=== PATIENT | male | born 1970 | race African-American/Black ===

== ENCOUNTER 2016-07-19 01:24 | Emergency (ER) | payer OTHER ==
[2016-07-19 02:01] LABS: Hematocrit 40 % (42-52); Hemoglobin 12.8 g/dl (14.0-18.0); Mean Corpuscular HGB Conc 32 g/dl (31-36); Mean Corpuscular Hemoglobin 26 pg (27-31); Mean Corpuscular Volume 83 fL (80-94); Mean Platelet Volume 7 um3 (7.4-10.4); Red Blood Count 4.89 10^6/ul (4.0-5.4); Red Cell Distribution Width 14 % (10.5-15); White Blood Count 6.6 10^3/ul (3.5-10.8)
[2016-07-19 02:13] LABS: Albumin 3.4 g/dL (3.2-5.2); BUN/Creatinine Ratio 13.8 (8-20); Calcium 8.7 mg/dL (8.6-10.3); EGFR African American 133.3 (>60); EGFR Non-African American 103.6 (>60); Globulin 3.9 g/dL (2-4); Magnesium 1.3 mg/dL (1.9-2.7); Potassium 3.7 mmol/L (3.5-5.0); Total Bilirubin 0.4 mg/dL (0.2-1.0); Total Protein 7.3 g/dL (6.4-8.9)
[2016-07-19 02:15] LABS: Troponin I 0.03 ng/mL (<0.04)
--- NOTE | 2016-07-19 02:42 | ED ---
Manisha Griffin Erika, scribed for Georges Hsu MD on 07/19/16 at 0141 . HPI Chest Pain - HPI Summary HPI Summary: Patient is a 46-year-old male presenting to the ED with a CC of sharp chest pain. Pt reports that at 18:00, he developed the chest pain while watching TV. Pain significantly worsened around 21:30. At that point, pain was not alleviated by NTG which he took at home. Pt was also given ASA and NTG by EMS. Pt currently rates pain a 10/10. He states pain is aggravated by movement, but not by deep breathing. Pt states this is the first chest pain he has experienced since he was discharged from the hospital with an NSTEMI in early June 2016. Pt also reports a cough since March 2016. - History of Current Complaint Time Seen by Provider: 07/19/16 01:31 Hx Obtained From: Patient Onset/Duration: Started Hours Ago, Atraumatic, Worse Since - 21:30 Timing: Constant Initial Severity: Mild Current Severity: Moderate Pain Intensity: 10 Pain Scale Used: 0-10 Numeric Chest Pain Radiates: No Character: Sharp/Stabbing Aggravating Factor(s): Movement Alleviating Factor(s): Nothing - Additional Pertinent History Primary Care Physician: [id number] - Allergy/Home Medications Allergies/Adverse Reactions: Allergies Allergy/AdvReac Type Severity Reaction Status Date / Time Fentanyl Allergy See Comment Verified 06/21/16 07:37 Shellfish Allergy Allergy See Comment Verified 06/19/16 22:08 PMH/Surg Hx/FS Hx/Imm Hx Endocrine/Hematology History: Reports: Hx Diabetes Denies: Hx Thyroid Disease Cardiovascular History: Reports: Hx Hypertension, Hx Myocardial Infarction - NSTEMI, Other Cardiovascular Problems/Disorders - Current admission for chest pain Respiratory History: Reports: Hx Asthma - SEASONAL Denies: Hx Chronic Obstructive Pulmonary Disease (COPD) GI History: Denies: Hx Ulcer Sensory History: Reports: Hx Contacts or Glasses Opthamlomology History: Reports: Hx Contacts or Glasses - Surgical History Surgery Procedure, Year, and Place: appendectomy Hx Anesthesia Reactions: No Infectious Disease History: Denies: Hx Hepatitis, Hx Human Immunodeficiency Virus (HIV), History Other Infectious Disease, Traveled Outside the [place] in Last 30 Days - Family History Known Family History: Positive: Cardiac Disease, Hypertension, Diabetes - Social History Lives: With Family Alcohol Use: Occasionally Hx Substance Use: Yes Substance Use Type: Reports: Marijuana Substance Use Comment - Amount & Last Used: OCCASIONALLY Hx Tobacco Use: Yes Smoking Status (MU): Former Smoker Review of Systems Negative: Fever Positive: Chest Pain Positive: Cough - baseline All Other Systems Reviewed And Are Negative: Yes Physical Exam Triage Information Reviewed: Yes Vital Signs On Initial Exam: Temp Pulse Resp BP Pulse Ox 97.8 F 90 16 115/78 97 07/19/16 01:28 07/19/16 01:28 07/19/16 01:28 07/19/16 01:28 07/19/16 01:28 Vital Signs Reviewed: Yes Appearance: Positive: Well-Appearing, No Pain Distress Skin: Positive: Warm Head/Face: Positive: Normal Head/Face Inspection Eyes: Positive: STEFANIA ENT: Positive: Hearing grossly normal Neck: Positive: Supple Respiratory/Lung Sounds: Positive: Clear to Auscultation, Breath Sounds Present Cardiovascular: Positive: Normal Abdomen Description: Positive: Nontender, No Organomegaly, Soft Bowel Sounds: Positive: Present Musculoskeletal: Positive: Strength/ROM Intact Neurological: Positive: Sensory/Motor Intact, Alert, Oriented to Person Place, Time Psychiatric: Positive: Normal Diagnostics - Vital Signs Vital Signs Temp Pulse Resp BP Pulse Ox 07/19/16 01:54 96 07/19/16 01:40 90 25 96 07/19/16 01:38 115/78 07/19/16 01:28 97.8 F 90 16 115/78 97 - Laboratory Lab Results: Lab Results 07/19/16 07/19/16 07/19/16 Range/Units 01:40 01:40 01:40 WBC 6.6 (3.5-10.8) 10^3/ul RBC 4.89 (4.0-5.4) 10^6/ul Hgb 12.8 L (14.0-18.0) g/dl Hct 40 L (42-52) % MCV 83 (80-94) fL MCH 26 L (27-31) pg MCHC 32 (31-36) g/dl RDW 14 (10.5-15) % Plt Count 260 (150-450) 10^3/ul MPV 7 L (7.4-10.4) um3 Neut % (Auto) 42.6 (38-83) % Lymph % (Auto) 30.2 (25-47) % [place] % (Auto) 13.8 H (1-9) % Eos % (Auto) 8.7 H (0-6) % Baso % (Auto) 4.7 H (0-2) % Absolute Neuts (auto) 2.8 (1.5-7.7) 10^3/ul Absolute Lymphs (auto) 2.0 (1.0-4.8) 10^3/ul Absolute Monos (auto) 0.9 H (0-0.8) 10^3/ul Absolute Eos (auto) 0.6 (0-0.6) 10^3/ul Absolute Basos (auto) 0.3 H (0-0.2) 10^3/ul Absolute Nucleated RBC 0 10^3/ul Nucleated RBC % 0.1 Sodium 132 L (133-145) mmol/L Potassium 3.7 (3.5-5.0) mmol/L Chloride 103 (101-111) mmol/L Carbon Dioxide 20 L (22-32) mmol/L Anion Gap 9 (2-11) mmol/L BUN 11 (6-24) mg/dL Creatinine 0.80 (0.67-1.17) mg/dL Est GFR ( Amer) 133.3 (>60) Est GFR (Non-Af Amer) 103.6 (>60) BUN/Creatinine Ratio 13.8 (8-20) Glucose 147 H (70-100) mg/dL Lactic Acid 2.1 H* (0.5-2.0) mmol/L Calcium 8.7 (8.6-10.3) mg/dL Magnesium 1.3 L (1.9-2.7) mg/dL Total Bilirubin 0.40 (0.2-1.0) mg/dL AST 35 (13-39) U/L ALT 64 H (7-52) U/L Alkaline Phosphatase 77 (34-104) U/L Troponin I 0.03 (<0.04) ng/mL Total Protein 7.3 (6.4-8.9) g/dL Albumin 3.4 (3.2-5.2) g/dL Globulin 3.9 (2-4) g/dL Albumin/Globulin Ratio 0.9 L (1-3) Result Diagrams: 07/19/16 01:40 07/19/16 01:40 Lab Statement: Any lab studies that have been ordered have been reviewed, and results considered in the medical decision making process. - Radiology CXR Xray Interpretation: No Acute Changes Radiology Interpretation Completed By: ED Physician - EKG 01:40 Cardiac Rate: NL - at 89 bpm EKG Rhythm: Sinus Rhythm Re-Evaluation - Re-Evaluation First Eval Re-Evaluation Time: 05:42 Change: Improved Comment: Pt feels improved and will be discharged Chest Pain Course/Dx - Course Assessment/Plan: A 46 y/o M presents to the ED with a CC of chest pain. Pt has a Hx of NSTEMI approximately 1 month ago. Pt was given ASA and NTG by EMS. EKG shows NSR. Initial troponin is 0.03, 3 hour repeat troponin is 0.01. Patient feels improved, and will be discharged home with follow up from cardiology. - Diagnoses Provider Diagnoses: Chest pain Discharge - Discharge Plan Condition: Stable Disposition: HOME Patient Education Materials: Chest Pain (ED) Referrals: Nancie Camarena MD [Primary Care Provider] - Byron Rai MD [Medical Doctor] - Additional Instructions: Please follow up with cardiology. The documentation as recorded by the Manisha melton Erika accurately reflects the service I personally performed and the decisions made by me, Georegs Hsu MD.
[2016-07-19 05:13] VITALS: BP 133/76
--- NOTE | 2016-07-19 07:23 | RAD ---
INDICATION: Chest pain COMPARISON: Most recent comparison chest x-rays dated June 19, 2016 TECHNIQUE: PA and lateral views of the chest were obtained. FINDINGS: The heart and mediastinum are normal in size and contour. The lungs are grossly clear. There is no evidence of large pleural effusion. Visualized bones are normal for the patient's age. There is no radiographic evidence of free air beneath the diaphragm IMPRESSION: No radiographic evidence of acute cardiopulmonary disease.
== END 2016-07-19 05:45 | disposition home or self-care (01) ==
LOC: ED 01:24
DX: R07.9 Chest pain, unspecified (principal); R05 Cough; Z87.891 Personal history of nicotine dependence
CPT/HCPCS: 36415; 71020; 80053; 83605; 83735; 84484; 85025; 93005; 99283

== ENCOUNTER 2016-08-07 10:27 | Emergency (ER) | payer OTHER ==
[2016-08-07] MEDS ORDERED: Aspirin Low Dose CHEW TAB* 81 MG PO ONE (14:08)
--- NOTE | 2016-08-07 14:08 | ED ---
Cornelius Griffin Janilya, scribed for Tashia Huerta MD on 08/07/16 at 1407 . Progress - Progress Note Progress Note: A 46 y/o male came in to [facility] presenting w/ a gradual onset of constant CP that started this morning at 0700. He states his pain radiates No SHx of tobacco or EtOH use. No FMHx DVT, NE, or heart problems. No PE risk factors. moth ago before ekg normal 1) labs 2) cxr 3) trop Course/Dx - Diagnoses Provider Diagnoses: Chest pain The documentation as recorded by the scribeCornelius Janilya accurately reflects the service I personally performed and the decisions made by me, Tashia Huerta MD.
[2016-08-07 14:34] LABS: Hematocrit 41 % (42-52); Hemoglobin 13.1 g/dl (14.0-18.0); Mean Corpuscular HGB Conc 32 g/dl (31-36); Mean Corpuscular Hemoglobin 26 pg (27-31); Mean Corpuscular Volume 82 fL (80-94); Mean Platelet Volume 7 um3 (7.4-10.4); Red Blood Count 5.02 10^6/ul (4.0-5.4); Red Cell Distribution Width 14 % (10.5-15); White Blood Count 5.5 10^3/ul (3.5-10.8)
--- NOTE | 2016-08-07 14:49 | RAD ---
HISTORY: Chest pain COMPARISONS: July 19, 2016 VIEWS:1: Single frontal portable view of the chest at 2:30 PM FINDINGS: LINES AND TUBES: None. CARDIOMEDIASTINAL SILHOUETTE: The cardiomediastinal silhouette is normal for portable technique. PLEURA: The costophrenic angles are sharp. No pleural abnormalities are noted. LUNG PARENCHYMA: The lungs are clear. ABDOMEN: The upper abdomen is clear. There is no subphrenic gas. BONES AND SOFT TISSUES: No bone or soft tissue abnormalities are noted. IMPRESSION: NO ACTIVE CARDIOPULMONARY DISEASE.
[2016-08-07 14:54] LABS: Troponin I 0.01 ng/mL (<0.04)
[2016-08-07 15:00] LABS: Albumin 3.5 g/dL (3.2-5.2); BUN/Creatinine Ratio 9.6 (8-20); Calcium 9.3 mg/dL (8.6-10.3); EGFR African American 127.7 (>60); EGFR Non-African American 99.3 (>60); Globulin 3.9 g/dL (2-4); Potassium 3.7 mmol/L (3.5-5.0); Total Bilirubin 0.5 mg/dL (0.2-1.0); Total Protein 7.4 g/dL (6.4-8.9)
[2016-08-07 17:06] VITALS: BP 122/86
--- NOTE | 2016-08-07 19:39 | ED ---
Nik Griffin Michael, scribed for Jose Palacio MD on 08/07/16 at 1717 . HPI Chest Pain - HPI Summary HPI Summary: 46 y/o male comes to the ED presenting with intermittent episodes of right sided chest pain since his heart catheterization. The pt reports the the chest pain today was not alleviated with medication. The chest pain is aggravated with position change and coughing. Also, the chest pain is reproducible with palpation of the chest. The pt denies SOB. The PMHx is significant for FL on 06/20/17 resulting in stent at the proximal circumflex and injection fraction was 55%. The LAD was mild to moderate narrowing and circumflex at 8% narrowing. RCA had diffuse narrowing up to 55%. - History of Current Complaint Chief Complaint: EDChestPainROMI Time Seen by Provider: 08/07/16 15:27 Hx Obtained From: Patient, Medical Records Onset/Duration: Started Hours Ago, Still Present Timing: Intermittent Initial Severity: Moderate Current Severity: Moderate Pain Intensity: 4 Pain Scale Used: 0-10 Numeric Chest Pain Location: Right Lateral Aggravating Factor(s): Other: - position change, coughing, palpation Alleviating Factor(s): Nothing Associated Signs and Symptoms: Positive: Chest Pain. Negative: Shortness of Breath - Additional Pertinent History Primary Care Physician: [id number] - Allergy/Home Medications Allergies/Adverse Reactions: Allergies Allergy/AdvReac Type Severity Reaction Status Date / Time Fentanyl Allergy See Comment Verified 08/07/16 11:09 Shellfish Allergy Allergy See Comment Verified 08/07/16 11:09 PMH/Surg Hx/FS Hx/Imm Hx Endocrine/Hematology History: Reports: Hx Diabetes Denies: Hx Thyroid Disease Cardiovascular History: Reports: Hx Hypertension, Hx Myocardial Infarction - NSTEMI, Other Cardiovascular Problems/Disorders - Current admission for chest pain Respiratory History: Reports: Hx Asthma - SEASONAL Denies: Hx Chronic Obstructive Pulmonary Disease (COPD), Other Respiratory Problems/Disorders GI History: Denies: Hx Ulcer Sensory History: Reports: Hx Contacts or Glasses Opthamlomology History: Reports: Hx Contacts or Glasses - Surgical History Surgery Procedure, Year, and Place: appendectomy Hx Anesthesia Reactions: No Infectious Disease History: No Infectious Disease History: Denies: Hx Hepatitis, Hx Human Immunodeficiency Virus (HIV), History Other Infectious Disease, Traveled Outside the [place] in Last 30 Days - Family History Known Family History: Positive: Cardiac Disease, Hypertension, Diabetes - Social History Occupation: Employed Full-time Lives: With Family Alcohol Use: Occasionally Hx Substance Use: Yes Substance Use Type: Reports: Marijuana Substance Use Comment - Amount & Last Used: OCCASIONALLY Hx Tobacco Use: Yes Smoking Status (MU): Former Smoker Review of Systems Negative: Fever Positive: Chest Pain Negative: Shortness Of Breath All Other Systems Reviewed And Are Negative: Yes Physical Exam - Summary Physical Exam Summary: Normal Physical General: Comfortable, pleasant, alert, no distress HEENT: Moist mucosa, pupils equal Neck: soft, supple, no adenopathy, no edema Heart: S1, S2, RRR, no murmurs, rubs, or gallops Lungs: Clear to auscultation, breathing comfortable, no wheezes or rales Abdominal: Soft, flat, nontender Extremities: No edema, no calf tenderness Neuro: Alert and oriented x 3 Psych: Logical, coherent Triage Information Reviewed: Yes Vital Signs On Initial Exam: Initial Vitals Temp Pulse Resp BP Pulse Ox 98.9 F 95 16 126/73 97 08/07/16 10:30 08/07/16 10:30 08/07/16 10:30 08/07/16 10:30 08/07/16 10:30 Vital Signs Reviewed: Yes Diagnostics - Vital Signs Vital Signs Temp Pulse Resp BP Pulse Ox 08/07/16 17:00 20 122/86 08/07/16 16:31 22 128/74 08/07/16 16:00 16 115/83 08/07/16 15:30 23 113/78 08/07/16 15:26 25 08/07/16 15:24 117/82 08/07/16 10:30 98.9 F 95 16 126/73 97 - Laboratory Lab Results: Lab Results 08/07/16 08/07/16 08/07/16 Range/Units 14:10 14:10 16:28 WBC 5.5 (3.5-10.8) 10^3/ul RBC 5.02 (4.0-5.4) 10^6/ul Hgb 13.1 L (14.0-18.0) g/dl Hct 41 L (42-52) % MCV 82 (80-94) fL MCH 26 L (27-31) pg MCHC 32 (31-36) g/dl RDW 14 (10.5-15) % Plt Count 270 (150-450) 10^3/ul MPV 7 L (7.4-10.4) um3 Neut % (Auto) 31.5 L (38-83) % Lymph % (Auto) 46.4 (25-47) % [place] % (Auto) 15.8 H (1-9) % Eos % (Auto) 5.3 (0-6) % Baso % (Auto) 1.0 (0-2) % Absolute Neuts (auto) 1.7 (1.5-7.7) 10^3/ul Absolute Lymphs (auto) 2.6 (1.0-4.8) 10^3/ul Absolute Monos (auto) 0.9 H (0-0.8) 10^3/ul Absolute Eos (auto) 0.3 (0-0.6) 10^3/ul Absolute Basos (auto) 0.1 (0-0.2) 10^3/ul Absolute Nucleated RBC 0 10^3/ul Nucleated RBC % 0 Sodium 136 (133-145) mmol/L Potassium 3.7 (3.5-5.0) mmol/L Chloride 106 (101-111) mmol/L Carbon Dioxide 24 (22-32) mmol/L Anion Gap 6 (2-11) mmol/L BUN 8 (6-24) mg/dL Creatinine 0.83 (0.67-1.17) mg/dL Est GFR ( Amer) 127.7 (>60) Est GFR (Non-Af Amer) 99.3 (>60) BUN/Creatinine Ratio 9.6 (8-20) Glucose 146 H (70-100) mg/dL Calcium 9.3 (8.6-10.3) mg/dL Total Bilirubin 0.50 (0.2-1.0) mg/dL AST 30 (13-39) U/L ALT 59 H (7-52) U/L Alkaline Phosphatase 74 (34-104) U/L Troponin I 0.01 0.01 (<0.04) ng/mL Total Protein 7.4 (6.4-8.9) g/dL Albumin 3.5 (3.2-5.2) g/dL Globulin 3.9 (2-4) g/dL Albumin/Globulin Ratio 0.9 L (1-3) Result Diagrams: 08/07/16 14:10 08/07/16 14:10 Lab Statement: Any lab studies that have been ordered have been reviewed, and results considered in the medical decision making process. - Radiology CXR Xray Interpretation: No Acute Changes Radiology Interpretation Completed By: Radiologist - EKG EKG EKG Interpretation: st flat in all anterior leads w/ mild-mod j point elevation EKG Comparison: No Significant Change - consistent with 07/19/16 Chest Pain Course/Dx - Course Assessment/Plan: Presentation with intermittent chest pain since his heart catheterization. Today, his right side chest pain was reproducible and increased with certain positions. 2 Trops are negative. Heart catheterization was reviewed and no other significant disease. Believe he is safe for discharge. I told him to follow up with his educational manager sooner than his september apt or to return here for any worsening symptoms. Also considered PE but he doesnt have SOB or tachycardia. - Chest Pain Differential Diagnosis/HQI/PQRI: Acute FL, ACS, Angina, Aortic Aneurysm, CHF, Chest Wall, GI Disease, Lower Respiratory Infection, Pulmonary Edema, Pulmonary Embolism - Diagnoses Provider Diagnoses: Chest pain Discharge - Discharge Plan Condition: Good Disposition: HOME Patient Education Materials: Chest Pain (ED) Referrals: Nancie Camarena MD [Primary Care Provider] - Additional Instructions: Call your educational manager to try to move up your appointment. The documentation as recorded by the Nik melton Michael accurately reflects the service I personally performed and the decisions made by me, Jsoe Palacio MD.
== END 2016-08-07 17:11 | disposition home or self-care (01) ==
LOC: ED 10:27
DX: R07.9 Chest pain, unspecified (principal); Z87.891 Personal history of nicotine dependence
CPT/HCPCS: 36415; 71010; 80053; 84484; 85025; 93005; 99282; A9270-GY

== ENCOUNTER 2016-09-12 15:37 | Emergency (ER) | payer OTHER ==
[2016-09-12 15:54] VITALS: BP 131/82
== END 2016-09-12 17:10 | disposition left against medical advice (07) ==
LOC: UCEAST 15:37
DX: R10.30 Lower abdominal pain, unspecified (principal); Z53.21 Procedure and treatment not carried out due to patient leaving prior to being seen by health care provider

== ENCOUNTER 2016-09-12 18:43 | Emergency (ER) | payer OTHER ==
[2016-09-12 18:54] VITALS: BP 147/86
--- NOTE | 2016-09-12 19:53 | ED ---
Lower Extremity - HPI Summary HPI Summary: Patient arrives to ED with CC of right groin pain after sustaining a fall 3 days ago. He states he immediately felt pain and iced the area with some relief. Yesterday he noticed a large red streak lateral to the groin on the R leg with tenderness to the touch. He has had a cardiac catheter placed through the right groin 2 months ago and states that area is part of the location of the pain. Denies fever or other pain. Patient is a diabetic, with recent RI and takes multiple medications. Denies blood thinners, but takes a baby aspirin daily. - History of Current Complaint Chief Complaint: EDGeneral Stated Complaint: STENT PROBLEM Time Seen by Provider: 09/12/16 19:07 Hx Obtained From: Family/Tariff Inspector Mechanism Of Injury: Fall From A Standing Position, Twisted Onset of Pain: Immediate Onset/Duration: Days Severity Initially: Moderate Severity Currently: Moderate Pain Intensity: 7 Pain Scale Used: 0-10 Numeric Timing: Constant Location: Is Discrete @ - right groin does not radiate Character Of Pain: Sharp, Aching Associated Signs And Symptoms: Positive: Swelling, Redness Aggravating Factor(s): Standing, Ambulation Alleviating Factor(s): Rest Able to Bear Weight: Yes - Risk Factors Gout Risk Factors: Age Over 40, Male, Diabetes, Hypertension, Hyperlipidemia, Obesity, Peripherial Vascular Disease DVT Risk Factors: Other: - previous surgery to area with stent placement Septic Arthritis Risk Factor: Immunosuppressed - Allergies/Home Medications Allergies/Adverse Reactions: Allergies Allergy/AdvReac Type Severity Reaction Status Date / Time Fentanyl Allergy See Comment Verified 08/07/16 11:09 Shellfish Allergy Allergy See Comment Verified 08/07/16 11:09 PMH/Surg Hx/FS Hx/Imm Hx Previously Healthy: Yes - diabetes, previous RI Endocrine/Hematology History: Reports: Hx Diabetes Denies: Hx Thyroid Disease Cardiovascular History: Reports: Hx Hypertension, Hx Myocardial Infarction - NSTEMI, Other Cardiovascular Problems/Disorders - Current admission for chest pain Respiratory History: Reports: Hx Asthma - SEASONAL Denies: Hx Chronic Obstructive Pulmonary Disease (COPD), Other Respiratory Problems/Disorders GI History: Denies: Hx Ulcer Sensory History: Reports: Hx Contacts or Glasses Opthamlomology History: Reports: Hx Contacts or Glasses - Cancer History Cancer Type, Location and Year: none - Surgical History Surgery Procedure, Year, and Place: appendectomy. stent placed June 2016 after heart attack Hx Anesthesia Reactions: No Infectious Disease History: No Infectious Disease History: Denies: Hx Hepatitis, Hx Human Immunodeficiency Virus (HIV), History Other Infectious Disease, Traveled Outside the [place] in Last 30 Days - Family History Known Family History: Positive: Cardiac Disease, Hypertension, Diabetes - Social History Occupation: Unemployed Lives: With Family Alcohol Use: Occasionally Hx Substance Use: Yes Substance Use Type: Reports: Marijuana Substance Use Comment - Amount & Last Used: OCCASIONALLY Hx Tobacco Use: Yes Smoking Status (MU): Former Smoker Review of Systems Constitutional: Negative Cardiovascular: Negative Respiratory: Negative Positive: no symptoms reported, see HPI Positive: Myalgia - right inguinal pain, Decreased ROM Positive: Other - erythema lateral to right inguinal region Neurological: Negative Psychological: Normal All Other Systems Reviewed And Are Negative: Yes Physical Exam Triage Information Reviewed: Yes Vital Signs On Initial Exam: Initial Vitals Temp Pulse Resp BP Pulse Ox 99.3 F 93 16 147/86 98 09/12/16 18:50 09/12/16 18:50 09/12/16 18:50 09/12/16 18:50 09/12/16 18:50 Vital Signs Reviewed: Yes Appearance: Positive: Well-Appearing, No Pain Distress, Well-Nourished Skin: Positive: Other - erythema lateral to right groin Eyes: Positive: Normal, EOMI Neck: Positive: Supple Respiratory/Lung Sounds: Positive: Clear to Auscultation, Breath Sounds Present Cardiovascular: Positive: Normal, Pulses are Symmetrical in both Upper and Lower Extremities Abdomen Description: Positive: Nontender, No Organomegaly Male Genital Exam: Positive: normal genitalia, no hernia, erythema - lateral to right inguinal area, inguinal tenderness - right sided Musculoskeletal: Positive: Pain @ - right inguinal area with adduction Neurological: Positive: Sensory/Motor Intact, Speech Normal Psychiatric: Positive: Normal AVPU Assessment: Alert Diagnostics - Vital Signs Vital Signs Temp Pulse Resp BP Pulse Ox 09/12/16 18:50 99.3 F 93 16 147/86 98 - Laboratory Lab Statement: Any lab studies that have been ordered have been reviewed, and results considered in the medical decision making process. Lower Extremity Course/Dx - Course Course Of Treatment: Patient sent to US for inguinal vein/artery visualization as well as incarcerated hernia. Negative US. Patient encouraged to take Tylenol 650mg three times daily and moist heat to the area 4-5 times daily. This is likely a muscle sprain second degree d/t redness and location. Return precautions given for suspician of cellulitis. No fever, no spreading of erythema x2 days makes this less likely. - Diagnoses Differential Diagnosis/HQI/PQRI: Positive: Cellulitis, Compartment Syndrome, Phlebitis, Sprain, Strain, Tendonitis, Other - incarcerated hernia, Provider Diagnoses: GROIN STRAIN Discharge - Discharge Plan Condition: Stable Disposition: HOME Patient Education Materials: Groin Strain (ED) Referrals: Nancie Camarena MD [Primary Care Provider] - Additional Instructions: Tylenol 650mg three times daily with meals for any discomfort and swelling. Heat pad to the area 4-5 times daily for 20 minutes at a time. Do not practice any stretching exercises over the next few days. If you develop worsening redness, notice redness streaking up or down the leg or spreading, or you develop a fever, come back to ED right away for further evaluation. Images - Images Full Body (No Head): 1 - pain, erythema and slight swelling. small previous incision scar from cardiac catheter stent placement
--- NOTE | 2016-09-12 21:11 | RAD ---
INDICATION: Right groin pain. Relevant history includes trip and fall injury 3 days earlier. Patient also underwent cardiac stent placement June 2016 from a right common femoral arteriotomy. COMPARISON: None. TECHNIQUE: Flores scale, color Doppler, and spectral analysis utilized to image the blood vessels and soft tissues of the left inguinal region. REPORT: The right common femoral artery, femoral profundus and proximal superficial femoral arteries are adequately patent without identification of aneurysm, pseudoaneurysm or focal filling defect. No evidence of DVT is seen in the veins of the right inguinal region. There is no hernia identified. Several lymph nodes are visualized but none are pathologically enlarged. No abnormal soft tissues or fluid collections are identified in the right inguinal region. IMPRESSION: Normal ultrasound of the right inguinal region as described above.
== END 2016-09-12 21:35 | disposition home or self-care (01) ==
LOC: ED 18:43
DX: S76.219A Strain of adductor muscle, fascia and tendon of unspecified thigh, initial encounter (principal); R22.41 Localized swelling, mass and lump, right lower limb; Z87.891 Personal history of nicotine dependence; W19.XXXA Unspecified fall, initial encounter; Y93.9 Activity, unspecified; Y92.9 Unspecified place or not applicable; Y99.9 Unspecified external cause status
CPT/HCPCS: 99281

== ENCOUNTER 2016-09-18 15:37 | Emergency (ER) | payer OTHER ==
[2016-09-18] MEDS ORDERED: Aspirin Low Dose CHEW TAB* 81 MG PO ONE (15:57)
--- NOTE | 2016-09-18 16:29 | RAD ---
INDICATION: Chest pain COMPARISON: August 07, 2016 TECHNIQUE: An AP portable view obtained at 1620 hours is submitted. FINDINGS: Bones/Soft Tissues: There are no acute bony findings. Cardiomediastinal: The cardiomediastinal silhouette is normal. Lungs: There are no infiltrates. Pleura: There are no pleural effusions. Other: None IMPRESSION: NO ACTIVE DISEASE.
[2016-09-18 16:41] LABS: Hematocrit 40 % (42-52); Hemoglobin 12.5 g/dl (14.0-18.0); Mean Corpuscular HGB Conc 32 g/dl (31-36); Mean Corpuscular Hemoglobin 26 pg (27-31); Mean Corpuscular Volume 83 fL (80-94); Mean Platelet Volume 8 um3 (7.4-10.4); Red Blood Count 4.75 10^6/ul (4.0-5.4); Red Cell Distribution Width 15 % (10.5-15); White Blood Count 6.6 10^3/ul (3.5-10.8)
[2016-09-18 17:12] LABS: Albumin 3.3 g/dL (3.2-5.2); BUN/Creatinine Ratio 13.3 (8-20); Calcium 8.9 mg/dL (8.6-10.3); EGFR African American 143.6 (>60); EGFR Non-African American 111.6 (>60); Globulin 4.1 g/dL (2-4); Magnesium 1.6 mg/dL (1.9-2.7); Total Bilirubin 0.4 mg/dL (0.2-1.0); Total Protein 7.4 g/dL (6.4-8.9)
[2016-09-18 17:35] LABS: T4 9.09 g/dL (6.09-12.23)
[2016-09-18 17:36] LABS: TSH (Thyroid Stimulating Horm) 1.89 mcIU/mL (0.34-5.60)
[2016-09-18 19:13] LABS: Urine Bilirubin Negative (Negative); Urine Glucose 1+(50 mg/dL) (Negative); Urine Nitrite Negative (Negative)
[2016-09-18 19:23] VITALS: BP 120/74
[2016-09-18] MEDS ORDERED: Magnesium Oxide TAB* 400 MG PO ONE (20:18)
--- NOTE | 2016-09-18 20:35 | ED ---
Manisha Griffin Erika, scribed for Ankit Tai MD on 09/18/16 at 1626 . HPI Chest Pain - HPI Summary HPI Summary: Patient is a 46-year-old male presenting to the ED with a CC of chest pain. Patient reports he was working at [employer], moving but not lifting, when the pain began. Pain radiates to his back. He states pain lasted 5 minutes, and was an 8/10 at its worst. Associated symptoms include SOB. He also reports lightheadedness which occurred a while after the pain had resolved, which has also resolved. He denies nausea and vomiting. Hx MN in June 2016 - patient reports that that felt like an asthma attack, and symptoms are somewhat similar. Pt has a cardiac stent. Hx asthma, HTN, diabetes, high cholesterol. FHx diabetes, HTN. Patient drinks occasionally, but does not smoke. - History of Current Complaint Chief Complaint: EDChestPainROMI Time Seen by Provider: 09/18/16 15:57 Hx Obtained From: Patient, Family/Traffic Survey Technician Onset/Duration: Started Hours Ago, Atraumatic, Resolved Timing: Constant Initial Severity: Moderate Current Severity: None Pain Intensity: 8 - at worst Pain Scale Used: 0-10 Numeric Chest Pain Radiates: Yes Chest Pain Radiates To:: Back Character: Sharp/Stabbing Alleviating Factor(s): Spontaneous Resolution Associated Signs and Symptoms: Positive: Shortness of Breath, Lightheadedness. Negative: Nausea, Vomiting - Additional Pertinent History Primary Care Physician: [id number] - Allergy/Home Medications Allergies/Adverse Reactions: Allergies Allergy/AdvReac Type Severity Reaction Status Date / Time Fentanyl Allergy See Comment Verified 08/07/16 11:09 Shellfish Allergy Allergy See Comment Verified 08/07/16 11:09 PMH/Surg Hx/FS Hx/Imm Hx Endocrine/Hematology History: Reports: Hx Diabetes Denies: Hx Thyroid Disease Cardiovascular History: Reports: Hx Hypercholesterolemia, Hx Hypertension, Hx Myocardial Infarction - NSTEMI, Other Cardiovascular Problems/Disorders - Current admission for chest pain Respiratory History: Reports: Hx Asthma - SEASONAL Denies: Hx Chronic Obstructive Pulmonary Disease (COPD), Other Respiratory Problems/Disorders GI History: Denies: Hx Ulcer Sensory History: Reports: Hx Contacts or Glasses Opthamlomology History: Reports: Hx Contacts or Glasses - Cancer History Cancer Type, Location and Year: none - Surgical History Surgery Procedure, Year, and Place: appendectomy. stent placed June 2016 after heart attack Hx Anesthesia Reactions: No Infectious Disease History: Denies: Hx Hepatitis, Hx Human Immunodeficiency Virus (HIV), History Other Infectious Disease - Family History Known Family History: Positive: Cardiac Disease, Hypertension, Diabetes - Social History Lives: With Family Alcohol Use: Occasionally Hx Substance Use: Yes Substance Use Type: Reports: Marijuana Substance Use Comment - Amount & Last Used: OCCASIONALLY Hx Tobacco Use: Yes Smoking Status (MU): Former Smoker Review of Systems Positive: Chest Pain Positive: Shortness Of Breath Negative: Vomiting, Nausea Neurological: Other - lightheadedness All Other Systems Reviewed And Are Negative: Yes Physical Exam - Summary Physical Exam Summary: VITAL SIGNS: Reviewed. GENERAL: Patient is an obese male who is lying comfortable in the stretcher. Patient is not in any acute respiratory distress. HEAD AND FACE: No signs of trauma. No ecchymosis, hematomas or skull depressions. No sinus tenderness. EYES: PERRLA, EOMI x 2, No injected conjunctiva, no nystagmus. EARS: Hearing grossly intact. Ear canals and tympanic membranes are within normal limits. MOUTH: Oropharynx within normal limits. NECK: Supple, trachea is midline, no adenopathy, no JVD, no carotid bruit, no c- spine tenderness, neck with full ROM. CHEST: Symmetric, no tenderness at palpation LUNGS: Clear to auscultation bilaterally. No wheezing or crackles. CVS: Regular rate and rhythm, S1 and S2 present, no murmurs or gallops appreciated. ABDOMEN: Soft, non-tender. No signs of distention. No rebound no guarding, and no masses palpated. Bowel sounds are normal. EXTREMITIES: FROM in all major joints, no edema, no cyanosis or clubbing. NEURO: Alert and oriented x 3. No acute neurological deficits. Speech is normal and follows commands. SKIN: Dry and warm Triage Information Reviewed: Yes Vital Signs On Initial Exam: Initial Vital Signs Temp 99.7 F 09/18/16 15:52 Pulse 84 09/18/16 15:52 Resp 20 09/18/16 15:52 BP 131/65 09/18/16 15:52 Pulse Ox 98 09/18/16 15:52 Vital Signs Reviewed: Yes Diagnostics - Vital Signs Vital Signs Temp Pulse Resp BP Pulse Ox 09/18/16 15:52 99.7 F 84 20 131/65 98 - Laboratory Lab Results: Lab Results 09/18/16 09/18/16 09/18/16 Range/Units 16:30 16:30 16:30 WBC 6.6 (3.5-10.8) 10^3/ul RBC 4.75 (4.0-5.4) 10^6/ul Hgb 12.5 L (14.0-18.0) g/dl Hct 40 L (42-52) % MCV 83 (80-94) fL MCH 26 L (27-31) pg MCHC 32 (31-36) g/dl RDW 15 (10.5-15) % Plt Count 275 (150-450) 10^3/ul MPV 8 (7.4-10.4) um3 Neut % (Auto) 32.2 L (38-83) % Lymph % (Auto) 46.9 (25-47) % [place] % (Auto) 14.1 H (1-9) % Eos % (Auto) 5.7 (0-6) % Baso % (Auto) 1.1 (0-2) % Absolute Neuts (auto) 2.1 (1.5-7.7) 10^3/ul Absolute Lymphs (auto) 3.1 (1.0-4.8) 10^3/ul Absolute Monos (auto) 0.9 H (0-0.8) 10^3/ul Absolute Eos (auto) 0.4 (0-0.6) 10^3/ul Absolute Basos (auto) 0.1 (0-0.2) 10^3/ul Absolute Nucleated RBC 0.01 10^3/ul Nucleated RBC % 0.1 INR (Anticoag Therapy) 1.00 (0.89-1.11) Sodium 133 (133-145) mmol/L Potassium 4.0 (3.5-5.0) mmol/L Chloride 104 (101-111) mmol/L Carbon Dioxide 24 (22-32) mmol/L Anion Gap 5 (2-11) mmol/L BUN 10 (6-24) mg/dL Creatinine 0.75 (0.67-1.17) mg/dL Est GFR ( Amer) 143.6 (>60) Est GFR (Non-Af Amer) 111.6 (>60) BUN/Creatinine Ratio 13.3 (8-20) Glucose 195 H (70-100) mg/dL Lactic Acid (0.5-2.0) mmol/L Calcium 8.9 (8.6-10.3) mg/dL Magnesium 1.6 L (1.9-2.7) mg/dL Total Bilirubin 0.40 (0.2-1.0) mg/dL AST 32 (13-39) U/L ALT 56 H (7-52) U/L Alkaline Phosphatase 84 (34-104) U/L Total Creatine Kinase 107 (10-223) U/L CK-MB (CK-2) 0.9 (0.6-6.3) ng/mL Troponin I 0.00 (<0.04) ng/mL B-Natriuretic Peptide ( - 100) pg/mL Total Protein 7.4 (6.4-8.9) g/dL Albumin 3.3 (3.2-5.2) g/dL Globulin 4.1 H (2-4) g/dL Albumin/Globulin Ratio 0.8 L (1-3) TSH Pending Thyroxine (T4) Pending 09/18/16 09/18/16 Range/Units 16:30 16:30 WBC (3.5-10.8) 10^3/ul RBC (4.0-5.4) 10^6/ul Hgb (14.0-18.0) g/dl Hct (42-52) % MCV (80-94) fL MCH (27-31) pg MCHC (31-36) g/dl RDW (10.5-15) % Plt Count (150-450) 10^3/ul MPV (7.4-10.4) um3 Neut % (Auto) (38-83) % Lymph % (Auto) (25-47) % [place] % (Auto) (1-9) % Eos % (Auto) (0-6) % Baso % (Auto) (0-2) % Absolute Neuts (auto) (1.5-7.7) 10^3/ul Absolute Lymphs (auto) (1.0-4.8) 10^3/ul Absolute Monos (auto) (0-0.8) 10^3/ul Absolute Eos (auto) (0-0.6) 10^3/ul Absolute Basos (auto) (0-0.2) 10^3/ul Absolute Nucleated RBC 10^3/ul Nucleated RBC % INR (Anticoag Therapy) (0.89-1.11) Sodium (133-145) mmol/L Potassium (3.5-5.0) mmol/L Chloride (101-111) mmol/L Carbon Dioxide (22-32) mmol/L Anion Gap (2-11) mmol/L BUN (6-24) mg/dL Creatinine (0.67-1.17) mg/dL Est GFR ( Amer) (>60) Est GFR (Non-Af Amer) (>60) BUN/Creatinine Ratio (8-20) Glucose (70-100) mg/dL Lactic Acid 1.4 (0.5-2.0) mmol/L Calcium (8.6-10.3) mg/dL Magnesium (1.9-2.7) mg/dL Total Bilirubin (0.2-1.0) mg/dL AST (13-39) U/L ALT (7-52) U/L Alkaline Phosphatase (34-104) U/L Total Creatine Kinase (10-223) U/L CK-MB (CK-2) (0.6-6.3) ng/mL Troponin I (<0.04) ng/mL B-Natriuretic Peptide 16 ( - 100) pg/mL Total Protein (6.4-8.9) g/dL Albumin (3.2-5.2) g/dL Globulin (2-4) g/dL Albumin/Globulin Ratio (1-3) TSH Thyroxine (T4) Result Diagrams: 09/18/16 16:30 09/18/16 16:30 Lab Statement: Any lab studies that have been ordered have been reviewed, and results considered in the medical decision making process. - Radiology CXR Radiology Interpretation Completed By: Radiologist - IMPRESSION: NO ACTIVE DISEASE. - EKG 16:39 Cardiac Rate: NL - at 74 bpm EKG Rhythm: Sinus Rhythm EKG Interpretation: No ST elevation Re-Evaluation - Re-Evaluation First Eval Re-Evaluation Time: 18:58 Comment: Discussed lab, EKG, and CXR results, and need for repeat troponin Second Eval Re-Evaluation Time: 20:22 Change: Improved Chest Pain Course/Dx - Course Assessment/Plan: Patient is a 46-year-old male presenting to the ED with a CC of chest pain. Patient reports he was working at [employer], moving but not lifting, when the pain began. Pain radiates to his back. He states pain lasted 5 minutes, and was an 8/10 at its worst. Associated symptoms include SOB. He also reports lightheadedness which occurred a while after the pain had resolved , which has also resolved. He denies nausea and vomiting. Hx MN in June 2016 - patient reports that that felt like an asthma attack, and symptoms are somewhat similar. Pt has a cardiac stent. Hx asthma, HTN, diabetes, high cholesterol. FHx diabetes, HTN. Patient drinks occasionally, but does not smoke. Blood work WNL except for mild anemia, glucose of 195, magnesium of 1.6, for which he was given magnesium oxide, troponin is 0.00 and the second troponin is also 0.00. EKG is NSR without ST elevations. CXR shows no acute pathology. In the ED course, the patient has remained stable. Initially the patient reported the pain was sharp, and lasted for 5 minutes. Therefore he has been asymptomatic. I do not believe the pt has acute coronary syndrome. Since the patient has no chest pain, he will be discharged home with follow up from his PCP and his staff genetic counselor. He is A&Ox3 and hemodynamically stable. I have nos supicion for PE since he is not tachycardic and he is not hypoxic. He has no chest pain at this time. I discussed all the findings and test results with the patient. Patient was instructed to return to the emergency room immediately if any of the symptoms return or worsens. Plan of care was discussed with the patient and understands and agrees. All questions were answered at patient satisfaction. There were no further complaints or concerns. Lung exam before discharge: CTA B/L. Good air exchange. No wheezing or crackles heard. CVS: S1 and S2 present. No murmurs appreciated. Patient is alert and oriented x 3. Patient is hemodynamically stable. Patient will be discharged home with follow up corrosion control technician in the next 2-3 days - Chest Pain Differential Diagnosis/HQI/PQRI: Acute MN, ACS, Angina, CHF, Chest Wall, GI Disease, Lower Respiratory Infection, Pulmonary Edema - Diagnoses Provider Diagnoses: Atypical chest pain Discharge - Discharge Plan Condition: Stable Disposition: HOME Patient Education Materials: Chest Pain (ED) Referrals: Nancie Camarena MD [Primary Care Provider] - Joaquín Jones MD [Medical Doctor] - Additional Instructions: Please follow up with your PCP The documentation as recorded by the Manisha melton Erika accurately reflects the service I personally performed and the decisions made by , Ankit Tai MD.
== END 2016-09-18 20:39 | disposition home or self-care (01) ==
LOC: ED 15:37
DX: R07.89 Other chest pain (principal); R06.02 Shortness of breath; R42 Dizziness and giddiness
CPT/HCPCS: 36415; 71010; 80053; 81003; 82550; 82553; 83605; 83735; 83880; 84436; 84443; 84484; 85025; 85610; 93005; 99283

== ENCOUNTER 2016-10-20 16:46 | Emergency (ER) | payer OTHER ==
[2016-10-20] MEDS ORDERED: Aspirin Low Dose CHEW TAB* 81 MG PO ONE (17:15)
[2016-10-20 17:56] LABS: Hematocrit 41 % (42-52); Hemoglobin 13.3 g/dl (14.0-18.0); Mean Corpuscular HGB Conc 32 g/dl (31-36); Mean Corpuscular Hemoglobin 27 pg (27-31); Mean Corpuscular Volume 83 fL (80-94); Mean Platelet Volume 8 um3 (7.4-10.4); Red Blood Count 4.99 10^6/ul (4.0-5.4); Red Cell Distribution Width 14 % (10.5-15)
[2016-10-20 18:09] LABS: Albumin 3.5 g/dL (3.2-5.2); BUN/Creatinine Ratio 14.5 (8-20); Calcium 9.4 mg/dL (8.6-10.3); EGFR African American 127.7 (>60); EGFR Non-African American 99.3 (>60); Globulin 4.2 g/dL (2-4); Potassium 3.9 mmol/L (3.5-5.0); Total Bilirubin 0.3 mg/dL (0.2-1.0); Total Protein 7.7 g/dL (6.4-8.9)
[2016-10-20] MEDS ORDERED: Iodixanol* (CONTRAST) 320 MG/ML 100 ML SDV IV ONE (18:20)
--- NOTE | 2016-10-20 18:59 | RAD ---
Indication: Right-sided chest pain. Contrast: Administered 89.0 ml of VISAPAQUE 320 mgi/ml CT a of the chest was performed after IV contrast demonstration. Coronal and sagittal reconstructed images were obtained. The pulmonary arterial tree is well opacified. There are no filling defects present to suggest pulmonary embolus. Inferior thyroid lobes are unremarkable. Prevascular space lymphadenopathy is noted measuring up to 12 mm. Subcarinal lymphadenopathy measuring up to 19 mm is noted. Right hilar adenopathy measuring up to 9 mm is noted. The heart demonstrates no pericardial effusion. The trachea and major bronchi appear patent. The lung abarca demonstrate no focal nodules or alveolar consolidation. No pleural fluid is identified. CT of the chest demonstrates no evidence of bony sclerosis or lytic areas. The visualized abdominal organs are grossly unremarkable. There are however some enlarged peripancreatic lymph node and celiac axis lymph nodes measuring up to 14 mm. These were present previously. IMPRESSION: THERE IS NO EVIDENCE OF PULMONARY EMBOLUS. THERE ARE SMALL TO MODERATE-SIZED MEDIASTINAL NODES THE PREVASCULAR SPACE AND SUBCARINAL SPACE.
[2016-10-20 21:45] VITALS: BP 134/86
--- NOTE | 2016-10-20 22:20 | ED ---
Nik Griffin Michael, scribed for Nasim Chou MD on 10/20/16 at 1719 . HPI Chest Pain - HPI Summary HPI Summary: 46 y/o male comes to the ED presenting with intermittent episodes of sharp right sided chest pain that started at 1500 today while the pt was at rest. The CP is aggravated with deep breathes and was slightly spontaneously alleviated while at the ED. The pt also c/o SOB. He states his sx are similar to the ones he had before his [place] last year. The pt denies bilateral LE swelling, nausea, and diaphoresis. The PMHx is significant for [place], HTN, asthma, and DM. The pt takes Brilinta and ASA. - History of Current Complaint Chief Complaint: EDChestPainROMI Time Seen by Provider: 10/20/16 17:05 Hx Obtained From: Patient, Medical Records Onset/Duration: Started Hours Ago, Still Present Time of Onset: 15:00 Timing: Intermittent Initial Severity: Moderate Current Severity: Moderate Pain Intensity: 5 Pain Scale Used: 0-10 Numeric Chest Pain Location: Right Lateral Chest Pain Radiates: No Character: Sharp/Stabbing Aggravating Factor(s): Deep Breaths Alleviating Factor(s): Spontaneous Resolution Associated Signs and Symptoms: Positive: Chest Pain, Shortness of Breath. Negative: Diaphoresis, Nausea, Calf Pain/Swelling - Additional Pertinent History Primary Care Physician: [id number] - Allergy/Home Medications Allergies/Adverse Reactions: Allergies Allergy/AdvReac Type Severity Reaction Status Date / Time Fentanyl Allergy See Comment Verified 08/07/16 11:09 Shellfish Allergy Allergy See Comment Verified 08/07/16 11:09 PMH/Surg Hx/FS Hx/Imm Hx Endocrine/Hematology History: Reports: Hx Diabetes Denies: Hx Thyroid Disease Cardiovascular History: Reports: Hx Hypercholesterolemia, Hx Hypertension, Hx Myocardial Infarction - NSTEMI, Other Cardiovascular Problems/Disorders - Current admission for chest pain Respiratory History: Reports: Hx Asthma - SEASONAL Denies: Hx Chronic Obstructive Pulmonary Disease (COPD), Other Respiratory Problems/Disorders GI History: Denies: Hx Ulcer Sensory History: Reports: Hx Contacts or Glasses Opthamlomology History: Reports: Hx Contacts or Glasses - Cancer History Cancer Type, Location and Year: none - Surgical History Surgery Procedure, Year, and Place: appendectomy. stent placed June 2016 after heart attack Hx Anesthesia Reactions: No Infectious Disease History: No Infectious Disease History: Denies: Hx Hepatitis, Hx Human Immunodeficiency Virus (HIV), History Other Infectious Disease, Traveled Outside the [place] in Last 30 Days - Family History Known Family History: Positive: Cardiac Disease, Hypertension, Diabetes - Social History Occupation: Unemployed Lives: With Family Alcohol Use: Occasionally Hx Substance Use: Yes Substance Use Type: Reports: Marijuana Substance Use Comment - Amount & Last Used: OCCASIONALLY Hx Tobacco Use: Yes Smoking Status (MU): Former Smoker Review of Systems Negative: Skin Diaphoresis Positive: Chest Pain Positive: Shortness Of Breath Negative: Nausea Negative: Edema All Other Systems Reviewed And Are Negative: Yes Physical Exam Triage Information Reviewed: Yes Vital Signs On Initial Exam: Initial Vitals Temp Pulse Resp BP Pulse Ox 98.7 F 97 18 132/114 97 10/20/16 16:56 10/20/16 16:56 10/20/16 16:56 10/20/16 16:56 10/20/16 16:56 Vital Signs Reviewed: Yes Appearance: Positive: Well-Appearing, No Pain Distress Skin: Positive: Warm, Skin Color Reflects Adequate Perfusion, Dry Head/Face: Positive: Normal Head/Face Inspection Eyes: Positive: Normal ENT: Positive: Normal ENT inspection Neck: Positive: Supple, Nontender Respiratory/Lung Sounds: Positive: Clear to Auscultation, Breath Sounds Present Cardiovascular: Positive: RRR Abdomen Description: Positive: Nontender, Soft Bowel Sounds: Positive: Present Musculoskeletal: Positive: Normal Neurological: Positive: Normal Psychiatric: Positive: Affect/Mood Appropriate - Cameron Coma Scale Coma Scale Total: 15 Diagnostics - Vital Signs Vital Signs Temp Pulse Resp BP Pulse Ox 10/20/16 17:04 18 10/20/16 16:56 98.7 F 98 18 132/114 97 - Laboratory Lab Results: Lab Results 10/20/16 10/20/16 10/20/16 Range/Units 17:39 17:39 17:39 WBC 7.0 (3.5-10.8) 10^3/ul RBC 4.99 (4.0-5.4) 10^6/ul Hgb 13.3 L (14.0-18.0) g/dl Hct 41 L (42-52) % MCV 83 (80-94) fL MCH 27 (27-31) pg MCHC 32 (31-36) g/dl RDW 14 (10.5-15) % Plt Count 303 (150-450) 10^3/ul MPV 8 (7.4-10.4) um3 Neut % (Auto) 34.0 L (38-83) % Lymph % (Auto) 43.6 (25-47) % [place] % (Auto) 16.5 H (1-9) % Eos % (Auto) 5.2 (0-6) % Baso % (Auto) 0.7 (0-2) % Absolute Neuts (auto) 2.4 (1.5-7.7) 10^3/ul Absolute Lymphs (auto) 3.0 (1.0-4.8) 10^3/ul Absolute Monos (auto) 1.2 H (0-0.8) 10^3/ul Absolute Eos (auto) 0.4 (0-0.6) 10^3/ul Absolute Basos (auto) 0 (0-0.2) 10^3/ul Absolute Nucleated RBC 0.01 10^3/ul Nucleated RBC % 0.1 INR (Anticoag Therapy) (0.89-1.11) Sodium 134 (133-145) mmol/L Potassium 3.9 (3.5-5.0) mmol/L Chloride 102 (101-111) mmol/L Carbon Dioxide 23 (22-32) mmol/L Anion Gap 9 (2-11) mmol/L BUN 12 (6-24) mg/dL Creatinine 0.83 (0.67-1.17) mg/dL Est GFR ( Amer) 127.7 (>60) Est GFR (Non-Af Amer) 99.3 (>60) BUN/Creatinine Ratio 14.5 (8-20) Glucose 308 H (70-100) mg/dL Lactic Acid 2.1 H* (0.5-2.0) mmol/L Calcium 9.4 (8.6-10.3) mg/dL Total Bilirubin 0.30 (0.2-1.0) mg/dL AST 26 (13-39) U/L ALT 50 (7-52) U/L Alkaline Phosphatase 85 (34-104) U/L Troponin I 0.00 (<0.04) ng/mL Total Protein 7.7 (6.4-8.9) g/dL Albumin 3.5 (3.2-5.2) g/dL Globulin 4.2 H (2-4) g/dL Albumin/Globulin Ratio 0.8 L (1-3) 10/20/16 10/20/16 Range/Units 17:39 20:28 WBC (3.5-10.8) 10^3/ul RBC (4.0-5.4) 10^6/ul Hgb (14.0-18.0) g/dl Hct (42-52) % MCV (80-94) fL MCH (27-31) pg MCHC (31-36) g/dl RDW (10.5-15) % Plt Count (150-450) 10^3/ul MPV (7.4-10.4) um3 Neut % (Auto) (38-83) % Lymph % (Auto) (25-47) % [place] % (Auto) (1-9) % Eos % (Auto) (0-6) % Baso % (Auto) (0-2) % Absolute Neuts (auto) (1.5-7.7) 10^3/ul Absolute Lymphs (auto) (1.0-4.8) 10^3/ul Absolute Monos (auto) (0-0.8) 10^3/ul Absolute Eos (auto) (0-0.6) 10^3/ul Absolute Basos (auto) (0-0.2) 10^3/ul Absolute Nucleated RBC 10^3/ul Nucleated RBC % INR (Anticoag Therapy) 0.93 (0.89-1.11) Sodium (133-145) mmol/L Potassium (3.5-5.0) mmol/L Chloride (101-111) mmol/L Carbon Dioxide (22-32) mmol/L Anion Gap (2-11) mmol/L BUN (6-24) mg/dL Creatinine (0.67-1.17) mg/dL Est GFR ( Amer) (>60) Est GFR (Non-Af Amer) (>60) BUN/Creatinine Ratio (8-20) Glucose (70-100) mg/dL Lactic Acid (0.5-2.0) mmol/L Calcium (8.6-10.3) mg/dL Total Bilirubin (0.2-1.0) mg/dL AST (13-39) U/L ALT (7-52) U/L Alkaline Phosphatase (34-104) U/L Troponin I 0.01 (<0.04) ng/mL Total Protein (6.4-8.9) g/dL Albumin (3.2-5.2) g/dL Globulin (2-4) g/dL Albumin/Globulin Ratio (1-3) Result Diagrams: 10/20/16 17:39 10/20/16 17:39 Lab Statement: Any lab studies that have been ordered have been reviewed, and results considered in the medical decision making process. - CT CTA Chest CT Interpretation: Positive (See Comments) - THERE IS NO EVIDENCE OF PULMONARY EMBOLUS. THERE ARE SMALL TO MODERATE-SIZED MEDIASTINAL NODES THE PREVASCULAR SPACE AND SUBCARINAL SPACE. CT Interpretation Completed By: Radiologist - EKG EK EKG Rhythm: Sinus Rhythm - 96 EKG Interpretation: non specific changes. unchanged Chest Pain Course/Dx - Course Course Of Treatment: Mr. Powers presented with an atypical chest pain that got better on its own. His EDACS score was 10 and he was R/U with two troponins. A CTA was negative for PE. I recommended F/U with Dr. Jones. - Diagnoses Provider Diagnoses: Chest pain Discharge - Discharge Plan Condition: Stable Disposition: HOME Patient Education Materials: Chest Pain (ED) Referrals: Nancie Camarena MD [Primary Care Provider] - Additional Instructions: You should follow up with Dr. Camarena within the next 2 days. Please return to the ED if your symptoms worsen. The documentation as recorded by the Nik melton Michael accurately reflects the service I personally performed and the decisions made by me, Nasim Chou MD.
== END 2016-10-20 22:02 | disposition home or self-care (01) ==
LOC: ED 16:46
DX: R07.9 Chest pain, unspecified (principal); R06.02 Shortness of breath; Z87.891 Personal history of nicotine dependence
CPT/HCPCS: 36415; 71275; 80053; 83605; 84484; 85025; 85610; 93005; 99283; Q9967

== ENCOUNTER 2016-11-29 07:57 | Emergency (ER) | payer OTHER ==
[2016-11-29] MEDS ORDERED: Aspirin Low Dose CHEW TAB* 81 MG PO ONE (08:07)
[2016-11-29 08:41] LABS: Hematocrit 45 % (42-52); Hemoglobin 14.3 g/dl (14.0-18.0); Mean Corpuscular HGB Conc 32 g/dl (31-36); Mean Corpuscular Hemoglobin 27 pg (27-31); Mean Corpuscular Volume 83 fL (80-94); Mean Platelet Volume 8 um3 (7.4-10.4); Red Blood Count 5.38 10^6/ul (4.0-5.4); Red Cell Distribution Width 14 % (10.5-15); White Blood Count 6.5 10^3/ul (3.5-10.8)
--- NOTE | 2016-11-29 08:45 | RAD ---
INDICATION: Chest pain COMPARISON: September 18, 2016 TECHNIQUE: An AP portable view obtained at 08 hours is submitted. FINDINGS: Bones/Soft Tissues: There are no acute bony findings. Cardiomediastinal: The cardiomediastinal silhouette is normal. Lungs: There are no infiltrates. Pleura: There are no pleural effusions. Other: None IMPRESSION: NO ACTIVE DISEASE.
[2016-11-29 08:54] LABS: Albumin 3.6 g/dL (3.2-5.2); BUN/Creatinine Ratio 12.9 (8-20); Calcium 9.1 mg/dL (8.6-10.3); EGFR African American 124.3 (>60); EGFR Non-African American 96.6 (>60); Globulin 4.5 g/dL (2-4); Potassium 4.6 mmol/L (3.5-5.0); Total Bilirubin 0.4 mg/dL (0.2-1.0); Total Protein 8.1 g/dL (6.4-8.9)
[2016-11-29 09:26] LABS: TSH (Thyroid Stimulating Horm) 3.26 mcIU/mL (0.34-5.60)
[2016-11-29 09:56] LABS: Urine Bilirubin Negative (Negative); Urine Glucose 3+(>=500 mg/dL) (Negative); Urine Nitrite Negative (Negative)
[2016-11-29] MEDS ORDERED: Insulin REGULAR(*) 1 UNITS UNIT IV PUSH ONE (10:19)
[2016-11-29] MEDS ORDERED: Ketorolac INJ* 30 MG/ML 1 ML VIAL IM ONE (12:59)
--- NOTE | 2016-11-29 13:21 | ED ---
Sharonda Griffin Matthew, scribed for Ankit Tai MD on 11/29/16 at 0814 . HPI Chest Pain - HPI Summary HPI Summary: A 46 y/o male presents to the ED right sided chest pain since 729 after physical therapy today. He's been going to ED for neck spasms. The pain is rated 7/10 in severity, and initially radiated to the back, but now remains localized. He denies nausea, vomiting, diaphoresis, and near syncope/syncope. He 's had chest pain in the past and had a stress test in , which returned normal. Hx of HTN and Diabetes. No PMHx of HLD. The patient is on metformin. - History of Current Complaint Chief Complaint: EDChestPainROMI Time Seen by Provider: 11/29/16 08:07 Hx Obtained From: Patient Onset/Duration: Started Hours Ago, Atraumatic, Still Present Timing: Constant Initial Severity: Moderate Current Severity: Moderate Pain Intensity: 7 Pain Scale Used: Adult Non Verbal Chest Pain Location: Right Anterior Chest Pain Radiates: No Character: Sharp/Stabbing Aggravating Factor(s): Other: - Palpation Alleviating Factor(s): Nothing Associated Signs and Symptoms: Positive: Chest Pain. Negative: Diaphoresis, Nausea, Vomiting - Additional Pertinent History Primary Care Physician: [id number] - Allergy/Home Medications Allergies/Adverse Reactions: Allergies Allergy/AdvReac Type Severity Reaction Status Date / Time Fentanyl Allergy See Comment Verified 11/29/16 08:00 Shellfish Allergy Allergy See Comment Verified 11/29/16 08:00 PMH/Surg Hx/FS Hx/Imm Hx Endocrine/Hematology History: Reports: Hx Diabetes Denies: Hx Thyroid Disease Cardiovascular History: Reports: Hx Hypercholesterolemia, Hx Hypertension, Hx Myocardial Infarction - NSTEMI, Other Cardiovascular Problems/Disorders - Current admission for chest pain Respiratory History: Reports: Hx Asthma - SEASONAL Denies: Hx Chronic Obstructive Pulmonary Disease (COPD), Other Respiratory Problems/Disorders GI History: Denies: Hx Ulcer Sensory History: Reports: Hx Contacts or Glasses Opthamlomology History: Reports: Hx Contacts or Glasses - Cancer History Cancer Type, Location and Year: none - Surgical History Surgery Procedure, Year, and Place: appendectomy. stent placed June 2016 after heart attack Hx Anesthesia Reactions: No Infectious Disease History: No Infectious Disease History: Denies: Hx Hepatitis, Hx Human Immunodeficiency Virus (HIV), History Other Infectious Disease, Traveled Outside the [place] in Last 30 Days - Family History Known Family History: Positive: Cardiac Disease, Hypertension, Diabetes - Social History Alcohol Use: Occasionally Hx Substance Use: Yes Substance Use Type: Reports: Marijuana Substance Use Comment - Amount & Last Used: OCCASIONALLY Hx Tobacco Use: Yes Smoking Status (MU): Former Smoker Review of Systems Constitutional: Negative Negative: Skin Diaphoresis Eyes: Negative ENT: Negative Positive: Chest Pain - RT sided; reproducible Positive: Shortness Of Breath Gastrointestinal: Negative Negative: Vomiting, Nausea Genitourinary: Negative Musculoskeletal: Negative Skin: Negative Neurological: Negative Psychological: Normal All Other Systems Reviewed And Are Negative: Yes Physical Exam - Summary Physical Exam Summary: VITAL SIGNS: Reviewed. GENERAL: Patient is a well developed and nourished male who is lying comfortable in the stretcher. Patient is not in any acute respiratory distress. HEAD AND FACE: No signs of trauma. No ecchymosis, hematomas or skull depressions. No sinus tenderness. EYES: PERRLA, EOMI x 2, No injected conjunctiva, no nystagmus. EARS: Hearing grossly intact. Ear canals and tympanic membranes are within normal limits. MOUTH: Oropharynx within normal limits. NECK: Supple, trachea is midline, no adenopathy, no JVD, no carotid bruit, no c- spine tenderness, neck with full ROM. CHEST: Symmetric, positive tenderness at palpation in the right side of the chest. LUNGS: Clear to auscultation bilaterally. No wheezing or crackles. CVS: Regular rate and rhythm, S1 and S2 present, no murmurs or gallops appreciated. ABDOMEN: Soft, non-tender. No signs of distention. No rebound no guarding, and no masses palpated. Bowel sounds are normal. EXTREMITIES: FROM in all major joints, no edema, no cyanosis or clubbing. NEURO: Alert and oriented x 3. No acute neurological deficits. Speech is normal and follows commands. SKIN: Dry and warm Triage Information Reviewed: Yes Vital Signs On Initial Exam: Initial Vitals Temp Pulse Resp BP Pulse Ox 98.7 F 94 16 142/79 99 11/29/16 08:01 11/29/16 08:01 11/29/16 08:01 11/29/16 08:01 11/29/16 08:01 Vital Signs Reviewed: Yes Diagnostics - Vital Signs Vital Signs Temp Pulse Resp BP Pulse Ox 11/29/16 08:01 98.7 F 94 16 142/79 99 - Laboratory Lab Results: Lab Results 11/29/16 11/29/16 11/29/16 Range/Units 08:25 08:25 08:25 WBC 6.5 (3.5-10.8) 10^3/ul RBC 5.38 (4.0-5.4) 10^6/ul Hgb 14.3 (14.0-18.0) g/dl Hct 45 (42-52) % MCV 83 (80-94) fL MCH 27 (27-31) pg MCHC 32 (31-36) g/dl RDW 14 (10.5-15) % Plt Count 281 (150-450) 10^3/ul MPV 8 (7.4-10.4) um3 Neut % (Auto) 36.8 L (38-83) % Lymph % (Auto) 42.1 (25-47) % [place] % (Auto) 15.6 H (1-9) % Eos % (Auto) 4.2 (0-6) % Baso % (Auto) 1.3 (0-2) % Absolute Neuts (auto) 2.4 (1.5-7.7) 10^3/ul Absolute Lymphs (auto) 2.7 (1.0-4.8) 10^3/ul Absolute Monos (auto) 1.0 H (0-0.8) 10^3/ul Absolute Eos (auto) 0.3 (0-0.6) 10^3/ul Absolute Basos (auto) 0.1 (0-0.2) 10^3/ul Absolute Nucleated RBC 0.01 10^3/ul Nucleated RBC % 0.1 Sodium 131 L (133-145) mmol/L Potassium 4.6 (3.5-5.0) mmol/L Chloride 101 (101-111) mmol/L Carbon Dioxide 21 L (22-32) mmol/L Anion Gap 9 (2-11) mmol/L BUN 11 (6-24) mg/dL Creatinine 0.85 (0.67-1.17) mg/dL Est GFR ( Amer) 124.3 (>60) Est GFR (Non-Af Amer) 96.6 (>60) BUN/Creatinine Ratio 12.9 (8-20) Glucose 333 H (70-100) mg/dL Lactic Acid 1.5 (0.5-2.0) mmol/L Calcium 9.1 (8.6-10.3) mg/dL Total Bilirubin 0.40 (0.2-1.0) mg/dL AST 31 (13-39) U/L ALT 57 H (7-52) U/L Alkaline Phosphatase 65 (34-104) U/L Total Creatine Kinase 129 (10-223) U/L CK-MB (CK-2) 1.3 (0.6-6.3) ng/mL Myoglobin 17.3 L (17.4-105.7) ng/mL Troponin I 0.00 (<0.04) ng/mL Total Protein 8.1 (6.4-8.9) g/dL Albumin 3.6 (3.2-5.2) g/dL Globulin 4.5 H (2-4) g/dL Albumin/Globulin Ratio 0.8 L (1-3) TSH 3.26 (0.34-5.60) mcIU/mL Urine Color Urine Appearance Urine pH (5-9) Ur Specific [place] (1.010-1.030) Urine Protein (Negative) Urine Ketones (Negative) Urine Blood (Negative) Urine Nitrate (Negative) Urine Bilirubin (Negative) Urine Urobilinogen (Negative) Ur Leukocyte Esterase (Negative) Urine Glucose (Negative) 11/29/16 Range/Units 09:45 WBC (3.5-10.8) 10^3/ul RBC (4.0-5.4) 10^6/ul Hgb (14.0-18.0) g/dl Hct (42-52) % MCV (80-94) fL MCH (27-31) pg MCHC (31-36) g/dl RDW (10.5-15) % Plt Count (150-450) 10^3/ul MPV (7.4-10.4) um3 Neut % (Auto) (38-83) % Lymph % (Auto) (25-47) % [place] % (Auto) (1-9) % Eos % (Auto) (0-6) % Baso % (Auto) (0-2) % Absolute Neuts (auto) (1.5-7.7) 10^3/ul Absolute Lymphs (auto) (1.0-4.8) 10^3/ul Absolute Monos (auto) (0-0.8) 10^3/ul Absolute Eos (auto) (0-0.6) 10^3/ul Absolute Basos (auto) (0-0.2) 10^3/ul Absolute Nucleated RBC 10^3/ul Nucleated RBC % Sodium (133-145) mmol/L Potassium (3.5-5.0) mmol/L Chloride (101-111) mmol/L Carbon Dioxide (22-32) mmol/L Anion Gap (2-11) mmol/L BUN (6-24) mg/dL Creatinine (0.67-1.17) mg/dL Est GFR ( Amer) (>60) Est GFR (Non-Af Amer) (>60) BUN/Creatinine Ratio (8-20) Glucose (70-100) mg/dL Lactic Acid (0.5-2.0) mmol/L Calcium (8.6-10.3) mg/dL Total Bilirubin (0.2-1.0) mg/dL AST (13-39) U/L ALT (7-52) U/L Alkaline Phosphatase (34-104) U/L Total Creatine Kinase (10-223) U/L CK-MB (CK-2) (0.6-6.3) ng/mL Myoglobin (17.4-105.7) ng/mL Troponin I (<0.04) ng/mL Total Protein (6.4-8.9) g/dL Albumin (3.2-5.2) g/dL Globulin (2-4) g/dL Albumin/Globulin Ratio (1-3) TSH (0.34-5.60) mcIU/mL Urine Color Yellow Urine Appearance Clear Urine pH 5.0 (5-9) Ur Specific [place] 1.026 (1.010-1.030) Urine Protein Negative (Negative) Urine Ketones Negative (Negative) Urine Blood Negative (Negative) Urine Nitrate Negative (Negative) Urine Bilirubin Negative (Negative) Urine Urobilinogen Negative (Negative) Ur Leukocyte Esterase Negative (Negative) Urine Glucose 3+(>=500 mg/dl) H (Negative) Result Diagrams: 11/29/16 08:25 11/29/16 08:25 Lab Statement: Any lab studies that have been ordered have been reviewed, and results considered in the medical decision making process. - Radiology CXR Xray Interpretation: No Acute Changes - IMPRESSION: NO ACTIVE DISEASE. Radiology Interpretation Completed By: Radiologist - EKG 8:03 Cardiac Rate: NL - 86 bpm EKG Rhythm: Sinus Rhythm EKG Interpretation: NO ST elevation Chest Pain Course/Dx - Course Assessment/Plan: A 46 y/o male presents to the ED right sided chest pain since 729 after physical therapy today. He's been going to ED for neck spasms. The pain is rated 7/10 in severity, and initially radiated to the back, but now remains localized. He denies nausea, vomiting, diaphoresis, and near syncope/ syncope. He's had chest pain in the past and had a stress test in , which returned normal. Hx of HTN and Diabetes. No PMHx of HLD. The patient is on metformin. Blood work WNL expect glucose of 333. Troponin 1 was 0.00, troponin 2 was 0.01. EKG is NSR without ST elevation. The patients chest pain is reproducible in the right side of the chest, is not associated with exertion , and is a sharp pain. Therefore, I have low suspicion for ACS since the EKG and troponins are WNL. I have no suspicion for PE since the patentis not tachycardic and his saturation is 99% on RA. Will give the patient Toradol and hell be discharged home with PCP follow-up. The patient was instructed to return to the ED if he developed any other types of chest pain associated with n /v, SOB, dizziness, or feeling like hes going to pass out. The patient understands and agrees. He is hemodynamically table and A&Ox3. - Chest Pain Differential Diagnosis/HQI/PQRI: Acute [place], ACS, Angina, CHF, Chest Wall, GI Disease, Lower Respiratory Infection - Diagnoses Provider Diagnoses: Chest pain Discharge - Discharge Plan Condition: Stable Disposition: HOME Patient Education Materials: Chest Pain (ED) Referrals: Nancie Camarena MD [Primary Care Provider] - 2 Days Additional Instructions: Please follow-up with your primary care physician in 2 days. The documentation as recorded by the Sharonda melton Matthew accurately reflects the service I personally performed and the decisions made by me, Ankit Tai MD.
[2016-11-29] MEDS ORDERED: Ketorolac INJ* 30 MG/ML 1 ML VIAL IV PUSH ONE (13:24)
[2016-11-29 13:40] VITALS: BP 126/78
== END 2016-11-29 13:41 | disposition home or self-care (01) ==
LOC: ED 07:57
DX: R07.9 Chest pain, unspecified (principal); Z87.891 Personal history of nicotine dependence; R06.02 Shortness of breath
CPT/HCPCS: 36415; 71010; 80053; 81003; 82550; 82553; 83605; 83874; 84443; 84484; 85025; 93005; 96372; 99282; A9270-GY; J1885

== ENCOUNTER 2016-12-06 01:01 | Emergency (ER) | payer OTHER ==
[2016-12-06] MEDS ORDERED: Aspirin Low Dose CHEW TAB* 81 MG PO ONE (01:08)
--- NOTE | 2016-12-06 01:26 | ED ---
Moises Griffin Benjamin, scribed for Georges Hsu MD on 12/06/16 at 0110 . HPI Chest Pain - HPI Summary HPI Summary: 46yo male BIB EMS for mid sternal CP that started around 6pm tonight. Pt was seen yesterday for similar symptoms. Pt reports pain radiating to the back. Pt took tylenol for pain, but didnt see relief from it. Hx includes NSTEMI, HTN, and hypercholesterolemia. - History of Current Complaint Chief Complaint: EDChestWallPain Hx Obtained From: Patient, EMS Onset/Duration: Started Hours Ago, Atraumatic, Still Present Timing: Constant Initial Severity: Mild Current Severity: Mild Pain Scale Used: 0-10 Numeric Chest Pain Location: Mid Sternal Chest Pain Radiates: Yes Chest Pain Radiates To:: Back Aggravating Factor(s): Nothing Alleviating Factor(s): Nothing Associated Signs and Symptoms: Positive: Negative - Additional Pertinent History Primary Care Physician: BASHIR - Allergy/Home Medications Allergies/Adverse Reactions: Allergies Allergy/AdvReac Type Severity Reaction Status Date / Time Fentanyl Allergy See Comment Verified 12/06/16 01:09 Shellfish Allergy Allergy See Comment Verified 12/06/16 01:09 PMH/Surg Hx/FS Hx/Imm Hx Endocrine/Hematology History: Reports: Hx Diabetes Denies: Hx Thyroid Disease Cardiovascular History: Reports: Hx Hypercholesterolemia, Hx Hypertension, Hx Myocardial Infarction - NSTEMI, Other Cardiovascular Problems/Disorders - Current admission for chest pain Respiratory History: Reports: Hx Asthma - SEASONAL Denies: Hx Chronic Obstructive Pulmonary Disease (COPD), Other Respiratory Problems/Disorders GI History: Denies: Hx Ulcer Sensory History: Reports: Hx Contacts or Glasses Opthamlomology History: Reports: Hx Contacts or Glasses - Cancer History Cancer Type, Location and Year: none - Surgical History Surgery Procedure, Year, and Place: appendectomy. stent placed June 2016 after heart attack Hx Anesthesia Reactions: No Infectious Disease History: Denies: Hx Hepatitis, Hx Human Immunodeficiency Virus (HIV), History Other Infectious Disease - Family History Known Family History: Positive: Cardiac Disease, Hypertension, Diabetes - Social History Alcohol Use: Occasionally Hx Substance Use: Yes Substance Use Type: Reports: Marijuana Substance Use Comment - Amount & Last Used: OCCASIONALLY Hx Tobacco Use: Yes Smoking Status (MU): Former Smoker Review of Systems Constitutional: Negative Eyes: Negative ENT: Negative Positive: Chest Pain Respiratory: Negative Gastrointestinal: Negative Genitourinary: Negative Musculoskeletal: Negative Skin: Negative Neurological: Negative Psychological: Normal All Other Systems Reviewed And Are Negative: Yes Physical Exam Triage Information Reviewed: Yes Vital Signs On Initial Exam: Initial Vitals Temp Pulse Resp BP Pulse Ox 98.5 F 90 18 126/84 98 12/06/16 01:11 12/06/16 01:11 12/06/16 01:11 12/06/16 01:11 12/06/16 01:11 Vital Signs Reviewed: Yes Appearance: Positive: Well-Appearing, No Pain Distress Skin: Positive: Warm Head/Face: Positive: Normal Head/Face Inspection Eyes: Positive: STEFANIA ENT: Positive: Hearing grossly normal Neck: Positive: Supple, Nontender Respiratory/Lung Sounds: Positive: Breath Sounds Present Cardiovascular: Positive: RRR Abdomen Description: Positive: Nontender, Soft Bowel Sounds: Positive: Present Musculoskeletal: Positive: Strength/ROM Intact Neurological: Positive: Alert, Oriented to Person Place, Time Psychiatric: Positive: Affect/Mood Appropriate Diagnostics - Vital Signs Vital Signs Temp Pulse Resp BP Pulse Ox 12/06/16 01:11 98.5 F 90 18 126/84 98 - Laboratory Result Diagrams: 12/06/16 01:37 12/06/16 01:37 Lab Statement: Any lab studies that have been ordered have been reviewed, and results considered in the medical decision making process. - Radiology CXR Xray Interpretation: No Acute Changes Radiology Interpretation Completed By: ED Physician - EKG 0118. Cardiac Rate: NL - 90bpm EKG Rhythm: Sinus Rhythm ST Segment: Normal Ectopy: None Re-Evaluation - Re-Evaluation First Eval Change: Improved Chest Pain Course/Dx - Diagnoses Provider Diagnoses: Chest pain Discharge - Discharge Plan Condition: Stable Disposition: HOME Patient Education Materials: Chest Pain (ED) Referrals: Nancie Camarena MD [Primary Care Provider] - The documentation as recorded by the Moises melton Benjamin accurately reflects the service I personally performed and the decisions made by , Georges Hsu MD.
[2016-12-06 01:48] LABS: Hematocrit 42 % (42-52); Hemoglobin 13.4 g/dl (14.0-18.0); Mean Corpuscular HGB Conc 32 g/dl (31-36); Mean Corpuscular Hemoglobin 27 pg (27-31); Mean Corpuscular Volume 84 fL (80-94); Mean Platelet Volume 8 um3 (7.4-10.4); Red Blood Count 5.05 10^6/ul (4.0-5.4); Red Cell Distribution Width 14 % (10.5-15); White Blood Count 8.2 10^3/ul (3.5-10.8)
[2016-12-06 02:09] LABS: Albumin 3.4 g/dL (3.2-5.2); BUN/Creatinine Ratio 15.2 (8-20); Calcium 9.2 mg/dL (8.6-10.3); EGFR African American 104.2 (>60); Globulin 3.9 g/dL (2-4); Magnesium 1.5 mg/dL (1.9-2.7); Potassium 3.8 mmol/L (3.5-5.0); Total Bilirubin 0.3 mg/dL (0.2-1.0); Total Protein 7.3 g/dL (6.4-8.9)
[2016-12-06 02:10] LABS: Troponin I 0.01 ng/mL (<0.04)
[2016-12-06 05:11] VITALS: BP 130/86
--- NOTE | 2016-12-06 07:32 | RAD ---
HISTORY: Chest pain COMPARISONS: November 29, 2016 VIEWS: 2: Frontal dual-energy and lateral views of the chest. FINDINGS: CARDIOMEDIASTINAL SILHOUETTE: The cardiomediastinal silhouette is normal. ZENON: The zenon are normal. PLEURA: The costophrenic angles are sharp. No pleural abnormalities are noted. LUNG PARENCHYMA: The lungs are clear. ABDOMEN: The upper abdomen is clear. There is no subphrenic gas. BONES AND SOFT TISSUES: No bone or soft tissue abnormalities are noted. OTHER: None. IMPRESSION: NO ACTIVE CARDIOPULMONARY DISEASE.
== END 2016-12-06 05:23 | disposition home or self-care (01) ==
LOC: ED 01:01
DX: R07.9 Chest pain, unspecified (principal); Z87.891 Personal history of nicotine dependence
CPT/HCPCS: 36415; 71020; 80053; 83605; 83735; 84484; 85025; 85610; 93005; 99283

== ENCOUNTER 2017-03-06 17:20 | Emergency (ER) | payer OTHER ==
[2017-03-06] MEDS ORDERED: Amoxicillin PO (*) 500 MG CAP PO ONE (19:37)
[2017-03-06] MEDS ORDERED: Acetaminophen TAB* 325 MG PO ONE (19:37)
--- NOTE | 2017-03-06 19:43 | ED ---
Throat Pain/Nasal Congestion - HPI Summary HPI Summary: 46 male presents with complaints of dental pain in which he thinks is an abscess. Patient states his symptoms began today. No symptoms before then. Admits to pain and some swelling of right upper gum area. No trouble swallowing or difficulty breathing. Patent airway. No fever/chills or generalized feeling of illness. Has been using topical numbing agents which gives him relief for a few minutes. No other meds. PMHx significant for DM and HTN. Denies discharge or erythema. No swelling of cheeks. Never had this pain in the past. - History of Current Complaint Chief Complaint: EDDentalPain Time Seen by Provider: 03/06/17 18:13 Hx Obtained From: Patient Onset/Duration: Sudden Onset, Lasting Days - 1, started upon waking this morning Severity: Moderate Associated Signs And Symptoms: Positive: Negative Cough: None - Epiglottits Risk Factors Epiglottis Risk Factors: Negative - Allergies/Home Medications Allergies/Adverse Reactions: Allergies Allergy/AdvReac Type Severity Reaction Status Date / Time Fentanyl Allergy See Comment Verified 03/06/17 17:23 Shellfish Allergy Allergy See Comment Verified 03/06/17 17:23 PMH/Surg Hx/FS Hx/Imm Hx Endocrine/Hematology History: Reports: Hx Diabetes Denies: Hx Thyroid Disease Cardiovascular History: Reports: Hx Hypercholesterolemia, Hx Hypertension, Hx Myocardial Infarction - NSTEMI, Other Cardiovascular Problems/Disorders - Current admission for chest pain Respiratory History: Reports: Hx Asthma - SEASONAL Denies: Hx Chronic Obstructive Pulmonary Disease (COPD), Other Respiratory Problems/Disorders GI History: Denies: Hx Ulcer Sensory History: Reports: Hx Contacts or Glasses Opthamlomology History: Reports: Hx Contacts or Glasses - Cancer History Cancer Type, Location and Year: none - Surgical History Surgery Procedure, Year, and Place: appendectomy. stent placed June 2016 after heart attack Hx Anesthesia Reactions: No - Immunization History Immunizations Up to Date: Yes Infectious Disease History: Denies: Hx Hepatitis, Hx Human Immunodeficiency Virus (HIV), History Other Infectious Disease, Traveled Outside the [place] in Last 30 Days - Family History Known Family History: Positive: Cardiac Disease, Hypertension, Diabetes - Social History Alcohol Use: Occasionally Hx Substance Use: Yes Substance Use Type: Reports: Marijuana Substance Use Comment - Amount & Last Used: OCCASIONALLY Hx Tobacco Use: Yes Smoking Status (MU): Former Smoker Review of Systems Constitutional: Negative Eyes: Negative Positive: Dental Pain Cardiovascular: Negative Respiratory: Negative Gastrointestinal: Negative Skin: Negative Neurological: Negative All Other Systems Reviewed And Are Negative: Yes Physical Exam Triage Information Reviewed: Yes Vital Signs On Initial Exam: Initial Vitals Pulse Resp BP Pulse Ox 96 18 155/81 97 03/06/17 17:23 03/06/17 17:23 03/06/17 17:23 03/06/17 17:23 Vital Signs Reviewed: Yes Appearance: Positive: Well-Appearing, No Pain Distress, Well-Nourished Skin: Positive: Warm, Skin Color Reflects Adequate Perfusion, Dry. Negative: Cold, Numb, Cyanosis @, Pale, Erythema @ Head/Face: Positive: Normal Head/Face Inspection Eyes: Positive: Normal, EOMI, STEFANIA, Conjunctiva Clear ENT: Positive: Normal ENT inspection, Hearing grossly normal, Pharynx normal, TMs normal, Other - airway patent, no concern for peritonsillar abscess, uvula midline, no ludwigs angina. Negative: Trismus Dental: Positive: Gross Decay/Caries @, Dental Fracture @, Abscess @ - upper right molars #1-2 swelling in inner gum area at soft palate, no erythema or discharge, dental caries of both molars appears infected/abscess, Other - no swelling of maxillary area, rest of dental exam normal. Negative: Percussion Tenderness @, Cervical Lymphadenopathy Neck: Positive: Supple, Nontender, No Lymphadenopathy Respiratory/Lung Sounds: Positive: Clear to Auscultation, Breath Sounds Present. Negative: Rales, Rhonchi, Wheezes Cardiovascular: Positive: Normal, RRR. Negative: Murmur, Rub Abdomen Description: Positive: Soft Bowel Sounds: Positive: Present Musculoskeletal: Positive: Normal, Strength/ROM Intact Neurological: Positive: Normal, Sensory/Motor Intact, Alert, Oriented to Person Place, Time, Normal Gait Psychiatric: Positive: Affect/Mood Appropriate Diagnostics - Vital Signs Vital Signs Pulse Resp BP Pulse Ox 03/06/17 17:23 96 18 155/81 97 - Laboratory Lab Statement: Any lab studies that have been ordered have been reviewed, and results considered in the medical decision making process. EENT Course/Dx - Course Course Of Treatment: given antibiotic dose while in ED. tylenol for pain. can continue topical numbing agents as using before. follow up dentist appointment, already scheduled for tomorrow. aware of worsening signs and symptoms. no concern for any other emergent etiology. appears to suffering from dental abscess - Differential Diagnoses Differential Diagnoses: Dental Abscess, Dental Caries, Fractured Tooth, Gingivitis - Diagnoses Provider Diagnoses: Dental abscess, Pain, dental Discharge - Discharge Plan Condition: Stable Disposition: HOME Prescriptions: Amoxicillin PO (*) [Amoxicillin 500 MG CAP*] 500 mg PO Q12H #19 cap Additional Instructions: Take antibiotic as directed, starting tomorrow. Tylenol for pain and discomfort. Cool compresses. Continue topical numbing agent as desired. Drink plenty of fluids. If you develop worsening signs or symptoms (fever, illness, discharge, increased swelling, difficulty swallowing or breathing please seek medical attention promptly. Follow up with dentist tomorrow at your appointment, as it is likely the tooth may need to be pulled in the future.
[2017-03-06 19:57] VITALS: BP 128/83
== END 2017-03-06 20:00 | disposition home or self-care (01) ==
LOC: ED 17:20
DX: K04.7 Periapical abscess without sinus (principal); K08.89 Other specified disorders of teeth and supporting structures
CPT/HCPCS: 99282; A9270-GY

== ENCOUNTER 2017-04-20 09:55 | Emergency (ER) | payer OTHER ==
[2017-04-20 10:19] VITALS: BP 133/90
--- NOTE | 2017-04-20 11:04 | RAD ---
HISTORY: Left wrist pain COMPARISONS: None VIEWS: 3, Frontal, lateral, and oblique views of the left wrist FINDINGS: BONE DENSITY: Normal. BONES: There is no displaced fracture. JOINTS: There is no arthropathy. ALIGNMENT: There is no dislocation. SOFT TISSUES: Unremarkable. OTHER FINDINGS: None. IMPRESSION: NO ACUTE OSSEOUS INJURY. IF SYMPTOMS PERSIST, RECOMMEND REPEAT IMAGING.
--- NOTE | 2017-04-20 11:17 | UC ---
Hand/Wrist HPI - HPI Summary HPI Summary: 1 WEEK OF LEFT WRIST PAIN AFTER SLEEPING AWKWARDLY ON IT. NO SWELLING. PAIN WORSE WITH PRONATION. - History Of Current Complaint Chief Complaint: UCUpperExtremity Stated Complaint: WRIST PAIN Time Seen by Provider: 04/20/17 11:13 Hx Obtained From: Patient Onset/Duration: Sudden Onset, Lasting Days, Still Present Severity Initially: Moderate Severity Currently: Moderate Pain Intensity: 10 - SITTING IN ROOM IN NO DISTRESS Pain Scale Used: 0-10 Numeric Character Of Pain: Sharp, Aching Aggravating Factor(s): Movement - PRONATION Alleviating Factor(s): Rest Associated Signs And Symptoms: Positive: Negative Related History: Dominant Hand Right - Allergies/Home Medications Allergies/Adverse Reactions: Allergies Allergy/AdvReac Type Severity Reaction Status Date / Time Fentanyl Allergy See Comment Verified 04/20/17 10:09 Shellfish Allergy Allergy See Comment Verified 04/20/17 10:09 PMH/Surg Hx/FS Hx/Imm Hx Endocrine History: Diabetes Cardiovascular History: Cardiac Disease, Hypertension Respiratory History: Asthma - Surgical History Surgical History: Yes Surgery Procedure, Year, and Place: appendectomy. stent placed June 2016 after heart attack - Family History Known Family History: Positive: Cardiac Disease, Hypertension, Diabetes - Social History Alcohol Use: Occasionally Alcohol Amount: Beer Substance Use Type: None Substance Use Comment - Amount & Last Used: OCCASIONALLY Smoking Status (MU): Current Some Day Smoker Type: Cigarettes Have You Smoked in the Last Year: Yes When Did the Patient Quit Smoking/Using Tobacco: 2 YRS AGO Household Exposure Type: Cigarettes - Immunization History Most Recent Influenza Vaccination: never Most Recent Tetanus Shot: Up to date Most Recent Pneumonia Vaccination: Never Review of Systems Constitutional: Negative Skin: Negative Respiratory: Negative Cardiovascular: Negative Gastrointestinal: Negative Musculoskeletal: Arthralgia, Decreased ROM All Other Systems Reviewed And Are Negative: Yes Physical Exam Triage Information Reviewed: Yes Appearance: Well-Appearing, No Pain Distress, Well-Nourished Vital Signs: Initial Vital Signs Temp 99.4 F 04/20/17 10:04 Pulse 95 04/20/17 10:04 Resp 16 04/20/17 10:04 BP 133/90 04/20/17 10:04 Pulse Ox 97 04/20/17 10:04 Vital Signs Reviewed: Yes Eyes: Positive: Conjunctiva Clear ENT: Positive: Hearing grossly normal Neck: Positive: Supple Respiratory: Positive: No respiratory distress, No accessory muscle use Cardiovascular: Positive: Pulses Normal Abdomen Description: Positive: Soft Musculoskeletal: Positive: No Edema, ROM Limited @, Other: - MILDLY TENDER ULNAR SIDE OF LEFT WRIST Neurological: Positive: Alert Psychological: Positive: Age Appropriate Behavior Skin: Negative: rashes Diagnostics - Radiology LEFT WRIST XRAYS Xray Interpretation: No Acute Changes Radiology Interpretation Completed By: Radiologist Hand/Wrist Course/Dx - Differential Dx/Diagnosis Provider Diagnoses: LEFT WRIST SPRAIN Discharge - Discharge Plan Condition: Stable Disposition: HOME Patient Education Materials: Wrist Sprain (ED) Referrals: Denilson Gibson MD [Medical Doctor] - 2 Weeks Nancie Camarena MD [Primary Care Provider] - If Needed Additional Instructions: OTC NSAIDS NEEDED FOR PAIN. WEAR SPLINT FOR COMFORT. WEAR WHILE SLEEPING AND DURING THE DAY ABLE. FOLLOW-UP WITH [facility]THO IF YOU ARE NOT IMPROVING EXPECTED OVER THE NEXT 1-2 WEEKS.
== END 2017-04-20 11:39 | disposition home or self-care (01) ==
LOC: UCEAST 09:55
DX: S63.502A Unspecified sprain of left wrist, initial encounter (principal); E11.9 Type 2 diabetes mellitus without complications; I10 Essential (primary) hypertension; F17.210 Nicotine dependence, cigarettes, uncomplicated; X58.XXXA Exposure to other specified factors, initial encounter; Y92.9 Unspecified place or not applicable
CPT/HCPCS: 99213; G0463

== ENCOUNTER 2017-06-13 12:04 | Observation (INO) | payer OTHER ==
[2017-06-13] MEDS ORDERED: Aspirin Low Dose CHEW TAB* 81 MG PO ONE (12:13)
--- NOTE | 2017-06-13 12:59 | RAD ---
Indication: Chest pain. Single frontal view of the chest performed at 1230 hours was reviewed. Comparison is made with previous exam dated December 06, 2016. No mediastinal shift is noted. Heart is of normal size and configuration. Lung abarca appear clear. IMPRESSION: NO ACTIVE CARDIOPULMONARY DISEASE IS NOTED.
[2017-06-13 13:00] LABS: Hematocrit 44 % (42-52); Mean Corpuscular HGB Conc 32 g/dl (31-36); Mean Corpuscular Hemoglobin 27 pg (27-31); Mean Corpuscular Volume 85 fL (80-94); Mean Platelet Volume 7 um3 (7.4-10.4); Red Blood Count 5.12 10^6/ul (4.0-5.4); Red Cell Distribution Width 14 % (10.5-15); White Blood Count 7.3 10^3/ul (3.5-10.8)
[2017-06-13 13:17] LABS: Albumin 3.7 g/dL (3.2-5.2); BUN/Creatinine Ratio 12.6 (8-20); Calcium 9.4 mg/dL (8.6-10.3); EGFR African American 108.8 (>60); EGFR Non-African American 84.6 (>60); Globulin 3.8 g/dL (2-4); Total Bilirubin 0.4 mg/dL (0.2-1.0); Total Protein 7.5 g/dL (6.4-8.9)
--- NOTE | 2017-06-13 13:55 | ED ---
Pb Griffin Nilda, scribed for Tashia Huerta MD on 06/13/17 at 1233 . HPI Chest Pain - HPI Summary HPI Summary: This patient is a 47 year old M presenting to [facility] accompanied by with a chief complaint of sudden onset, constant right CP since 1100 today that is currently resolved. The patient rates the initial pain 9/10 in severity. Symptoms aggravated by nothing. 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 Patient reports that pain radiated to his back. Patient denies diaphoresis. PMHx of NH that presented pain on his right chest. Pt states he is on blood thinner clopidogrel. - History of Current Complaint Chief Complaint: EDChestPainROMI Time Seen by Provider: 06/13/17 12:13 Hx Obtained From: Patient Onset/Duration: Started Hours Ago, Resolved Timing: Constant Initial Severity: Severe - 9/10 Current Severity: None Pain Intensity: 0 Pain Scale Used: 0-10 Numeric Chest Pain Location: Right Lateral Chest Pain Radiates: Yes Chest Pain Radiates To:: Back Character: Sharp/Stabbing Aggravating Factor(s): Nothing Alleviating Factor(s): Medication - aspirin, NTG 123 Associated Signs and Symptoms: Positive: Other: - negative diaphoresis - Additional Pertinent History Primary Care Physician: [id number] - Allergy/Home Medications Allergies/Adverse Reactions: Allergies Allergy/AdvReac Type Severity Reaction Status Date / Time Fentanyl Allergy See Comment Verified 05/17/17 10:27 Shellfish Allergy Allergy See Comment Verified 05/17/17 10:27 Home Medications: Home Medications Clopidogrel TAB* [Plavix TAB*] 75 mg PO DAILY 06/13/17 [History Confirmed ] Liraglutide (NF) [Victoza (NF)] 1.2 mg SUBCUT DAILY 06/13/17 [History Confirmed 06/13/17] Rosuvastatin (NF) [Crestor (NF)] 10 mg PO DAILY 06/13/17 [History Confirmed ] PMH/Surg Hx/FS Hx/Imm Hx Endocrine/Hematology History: Reports: Hx Diabetes Denies: Hx Thyroid Disease Cardiovascular History: Reports: Hx Hypercholesterolemia, Hx Hypertension, Hx Myocardial Infarction - NSTEMI, Other Cardiovascular Problems/Disorders - Current admission for chest pain Denies: Hx Pacemaker/ICD Respiratory History: Reports: Hx Asthma - SEASONAL Denies: Hx Chronic Obstructive Pulmonary Disease (COPD), Other Respiratory Problems/Disorders GI History: Denies: Hx Ulcer History: Denies: Hx Renal Disease Sensory History: Reports: Hx Contacts or Glasses Denies: Hx Hearing Aid Opthamlomology History: Reports: Hx Contacts or Glasses Psychiatric History: Denies: Hx Panic Disorder - Cancer History Cancer Type, Location and Year: none - Surgical History Surgery Procedure, Year, and Place: appendectomy. stent placed June 2016 after heart attack Hx Anesthesia Reactions: No Infectious Disease History: No Infectious Disease History: Denies: Hx Clostridium Difficile, Hx Hepatitis, Hx Human Immunodeficiency Virus (HIV), Hx of Known/Suspected MRSA, Hx Shingles, Hx Tuberculosis, Hx Known/ Suspected VRE, Hx Known/Suspected VRSA, History Other Infectious Disease, Traveled Outside the [place] in Last 30 Days - Family History Known Family History: Positive: Cardiac Disease, Hypertension, Diabetes - Social History Lives: With Family Alcohol Use: Daily Alcohol Amount: Beer Hx Substance Use: Yes Substance Use Type: Reports: None Substance Use Comment - Amount & Last Used: OCCASIONALLY Hx Tobacco Use: Yes Smoking Status (MU): Current Some Day Smoker Type: Cigarettes Have You Smoked in the Last Year: Yes Review of Systems Negative: Skin Diaphoresis Positive: Chest Pain - resolved Musculoskeletal: Other - back pain (resolved) All Other Systems Reviewed And Are Negative: Yes Physical Exam - Summary Physical Exam Summary: General: Well appearing, no pain distress Skin: Warm, Skin Color Reflects Adequate Perfusion, Dry Eyes: EOMI, STEFANIA ENT: Pharynx normal, TMs normal Neck: Supple, nontender Respiratory: CTA, breath sounds present, no rhonchi, no wheezes, no rales Cardiovascular: RRR, no murmur, no rub, no gallop Abdomen: Soft, nontender, Non-distended, no guarding, no rebound Bowel: Present Musculoskeletal: BELKIS, No edema Neuro: Sensory/motor intact, A&Ox3, CN intact 2-12 Psych: Affect/mood appropriate Triage Information Reviewed: Yes Vital Signs On Initial Exam: Initial Vitals Temp Pulse Resp BP Pulse Ox 98.3 F 78 17 128/83 96 06/13/17 12:08 06/13/17 12:08 06/13/17 12:08 06/13/17 12:08 06/13/17 12:08 Vital Signs Reviewed: Yes Diagnostics - Vital Signs Vital Signs Temp Pulse Resp BP Pulse Ox 06/13/17 12:08 98.3 F 78 17 128/83 96 - Laboratory Lab Results: Lab Results 06/13/17 06/13/17 06/13/17 Range/Units 12:45 12:45 12:45 WBC 7.3 (3.5-10.8) 10^3/ul RBC 5.12 (4.0-5.4) 10^6/ul Hgb 14.0 (14.0-18.0) g/dl Hct 44 (42-52) % MCV 85 (80-94) fL MCH 27 (27-31) pg MCHC 32 (31-36) g/dl RDW 14 (10.5-15) % Plt Count 277 (150-450) 10^3/ul MPV 7 L (7.4-10.4) um3 Neut % (Auto) 39.9 (38-83) % Lymph % (Auto) 43.0 (25-47) % Lenoir % (Auto) 11.1 H (1-9) % Eos % (Auto) 4.7 (0-6) % Baso % (Auto) 1.3 (0-2) % Absolute Neuts (auto) 2.9 (1.5-7.7) 10^3/ul Absolute Lymphs (auto) 3.1 (1.0-4.8) 10^3/ul Absolute Monos (auto) 0.8 (0-0.8) 10^3/ul Absolute Eos (auto) 0.3 (0-0.6) 10^3/ul Absolute Basos (auto) 0.1 (0-0.2) 10^3/ul Absolute Nucleated RBC 0 10^3/ul Nucleated RBC % 0.1 Sodium 137 (133-145) mmol/L Potassium 4.0 (3.5-5.0) mmol/L Chloride 106 (101-111) mmol/L Carbon Dioxide 24 (22-32) mmol/L Anion Gap 7 (2-11) mmol/L BUN 12 (6-24) mg/dL Creatinine 0.95 (0.67-1.17) mg/dL Est GFR ( Amer) 108.8 (>60) Est GFR (Non-Af Amer) 84.6 (>60) BUN/Creatinine Ratio 12.6 (8-20) Glucose 89 (70-100) mg/dL Lactic Acid 1.0 (0.5-2.0) mmol/L Calcium 9.4 (8.6-10.3) mg/dL Total Bilirubin 0.40 (0.2-1.0) mg/dL AST 38 (13-39) U/L ALT 56 H (7-52) U/L Alkaline Phosphatase 52 (34-104) U/L Troponin I 0.00 (<0.04) ng/mL Total Protein 7.5 (6.4-8.9) g/dL Albumin 3.7 (3.2-5.2) g/dL Globulin 3.8 (2-4) g/dL Albumin/Globulin Ratio 1.0 (1-3) Result Diagrams: 06/13/17 12:45 06/13/17 12:45 Lab Statement: Any lab studies that have been ordered have been reviewed, and results considered in the medical decision making process. - Radiology CXR Radiology Interpretation Completed By: Radiologist - CXR, per radiologist, reveals no active cardiopulmonary disease is noted. ED physician has reviewed this radiology report and agrees. - EKG 1223 Cardiac Rate: NL EKG Rhythm: Sinus Rhythm - [address] Segment: Normal Ectopy: None EKG Interpretation: No STEMI EKG Comparison: No Significant Change - 12/07/16 EKG Chest Pain Course/Dx - Course Assessment/Plan: An EKG reveals NSR 79 bpm, no STEMI, unchanged from 12/07/16. CXR, per radiologist, reveals no active cardiopulmonary disease is noted. ED physician has reviewed this radiology report and agrees. 1329 Dr. Daniels ( hospitalist) accepts pt for admit. 48 yo male who reports stent placement almost one year ago with ongoing cp for the first few months until he was switched to clopidogrel. Today had rt sided cp like he had when he needed a stent at 11am, ekg is unchanged first trop is neg, he received an asa from ambulance and after 2 nitros (one at home and one in ambulance) he is cp free - Diagnoses Provider Diagnoses: Chest pain - Provider Notifications Discussed Care Of Patient With: Babatunde Daniels - Hospitalist Time Discussed With Above Provider: 13:29 Instructed by Provider To: Admit As Inpatient Discharge - Discharge Plan Condition: Stable Disposition: ADMITTED TO [facility] Referrals: Nancie Camarena MD [Primary Care Provider] - The documentation as recorded by the Pb melton Nilda accurately reflects the service I personally performed and the decisions made by me, Tashia Huerta MD.
[2017-06-13] MEDS ORDERED: Nitroglycerin TAB 0.4 MG* 0.4 MG TAB SL PRN (14:36)
[2017-06-13] MEDS ORDERED: Dextrose 50% Syringe 50 ML* 25 GM/50 ML SYRINGE IV PUSH PRN (14:38)
[2017-06-13] MEDS: Insulin LISPRO* 1 UNITS UNIT SUBCUT SCH ×2 (16:54→21:34)
--- NOTE | 2017-06-13 19:38 | HP ---
HISTORY AND PHYSICAL: DATE OF ADMISSION: 06/13/17 ADMITTING PROVIDER: Babatunde Daniels MD PRIMARY CARE PROVIDER: Dr. Camarena. CHIEF COMPLAINT: Right sharp needle-like chest pain. HISTORY OF PRESENT ILLNESS: The patient is a 47-year-old diabetic male, PMH as above, presenting with 9/10 sharp needle-like chest pain to the right anterior chest, starting at 11 a.m. on the day of admission. It moved laterally back and forth across the chest and to his back and then back to the front of his chest. It was relieved after eating baby aspirin and nitroglycerin with EMS on the way to [facility] Emergency Room. He had a little bit of shortness of breath. No nausea, vomiting. No radiation to the neck or down the arms. No diaphoresis. The patient's initial troponin 0.00. EKG, without any ST elevations or depressions. He does have T-wave inversions in V1 and 3, sinus rhythm, normal axis and normal intervals. The patient is being admitted for ACS rule out given his history of CAD. Of note, the patient had frequent episodes of angina after his heart catheterization in June last year, requiring what reports 3 to 4 ED visits a week up until the time his Brilinta was changed to Plavix. He has been mostly chest pain free for the last 8 months since that change was made. He followed with Dr. Jones in March. No changes at that time. Scheduled followup again in August. Saw Dr. Camarena 1-1/2 weeks ago and was started on Trulicity, but prior authorization is still pending. Also started on Victoza. His last A1c was approximately 9. He has been on insulin for about last 4 years. He does not check his blood sugars at home. The patient is a never smoker. Does drink 2 to 4 beers a day. Family history of mother with diabetes. In the emergency room, the patient is hemodynamically stable, afebrile. Chest x - ray was obtained, which demonstrated no acute pulmonary process. Laboratory evaluation is significant for elevated ALT 56, otherwise unremarkable. PAST MEDICAL HISTORY: 1. Insulin-dependent diabetes mellitus. 2. Hypertension. 3. Obesity (BMI 35.5). 4. CAD, status post drug-eluting stent to the proximal left circumflex in June 2016. MEDICATIONS: Include: 1. Lispro 20 units at breakfast and dinner. 2. Clopidogrel 75 mg q.a.m. 3. Victoza daily. 4. Atorvastatin 80 mg q.h.s. 5. Aspirin 81 mg q.a.m. 6. Amlodipine 5 mg q.a.m. 7. Nitroglycerin tab 0.4 mg sublingual q.5 minutes p.r.n. 8. Metoprolol succinate 25 mg 1 tab daily. 9. Metformin 1000 mg p.o. b.i.d. 10. Lantus 25 units q.h.s. ALLERGIES: FENTANYL, SHELLFISH allergy. FAMILY HISTORY: His mother had diabetes. SOCIAL HISTORY: He drinks 3 to 4 beers a day. Quit smoking after his heart attack in June 2016. Had been a 1 to 2 cigarettes a day smoker prior to that on and off for many years. The patient works at [employer]. , Elvia Powers is his medical surrogate. He is a full code. PHYSICAL EXAMINATION GENERAL: No acute distress. VITAL SIGNS: Blood pressure 125/72, heart rate 84, respiratory rate 20, satting 98% on room air, temperature 98.3. HEENT: Normocephalic, atraumatic. Pupils equal, round, and reactive to light. Oropharynx clear. Moist mucous membranes. NECK: Supple. PULMONARY: Clear to auscultation bilaterally with no wheezing, rales, or rhonchi. CARDIOVASCULAR: Regular rate and rhythm. No murmurs, rubs, or gallops. ABDOMEN: Soft, slightly distended secondary to obesity. No tenderness. No Garvey's. No guarding. No rebound. EXTREMITIES: Warm, well perfused. No peripheral edema, rash. No lesions. No nodules. NEUROLOGIC: Moving all extremities. Cranial nerves II through XII intact. Sensation intact. LABORATORY DATA: White count 7.3, hemoglobin 14.0, hematocrit 44, platelets 277,000. Sodium 137, potassium 4.0, chloride 106, carbon dioxide 24, BUN 12, creatinine 0.95. AST 38, ALT 56, alk phos 52. Troponin 0.00. Lactic acid 1.0. Glucose 89. IMAGING: As per HPI. ASSESSMENT AND PLAN: The patient is a 47-year-old male diabetic, coronary artery disease status post drug-eluting stent to the left circ, presenting with sharp right-sided chest pain in the absence of exertion that was relieved with nitroglycerin and baby aspirin. Feels similarly somewhat to his last heart attack and therefore, acute coronary syndrome rule out. Trend troponins every 4 hours. Continue telemetry. The patient is status post 325 mg of aspirin. Continue his aspirin 81 mg daily, his beta-mercy and his Lipitor. We will get A1c and a lipid panel if not recently in our system. Last A1c in June 2016 was 13.4%. Last LDL 71 at that time, HDL 32. For his high blood pressure , continue his metoprolol succinate 25 mg daily, amlodipine 5 mg daily. For his diabetes mellitus, we will resume the sliding scale insulin. He is n.p.o. for now. In case his chest pain returns recently involving chest pain only 3 hours prior to this presentation, consider allowing him to eat later on in the afternoon if he is still chest pain-free and troponin is negative. Likely, will be n.p.o. at midnight in case he needs a nuclear stress test in the morning. Consider touching base with Dr. Jones at that time. The patient' s medical surrogate is his , Elvia Powers. He is a full code. He will be started on heparin 5000 units t.i.d. for DVT prophylaxis. We will hold his metformin and Victoza while he is in the hospital. [id number]/[facility] #: [id number] LYNDA
[2017-06-13] MEDS ORDERED: Atorvastatin* 80 MG TAB PO SCH (21:00)
[2017-06-14] MEDS ORDERED: Metoprolol Succinate XL TAB* 25 MG PO SCH (09:00)
[2017-06-14] MEDS ORDERED: Aspirin Low Dose CHEW TAB* 81 MG PO SCH (09:00)
[2017-06-14] MEDS ORDERED: Clopidogrel TAB* 75 MG PO SCH (09:00)
[2017-06-14] MEDS: Insulin LISPRO* 1 UNITS UNIT SUBCUT SCH ×2 (09:15→13:39)
[2017-06-14] MEDS ORDERED: Regadenoson* 0.4 MG/5 ML SYRINGE ONE (11:14)
[2017-06-14] MEDS ORDERED: Aminophylline IV* 25 MG/ML 10 ML VIAL ONE (11:14)
--- NOTE | 2017-06-14 12:54 | RAD ---
Edited for charges. INDICATION: Chest pain with multiple cardiac risk factors and history of previous myocardial infarction. COMPARISON: Most recent chest x-ray dated June 13, 2017 TECHNIQUE: SPECT imaging was performed. Rest images were acquired following the intravenous injection of 10 millicuries of technetium 99m tetrofosmin at 0645 hours. At 1147 hours stress images were acquired following the intravenous administration of 25 millicuries of technetium 99m tetrofosmin. The patient received intravenous Lexiscan prior to the stress image acquisition. FINDINGS: There are no defects of the stress-induced or fixed nature. The cardiac chamber size is normal. There are no wall motion abnormalities. The ejection fraction is calculated at 62% during stress. IMPRESSION: No scintigraphic evidence of ischemia or infarction. ASSESSMENT: Low risk Based on imaging criteria from ACC/AHA 2002 Guideline Update for the Management of Patients With Chronic Stable Angina Table 23. Noninvasive Risk Stratification. MTDD
[2017-06-14 13:43] VITALS: BP 129/78
--- NOTE | 2017-06-15 01:52 | DS ---
DISCHARGE SUMMARY: DATE OF ADMISSION: 06/13/17 DATE OF DISCHARGE: 06/14/17 CHIEF COMPLAINT: Right-sided chest pain. PRINCIPAL DIAGNOSIS: Acute coronary syndrome, ruled out. PAST MEDICAL HISTORY: Insulin dependent diabetes mellitus, hypertension, obesity, CAD status post drug eluting stent to the proximal left circumflex in June 2016. HISTORY OF PRESENT ILLNESS AND HOSPITAL COURSE: The patient is a 47-year-old poorly controlled diabetic male with hypertension, obesity, CAD, status post proximal left circumflex stent presenting with 9/10 sharp needle-like chest pain to the right anterior chest starting day of admission, had some radiation to the back. Denies any shortness of breath, nausea, vomiting or radiation to the neck or arms. No diaphoresis. The patient was admitted for ACS rule out. The patient's troponins were negative x3. EKG did not show any ST elevations or depressions. Did have one T-wave inversions in V1 and V3. He was observed on telemetry over night. Chest pain improved. He did get aspirin in the emergency room along with his usual Plavix. He had a nuclear stress test on the day of discharge, which demonstrated no signs of ischemia or infarction, low risk study. He was chest pain free and discharged to follow up with his primary care provider and associate technician, Dr. Jones. The patient's A1c was noted to be 9.0. He recently was started on Trulicity, though his insurance precertification is still pending on that. Also, recently started on Victoza. This was just a week and a half ago with Dr. Camarena. The patient is now being discharged new medications. DISCHARGE MEDICATIONS: Include: 1. Lispro 20 units q.a.m. and q.p.m. with dinner. 2. Clopidogrel 75 mg q.a.m. 3. Victoza daily. 4. Atorvastatin 80 mg q.h.s. 5. Aspirin 81 mg q.a.m. 6. Amlodipine 5 mg q.a.m. 7. Nitroglycerin tablets 0.4 mg sublingual q.5 minutes p.r.n. 8. Metoprolol succinate 25 mg 1 tab daily. 9. Metformin 1000 mg p.o. b.i.d. 10. Lantus 25 units q.h.s. DISCHARGE DIET: Carbohydrate consistent heart healthy. ACTIVITY LEVEL: No restrictions. FOLLOWUP: With primary care doctor, Dr. Camarena, in 3 to 5 days after discharge and with Dr. Jones within 1 to 2 weeks. TIME SPENT: Time spent on discharge was 35 minutes. [id number]/[facility] #: [id number] MTDD
== END 2017-06-14 15:01 | disposition home or self-care (01) ==
LOC: ED 12:04 → MEDTELE 13:34
PROVIDERS: ADMIT Internal Medicine; ATTEND Internal Medicine
DX: R07.9 Chest pain, unspecified (principal); E11.9 Type 2 diabetes mellitus without complications; I10 Essential (primary) hypertension; I25.10 Atherosclerotic heart disease of native coronary artery without angina pectoris; Z95.5 Presence of coronary angioplasty implant and graft; Z79.899 Other long term (current) drug therapy; Z88.5 Allergy status to narcotic agent; Z79.4 Long term (current) use of insulin; E66.9 Obesity, unspecified; Z68.35 Body mass index [BMI] 35.0-35.9, adult
CPT/HCPCS: 36415; 71010; 78452; 80053; 80061; 83036; 83605; 84484; 85025; 93005; 93017; 99283; A9270-GY; A9502; G0378; J0280; J2785

== ENCOUNTER 2017-06-22 11:51 | Emergency (ER) | payer OTHER ==
[2017-06-22] MEDS ORDERED: Acetaminophen TAB* 325 MG PO ONE (12:34)
--- NOTE | 2017-06-22 12:35 | ED ---
Upper Extremity Pain - HPI Summary HPI Summary: Pt here w/ Lt wrist pain x weeks but worse today since receiving injection yesterday with Dr. Faith. Denies numbness, tingling, weakness and no systemic reaction such as chest pain, SOB, throat tightening, facial swelling. Tried ibuprofen 800mg last night w/o relief and tramadol this morning w/o relief. Per pt, has had XR and MRI and neg findings. Was told he has some fluid here which is why injection was performed. No other complaints to offer at this time. - History of Current Complaint Chief Complaint: EDExtremityUpper Stated Complaint: WRIST INJURY Time Seen by Provider: 06/22/17 12:17 Hx Obtained From: Patient - Allergies/Home Medications Allergies/Adverse Reactions: Allergies Allergy/AdvReac Type Severity Reaction Status Date / Time Fentanyl Allergy See Comment Verified 06/22/17 12:07 Shellfish Allergy Allergy See Comment Verified 06/22/17 12:07 PMH/Surg Hx/FS Hx/Imm Hx Previously Healthy: Yes - chronic Lt wrist pain Endocrine/Hematology History: Reports: Hx Diabetes Denies: Hx Thyroid Disease Cardiovascular History: Reports: Hx Angina, Hx Hypercholesterolemia, Hx Hypertension, Hx Myocardial Infarction - Jun 2016, Other Cardiovascular Problems /Disorders - Current admission for chest pain Denies: Hx Pacemaker/ICD Respiratory History: Reports: Hx Asthma - SEASONAL Denies: Hx Chronic Obstructive Pulmonary Disease (COPD), Other Respiratory Problems/Disorders GI History: Denies: Hx Ulcer History: Denies: Hx Renal Disease Musculoskeletal History: Reports: Other Musculoskeletal History - Lt wrist pain of unknown origin Sensory History: Reports: Hx Contacts or Glasses Denies: Hx Hearing Aid Opthamlomology History: Reports: Hx Contacts or Glasses Neurological History: Denies: Hx Peripheral Neuropathy Psychiatric History: Denies: Hx Panic Disorder - Cancer History Cancer Type, Location and Year: none - Surgical History Surgery Procedure, Year, and Place: appendectomy. 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 Alcohol Use: Weekly Alcohol Amount: 2-3 beers per week Hx Substance Use: Yes Substance Use Type: Reports: Marijuana Substance Use Comment - Amount & Last Used: OCCASIONALLY Hx Tobacco Use: Yes Smoking Status (MU): Current Some Day Smoker Type: Cigarettes Have You Smoked in the Last Year: Yes Review of Systems Constitutional: Negative Negative: Fever, Chills, Fatigue ENT: Negative Cardiovascular: Negative Negative: Palpitations, Chest Pain Respiratory: Negative Negative: Shortness Of Breath Gastrointestinal: Negative Negative: Vomiting, Nausea Positive: no symptoms reported Positive: Arthralgia. Negative: Edema Skin: Negative Neurological: Negative Psychological: Normal - concerned by calm and cooperative All Other Systems Reviewed And Are Negative: Yes Physical Exam Triage Information Reviewed: Yes Vital Signs On Initial Exam: Initial Vitals Temp Pulse Resp BP Pulse Ox 99.1 F 87 17 141/95 97 06/22/17 12:07 06/22/17 12:07 06/22/17 12:07 06/22/17 12:07 06/22/17 12:07 Vital Signs Reviewed: Yes Appearance: Positive: Well-Appearing, No Pain Distress, Well-Nourished Skin: Positive: Warm, Dry - pinpoint area where injection entered over Lt ulnar aspect of wrist - no edema, no erythema, no streaking, no fever to touch, no bogginess Head/Face: Positive: Normal Head/Face Inspection - no facial edema Eyes: Positive: EOMI ENT: Positive: Hearing grossly normal, Pharynx normal - no edema Neck: Positive: Supple Respiratory/Lung Sounds: Positive: Breath Sounds Present. 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 d/t pain (pt reports this is baseline) - can move fingers; wrist w/ minimally reduced ROM d/t pain, Pain @ - focal tenderness over ulnar aspect of wrist - no other areas of tenderness Neurological: Positive: Normal, Sensory/Motor Intact, Alert, Oriented to Person Place, Time, CN Intact II-III Psychiatric: Positive: Normal - Halsey Coma Scale Coma Scale Total: 15 Diagnostics - Vital Signs Vital Signs Temp Pulse Resp BP Pulse Ox 06/22/17 12:07 99.1 F 87 17 141/95 97 - Laboratory Lab Statement: Any lab studies that have been ordered have been reviewed, and results considered in the medical decision making process. Course/Dx - Course Course Of Treatment: Spoke w/ Dr. Faith who has been caring for pt's chronic wrist pain. No additional tx's required at this time and she does not advise narcotic pain medications as he w/u as neen negative thus for for tendon/ ligament and/or bone pathology. He denies s/sx of neuropathy and allergic reaction. Advised to implement conservative action and rest over the weekend - out of work today. Will call Dr. Faith Sunday for f/u next week per her request. Education about post injection pain/soreness. Reviewed danger s/sx of when to return to ED. Pt agrees w/ plan. - Diagnoses Provider Diagnoses: Left wrist pain Discharge - Discharge Plan Condition: Stable Disposition: HOME Patient Education Materials: Arthralgia (ED) Forms: *Work Release Referrals: Monique Faith MD [Medical Doctor] - Additional Instructions: Rest, ice, elevate Take pain medications prescribed by Dr. Faith as directed. You may take acetaminophen 650mg every 6 hours for pain Follow-up with Dr. Faith next week. Call Sunday to schedule an appointment. *If your hand swells and/or you develop numbness, tingling, weakness, chest pain , shortness of breath, vomiting, difficulty breathing or swallowing, return to ED
[2017-06-22 12:57] VITALS: BP 155/99
== END 2017-06-22 12:57 | disposition home or self-care (01) ==
LOC: ED 11:51
DX: M25.532 Pain in left wrist (principal)
CPT/HCPCS: 99282; A9270-GY

== ENCOUNTER 2017-06-25 06:24 | Emergency (ER) | payer OTHER ==
[2017-06-25] MEDS ORDERED: Aspirin Low Dose CHEW TAB* 81 MG PO ONE (06:29)
[2017-06-25 07:06] LABS: Albumin 3.8 g/dL (3.2-5.2); BUN/Creatinine Ratio 16.3 (8-20); Calcium 9.5 mg/dL (8.6-10.3); EGFR African American 112.9 (>60); EGFR Non-African American 87.8 (>60); Globulin 3.9 g/dL (2-4); Magnesium 1.7 mg/dL (1.9-2.7); Total Bilirubin 0.3 mg/dL (0.2-1.0); Total Protein 7.7 g/dL (6.4-8.9)
[2017-06-25 07:08] LABS: Hematocrit 44 % (42-52); Hemoglobin 14.4 g/dl (14.0-18.0); Mean Corpuscular HGB Conc 33 g/dl (31-36); Mean Corpuscular Hemoglobin 28 pg (27-31); Mean Corpuscular Volume 85 fL (80-94); Mean Platelet Volume 8 um3 (7.4-10.4); Red Blood Count 5.14 10^6/ul (4.0-5.4); Red Cell Distribution Width 14 % (10.5-15); White Blood Count 9.2 10^3/ul (3.5-10.8)
--- NOTE | 2017-06-25 08:28 | RAD ---
Indication: Chest pain; recurrent. History of tobacco use. Comparison: June 13, 2017 Technique: Upright AP 0632 hours Report: Clear lungs and pleural spaces. Negative for pneumothorax. The heart, pulmonary vasculature, and mediastinal contours are unremarkable. Unremarkable osseous structures and soft tissue contours. IMPRESSION: No evidence for acute intrathoracic disease.
[2017-06-25 08:55] LABS: Potassium 4.4 mmol/L (3.5-5.0)
[2017-06-25] MEDS ORDERED: Ketorolac INJ* 30 MG/ML 1 ML VIAL IV ONE (10:23)
--- NOTE | 2017-06-25 10:28 | ED ---
Yang Griffin Angela, micheleibmatti for Christian Michele MD on 06/25/17 at 0714 . Progress - Progress Note Progress Note: This pt was signed out by Dr. Ferrara, pending disposition, awaiting chest XR. Pt is a 47 y/o male presenting to [facility] c/o right sided chest pain since 03:30 today. Pt notes it is characterized as sharp and poking pain. At its worst it is rated 9/10. Currently it is 3/10 in severity. He notes associated symptoms of SOB. Denies nausea, vomiting, diaphoresis. He had a recent stress test a couple of weeks ago for similar symptoms. Pt had a AR and stent placed [address] Reyes. PMHx includes DM, HTN, high cholesterol. No FHx of cardiac disease. Physical Exam: General: well-appearing, no pain distress Skin: warm, color reflects adequate perfusion, dry Head: normal Eyes: EOMI, STEFANIA ENT: normal Neck: supple, nontender Chest: Mildly tender to palpation on the right upper sternal border. Respiratory: CTA, breath sounds present Cardiovascular: RRR Abdomen: soft, nontender Bowel: present Musculoskeletal: normal, strength/ROM intact Neurological: normal, sensory/motor intact, A&O x3 Psychological: affect/mood appropriate - Results/Orders Results/Orders: Chest XR, as read by radiologist: IMPRESSION: No evidence for acute intrathoracic disease. Dr. Michele has reviewed this radiology report. Re-Evaluation - Re-Evaluation First Eval Re-Evaluation Time: 08:51 Comment: I reviewed the lab results and XR with the pt. Course/Dx - Course Course Of Treatment: Medications reviewed. Allergies noted. BP noted and advised to follow up with PCP. Troponin 1 is 0.00 and troponin [address] is [address] JONES. HE RECOMMENDED A SECOND TROPONIN. THIS WAS 0.00. DISCUSSED RESULTS WITH THE PATIENT. 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 - Diagnoses Provider Diagnoses: Uncontrolled hypertension - Provider Notifications Discussed Care Of Patient With: Joaquín Jones Time Discussed With Above Provider: 09:16 Instructed by Provider To: Other - I discussed the pt's case with Dr. Jones, client care representative. He recommends to re-check the troponin. The documentation as recorded by the Yang melton Angela accurately reflects the service I personally performed and the decisions made by me, Christian Michele MD.
[2017-06-25 10:44] VITALS: BP 136/76
--- NOTE | 2017-06-26 23:37 | ED ---
Murray Griffin Thomas, scribed for Katey Ferrara MD on 06/25/17 at 0634 . HPI Chest Pain - HPI Summary HPI Summary: The patient is a 47 year old male brought in by ambulance c/o right-sided chest pain that woke him up today at 02:30. The patient was given ASA and NTG prior to arrival. Patient denies diaphoresis, SOB, and nausea. The patient had an IN and a stent placement a year ago. The patient was admitted on 06/14/17 for chest pain and had a nuclear stress test that was negative. - History of Current Complaint Time Seen by Provider: 06/25/17 06:25 Hx Obtained From: Patient Onset/Duration: Started Hours Ago - onset today at 02:30, Still Present Timing: Constant Current Severity: Moderate Chest Pain Location: Discrete at: - R-sided Aggravating Factor(s): Nothing Alleviating Factor(s): Nothing Associated Signs and Symptoms: Positive: Chest Pain. Negative: Shortness of Breath, Diaphoresis, Nausea Related History: Obesity - Additional Pertinent History Primary Care Physician: BASHIR - Allergy/Home Medications Allergies/Adverse Reactions: Allergies Allergy/AdvReac Type Severity Reaction Status Date / Time Fentanyl Allergy See Comment Verified 06/22/17 12:07 Shellfish Allergy Allergy See Comment Verified 06/22/17 12:07 PMH/Surg Hx/FS Hx/Imm Hx Previously Healthy: No Endocrine/Hematology History: Reports: Hx Diabetes Denies: Hx Thyroid Disease Cardiovascular History: Reports: Hx Angina, Hx Hypercholesterolemia, Hx Hypertension, Hx Myocardial Infarction - Jun 2016, Other Cardiovascular Problems /Disorders - Current admission for chest pain Denies: Hx Pacemaker/ICD Respiratory History: Reports: Hx Asthma - SEASONAL Denies: Hx Chronic Obstructive Pulmonary Disease (COPD), Other Respiratory Problems/Disorders GI History: Denies: Hx Ulcer History: Denies: Hx Renal Disease Musculoskeletal History: Reports: Other Musculoskeletal History - Lt wrist pain of unknown origin Sensory History: Reports: Hx Contacts or Glasses Denies: Hx Hearing Aid Opthamlomology History: Reports: Hx Contacts or Glasses Neurological History: Denies: Hx Peripheral Neuropathy Psychiatric History: Denies: Hx Panic Disorder - Cancer History Cancer Type, Location and Year: none - Surgical History Surgery Procedure, Year, and Place: appendectomy. stent placed June 2016 after heart attack Hx Anesthesia Reactions: No Infectious Disease History: Denies: Hx Clostridium Difficile, Hx Hepatitis, Hx Human Immunodeficiency Virus (HIV), Hx of Known/Suspected MRSA, Hx Shingles, Hx Tuberculosis, Hx Known/ Suspected VRE, Hx Known/Suspected VRSA, History Other Infectious Disease - Family History Known Family History: Positive: Cardiac Disease, Hypertension, Diabetes - Social History Alcohol Use: Weekly Alcohol Amount: 2-3 beers per week Hx Substance Use: Yes Substance Use Type: Reports: Marijuana Substance Use Comment - Amount & Last Used: OCCASIONALLY Hx Tobacco Use: Yes Smoking Status (MU): Current Some Day Smoker Type: Cigarettes Have You Smoked in the Last Year: Yes Review of Systems Negative: Fever, Skin Diaphoresis Positive: Chest Pain Negative: Shortness Of Breath Negative: Nausea All Other Systems Reviewed And Are Negative: Yes Physical Exam - Summary Physical Exam Summary: VITAL SIGNS: Reviewed. GENERAL: Patient is an obese male who is lying comfortable in the stretcher. Patient is not in any acute respiratory distress. HEAD AND FACE: No signs of trauma. No ecchymosis, hematomas or skull depressions. No sinus tenderness. EYES: PERRLA, EOMI x 2, No injected conjunctiva, no nystagmus. EARS: Hearing grossly intact. Ear canals and tympanic membranes are within normal limits. MOUTH: Oropharynx within normal limits. NECK: Supple, trachea is midline, no adenopathy, no JVD, no carotid bruit, no c- spine tenderness, neck with full ROM. CHEST: Symmetric, no tenderness at palpation LUNGS: Clear to auscultation bilaterally. No wheezing or crackles. CVS: Regular rate and rhythm, S1 and S2 present, no murmurs or gallops appreciated. ABDOMEN: Soft, non-tender. No signs of distention. No rebound no guarding, and no masses palpated. Bowel sounds are normal. EXTREMITIES: FROM in all major joints, no edema, no cyanosis or clubbing. NEURO: Alert and oriented x 3. No acute neurological deficits. Speech is normal and follows commands. SKIN: Dry and warm Triage Information Reviewed: Yes Vital Signs On Initial Exam: Initial Vitals BP 127/114 06/25/17 06:34 Vital Signs Reviewed: Yes Diagnostics - Vital Signs Vital Signs Temp Pulse Resp BP Pulse Ox 06/25/17 10:43 36.0 C 76 16 136/76 99 06/25/17 10:00 74 19 96 06/25/17 09:00 126/65 06/25/17 08:30 86 22 131/74 96 06/25/17 08:00 91 24 137/70 96 06/25/17 07:30 94 20 139/68 95 06/25/17 07:00 91 22 136/61 97 06/25/17 06:37 90 06/25/17 06:36 95 19 97 06/25/17 06:35 36.7 C 91 23 140/79 96 06/25/17 06:34 127/114 - Laboratory Lab Results: Lab Results 06/25/17 06/25/17 06/25/17 Range/Units 06:26 06:26 06:26 WBC 9.2 (3.5-10.8) 10^3/ul RBC 5.14 (4.0-5.4) 10^6/ul Hgb 14.4 (14.0-18.0) g/dl Hct 44 (42-52) % MCV 85 (80-94) fL MCH 28 (27-31) pg MCHC 33 (31-36) g/dl RDW 14 (10.5-15) % Plt Count 289 (150-450) 10^3/ul MPV 8 (7.4-10.4) um3 Neut % (Auto) 46.2 (38-83) % Lymph % (Auto) 37.3 (25-47) % Amelia % (Auto) 11.4 H (1-9) % Eos % (Auto) 4.2 (0-6) % Baso % (Auto) 0.9 (0-2) % Absolute Neuts (auto) 4.2 (1.5-7.7) 10^3/ul Absolute Lymphs (auto) 3.4 (1.0-4.8) 10^3/ul Absolute Monos (auto) 1.0 H (0-0.8) 10^3/ul Absolute Eos (auto) 0.4 (0-0.6) 10^3/ul Absolute Basos (auto) 0.1 (0-0.2) 10^3/ul Absolute Nucleated RBC 0.02 10^3/ul Nucleated RBC % 0.2 INR (Anticoag Therapy) 0.86 (0.77-1.02) APTT 32.2 (26.0-36.3) seconds D-Dimer, Quantitative < 200 (Less Than 230) ng/mL Sodium (133-145) mmol/L Potassium (3.5-5.0) mmol/L Chloride (101-111) mmol/L Carbon Dioxide (22-32) mmol/L Anion Gap (2-11) mmol/L BUN (6-24) mg/dL Creatinine (0.67-1.17) mg/dL Est GFR ( Amer) (>60) Est GFR (Non-Af Amer) (>60) BUN/Creatinine Ratio (8-20) Glucose (70-100) mg/dL Lactic Acid (0.5-2.0) mmol/L Calcium (8.6-10.3) mg/dL Magnesium (1.9-2.7) mg/dL Total Bilirubin (0.2-1.0) mg/dL AST (13-39) U/L ALT (7-52) U/L Alkaline Phosphatase (34-104) U/L Troponin I (<0.04) ng/mL B-Natriuretic Peptide 35 ( - 100) pg/mL Total Protein (6.4-8.9) g/dL Albumin (3.2-5.2) g/dL Globulin (2-4) g/dL Albumin/Globulin Ratio (1-3) 06/25/17 06/25/17 06/25/17 Range/Units 06:26 06:26 09:26 WBC (3.5-10.8) 10^3/ul RBC (4.0-5.4) 10^6/ul Hgb (14.0-18.0) g/dl Hct (42-52) % MCV (80-94) fL MCH (27-31) pg MCHC (31-36) g/dl RDW (10.5-15) % Plt Count (150-450) 10^3/ul MPV (7.4-10.4) um3 Neut % (Auto) (38-83) % Lymph % (Auto) (25-47) % Amelia % (Auto) (1-9) % Eos % (Auto) (0-6) % Baso % (Auto) (0-2) % Absolute Neuts (auto) (1.5-7.7) 10^3/ul Absolute Lymphs (auto) (1.0-4.8) 10^3/ul Absolute Monos (auto) (0-0.8) 10^3/ul Absolute Eos (auto) (0-0.6) 10^3/ul Absolute Basos (auto) (0-0.2) 10^3/ul Absolute Nucleated RBC 10^3/ul Nucleated RBC % INR (Anticoag Therapy) (0.77-1.02) APTT (26.0-36.3) seconds D-Dimer, Quantitative (Less Than 230) ng/mL Sodium 137 (133-145) mmol/L Potassium 4.4 (3.5-5.0) mmol/L Chloride 106 (101-111) mmol/L Carbon Dioxide 22 (22-32) mmol/L Anion Gap 9 (2-11) mmol/L BUN 15 (6-24) mg/dL Creatinine 0.92 (0.67-1.17) mg/dL Est GFR ( Amer) 112.9 (>60) Est GFR (Non-Af Amer) 87.8 (>60) BUN/Creatinine Ratio 16.3 (8-20) Glucose 228 H (70-100) mg/dL Lactic Acid 1.4 (0.5-2.0) mmol/L Calcium 9.5 (8.6-10.3) mg/dL Magnesium 1.7 L (1.9-2.7) mg/dL Total Bilirubin 0.30 (0.2-1.0) mg/dL AST 22 (13-39) U/L ALT 38 (7-52) U/L Alkaline Phosphatase 59 (34-104) U/L Troponin I 0.00 0.00 (<0.04) ng/mL B-Natriuretic Peptide ( - 100) pg/mL Total Protein 7.7 (6.4-8.9) g/dL Albumin 3.8 (3.2-5.2) g/dL Globulin 3.9 (2-4) g/dL Albumin/Globulin Ratio 1.0 (1-3) Result Diagrams: 06/25/17 06:26 06/25/17 06:26 Lab Statement: Any lab studies that have been ordered have been reviewed, and results considered in the medical decision making process. - EKG 06:26 Cardiac Rate: NL EKG Rhythm: Sinus Rhythm - at 92 BPM EKG Interpretation: Normal axis. Normal intervals. Nonspecific T-wave changes. Re-Evaluation - Re-Evaluation First Eval Re-Evaluation Time: 08:51 Comment: I reviewed the lab results and XR with the pt. Chest Pain Course/Dx - Course Assessment/Plan: The patient is a 47 year old male brought in by ambulance c/o right-sided chest pain that woke him up today at 02:30. The patient will be signed out to Dr Zamora pending labs and CXR. - Diagnoses Provider Diagnoses: Uncontrolled hypertension Discharge - Discharge Plan Condition: Stable Disposition: HOME Discharge Disposition Comment: Signed out to the next ED attending pending labs , CXR Patient Education Materials: Chest Pain (ED) Referrals: Joaquín Jones MD [Medical Doctor] - Nancie Camarena MD [Primary Care Provider] - Additional Instructions: FOLLOW UP WITH YOUR PRIMARY CARE DOCTOR AND GAS OR WATER METER INSTALLER, DR JONES. RETURN TO THE EMERGENCY DEPARTMENT FOR ANY WORSENING OF YOUR CONDITION OR QUESTIONS OR CONCERNS. The documentation as recorded by the uMrray melton Thomas accurately reflects the service I personally performed and the decisions made by me, Katey Ferrara MD.
== END 2017-06-25 10:55 | disposition home or self-care (01) ==
LOC: ED 06:24
DX: I10 Essential (primary) hypertension (principal); F17.210 Nicotine dependence, cigarettes, uncomplicated; E78.00 Pure hypercholesterolemia, unspecified; E11.9 Type 2 diabetes mellitus without complications
CPT/HCPCS: 36415; 71010; 80053; 83605; 83735; 83880; 84484; 85025; 85379; 85610; 85730; 93005; 96374; 99282; J1885

== ENCOUNTER 2017-09-28 09:42 | Emergency (ER) | payer OTHER ==
--- NOTE | 2017-09-28 10:38 | RAD ---
INDICATION: Chest pain COMPARISON: June 25, 2017 TECHNIQUE: An AP portable view obtained at 1010 hours is submitted. FINDINGS: Bones/Soft Tissues: There are no acute bony findings. Cardiomediastinal: The cardiomediastinal silhouette is normal. Lungs: There are no infiltrates. Pleura: There are no pleural effusions. Other: None IMPRESSION: NO ACTIVE DISEASE.
[2017-09-28 11:01] LABS: EGFR Non-African American 96.2 (>60)
[2017-09-28 11:02] LABS: ABS Basophils 0.1 10^3/ul (0-0.2); ABS Eosinophils 0.3 10^3/ul (0-0.6); ABS Lymphocytes 2.8 10^3/ul (1.0-4.8); ABS Monocytes 0.5 10^3/ul (0-0.8); ABS Nucleated RBC 0 10^3/ul; Eosinophil % 3.9 % (0-6); Hematocrit 42 % (42-52); Hemoglobin 13.8 g/dl (14.0-18.0); Lymphocyte % 42.5 % (25-47); Mean Corpuscular HGB Conc 33 g/dl (31-36); Mean Corpuscular Hemoglobin 27 pg (27-31); Mean Corpuscular Volume 84 fL (80-94); Mean Platelet Volume 8 um3 (7.4-10.4); Nucleated Red Blood Cells % 0.1; Platelet Count 268 10^3/ul (150-450); Red Blood Count 5.03 10^6/ul (4.0-5.4); Red Cell Distribution Width 14 % (10.5-15); White Blood Count 6.7 10^3/ul (3.5-10.8)
[2017-09-28 13:51] VITALS: BP 116/75
--- NOTE | 2017-09-28 17:36 | ED ---
Pb Griffin Nilda, scribed for Ankit Tai MD on 09/28/17 at 0957 . HPI Chest Pain - HPI Summary HPI Summary: This patient is a 47 year old M BIBA with a chief complaint of waking up with constant sharp diffuse CP that radiates to back since 0200 this morning. The patient rates the pain 5/10 in severity. Symptoms aggravated and alleviated by nothing. Patient reports SOB, but denies N/V and diaphoresis. Patient states last stress test was July 2017 and was unremarkable. Patient notes his doctor recently took him off medication for cardiac issues but does not currently remember which medication. PMHx includes angina. - History of Current Complaint Time Seen by Provider: 09/28/17 09:47 Hx Obtained From: Patient Onset/Duration: Started Hours Ago, Still Present Time of Onset: 02:00 Timing: Constant Current Severity: Moderate Pain Intensity: 5 Pain Scale Used: 0-10 Numeric Chest Pain Location: Diffuse Chest Pain Radiates: Yes Chest Pain Radiates To:: Back, Other Character: Sharp/Stabbing Aggravating Factor(s): Nothing Alleviating Factor(s): Nothing Associated Signs and Symptoms: Positive: Other: - SOB; negative N/V and diaphoresis - Additional Pertinent History Primary Care Physician: [id number] - Allergy/Home Medications Allergies/Adverse Reactions: Allergies Allergy/AdvReac Type Severity Reaction Status Date / Time MS Fentanyl Allergy See Comment Verified 06/22/17 12:07 MS Shellfish Allergy Allergy See Comment Verified 06/22/17 12:07 [Shellfish Allergy] Home Medications: Home Medications Insulin GLARGINE(*) [Lantus(*)] 20 units SUBCUT QPM 09/28/17 [History Confirmed 09/28/17] Insulin LISPRO* [HumaLOG*] 20 units SUBCUT BID WITH MEALS 09/28/17 [History Confirmed 09/28/17] Insulin LISPRO* [HumaLOG*] 25 units SUBCUT .QPM WITH MEAL 09/28/17 [History Confirmed 09/28/17] Multivitamins/Minerals TAB* [Theragran/minerals TAB*] 1 tab PO DAILY 09/28/17 [ History Confirmed 09/28/17] Rosuvastatin (NF) [Crestor (NF)] 10 mg PO DAILY 09/28/17 [History Confirmed ] PMH/Surg Hx/FS Hx/Imm Hx Endocrine/Hematology History: Reports: Hx Diabetes Denies: Hx Thyroid Disease Cardiovascular History: Reports: Hx Angina, Hx Hypercholesterolemia, Hx Hypertension, Hx Myocardial Infarction - Jun 2016, Other Cardiovascular Problems /Disorders - Current admission for chest pain Denies: Hx Pacemaker/ICD Respiratory History: Reports: Hx Asthma - SEASONAL Denies: Hx Chronic Obstructive Pulmonary Disease (COPD), Other Respiratory Problems/Disorders GI History: Denies: Hx Ulcer History: Denies: Hx Renal Disease Musculoskeletal History: Reports: Other Musculoskeletal History - Lt wrist pain of unknown origin Sensory History: Reports: Hx Contacts or Glasses Denies: Hx Hearing Aid Opthamlomology History: Reports: Hx Contacts or Glasses Neurological History: Denies: Hx Peripheral Neuropathy Psychiatric History: Denies: Hx Panic Disorder - Cancer History Cancer Type, Location and Year: none - Surgical History Surgery Procedure, Year, and Place: appendectomy. stent placed June 2016 after heart attack Hx Anesthesia Reactions: No Infectious Disease History: Denies: Hx Clostridium Difficile, Hx Hepatitis, Hx Human Immunodeficiency Virus (HIV), Hx of Known/Suspected MRSA, Hx Shingles, Hx Tuberculosis, Hx Known/ Suspected VRE, Hx Known/Suspected VRSA, History Other Infectious Disease - Family History Known Family History: Positive: Cardiac Disease, Hypertension, Diabetes - Social History Alcohol Use: Weekly Alcohol Amount: 2-3 beers per week Hx Substance Use: Yes Substance Use Type: Reports: Marijuana Substance Use Comment - Amount & Last Used: OCCASIONALLY Hx Tobacco Use: Yes Smoking Status (MU): Current Some Day Smoker Type: Cigarettes Have You Smoked in the Last Year: Yes Review of Systems Negative: Skin Diaphoresis Positive: Chest Pain - radiates to back Positive: Shortness Of Breath Negative: Vomiting, Nausea All Other Systems Reviewed And Are Negative: Yes Physical Exam - Summary Physical Exam Summary: VITAL SIGNS: Reviewed. GENERAL: Patient is a well-developed and nourished male who is lying comfortable in the stretcher. Patient is not in any acute respiratory distress. HEAD AND FACE: No signs of trauma. No ecchymosis, hematomas or skull depressions. No sinus tenderness. EYES: PERRLA, EOMI x 2, No injected conjunctiva, no nystagmus. EARS: Hearing grossly intact. Ear canals and tympanic membranes are within normal limits. MOUTH: Oropharynx within normal limits. NECK: Supple, trachea is midline, no adenopathy, no JVD, no carotid bruit, no c- spine tenderness, neck with full ROM. CHEST: Symmetric, no tenderness at palpation LUNGS: Clear to auscultation bilaterally. No wheezing or crackles. CVS: Regular rate and rhythm, S1 and S2 present, no murmurs or gallops appreciated. ABDOMEN: Soft, non-tender. No signs of distention. No rebound no guarding, and no masses palpated. Bowel sounds are normal. EXTREMITIES: FROM in all major joints, no edema, no cyanosis or clubbing. NEURO: Alert and oriented x 3. No acute neurological deficits. Speech is normal and follows commands. SKIN: Dry and warm Triage Information Reviewed: Yes Vital Signs On Initial Exam: Initial Vitals Temp Pulse Resp BP Pulse Ox 97.7 F 80 20 128/94 96 09/28/17 09:47 09/28/17 09:47 09/28/17 09:47 09/28/17 09:47 09/28/17 09:47 Vital Signs Reviewed: Yes Diagnostics - Vital Signs Vital Signs Temp Pulse Resp BP Pulse Ox 09/28/17 11:00 78 17 144/107 95 09/28/17 10:30 78 18 138/101 95 09/28/17 10:00 84 22 112/83 96 09/28/17 09:57 81 15 128/94 96 09/28/17 09:47 97.7 F 80 20 128/94 96 - Laboratory Lab Results: Lab Results 09/28/17 09/28/17 09/28/17 Range/Units 10:25 10:25 10:25 WBC (3.5-10.8) 10^3/ul RBC (4.0-5.4) 10^6/ul Hgb (14.0-18.0) g/dl Hct (42-52) % MCV (80-94) fL MCH (27-31) pg MCHC (31-36) g/dl RDW (10.5-15) % Plt Count (150-450) 10^3/ul MPV (7.4-10.4) um3 Neut % (Auto) (38-83) % Lymph % (Auto) (25-47) % [place] % (Auto) (0-7) % Eos % (Auto) (0-6) % Baso % (Auto) (0-2) % Absolute Neuts (auto) (1.5-7.7) 10^3/ul Absolute Lymphs (auto) (1.0-4.8) 10^3/ul Absolute Monos (auto) (0-0.8) 10^3/ul Absolute Eos (auto) (0-0.6) 10^3/ul Absolute Basos (auto) (0-0.2) 10^3/ul Absolute Nucleated RBC 10^3/ul Nucleated RBC % APTT 33.3 (26.0-36.3) seconds Sodium 135 (133-145) mmol/L Potassium 3.6 (3.5-5.0) mmol/L Chloride 103 (101-111) mmol/L Carbon Dioxide 22 (22-32) mmol/L Anion Gap 10 (2-11) mmol/L BUN 12 (6-24) mg/dL Creatinine 0.85 (0.67-1.17) mg/dL Est GFR ( Amer) 123.7 (>60) Est GFR (Non-Af Amer) 96.2 (>60) BUN/Creatinine Ratio 14.1 (8-20) Glucose 233 H (70-100) mg/dL Calcium 9.1 (8.6-10.3) mg/dL Total Bilirubin 0.40 (0.2-1.0) mg/dL AST 31 (13-39) U/L ALT 41 (7-52) U/L Alkaline Phosphatase 51 (34-104) U/L Total Creatine Kinase 236 H (10-223) U/L CK-MB (CK-2) 2.1 (0.6-6.3) ng/mL Myoglobin 34.8 (17.4-105.7) ng/mL Troponin I 0.00 (<0.04) ng/mL B-Natriuretic Peptide 21 ( - 100) pg/mL Total Protein 7.2 (6.4-8.9) g/dL Albumin 3.5 (3.2-5.2) g/dL Globulin 3.7 (2-4) g/dL Albumin/Globulin Ratio 0.9 L (1-3) TSH 1.90 (0.34-5.60) mcIU/mL 09/28/17 09/28/17 Range/Units 10:25 12:38 WBC 6.7 (3.5-10.8) 10^3/ul RBC 5.03 (4.0-5.4) 10^6/ul Hgb 13.8 L (14.0-18.0) g/dl Hct 42 (42-52) % MCV 84 (80-94) fL MCH 27 (27-31) pg MCHC 33 (31-36) g/dl RDW 14 (10.5-15) % Plt Count 268 (150-450) 10^3/ul MPV 8 (7.4-10.4) um3 Neut % (Auto) 44.7 (38-83) % Lymph % (Auto) 42.5 (25-47) % [place] % (Auto) 8.1 H (0-7) % Eos % (Auto) 3.9 (0-6) % Baso % (Auto) 0.8 (0-2) % Absolute Neuts (auto) 3.0 (1.5-7.7) 10^3/ul Absolute Lymphs (auto) 2.8 (1.0-4.8) 10^3/ul Absolute Monos (auto) 0.5 (0-0.8) 10^3/ul Absolute Eos (auto) 0.3 (0-0.6) 10^3/ul Absolute Basos (auto) 0.1 (0-0.2) 10^3/ul Absolute Nucleated RBC 0 10^3/ul Nucleated RBC % 0.1 APTT (26.0-36.3) seconds Sodium (133-145) mmol/L Potassium (3.5-5.0) mmol/L Chloride (101-111) mmol/L Carbon Dioxide (22-32) mmol/L Anion Gap (2-11) mmol/L BUN (6-24) mg/dL Creatinine (0.67-1.17) mg/dL Est GFR ( Amer) (>60) Est GFR (Non-Af Amer) (>60) BUN/Creatinine Ratio (8-20) Glucose (70-100) mg/dL Calcium (8.6-10.3) mg/dL Total Bilirubin (0.2-1.0) mg/dL AST (13-39) U/L ALT (7-52) U/L Alkaline Phosphatase (34-104) U/L Total Creatine Kinase (10-223) U/L CK-MB (CK-2) (0.6-6.3) ng/mL Myoglobin (17.4-105.7) ng/mL Troponin I 0.00 (<0.04) ng/mL B-Natriuretic Peptide ( - 100) pg/mL Total Protein (6.4-8.9) g/dL Albumin (3.2-5.2) g/dL Globulin (2-4) g/dL Albumin/Globulin Ratio (1-3) TSH (0.34-5.60) mcIU/mL Result Diagrams: 09/28/17 10:25 09/28/17 10:25 Lab Statement: Any lab studies that have been ordered have been reviewed, and results considered in the medical decision making process. - Radiology CXR Radiology Interpretation Completed By: Radiologist - CATAL[place]. Dr. Tai has reviewed this report. - EKG 0946 Cardiac Rate: NL EKG Rhythm: Sinus Rhythm - 79 bpm EKG Interpretation: no ST elevation EKG Comparison: No Significant Change - from 06/25/17 Re-Evaluation - Re-Evaluation First Eval Re-Evaluation Time: 13:18 Comment: Patient feels better. Reviewed imaging and lab results as well as plan to D/C. Patient is agreeable to D/C. Chest Pain Course/Dx - Course Assessment/Plan: This patient is a 47 year old M BIBA with a chief complaint of waking up with constant sharp diffuse CP that radiates to back since 0200 this morning. The patient rates the pain 5/10 in severity. Symptoms aggravated and alleviated by nothing. Patient reports SOB, but denies N/V and diaphoresis. Patient states last stress test was July 2017 and was unremarkable. Patient notes his doctor recently took him off medication for cardiac issues but does not currently remember which medication. PMHx includes angina. In the ED course an IV access was obtained. Patient was placed in a senior clinical project manager. Patient was started with IV fluids. Labs without any significant abnormality. Troponin #1: 0.00 and Troponin # 2 (4 hours later): 0.00. EKG shows a NSR w/o ST elevations. CXR impression: No acute pathology. In the ED course she has remained stable. He has been CP free. I discussed all the findings and test results with the patient. Patient was instructed to return to the emergency room immediately if any of the symptoms return or worsens. Plan of care was discussed with the patient and understands and agrees. All questions were answered at patient satisfaction. There were no further complaints or concerns. Lung exam before discharge: CTA B/L. Good air exchange. No wheezing or crackles heard. CVS: S1 and S2 present. No murmurs appreciated. Patient is alert and oriented x 3. Patient is hemodynamically stable. Patient will be discharged home with follow up PCP in the next 2-3 days - Chest Pain Differential Diagnosis/HQI/PQRI: Acute [place], ACS, Angina, CHF, Chest Wall, GI Disease - Diagnoses Provider Diagnoses: Atypical chest pain Discharge - Discharge Plan Condition: Stable Disposition: HOME Patient Education Materials: Chest Pain (ED) Referrals: Nancie Camarena MD [Primary Care Provider] - 3 Days Additional Instructions: RETURN TO THE EMERGENCY DEPARTMENT FOR CHANGING OR WORSENING SYMPTOMS. The documentation as recorded by the Pb melton Nilda accurately reflects the service I personally performed and the decisions made by Zaire gonzales Walter, MD.
== END 2017-09-28 13:49 | disposition home or self-care (01) ==
LOC: ED 09:42
DX: R07.89 Other chest pain (principal); R06.02 Shortness of breath; E11.9 Type 2 diabetes mellitus without complications; Z79.4 Long term (current) use of insulin; I25.2 Old myocardial infarction; I10 Essential (primary) hypertension; E78.00 Pure hypercholesterolemia, unspecified; Z88.5 Allergy status to narcotic agent; Z91.013 Allergy to seafood; Z72.0 Tobacco use
CPT/HCPCS: 36415; 71045; 80053; 82550; 82553; 83874; 83880; 84443; 84484; 85025; 85730; 93005; 99283

== ENCOUNTER 2018-01-23 11:42 | Observation (INO) | payer OTHER ==
--- OUTSIDE RECORDS SUMMARY | 2018-01-23 11:50 | XMS REPORT ---
:1970 External Reference #:[id number] Author Organization [facility] Address [address] [place] [address] [place] [address] Phone [phone] Care Team Providers Name Role Phone Nancie Camarena MD Primary Care Physician Unavailable Payers Type Date Identification Numbers Payment Provider Subscriber Commercial Policy Number: [id number] Barry Ness Group Number: [id number] [address] PayID: [id number] [place] [address] Workers Onset: 2015 Policy Number: [facility] Michael Compensation [id number] [place] [address] [address] [place] [address] Problems Date Description Provider Status Onset: 06/01/2009 Asthma without status asthmaticus Kanchan Walton M.D. Active Onset: 09/17/2009 Type II diabetes mellitus Kanchan Walton M.D. Active uncontrolled Onset: 07/05/2016 Encounter for planned Rogelio Reyes M.D., [facility], Active postprocedural wound closure [facility] Onset: 11/06/2017 Stress fracture of metatarsal Jon MD Luis Active bone Family History Date Family Member(s) Problem(s) Comments General Diabetes General Hypertension Mother Diabetes Type II on insulin Mother due to Unknown Causes () - late 70s Siblings 3 Siblings - one /2 sib on mother's side, four - no details five 1/2 sibs on father's side Social History Type Date Description Comments Lives With Spouse Occupation Currently Working [email or web address] Cigarette Use 2010 Former Cigarette Smoker ETOH Use Occasionally consumes alcohol one beer a week Smoking Patient is a former smoker Recreational Drug Use Denies Drug Use Daily Caffeine Consumes on average 1 cup of regular coffee per day Daily Caffeine Consumes on average 1 soda per day Exercise Type/Frequency Exercises sporadically walking Allergies, Adverse Reactions, Alerts Date Description Reaction Status Severity Comments 02/18/2015 Glipizide made him sleepy active 08/11/2016 Fentanyl confusion active Severe 07/06/2017 Shellfish-derived Products active 06/01/2009 NKDA inactive Medications Medication Date Status Form Strength Qnty SIG Indications Ordering Provider Ranexa 10/17 Active Tablets ER 500mg 60tab 1 by mouth I25.10 Joaquín D. /2017 12HR s twice a day Brand, ( has Not M.D. received medication ) Indomethacin 05/09 Active Capsules 50mg 60cap take one Monique s tab three Faith, times a day M.D. as needed for pain Rosuvastatin 01/09 Active Tablets 10mg 30tab take 1 tab E78.5 Joaquín D. s by mouth at Brand, bedtime M.D. Lantus Solostar 07/20 Active Solution 100Unit/M 30ml inject 10 Pen-Inject L units once Cotton, daily or as M.D. directed Pen [place] For 07/20 Active Misc 30uni use once Kanchan Lantus Solostar ts daily Cotton, M.D. Glucocom Blood 01/01 Active Kit W/Device 1unit for use E11.65 Kanchan Glucose /2014 s once daily Cotton, Monitoring 250.02 M.D. System Glucocom Lancets 01/01 Active Misc 33G 50uni for use E11.65 Kanchan 33G /2014 ts once daily Cotton, M.D. Glucocom Test 01/01 Active Strips 50uni for testing E11.65 Kanchan ts once daily Cotton, M.D. Metformin HCL ER 11/11 Active Tablets ER 500mg 90tab 1 tab po E11.65 Kanchan /2015 24HR s bid Cotton, M.D. Loratadine 07/25 Active Tablets 10mg 30tab Take One Kanchan /2015 s Tablet By Cotton, Mouth Every M.D. Day as Needed For Allergy Symptoms Wrist Brace/Left 04/27 Active Misc 1unit for use 729.5 Kanchan s every night Cotton, and daily M.D. as needed Proair HFA 02/10 Active Aerosol 108(90Bas 1unit 2 puffs 4 J45.909 e) s times daily Cotton, mcg/Act as needed M.D. Aspirin Active Tablets DR 81mg 1 by mouth Unknown /0000 every day Am Metoprolol Active Tablets ER 25mg 90tab 1 by mouth Joaquín D. Succinate ER /0000 24HR s every day Brand, M.Kenia Amlodipine Active Tablets 10mg 1 by mouth Unknown Besylate / every day Nitrostat Active Tablets 0.4mg one sl Unknown Sub q5min up to 3 doses as needed Acetaminophen Active Tablets 500mg 2 tabs 3 Unknown Extra Strength / times daily as needed for pain Victoza Active Solution 18mg/3ML inject up Unknown Pen-Inject to 45 units daily One Daily For Active 1 tablet po Unknown Men Plus Vitamin / daily D Clopidogrel 12/08 Hx Tablets 75mg 90tab 1 tab by R07.9 Joaquín Aquino Bisulfate /2016 s mouth daily Brand, - M.D. 09/17 Glimepiride 04/13 Hx Tablets 1mg 30tab 1 tablet E11.65 s once daily Cotton, - in the M.D. 10/28 Glimepiride 01/01 Hx Tablets 1mg 30tab 1 tablet 250.02 s once daily Cotton, - in the M.D. 02/18 /2014 Hydrocortisone 01/01 Hx Cream 2.5% 60gm apply to 782.1 affected Cotton, - area twice M.D. 07/04 /2015 Pioglitazone HCL 04/27 Hx Tablets 30mg 30tab 1 by mouth s every day Cotton, - M.D. 10/28 Mupirocin 02/10 Hx Ointment 2% 22gm apply to 707.8 skin Cotton, - lesions M.D. 04/26 twice daily /2013 Pulmicort 12/10 Hx Aerosol 180mcg/Ac 1unit 2 puffs 493.90 Kanchan Flex t s twice daily Cotton, - M.D. 04/26 Loratadine 12/10 Hx Tablets 10mg 30tab 1 po qd prn V70.0 s allergy Cotton, - symptoms M.D. 01/27 Azithromycin 10/11 Hx Tablets 250mg 6tabs 2 tabs po 493.90 on day 1; 1 Cotton, - tab po qd M.D. 12/09 on days 2- Glipizide 07/23 Hx Tablets 5mg 60tab 1 tablet by 250.02 s mouth twice Cotton, - daily M.D. 04/26 breakfast and before dinner Azithromycin 06/18 Hx Tablets 250mg 6tabs 2 tabs po 493.90 on day 1; 1 Cotton, - tab po qd M.D. 07/23 on days 2- Freestyle Lite 18 Hx 100un use once 250.02 Kanchan Lancets ( its daily Cotton, [place] Lite - before M.D. Monitor) 02/02 and prn Freestyle Lite 12/31 Hx 100un Use once 250.02 Kanchan Test Strip its daily and Cotton, - prn M.D. 02/02 Nateglinide 07/31 Hx Tablets 120mg 90tab 1 PO tid. 250.02 s Take 30 Cotton, - minutes M.D. 04/26 prior meals Pulmicort 07/27 Hx Aerosol 90mcg/Act 1unit 1 493.90 Kanchan [facility] s inhalation Cotton, - bid M.D. 12/10 Qvar 07/25 Hx Aerosol 40mcg/Act 8.700 1 puff bid 493.90 gm Cotton, - M.D. 07/27 Proair HFA 07/24 Hx Aerosol 108(90Bas 1unit 2 puffs 4 493.90 e) mcg/ac s times daily Cotton, - as needed M.D. 02/10 Voltaren 04/19 Hx Gel 1% 2tube apply 2 s grams to [place], - affected M.D. 08/30 area bid /2013 prn Prandin 03/28 Hx Tablets 1mg 180ta 2 tablets 250.02 bs before each Cotton, - meal M.D. 07/31 Mupirocin 01/24 Hx Ointment 2% 22gm apply to 707.8 skin Cotton, - lesions M.D. 02/02 twice daily Prandin 01/19 Hx Tablets 1mg 60tab 1 tablet 250.02 s twice daily Cotton, - before M.D. 03/28 meals Metamucil 01/19 Hx Powder 48.57% QS 1 tbsp 250.02 daily Cotton, - M.D. 01/31 Prandin 12/20 Hx Tablets 0.5mg 60tab 1 tablet 2 250.02 s times daily Cotton, - before M.D. 01/19 lunch and dinner Glimepiride 09/02 Hx Tablets 1mg 30tab 1 tablet 250.02 s once daily Cotton, - in the M.D. 12/20 morning Ventolin HFA 03/17 Hx Aerosol 108(90Bas 18gm 2 puffs 4 493.90 Kanchan e) mcg/ac times daily Cotton, - as needed M.D. 07/24 Metformin HCL 09/17 Hx Tablets 500mg 90tab 1 tablets 250.02 Daren s in the [facility] - morning , 2 11/11 tablets in evening Albuterol 08/24 Hx 17gm 2 puffs 493.90 Kanchan Inhaler four times Cotton, Proair - daily as M.D. 03/17 Glipizide XL 08/24 Hx Tablets ER 2.5mg 30tab 1/2 Tab PO 250.02 Kanchan /2010 24HR s Q Am Cotton, - M.D. 10/01 Freestyle Lite 08/24 Hx 50uni use once 250.02 Kanchan Lancets ( ts daily Cotton, [place] Lite - before M.D. Monitor) 02/25 breakfast; Januvia 08/11 Hx Tablets 100mg 1 po qd Kanchan /2010 Cotton, - M.DCecily 08/24 Flovent HFA 08/03 Hx Aerosol 110mcg/Ac 1unit 2 puffs 493.90 t s twice daily Anton - M.DCecily 07/25 Albuterol 06/01 Hx Nebulizer 0.63mg/3M 100un 1 via Kanchan L its nebulizer [place], - every 6 hrs M.D. 02/02 as needed Flovent HFA 06/01 Hx Aerosol 110mcg/Ac 493.90 Kanchan t Anton, - M.DCecily 08/03 Freestyle Lite Hx 60uni Use once 250.02 Kanchan Test Strip /0000 ts twice daily Anton - M.Kenia 02/25 Butalbital/Aceta Hx Tablets 50-500-40 30tab 1 tablet Kanchan minophen/Caffein /0000 mg s every 4-5 Anton e - ours as M.DCecily 12/31 needed headache Actos Hx Tablets 30mg 30tab 1 by mouth Unknown /0000 s every day - 04/27 Vitamin D3 High Hx Capsules 1000Unit 60cap 2 by mouth Kanchan Potency /0000 s every day Anton Devyn 07/04 Tylenol With Hx Tablets 300-30mg 30tab 1 tab by Unknown Codeine #3 /0000 s mouth every - 4 to 6 04/29 hours needed Brilinta Hx Tablets 90mg 180ta 1 tab by R07.9 Joaquín D. /0000 bs mouth twice Brand, - a day M.D. 12/08 Atorvastatin Hx Tablets 80mg 90tab 1 by mouth Joaquín D. Calcium /0000 s every day Brand, - M.D. 01/08 Humalog Kwikpen Hx Solution 100Unit/M sliding Unknown /0000 Pen-Inject L scale - 06/19 Medications Administered in Office Medication Date Status Form Strength Qnty SIG Indications Ordering Provider Technetium TC Administered Injection Jos Foy 99M 017 DO Terrance Tetrofosmin, FACC Per Unit Dose Up To 40 Millicuries Technetium TC Administered Injection Jos S. 99M 017 Carlos, Tetrofosmin, FACC Per Unit Dose Up To 40 Millicuries Depomedrol Administered Injection Monique 40MG 017 Devyn Faiht Technetium TC Administered Injection Joaquín D. 99M 017 Devyn Jones Tetrofosmin, Per Unit Dose Up To 40 Millicuries Immunizations CPT Code Status Date Vaccine Lot # [id number] Given 04/13/2010 Pneumonia Vaccine Vital Signs Date Vital Result Comment 01/11/2018 Height 66 inches 5'6" Weight 234.00 lb Heart Rate 92 /min BP Systolic Sitting 112 mmHg lue lg cuff BP Diastolic Sitting 60 mmHg lue lg cuff Respiratory Rate 20 /min BMI (Body Mass Index) 37.8 kg/m2 11/14/2017 Height 66 inches 5'6" Weight 236.00 lb with shoes Heart Rate 100 /min BP Systolic Sitting 110 mmHg Lue lg cuff BP Diastolic Sitting 78 mmHg Lue lg cuff BP Systolic Standing 114 mmHg Lue lg cuff BP Diastolic Standing 80 mmHg Lue lg cuff Respiratory Rate 18 /min BMI (Body Mass Index) 38.1 kg/m2 11/06/2017 Height 66 inches 5'6" Weight 232.00 lb BP Systolic 130 mmHg BP Diastolic 76 mmHg Respiratory Rate 18 /min Body Temperature 96.9 F Pain Level 10 BMI (Body Mass Index) 37.4 kg/m2 10/25/2017 Heart Rate 80 /min BP Systolic 140 mmHg BP Diastolic 96 mmHg Respiratory Rate 16 /min Body Temperature 97.4 F Pain Level 7 10/17/2017 Height 66 inches 5'6" Weight 236.31 lb Heart Rate 76 /min BP Systolic Sitting 122 mmHg BP Diastolic Sitting 70 mmHg BP Systolic Standing 112 mmHg BP Diastolic Standing 70 mmHg Respiratory Rate 16 /min BMI (Body Mass Index) 38.1 kg/m2 07/06/2017 Height 66 inches 5'6" Weight 233.00 lb Heart Rate 96 /min BP Systolic Sitting 138 mmHg Rue large cuff BP Diastolic Sitting 94 mmHg Rue large cuff BP Systolic Standing 126 mmHg Rue BP Diastolic Standing 92 mmHg Rue Respiratory Rate 16 /min BMI (Body Mass Index) 37.6 kg/m2 06/27/2017 Height 66 inches 5'6" Weight 240.00 lb Heart Rate 100 /min Respiratory Rate 20 /min Body Temperature 98.2 F Pain Level 0 BMI (Body Mass Index) 38.7 kg/m2 06/21/2017 Height 66 inches 5'6" Weight 240.00 lb BP Systolic 128 mmHg BP Diastolic 84 mmHg Respiratory Rate 18 /min Pain Level 5 BMI (Body Mass Index) 38.7 kg/m2 05/03/2017 Height 66 inches 5'6" Weight 240.00 lb Heart Rate 76 /min BP Systolic 138 mmHg BP Diastolic 90 mmHg Respiratory Rate 18 /min Body Temperature 97.0 F Pain Level 10 BMI (Body Mass Index) 38.7 kg/m2 03/21/2017 Height 66 inches 5'6" Weight 231.00 lb without shoes Heart Rate 80 /min BP Systolic Sitting 110 mmHg Lue lg cuff BP Diastolic Sitting 84 mmHg Lue lg cuff BP Systolic Standing 112 mmHg Lue lg cuff BP Diastolic Standing 80 mmHg Lue lg cuff Respiratory Rate 17 /min BMI (Body Mass Index) 37.3 kg/m2 Ejection Fraction 61% date 08/18/16 Nem 01/09/2017 Height 66 inches 5'6" Weight 227.25 lb without shoes Heart Rate 82 /min BP Systolic Sitting 94 mmHg Rue lg cuff BP Diastolic Sitting 66 mmHg Rue lg cuff BP Systolic Standing 108 mmHg Rue lg cuff BP Diastolic Standing 68 mmHg Rue lg cuff Respiratory Rate 17 /min BMI (Body Mass Index) 36.7 kg/m2 12/08/2016 Height 66 inches 5'6" Weight 224.00 lb no shoes Heart Rate 106 /min BP Systolic Sitting 134 mmHg Rue lrg cuff BP Diastolic Sitting 86 mmHg Rue lrg cuff BP Systolic Standing 136 mmHg Rue lrg cuff BP Diastolic Standing 90 mmHg Rue lrg cuff Respiratory Rate 19 /min BMI (Body Mass Index) 36.2 kg/m2 10/13/2016 Height 66 inches 5'6" Weight 225.00 lb w/o shoes Heart Rate 96 /min BP Systolic Sitting 110 mmHg Ra lrg cuff BP Diastolic Sitting 78 mmHg Ra lrg cuff BP Systolic Standing 114 mmHg Ra lrg cuff BP Diastolic Standing 78 mmHg Ra lrg cuff BMI (Body Mass Index) 36.3 kg/m2 08/11/2016 Height 66 inches 5'6" Weight 225.00 lb no shoes Heart Rate 88 /min BP Systolic Sitting 118 mmHg Lue reg cuff BP Diastolic Sitting 82 mmHg Lue reg cuff BP Systolic Standing 102 mmHg Lue reg cuff BP Diastolic Standing 80 mmHg Lue reg cuff Respiratory Rate 17 /min BMI (Body Mass Index) 36.3 kg/m2 07/07/2016 Height 66 inches 5'6" Weight 227.00 lb w/o shoes Heart Rate 88 /min reg BP Systolic Sitting 110 mmHg Rue, lg cuff BP Diastolic Sitting 66 mmHg Rue, lg cuff BP Systolic Standing 104 mmHg Rue BP Diastolic Standing 66 mmHg Rue Respiratory Rate 16 /min BMI (Body Mass Index) 36.6 kg/m2 Ejection Fraction 55% as of 06/20/16 cath 07/05/2016 Height 66 inches 5'6" Weight 227.00 lb Heart Rate 90 /min 96 BP Systolic Sitting 108 mmHg right arm, large cuff BP Diastolic Sitting 84 mmHg right arm, large cuff BP Systolic Standing 90 mmHg right arm, large cuff BP Diastolic Standing 68 mmHg right arm, large cuff Respiratory Rate 24 /min BMI (Body Mass Index) 36.6 kg/m2 Ejection Fraction 55% 06/20/16 Cath 08/23/2015 Height 66 inches 5'6" Weight 247.00 lb Heart Rate 86 /min BP Systolic Sitting 128 mmHg BP Diastolic Sitting 84 mmHg Respiratory Rate 15 /min Body Temperature 98.5 F O2 % BldC Oximetry 98 % BMI (Body Mass Index) 39.9 kg/m2 07/20/2015 Height 66 inches 5'6" Weight 250.25 lb Heart Rate 71 /min BP Systolic Sitting 124 mmHg BP Diastolic Sitting 86 mmHg Body Temperature 97.3 F Pain Level 9 Right shoulder O2 % BldC Oximetry 98 % BMI (Body Mass Index) 40.4 kg/m2 04/27/2015 Height 66 inches 5'6" Weight 249.00 lb Heart Rate 90 /min BP Systolic Sitting 122 mmHg BP Diastolic Sitting 80 mmHg Respiratory Rate 14 /min O2 % BldC Oximetry 97 % BMI (Body Mass Index) 40.2 kg/m2 04/13/2015 Height 66 inches 5'6" Weight 250.00 lb Heart Rate 87 /min BP Systolic 110 mmHg BP Diastolic 73 mmHg Body Temperature 98.2 F BMI (Body Mass Index) 40.3 kg/m2 02/18/2015 Weight 248.12 lb Heart Rate 84 /min BP Systolic Sitting 119 mmHg BP Diastolic Sitting 75 mmHg Body Temperature 97.1 F 01/01/2015 Weight 244.00 lb Heart Rate 93 /min BP Systolic Sitting 133 mmHg BP Diastolic Sitting 82 mmHg Body Temperature 97.3 F 11/11/2014 Height 66 inches 5'6" Weight 242.00 lb Heart Rate 83 /min BP Systolic 130 mmHg BP Diastolic 80 mmHg Body Temperature 98.1 F BMI (Body Mass Index) 39.1 kg/m2 10/01/2014 Weight 243.00 lb Heart Rate 75 /min BP Systolic Sitting 136 mmHg recehck 130/82 BP Diastolic Sitting 84 mmHg recehck 130/82 Body Temperature 97.2 F 04/27/2014 Height 66 inches 5'6" Weight 237.50 lb Heart Rate 74 /min BP Systolic Sitting 134 mmHg BP Diastolic Sitting 78 mmHg Body Temperature 99.1 F O2 % BldC Oximetry 99 % BMI (Body Mass Index) 38.3 kg/m2 01/27/2013 Weight 253.00 lb Heart Rate 70 /min BP Systolic Sitting 126 mmHg BP Diastolic Sitting 82 mmHg O2 % BldC Oximetry 97 % Peak Flow Meter 620,610 01/06/2013 Height 64.5 inches 5'4.50" Weight 243.00 lb Heart Rate 84 /min BP Systolic Sitting 120 mmHg BP Diastolic Sitting 84 mmHg BMI (Body Mass Index) 41.1 kg/m2 12/10/2012 Weight 251.00 lb Heart Rate 68 /min BP Systolic Sitting 138 mmHg BP Diastolic Sitting 80 mmHg Body Temperature 98.1 F O2 % BldC Oximetry 97 % Peak Flow Meter 580 550, 550, 580 10/11/2012 Weight 249.00 lb Heart Rate 76 /min BP Systolic Sitting 120 mmHg BP Diastolic Sitting 78 mmHg Body Temperature 98.6 F 08/30/2012 Height 66 inches 5'6" Weight 249.50 lb Heart Rate 86 /min BP Systolic Sitting 128 mmHg BP Diastolic Sitting 80 mmHg BMI (Body Mass Index) 40.3 kg/m2 07/23/2012 Height 66 inches 5'6" Weight 254.00 lb Heart Rate 96 /min BP Systolic Sitting 124 mmHg lg cuff BP Diastolic Sitting 76 mmHg lg cuff BMI (Body Mass Index) 41.0 kg/m2 06/18/2012 Height 66 inches 5'6" Weight 249.00 lb Heart Rate 78 /min BP Systolic Sitting 126 mmHg BP Diastolic Sitting 74 mmHg Body Temperature 98.5 F BMI (Body Mass Index) 40.2 kg/m2 04/22/2012 Height 66 inches 5'6" Weight 251.00 lb Heart Rate 74 /min BP Systolic Sitting 124 mmHg BP Diastolic Sitting 76 mmHg BMI (Body Mass Index) 40.5 kg/m2 02/05/2012 Height 66 inches 5'6" Weight 248.00 lb Heart Rate 76 /min BP Systolic Sitting 128 mmHg BP Diastolic Sitting 76 mmHg BMI (Body Mass Index) 40.0 kg/m2 01/01/2012 Height 66 inches 5'6" Weight 247.00 lb Heart Rate 74 /min BP Systolic Sitting 132 mmHg BP Diastolic Sitting 84 mmHg BMI (Body Mass Index) 39.9 kg/m2 07/24/2011 Height 66 inches 5'6" Weight 260.00 lb Heart Rate 76 /min BP Systolic Sitting 132 mmHg BP Diastolic Sitting 80 mmHg BMI (Body Mass Index) 42.0 kg/m2 06/23/2011 Height 66 inches 5'6" Weight 260.00 lb Heart Rate 74 /min BP Systolic Sitting 134 mmHg l BP Diastolic Sitting 70 mmHg l Body Temperature 98.7 F O2 % BldC Oximetry 95 % BMI (Body Mass Index) 42.0 kg/m2 06/23/2011 Height 66 inches 5'6" 04/05/2011 Height 66 inches 5'6" Weight 250.00 lb Heart Rate 70 /min BP Systolic 115 mmHg BP Diastolic 76 mmHg BMI (Body Mass Index) 40.3 kg/m2 03/28/2011 Height 64 inches 5'4" Weight 256.00 lb Heart Rate 72 /min BP Systolic Sitting 142 mmHg BP Diastolic Sitting 86 mmHg BMI (Body Mass Index) 43.9 kg/m2 01/31/2011 Height 64 inches 5'4" Weight 248.00 lb Heart Rate 66 /min BP Systolic Sitting 112 mmHg BP Diastolic Sitting 70 mmHg BMI (Body Mass Index) 42.6 kg/m2 01/24/2011 Height 64 inches 5'4" Weight 247.00 lb Heart Rate 78 /min BP Systolic Sitting 102 mmHg lg cuff BP Diastolic Sitting 60 mmHg lg cuff BMI (Body Mass Index) 42.4 kg/m2 01/19/2011 Height 64 inches 5'4" Weight 245.00 lb Heart Rate 78 /min BP Systolic Sitting 124 mmHg lg cuff BP Diastolic Sitting 76 mmHg lg cuff BMI (Body Mass Index) 42.0 kg/m2 12/20/2010 Height 64 inches 5'4" Weight 248.00 lb Heart Rate 80 /min BP Systolic Sitting 120 mmHg l BP Diastolic Sitting 74 mmHg l BMI (Body Mass Index) 42.6 kg/m2 09/02/2010 Weight 250.00 lb Heart Rate 78 /min BP Systolic 130 mmHg BP Diastolic 80 mmHg 06/02/2010 Weight 242.75 lb Heart Rate 80 /min BP Systolic 126 mmHg BP Diastolic 88 mmHg 04/13/2010 Weight 251.25 lb Heart Rate 72 /min BP Systolic 134 mmHg BP Diastolic 86 mmHg 02/25/2010 Weight 252.00 lb Heart Rate 80 /min BP Systolic 120 mmHg BP Diastolic 78 mmHg 11/25/2009 Weight 258.50 lb Heart Rate 72 /min BP Systolic 126 mmHg BP Diastolic 82 mmHg 10/01/2009 Weight 260.00 lb Heart Rate 80 /min BP Systolic Sitting 124 mmHg BP Diastolic Sitting 80 mmHg 09/17/2009 Weight 258.00 lb Heart Rate 72 /min BP Systolic Sitting 114 mmHg BP Diastolic Sitting 70 mmHg Respiratory Rate 16 /min Body Temperature 98.2 F 08/24/2009 Weight 258.75 lb Heart Rate 76 /min BP Systolic Sitting 124 mmHg BP Diastolic Sitting 80 mmHg Body Temperature 98.3 F 08/10/2009 Weight 262.50 lb Heart Rate 96 /min BP Systolic Sitting 110 mmHg BP Diastolic Sitting 80 mmHg Respiratory Rate 16 /min Body Temperature 97.9 F 08/03/2009 Height 66 inches 5'6" Weight 265.00 lb Heart Rate 84 /min BP Systolic Sitting 126 mmHg BP Diastolic Sitting 86 mmHg Respiratory Rate 16 /min Body Temperature 98.1 F BMI (Body Mass Index) 42.8 kg/m2 06/01/2009 Height 66 inches 5'6" Weight 266.25 lb Heart Rate 80 /min BP Systolic Sitting 134 mmHg BP Diastolic Sitting 76 mmHg Respiratory Rate 16 /min Body Temperature 98.3 F BMI (Body Mass Index) 43.0 kg/m2 Results Test Date Test Result H/L Range Note Laboratory test 11/13/2017 Surgical Pathology SEE RESULT BELOW 1, 2 finding Laboratory test 11/13/2017 Clotest SEE RESULT BELOW 3, 4 finding Arthritis Panel 06/21/2017 Uric Acid 5.3 mg/dL 4.4-7.6 Erythrocyte Sed Rate 29 mm/Hr High 0-14 Rheumatoid Factor <15 IU/mL <15 5 Anti-Nuclear Antibody 4.2 U High 6 Cyclic Citrullinated Peptide >250.0 U 7 Laboratory test finding 07/20/2015 Hemoglobin A1c 14.0+ High 5-7 Laboratory test finding 04/13/2015 Hemoglobin A1c 10.8 High 5-7 Lipid Profile (Trig/Chol/HDL) 12/28/2014 Triglycerides 116 mg/dL 8, 9 Cholesterol 183 mg/dL 8, 10 HDL Cholesterol 52.5 mg/dL 8, 11 LDL Cholesterol 107 mg/dL 8, 12 Comp Metabolic Panel 12/28/2014 Sodium 133 mmol/L 133-145 8 Potassium 4.5 mmol/L 3.5-5.0 8 Chloride 103 mmol/L 101-111 8 Co2 Carbon Dioxide 24 mmol/L 22-32 8 Anion Gap 6 mmol/L 2-11 8 Glucose 235 mg/dL High 70-100 8 Blood Urea Nitrogen 15 mg/dL 6-24 8 Creatinine 0.93 mg/dL 0.67-1.17 8 BUN/Creatinine Ratio 16.1 8-20 8 Calcium 9.1 mg/dL 8.6-10.3 8 Total Protein 7.2 g/dL 6.4-8.9 8 Albumin 3.7 g/dL 3.2-5.2 8 Globulin 3.5 g/dL 2-4 8 Albumin/Globulin Ratio 1.1 1-3 8 Total Bilirubin 0.30 mg/dL 0.2-1.0 8 Alkaline Phosphatase 59 U/L 34-104 8 Alt 32 U/L 7-52 8 Ast 18 U/L 13-39 8 Egfr Non- 87.9 >60 8 Egfr 113.0 >60 8, 13 Urine Microalbumin Random 12/28/2014 Ur Microalbumin (mg/L) 6.0 mg/L 8 Urine Creatinine 139.58 mg/dL 8 Urine Microalbumin/Creatinine 4.2 ug/mg <31 8 Laboratory test 12/28/2014 Hemoglobin A1c 10.6 % High Less than 6.0 8, 14 finding (Glyco HGB) HIV 1/2 AB 12/28/2014 HIV 1 2 Antibody Nonreactive Nonreactive 8, 15 Evaluation Laboratory test 10/01/2014 Hemoglobin A1c 10.4 High 5-7 finding Laboratory test 04/27/2014 Hemoglobin A1c 7.1 High 5-7 finding Laboratory test 01/06/2013 Hemoglobin A1c 9.7 High 5-7 finding Order 12/10/2012 peak flow x 3 550, 550, 580 O2 sat 97 Wound Culture/Sensi 11/27/2012 Wound/Misc (SEE NOTE) 16 Culture-Gram Stain Laboratory test finding 10/11/2012 Hemoglobin A1c 10.1 High 5-7 Laboratory test finding 08/26/2012 Amylase 83 U/L 20-120 Comp Metabolic Panel 08/26/2012 Sodium 136 mmol/L 133-145 Potassium 3.9 mmol/L 3.5-5.0 Chloride 105 mmol/L 101-111 Co2 Carbon Dioxide 25.0 mmol/L 22-32 Anion Gap 6.0 mmol/L 2-11 Glucose 278 mg/dL High 70-100 Blood Urea Nitrogen 9 mg/dL 6-24 Creatinine 0.90 mg/dL 0.50-1.40 BUN/Creatinine Ratio 10.0 8-20 Calcium 8.7 mg/dL 8.1-9.9 Total Protein 7.7 g/dL 6.2-8.1 Albumin 3.4 g/dL Low 3.6-5.4 Globulin 4.3 g/dL High 2-4 Albumin/Globulin Ratio 0.8 Low 1-3 Total Bilirubin 0.4 mg/dL 0.4-1.5 Alkaline Phosphatase 46 U/L 30-110 Alt 70 U/L High 14-54 Ast 34 U/L 12-42 Egfr Non- 92.1 >60 Egfr 118.4 >60 17 CBC Auto Diff 08/26/2012 White Blood Count 5.8 10^3/uL 4.8-10.8 Red Blood Count 4.97 10^6/uL 4.0-5.4 Hemoglobin 13.6 g/dL Low 14.0-18.0 Hematocrit 42 % 42-52 Mean Corpuscular Volume 85 fL 80-94 Mean Corpuscular Hemoglobin 27 pg 27-31 Mean Corpuscular HGB Conc 32 g/dL 31-36 Red Cell Distribution Width 14 % 10.5-15 Platelet Count 215 10^3/uL 150-450 Mean Platelet Volume 8 um3 7.4-10.4 Abs Neutrophils 2.4 10^3/uL 1.5-7.7 Abs Lymphocytes 2.4 10^3/uL 1.0-4.8 Abs Monocytes 0.5 10^3/uL 0-0.8 Abs Eosinophils 0.4 10^3/uL 0-0.6 Abs Basophils 0.1 10^3/uL 0-0.2 Abs Nucleated RBC 0 10^3/uL Granulocyte % 41.2 % 38-83 Lymphocyte % 41.8 % 25-47 Monocyte % 8.7 % 1-9 Eosinophil % 7.2 % High 0-6 Basophil % 1.1 % 0-2 Nucleated Red Blood Cells % 0.1 Urinalysis 08/26/2012 Urine Color Yellow Urine Appearance Clear Urine Specific [place] 1.028 1.010-1.030 Urine Esterase Negative Negative Urine Nitrate Negative Negative Urine Urobilinogen Negative E.U./dL Negative Urine Protein Negative mg/dL Negative Urine pH 5.0 5-9 Urine Blood Negative Negative Urine Ketones Negative mg/dL Negative Urine Bilirubin Negative Negative Urine Glucose 3+ mg/dL Negative Laboratory test finding 07/23/2012 Hemoglobin A1c 9.3 High 5-7 Urine Microalbumin Random 07/23/2012 Ur Microalbumin (Mg/L) 18.0 mg/L 18 Urine Creatinine 191.3 mg/dL Urine Microalbumin/Creatinine 9.4 ug/mg Less Than 31 Lipid Profile (Trig/Chol/HDL) 07/17/2012 Triglycerides 211 mg/dL High 40- 200 Cholesterol 168 mg/dL Less than 200 HDL Cholesterol 50 mg/dL 40-60 19 Cholesterol/HDL Ratio 3.4 Average 1-4.44 LDL Cholesterol 75.8 mg/dL Less Than 100 20 Comp Metabolic Panel 07/17/2012 Sodium 135 mmol/L 133-145 Potassium 4.2 mmol/L 3.5-5.0 Chloride 107 mmol/L 101-111 Co2 Carbon Dioxide 25.0 mmol/L 22-32 Anion Gap 3.0 mmol/L 2-11 Glucose 238 mg/dL High 70-100 Blood Urea Nitrogen 11 mg/dL 6-24 Creatinine 1.00 mg/dL 0.50-1.40 BUN/Creatinine Ratio 11.0 8-20 Calcium 9.1 mg/dL 8.1-9.9 Total Protein 6.7 g/dL 6.2-8.1 Albumin 3.5 g/dL Low 3.6-5.4 Globulin 3.2 g/dL 2-4 Albumin/Globulin Ratio 1.1 1-3 Total Bilirubin 0.3 mg/dL Low 0.4-1.5 Alkaline Phosphatase 51 U/L 30-110 Alt 56 U/L High 14-54 Ast 28 U/L 12-42 Egfr Non- 81.6 >60 Egfr 104.9 >60 21 Urine Microalbumin Random 05/24/2012 Ur Microalbumin (Mg/L) 9.0 mg/L 22 Urine Creatinine 191.4 mg/dL Urine Microalbumin/Creatinine 4.7 UG/MG Less Than 31 Laboratory test finding 04/22/2012 Hemoglobin A1c 8.6 High 5-7 Basic Metabolic Panel 01/18/2012 Sodium 138 mmol/L 135-145 Potassium 4.4 mmol/L 3.5-5.0 Chloride 106 mmol/L 101-111 Co2 (Carbon Dioxide) 27.0 mmol/L 22-32 Anion Gap 5.0 mmol/L 2-11 23 Glucose 242 mg/dL High 70-100 BUN 9 mg/dL 6-24 Creatinine 0.9 mg/dL 0.50-1.40 One Over Creatinine 1.11 BUN/Creatinine Ratio 10.0 8-20 Calcium 8.8 mg/dL 8.1-9.9 eGFR Non- 92.5 > 60 eGFR 119.0 > 60 24 Laboratory test finding 01/18/2012 PSA,Diagnostic 0.34 NG/ML 0-4 25 CBC Auto Diff 01/18/2012 White Blood Count 7.1 CUMM 4.8-10.8 Red Cell Count 4.91 CUMM 4.6-6.2 Hemoglobin 13.4 g/dL Low 14.0-18.0 Hematocrit 42 % 42-52 Mean Corpuscular Volume 85 um3 80-94 Mean Corpuscular Hemoglob 27 pg 27-31 Mean Corpuscular HGB Cone 32 g/dL 32-36 Redcell Distribution WDTH 14 % 10.5-15 Platelet Count 263 CUMM 150-450 Mean Platelet Volume 8.3 um3 7.4-10.4 Absolute Neutrophil Count 2.7 1.5-7.7 26 Manual Differential 01/18/2012 Polysegmented Neutrophil 42 % 38-83 Lymphocyte 44 % 25-47 Monocyte 8 % 0-13 Eosinophil 6 % 0-6 RBC Morphology NORMAL Culture And 12/21/2011 M <SEE 27 Sensitivity NOTE> Laboratory test 11/13/2011 Hemoglobin A1c 8.7 % High Less Than 28 finding 6.0 Urine Microalbumin 07/14/2011 Microalbumin 6.0 mg/L Random (MG/L) Urine Creatinine 207.8 mg/dL Sidney Alb/Creatinine Ratio 2.9 UG/MG Less Than 30 29 Laboratory test finding 07/14/2011 Hemoglobin A1c 9.0 % High Less Than 6.0 30 Comp Metabolic Panel 07/14/2011 Sodium 139 mmol/L 135-145 Potassium 4.6 mmol/L 3.5-5.0 Chloride 107 mmol/L 101-111 Co2 (Carbon Dioxide) 25.0 mmol/L 22-32 Anion Gap 7.0 mmol/L 2-11 31 Glucose 228 mg/dL High 70-100 BUN 7 mg/dL 6-24 Creatinine 1.0 mg/dL 0.50-1.40 One Over Creatinine 1.00 BUN/Creatinine Ratio 7.0 Low 8-20 Calcium 9.2 mg/dL 8.1-9.9 Total Protein 6.6 GM/DL 6.2-8.1 Albumin 3.5 GM/DL Low 3.6-5.4 Globulin 3.1 GM/DL 2-4 Albumin/Globulin Ratio 1.1 1-3 Bilirubin Total 0.6 mg/dL 0.4-1.5 32 Alkaline Phosphatase 70 U/L 39-117 Alt (SGPT) 46 U/L 17-63 Ast (Sgot) 29 U/L 12-42 eGFR Non- 81.9 > 60 eGFR 105.4 > 60 33 CBC Auto Diff 06/12/2011 White Blood Count 8.2 CUMM 4.8-10.8 Red Cell Count 4.81 CUMM 4.6-6.2 Hemoglobin 13.9 g/dL Low 14.0-18.0 Hematocrit 40 % Low 42-52 Mean Corpuscular Volume 83 um3 80-94 Mean Corpuscular Hemoglob 29 pg 27-31 Mean Corpuscular HGB Cone 35 g/dL 32-36 Redcell Distribution WDTH 13 % 10.5-15 Platelet Count 269 CUMM 150-450 Mean Platelet Volume 7.6 um3 7.4-10.4 Gran % 47.1 % 38-83 Lymph % 34.1 % 25-47 Mononuclear % 13.5 % High 1-9 Eosinophil % 4.8 % 0-6 Basophil % 0.5 % 0-2 Abs Lymphs 2.8 1.0-4.8 Abs Mononuclear 1.1 High 0-0.8 Absolute Neutrophil Count 3.9 1.5-7.7 Abs Eosinophils 0.4 0-0.6 Abs Basophils 0 0-0.2 Laboratory test finding 06/12/2011 BNP Evaluatr 12.0 pg/mL 0-100 Comp Metabolic Panel 06/12/2011 Sodium 139 mmol/L 135-145 Potassium 4.5 mmol/L 3.5-5.0 Chloride 105 mmol/L 101-111 Co2 (Carbon Dioxide) 25.0 mmol/L 22-32 Anion Gap 9.0 mmol/L 2-11 34 Glucose 155 mg/dL High 70-100 BUN 10 mg/dL 6-24 Creatinine 1.1 mg/dL 0.50-1.40 One Over Creatinine 0.90 BUN/Creatinine Ratio 9.1 8-20 Calcium 9.1 mg/dL 8.1-9.9 Total Protein 7.2 GM/DL 6.2-8.1 Albumin 3.4 GM/DL Low 3.6-5.4 Globulin 3.8 GM/DL 2-4 Albumin/Globulin Ratio 0.9 Low 1-3 Bilirubin Total 0.7 mg/dL 0.4-1.5 35 Alkaline Phosphatase 69 U/L 39-117 Alt (SGPT) 43 U/L 17-63 Ast (Sgot) 34 U/L 12-42 eGFR Non- 73.4 > 60 eGFR 94.4 > 60 36 Laboratory test finding 06/12/2011 Troponin-I 0 NG/ML 0-0.06 37 CMP Panel 03/21/2011 Sodium 135 mmol/L 135-145 Potassium 4.6 mmol/L 3.5-5.0 Chloride 103 mmol/L 101-111 Co2 (Carbon Dioxide) 28.0 mmol/L 22-32 Anion Gap 4.0 mmol/L 2-11 38 Glucose 164 mg/dL High 70-100 BUN 9 mg/dL 6-24 Creatinine 1.0 mg/dL 0.50-1.40 One Over Creatinine 1.00 BUN/Creatinine Ratio 9.0 8-20 Calcium 8.8 mg/dL 8.1-9.9 Total Protein 7.0 GM/DL 6.2-8.1 Albumin 3.4 GM/DL Low 3.6-5.4 Globulin 3.6 GM/DL 2-4 Albumin/Globulin Ratio 0.9 Low 1-3 Bilirubin Total 0.5 mg/dL 0.4-1.5 39 Alkaline Phosphatase 63 U/L 39-117 Alt (SGPT) 31 U/L 17-63 Ast (Sgot) 22 U/L 12-42 eGFR Non- 82.3 > 60 eGFR 105.9 > 60 40 Laboratory test finding 03/21/2011 Hemoglobin A1c 8.4 % High Less Than 6.0 41 Sensitivity For Misc Culture 01/24/2011 Clindamycin <=0.25 42 Ciprofloxacin <=0.5 42 Erythromycin <=0.25 42 Gentamicin <=0.5 42 Levofloxacin 0.25 42 Linezolid 2 42 Oxacillin 0.5 42 Rifampin <=0.5 42 Trimeth-Sulfa <=10 42 Tetracycline <=1 42 Tigecycline <=0.12 42 Vancomycin 1 42 Laboratory test 01/24/2011 Culture Sensitivity/Gram FEW GRAM POSITIV 42, [address] <SEE NOTE> Culture Sensitivity STAPHYLOCOCCUS A <SEE NOTE> 42, 44 Laboratory test finding 12/16/2010 Hemoglobin A1c 9.2 % High Less Than 6.0 45 Lipid Profile 12/16/2010 Triglyceride 80 mg/dL 40-200 (Trig/Chol/HDL) Cholesterol 188 mg/dL Less Than 200 46 High Density Lipoprotein 59 mg/dL 40-60 47 Cholesterol/HDL Ratio 3.19 AVERAGE 1-4.97 Low Density Lipoprotein 113 mg/dL High Less Than 100 48 Comp Metabolic Panel 12/16/2010 Sodium 135 mmol/L 135-145 Potassium 4.3 mmol/L 3.5-5.0 Chloride 105 mmol/L 101-111 Co2 (Carbon Dioxide) 22.0 mmol/L 22-32 Anion Gap 8.0 mmol/L 2-11 49 Glucose 174 mg/dL High 70-100 BUN 10 mg/dL 6-24 Creatinine 1.00 mg/dL 0.50-1.40 One Over Creatinine 1.00 BUN/Creatinine Ratio 10.0 8-20 Calcium 9.1 mg/dL 8.1-9.9 Total Protein 7.2 GM/DL 6.2-8.1 Albumin 3.6 GM/DL 3.6-5.4 Globulin 3.6 GM/DL 2-4 Albumin/Globulin Ratio 1.0 1-3 Bilirubin Total 1.1 mg/dL 0.4-1.5 50 Alkaline Phosphatase 67 U/L 39-117 Alt (SGPT) 65 U/L High 17-63 Ast (Sgot) 46 U/L High 12-42 eGFR Non- 82.3 > 60 eGFR 105.9 > 60 51 Laboratory test finding 08/09/2010 Hemoglobin A1c 7.9 % High Less Than 6.0 52 Urine Microalbumin 08/09/2010 Microalbumin (MG/L) 8.0 mg/L Random Urine Creatinine 287.36 mg/dL Sidney Alb/Creatinine Ratio 2.7 UG/MG Less Than 30 53 Comp Metabolic Panel 05/14/2010 Sodium 137 mmol/L 135-145 Potassium 4.4 mmol/L 3.5-5.0 Chloride 105 mmol/L 101-111 Co2 (Carbon Dioxide) 25.0 mmol/L 22-32 Anion Gap 7.0 mmol/L 2-11 54 Glucose 144 mg/dL High 70-100 55 BUN 9 mg/dL 6-24 Creatinine 0.92 mg/dL 0.50-1.40 One Over Creatinine 1.00 BUN/Creatinine Ratio 9.8 8-20 Calcium 9.2 mg/dL 8.1-9.9 Total Protein 7.2 GM/DL 6.2-8.1 Albumin 3.6 GM/DL 3.6-5.4 Globulin 3.6 GM/DL 2-4 Albumin/Globulin Ratio 1.0 1-3 Bilirubin Total 0.8 mg/dL 0.4-1.5 56 Alkaline Phosphatase 61 U/L 39-117 Alt (SGPT) 46 U/L 17-63 Ast (Sgot) 29 U/L 12-42 eGFR Non- 96.4 > 60 eGFR 116.6 > 60 57 Laboratory test finding 05/14/2010 Vitamin B12 520 pg/mL 180-914 TSH 1.99 MIU/ML 0.34-5.60 Hemoglobin A1c 7.7 % High Less Than 6.0 58 Comp Metabolic Panel 02/03/2010 Sodium 138 mmol/L 135-145 Potassium 4.3 mmol/L 3.5-5.0 Chloride 106 mmol/L 101-111 Co2 (Carbon Dioxide) 28.0 mmol/L 22-32 Anion Gap 4.0 mmol/L 2-11 59 Glucose 141 mg/dL High 70-100 60 BUN 9 mg/dL 6-24 Creatinine 1.00 mg/dL 0.50-1.40 One Over Creatinine 1.00 BUN/Creatinine Ratio 9.0 8-20 Calcium 9.0 mg/dL 8.1-9.9 61 Total Protein 6.9 GM/DL 6.2-8.1 Albumin 3.5 GM/DL Low 3.6-5.4 Globulin 3.4 GM/DL 2-4 Albumin/Globulin Ratio 1.0 1-3 Bilirubin Total 0.5 mg/dL 0.4-1.5 62 Alkaline Phosphatase 59 U/L 39-117 Alt (SGPT) 48 U/L 17-63 Ast (Sgot) 29 U/L 12-42 eGFR Non- 88.0 > 60 eGFR 106.4 > 60 63 Laboratory test finding 02/03/2010 Hemoglobin A1c 8.6 % High Less Than 6.0 64 Lipid Profile 11/24/2009 Triglyceride 162 mg/dL 40-200 65 (Trig/Chol/HDL) Cholesterol 187 mg/dL Less Than 200 65, 66 High Density Lipoprotein 50 mg/dL 40-60 65, 67 Cholesterol/HDL Ratio 3.74 AVERAGE 1-4.97 65 Low Density Lipoprotein 105 mg/dL High Less Than 100 65, 68 Laboratory test 11/24/2009 Hemoglobin A1c 9.4 % High Less Than 6.0 65, 69 finding Comp Metabolic Panel 11/24/2009 Sodium 139 mmol/L 135-145 65 Potassium 4.5 mmol/L 3.5-5.0 65 Chloride 104 mmol/L 101-111 65 Co2 (Carbon Dioxide) 27.0 mmol/L 22-32 65 Anion Gap 8.0 mmol/L 2-11 65, 70 Glucose 215 mg/dL High 70-100 65, 71 BUN 11 mg/dL 6-24 65 Creatinine 0.90 mg/dL 0.50-1.40 65 One Over Creatinine 1.10 65 BUN/Creatinine Ratio 12.2 8-20 65 Calcium 9.4 mg/dL 8.1-9.9 65, 72 Total Protein 7.0 GM/DL 6.2-8.1 65 Albumin 3.7 GM/DL 3.6-5.4 65 Globulin 3.3 GM/DL 2-4 65 Albumin/Globulin Ratio 1.1 1-3 65 Bilirubin Total 0.7 mg/dL 0.4-1.5 65, 73 Alkaline Phosphatase 69 U/L 39-117 65 Alt (SGPT) 48 U/L 17-63 65 Ast (Sgot) 29 U/L 12-42 65 eGFR Non- 99.3 > 60 65 eGFR 120.2 > 60 65, 74 Laboratory test finding 09/17/2009 TSH 2.15 MIU/ML 0.34-5.60 Comp Metabolic Panel 09/17/2009 Sodium 136 mmol/L 135-145 Potassium 4.1 mmol/L 3.5-5.0 Chloride 106 mmol/L 101-111 Co2 (Carbon Dioxide) 23.0 mmol/L 22-32 Anion Gap 7.0 mmol/L 2-11 75 Glucose 172 mg/dL High 70-100 76 BUN 8 mg/dL 6-24 Creatinine 0.90 mg/dL 0.50-1.40 One Over Creatinine 1.10 BUN/Creatinine Ratio 8.9 8-20 Calcium 8.8 mg/dL 8.1-9.9 77 Total Protein 6.7 GM/DL 6.2-8.1 Albumin 3.4 GM/DL Low 3.6-5.4 Globulin 3.3 GM/DL 2-4 Albumin/Globulin Ratio 1.0 1-3 Bilirubin Total 0.7 mg/dL 0.4-1.5 78 Alkaline Phosphatase 73 U/L 39-117 Alt (SGPT) 54 U/L 17-63 Ast (Sgot) 27 U/L 12-42 eGFR Non- 99.3 > 60 eGFR 120.2 > 60 79 Laboratory test finding 08/10/2009 Hepatitis B Surface AB NEGATIVE Negative Hepatitis Acute Panel 08/10/2009 Hepatitis C Antibody NEGATIVE Negative Hepatitis A AB Igm NEGATIVE Negative Hepatitis B Core Igm NEGATIVE Negative Hepatitis B Surface Ag NEGATIVE Negative Laboratory test finding 08/10/2009 GGTP 70 U/L High 7-50 Liver Function Panel 08/10/2009 Total Protein 6.6 GM/DL 6.2-8.1 Albumin 3.6 GM/DL 3.6-5.4 Globulin 3.0 GM/DL 2-4 Albumin/Globulin Ratio 1.2 1-3 Bilirubin Total 0.5 mg/dL 0.4-1.5 80 Bilirubin Direct 0.1 mg/dL 0.1-0.5 Indirect Bilirubin 0.4 mg/dL 0.1-0.75 Alkaline Phosphatase 67 U/L 39-117 Alt (SGPT) 95 U/L High 17-63 Ast (Sgot) 47 U/L High 12-42 Urine Microalbumin Random 08/10/2009 Microalbumin (MG/L) 4.0 mg/L Urine Creatinine 76.91 mg/dL Sidney Alb/Creatinine Ratio 5.2 UG/MG Less Than 30 81 Laboratory test finding 08/10/2009 Hemoglobin A1c 12.2 % High Less Than 6.0 82 Comp Metabolic Panel 08/03/2009 Sodium 134 mmol/L Low 135-145 Potassium 4.4 mmol/L 3.5-5.0 Chloride 99 mmol/L Low 101-111 Co2 (Carbon Dioxide) 26.0 mmol/L 22-32 Anion Gap 9.0 mmol/L 2-11 83 Glucose 351 mg/dL High 70-100 84 BUN 10 mg/dL 6-24 Creatinine 1.00 mg/dL 0.50-1.40 One Over Creatinine 1.00 BUN/Creatinine Ratio 10.0 8-20 Calcium 9.3 mg/dL 8.1-9.9 85 Total Protein 7.3 GM/DL 6.2-8.1 Albumin 3.9 GM/DL 3.6-5.4 Globulin 3.4 GM/DL 2-4 Albumin/Globulin Ratio 1.1 1-3 Bilirubin Total 0.5 mg/dL 0.4-1.5 86 Alkaline Phosphatase 71 U/L 39-117 Alt (SGPT) 92 U/L High 17-63 Ast (Sgot) 43 U/L High 12-42 eGFR Non- 88.0 > 60 eGFR 106.4 > 60 87 1 [id number] 2 SEE RESULT BELOW Name: MICHAEL NESS : [address]: Crystal Barakat DO Acct: [id number] Unit: [id number] AGE: 47 Location: [facility] Re11/13/17 SEX: M Status: DEP REF SPEC: [id number] PEDRO: 11/13/17- SUBM DR: Crystal Barakat DO REQ: [id number] RECD: 11/13/17 STATUS: LIMA WALTERS DR: Joaquín Camarena MD PC _ ORDERED: LEVEL 4, SPEC STAIN ORG COMMENTS: [id number] A GMS stain, with appropriately reacting controls, is negative for fungal organisms. Addendum Signed (signature on file) Ana Munoz MD 09/30 1608 FINAL DIAGNOSIS Esophagus, distal, biopsy: -- Columnar-type mucosa with active and chronic inflammation. -- Intestinal metaplasia is absent. -- Dysplasia is absent. -- No evidence of viral cytopathic effect or parasites. COMMENT: Fungal staining is pending and the results will be reported in an addendum. GROSS DESCRIPTION The specimen is received in formalin labeled, Biopsy Distal Esophagus, and consists of a 0.5 x 0.3 x 0.2 cm mendez-white irregular to polypoid soft tissue fragment, which is entirely submitted in one cassette. Signed by and Reported on: Macy Munoz MD 11/14/17 1102 END OF REPORT DEPARTMENT OF PATHOLOGY, [address] [address] Anthony Dumas M.D. Director [facility] # [id number] 3 [id number] SEE RESULT BELOW Name: MICHAEL NESS : [address]: Crystal Barakat DO Acct: [id number] Unit: [id number] AGE: 47 Location: [facility] Re11/13/17 SEX: M Status: DEP REF SPEC: [id number] PEDRO: 11/13/17-[address]: Crystal Barakat DO REQ: [id number] RECD: 11/13/172294 STATUS: GWENDOLYN WALTERS DR: Joaquín Camarena MD PC _ SOURCE: GAS ANTRUM SPDESC: ORDERED: Clotest COMMENTS: [id number] Procedure Result Reported Site Clotest Final 11/14/17- 810 ML Clotest Positive * ML - Main Lab . END OF REPORT DEPARTMENT OF PATHOLOGY, [address] [place] [address] Anthony Dumas M.D. Director [facility] # [id number] 5 Test Performed by: [place] [address] 6 Interpretation: Positive (3.0-5.9) REFERENCE VALUE <=1.0 (Negative) 7 Interpretation: Strong Positive (>=60.0) REFERENCE VALUE <20.0 (Negative) Test Performed by: [place] [address] 8 PT IS FASTING 9 Desirable <150 Borderline high 150-199 High 200-499 Very High >500 10 Desirable <200 Borderline high 200-239 High >239 11 Low <40 Desirable: 40-60 High: >60 12 Desirable: <100 mg/dL Near Optimal: 100-129 mg/dL Borderline High: 130-159 mg/dL High: 160-189 mg/dL Very High: >189 mg/dL 13 Because ethnic data is not always readily available, this report includes an eGFR for both -Americans and non- Americans. The National Kidney Disease Education Program (NKDEP) does not endorse the use of the MDRD equation for patients that are not between the ages of 18 and 70, are , have extremes of body size, muscle mass, or nutritional status, or are non- or non-. According to the National Kidney Foundation, irrespective of diagnosis, the stage of the disease is based on the level of kidney function: Stage Description GFR(mL/min/1.73 m(2)) 1 Kidney damage with normal or decreased GFR 90 2 Kidney damage with mild decrease in GFR 60-89 3 Moderate decrease in GFR 30-59 4 Severe decrease in GFR 15-29 5 Kidney failure <15 (or dialysis) 14 Therapeutic target for the treatment of diabetes Mellitus patients is <7% HBA1C, and in selective patients <6.0%.Please refer to [place] [employer] Association Diabetic care guidelines for further information. 15 It is recognized that currently available assays for the detection of antibodies to HIV-1 and/or HIV-2 may not detect all infected individuals. HIV antibodies may be undetectable in some stages of the infection and in some clinical conditions. The performance of this assay has not been established for populations of infants or children. Assayed by Chemiluminescence Microparticle Immunoassay on the Siemens Advia Centaur CP. Values obtained with different methods or kits cannot be used interchangeably.The diagnostic specificity of the ADVIA Centaur 1/O/2 Enhanced assay in the low risk population was 99.90% (6052/6058) with a 95% confidence interval of 99.78 to 99.96%. 16 RUN DATE: 11/30/12 [facility] LAB LIVE PAGE 1 RUN TIME: [address] [place] [address] Specimen Inquiry Name: MICHAEL NESS : [address]: Ankit Osorio MD Acct: [id number] Unit: [id number] AGE: 42 Location: [facility] Re11/27/12 SEX: M Status: DEP ER SPEC: [id number] PEDRO: 11/27/12-[address] [facility] [address]: Virginia LEUNG REQ: [id number] RECD: 11/28/12 STATUS: GWENDOLYN GILL DR: Kanchan Osorio MD _ SOURCE: FACE SPDESC: ORDERED: Culture Stain COMMENTS: Comment: left cheek Procedure Result Verified Site Wound/Misc Gram Stain Final 11/28/12- 1143 ML 1+ Polys 1+ Epithelial Cells No Organisms Seen Wound/Misc Culture Final 11/30/12- 0935 ML Organism 1 MRSA Quantity 2+ 1. MRSA M.I.C. RX --------- ------ Penicillin >=0.5 R Clindamycin <=0.25 S Erythromycin >=8 R Gentamicin <=0.5 S Linezolid 2 S Nitrofurantoin <=16 S Oxacillin >=4 R * Quinupristin/Dalfopristin <=0.25 S Rifampin <=0.5 S Tetracycline <=1 S Doxycycline - Deduced S * Minocycline - Deduced S Trimethoprim/Sulfamethoxazole <=10 S Vancomycin 1 S Imipenem-Deduced R CONTINUED ON NEXT PAGE * ML=Testing performed at Main Lab DEPARTMENT OF PATHOLOGY, [facility] [address] [place] [address] Anthony Dumas M.D. Director [facility] Permit #[id number] RUN DATE: 11/30/12 [facility] LAB LIVE PAGE 2 RUN TIME: 09 [facility] [employer] [place], [place] [address] Specimen Inquiry Patient: MICHAEL NESS [id number] (Continued) Specimen: [id number] Collected: 11/27/12 Received: 11/28/12-1103 (Continued) Procedure Result Verified Site Wound/Misc Culture Final (continued) 11/30/12- 934 1. MRSA (continued) M.I.C. RX --------- ------ * Ampicillin/Sulbactam-Deduced R Cefazolin-Deduced R * These antibiotics are not available in the [facility] Formulary Contact the Microbiology Department for any additional antibiotic reporting. END OF REPORT * ML=Testing performed at Main Lab DEPARTMENT OF PATHOLOGY, [address] [place] [address] Anthony Dumas M.D. Director [facility] Permit #[id number] 17 Because ethnic data is not always readily available, this report includes an eGFR for both -Americans and non- Americans. The National Kidney Disease Education Program (NKDEP) does not endorse the use of the MDRD equation for patients that are not between the ages of 18 and 70, are , have extremes of body size, muscle mass, or nutritional status, or are non- or non-. According to the National Kidney Foundation, irrespective of diagnosis, the stage of the disease is based on the level of kidney function: Stage Description GFR(mL/min/1.73 m(2)) 1 Kidney damage with normal or decreased GFR 90 2 Kidney damage with mild decrease in GFR 60-89 3 Moderate decrease in GFR 30-59 4 Severe decrease in GFR 15-29 5 Kidney failure <15 (or dialysis) 18 Microalbuminuria in a random sample is defined as: Microalbumin/Creatinine ratio of 30-299 ug/mg. 19 HDL Interpretation: Undesirable: High Risk: Less than 40 MG/DL Desirable: Low Risk: Greater than 60 MG/DL 20 LDL Interpretation: Low Risk Optimal Level: LDL Less than 100 MG/DL Near or Above Optimal: LDL 100-129 MG/DL Borderline High Risk: LDL 130-159 MG/DL High Risk: LDL 160-189 MG/DL Very High Risk: LDL Greater than 189 MG/DL 21 Because ethnic data is not always readily available, this report includes an eGFR for both -Americans and non- Americans. The National Kidney Disease Education Program (NKDEP) does not endorse the use of the MDRD equation for patients that are not between the ages of 18 and 70, are , have extremes of body size, muscle mass, or nutritional status, or are non- or non-. According to the National Kidney Foundation, irrespective of diagnosis, the stage of the disease is based on the level of kidney function: Stage Description GFR(mL/min/1.73 m(2)) 1 Kidney damage with normal or decreased GFR 90 2 Kidney damage with mild decrease in GFR 60-89 3 Moderate decrease in GFR 30-59 4 Severe decrease in GFR 15-29 5 Kidney failure <15 (or dialysis) 22 Microalbuminuria in a random sample is defined as: Microalbumin/Creatinine ratio of 30-299 ug/mg. 23 Anion gap measurement may be of limited value in the presence of any alkalosis, especially in a combined acid base disorder. . 24 Because ethnic data is not always readily available, this report includes an eGFR for both -Americans and non- Americans. The National Kidney Disease Education Program (NKDEP) does not endorse the use of the MDRD equation for patients that are not between the ages of 18 and 70, are , have extremes of body size, muscle mass, or nutritional status, or are non- or non-. According to the National Kidney Foundation, irrespective of diagnosis, the stage of the disease is based on the level of kidney function: Stage Description GFR(mL/min/1.73 m(2)) 1 Kidney damage with normal or decreased GFR 90 2 Kidney damage with mild decrease in GFR 60-89 3 Moderate decrease in GFR 30-59 4 Severe decrease in GFR 15-29 5 Kidney failure <15 (or dialysis) 25 * SERUM LEVELS OF PSA MEASURED USING THE [employer] ACCESS HYBRITECH IMMUNOASSAY SHOULD NOT BE INTERPRETED ABSOLUTE EVIDENCE OF THE PRESENCE OR ABSENCE OF DISEASE. THE PSA VALUE SHOULD BE USED IN CONJUNCTION WITH OTHER PERTINENT CLINICAL DIAGNOSTIC PROCEDURES. A PSA value in the range of 0.1 to 0.6 ng/ml is indeterminate if being used as an indicator of recurrent or residual disease. . The values obtained with different assay methods of kits cannot be used interchangeably. 26 Neutropenia % Lymphocytosis % 27 RUN DATE: 12/24/11 [facility] NMI LIVE PAGE 1 RUN TIME: 1211 Specimen Inquiry RUN USER: INTERFACE Name: MICHAEL NESS Accfreddie#: [id number] Status: DEP ANNEMARIE Re12/21/11 Age/Sex: 41/M Unit#: [id number] Location: [facility]. : [birth year] SPEC #: [id number] PEDRO: 12/21/11 STATUS: COMP REQ #: [id number] RECD: 12/21/[address] [facility] [address]: Carter Bobby DO SOURCE: [facility]: 12/21/[address] [facility] [address]: Anton AGUILAR, Kanchan Moura SPDESC: PENIS ORDERED: CULT SENS/GS COMMENTS: PENILE LESION ACT WKST: B 12/24/11 #1 Procedure Result Verified Site > CULTURE SENSITIVITY Final 12/24/11- 1211 ML Organism 1 STREPTOCOCCUS AGALACTIAE-GR B QUANTITY MODERATE Organism 2 STAPHYLOCOCCUS AUREUS QUANTITY MODERATE Organism 3 NORMAL YOLI QUANTITY MODERATE 1. STREPTOCOCCUS AGALACTIAE-GR B RX M.I.C. ------ --------- PENICILLIN S <=0.12 LEVOFLOXACIN S 0.5 TETRACYCLINE R >=16 AMPICILLIN S <=0.25 CLINDAMYCIN R THIS ISOLATE IS PRESUMED TO BE RESISTANT BASED ON DETE CTION OF INDUCIBLE CLINDAMYCIN RESISTANCE. CLINDAMYCIN MAY STILL BE EFFECTIVE IN SOME PATIENTS. TIGECYCLINE S <=0.12 LINEZOLID S 2 VANCOMYCIN S <=0.5 +AMPICILLIN/SUBLACTAM S +IMIPENEM S +CEFAZOLIN S 2. STAPHYLOCOCCUS AUREUS RX M.I.C. ------ --------- RIFAMPIN S <=0.5 LEVOFLOXACIN S 0.25 TETRACYCLINE S <=1 CIPROFLOXACIN S <=0.5 CLINDAMYCIN S <=0.25 DEPARTMENT OF PATHOLOGY, [address] [place] [address] [facility] Permit #[id number] Devyn Lozano M.D. [employer] RUN DATE: 12/24/11 [facility] NMI LIVE PAGE 2 RUN TIME: 1211 Specimen Inquiry RUN USER: INTERFACE Name: MICHAEL NESS Status: CON ER Re12/21/11 Age/Sex: 41/M Unit#: [id number] Location: ED : 68 -- -- CONTINU ED Procedure Result Verified Site CULTURE SENSITIVITY Final (continued) 12/24/11- 1211 2. STAPHYLOCOCCUS AUREUS (continued) RX M.I.C. ------ --------- ERYTHROMYCIN S <=0.25 GENTAMICIN S <=0.5 * MOXIFLOXACIN S <=0.25 TIGECYCLINE S <=0.12 OXACILLIN S 0.5 LINEZOLID S 2 TRIMETH-SULFA S <=10 VANCOMYCIN S 1 +AMPICILLIN/SUBLACTAM S +IMIPENEM S +CEFAZOLIN S +These results are deduced according to CLSI guidelines as they are related to tested antimicrobials with almost identical spectrum of activity. *These antibiotics are not available in the [facility] Formulary. Contact the Microbiology Department for any additional antibiotic reporting. > GRAM STAIN SMEAR Final 12/22/11- 0754 ML POLYS MODERATE SMEAR: MANY GRAM POSITIVE COCCI RESEMBLING STAPH FEW GRAM POSITIVE BACILLI - [facility] Permit #[id number] [address] [place] [address] DEPARTMENT OF PATHOLOGY, [address] [place] [address] [place] Permit #[id number] Anthony Dumas M.D. Director Charleen Casillas M.D. [employer] 28 THERAPEUTIC TARGET FOR THE TREATMENT OF DIABETES MELLITUS PATIENTS IS <7% HBA1C, AND IN SELECTIVE PATIENTS <6.0%. PLEASE REFER TO [employer] DIABETIC CARE GUIDELINES FOR FURTHER INFORMATION. 29 MICROALBUMINURIA IN A RANDOM SAMPLE IS DEFINED : MICROALBUMIN/CREATININE RATIO OF 30-299 ug/mg. . 30 THERAPEUTIC TARGET FOR THE TREATMENT OF DIABETES MELLITUS PATIENTS IS <7% HBA1C, AND IN SELECTIVE PATIENTS <6.0%. PLEASE REFER TO [employer] DIABETIC CARE GUIDELINES FOR FURTHER INFORMATION. 31 Anion gap measurement may be of limited value in the presence of any alkalosis, especially in a combined acid base disorder. . 32 A metabolite of Naproxen, O-desmethylnaproxen, has been shown to interfere with the Jendrassik-Sandra method for measuring total bilirubin. Samples from patients who have taken Naproxen have shown spurious elevation in total bilirubin levels. 33 Because ethnic data is not always readily available, this report includes an eGFR for both -Americans and non- Americans. The National Kidney Disease Education Program (NKDEP) does not endorse the use of the MDRD equation for patients that are not between the ages of 18 and 70, are , have extremes of body size, muscle mass, or nutritional status, or are non- or non-. According to the National Kidney Foundation, irrespective of diagnosis, the stage of the disease is based on the level of kidney function: Stage Description GFR(mL/min/1.73 m(2)) 1 Kidney damage with normal or decreased GFR 90 2 Kidney damage with mild decrease in GFR 60-89 3 Moderate decrease in GFR 30-59 4 Severe decrease in GFR 15-29 5 Kidney failure <15 (or dialysis) 34 Anion gap measurement may be of limited value in the presence of any alkalosis, especially in a combined acid base disorder. . 35 A metabolite of Naproxen, O-desmethylnaproxen, has been shown to interfere with the Jendrassik-Sandra method for measuring total bilirubin. Samples from patients who have taken Naproxen have shown spurious elevation in total bilirubin levels. 36 Because ethnic data is not always readily available, this report includes an eGFR for both -Americans and non- Americans. The National Kidney Disease Education Program (NKDEP) does not endorse the use of the MDRD equation for patients that are not between the ages of 18 and 70, are , have extremes of body size, muscle mass, or nutritional status, or are non- or non-. According to the National Kidney Foundation, irrespective of diagnosis, the stage of the disease is based on the level of kidney function: Stage Description GFR(mL/min/1.73 m(2)) 1 Kidney damage with normal or decreased GFR 90 2 Kidney damage with mild decrease in GFR 60-89 3 Moderate decrease in GFR 30-59 4 Severe decrease in GFR 15-29 5 Kidney failure <15 (or dialysis) 37 New Reference Range and Interpretation effective 04/18/2002 TnI (ng/ml) INTERPRETATION Less Than 0.06 ng/mL NOT SUPPORTIVE OF DIAGNOSIS OF NM 0.06 - 0.50 ng/ml INDETERMINATE: SUGGEST SERIAL STUDIES IF CLINICALLY INDICATED. Greater than 0.5 ng/mL CONSISTENT WITH DIAGNOSIS OF NM . 38 Anion gap measurement may be of limited value in the presence of any alkalosis, especially in a combined acid base disorder. . 39 A metabolite of Naproxen, O-desmethylnaproxen, has been shown to interfere with the Jendrassik-[place] method for measuring total bilirubin. Samples from patients who have taken Naproxen have shown spurious elevation in total bilirubin levels. 40 Because ethnic data is not always readily available, this report includes an eGFR for both -Americans and non- Americans. The National Kidney Disease Education Program (NKDEP) does not endorse the use of the MDRD equation for patients that are not between the ages of 18 and 70, are , have extremes of body size, muscle mass, or nutritional status, or are non- or non-. According to the National Kidney Foundation, irrespective of diagnosis, the stage of the disease is based on the level of kidney function: Stage Description GFR(mL/min/1.73 m(2)) 1 Kidney damage with normal or decreased GFR 90 2 Kidney damage with mild decrease in GFR 60-89 3 Moderate decrease in GFR 30-59 4 Severe decrease in GFR 15-29 5 Kidney failure <15 (or dialysis) 41 THERAPEUTIC TARGET FOR THE TREATMENT OF DIABETES MELLITUS PATIENTS IS <7% HBA1C, AND IN SELECTIVE PATIENTS <6.0%. PLEASE REFER TO [place] [employer] DIABETIC CARE GUIDELINES FOR FURTHER INFORMATION. 42 RIGHT MID ABDOMINAL AREA 43 FEW GRAM POSITIVE COCCI NONE 44 STAPHYLOCOCCUS AUREUS M^MANY^QTY 45 THERAPEUTIC TARGET FOR THE TREATMENT OF DIABETES MELLITUS PATIENTS IS <7% HBA1C, AND IN SELECTIVE PATIENTS <6.0%. PLEASE REFER TO [place] [employer] DIABETIC CARE GUIDELINES FOR FURTHER INFORMATION. 46 CHOLESTEROL INTERPRETATION: Desirable: Less than 200 MG/DL Borderline-High Risk: 200-239 MG/DL High-Risk: 240 MG/DL and over 47 HDL INTERPRETATION: Undesirable: High Risk: Less than 40 MG/DL Desirable: Low Risk: Greater than 60 MG/DL 48 LDL INTERPRETATION: Low Risk Optimal Level: LDL Less than 100 MG/DL Near or Above Optimal: LDL 100-129 MG/DL Borderline High Risk: LDL 130-159 MG/DL High Risk: LDL 160-189 MG/DL Very High Risk: LDL Greater than 189 MG/DL 49 Anion gap measurement may be of limited value in the presence of any alkalosis, especially in a combined acid base disorder. . 50 A metabolite of Naproxen, O-desmethylnaproxen, has been shown to interfere with the Jendrassik-[place] method for measuring total bilirubin. Samples from patients who have taken Naproxen have shown spurious elevation in total bilirubin levels. 51 Because ethnic data is not always readily available, this report includes an eGFR for both -Americans and non- Americans. The National Kidney Disease Education Program (NKDEP) does not endorse the use of the MDRD equation for patients that are not between the ages of 18 and 70, are , have extremes of body size, muscle mass, or nutritional status, or are non- or non-. According to the National Kidney Foundation, irrespective of diagnosis, the stage of the disease is based on the level of kidney function: Stage Description GFR(mL/min/1.73 m(2)) 1 Kidney damage with normal or decreased GFR 90 2 Kidney damage with mild decrease in GFR 60-89 3 Moderate decrease in GFR 30-59 4 Severe decrease in GFR 15-29 5 Kidney failure <15 (or dialysis) 52 THERAPEUTIC TARGET FOR THE TREATMENT OF DIABETES MELLITUS PATIENTS IS <7% HBA1C, AND IN SELECTIVE PATIENTS <6.0%. PLEASE REFER TO [place] [place] [employer] DIABETIC CARE GUIDELINES FOR FURTHER INFORMATION. 53 MICROALBUMINURIA IN A RANDOM SAMPLE IS DEFINED : MICROALBUMIN/CREATININE RATIO OF 30-299 ug/mg. . 54 Anion gap measurement may be of limited value in the presence of any alkalosis, especially in a combined acid base disorder. . 55 Note change in reference range as of 03/05/08. The change was based on recommendations from the [place] [employer]. 56 A metabolite of Naproxen, O-desmethylnaproxen, has been shown to interfere with the Jendrassik-Sandra method for measuring total bilirubin. Samples from patients who have taken Naproxen have shown spurious elevation in total bilirubin levels. 57 Because ethnic data is not always readily available, this report includes an eGFR for both -Americans and non- Americans. The National Kidney Disease Education Program (NKDEP) does not endorse the use of the MDRD equation for patients that are not between the ages of 18 and 70, are , have extremes of body size, muscle mass, or nutritional status, or are non- or non-. According to the National Kidney Foundation, irrespective of diagnosis, the stage of the disease is based on the level of kidney function: Stage Description GFR(mL/min/1.73 m(2)) 1 Kidney damage with normal or decreased GFR 90 2 Kidney damage with mild decrease in GFR 60-89 3 Moderate decrease in GFR 30-59 4 Severe decrease in GFR 15-29 5 Kidney failure <15 (or dialysis) 58 THERAPEUTIC TARGET FOR THE TREATMENT OF DIABETES MELLITUS PATIENTS IS <7% HBA1C, AND IN SELECTIVE PATIENTS <6.0%. PLEASE REFER TO [employer] [place] DIABETIC CARE GUIDELINES FOR FURTHER INFORMATION. 59 Anion gap measurement may be of limited value in the presence of any alkalosis, especially in a combined acid base disorder. . 60 Note change in reference range as of 03/05/08. The change was based on recommendations from the [place] [employer]. 61 Please note change in reference range effective 07 . 62 A metabolite of Naproxen, O-desmethylnaproxen, has been shown to interfere with the Jendrassik-Sandra method for measuring total bilirubin. Samples from patients who have taken Naproxen have shown spurious elevation in total bilirubin levels. 63 Because ethnic data is not always readily available, this report includes an eGFR for both -Americans and non- Americans. The National Kidney Disease Education Program (NKDEP) does not endorse the use of the MDRD equation for patients that are not between the ages of 18 and 70, are , have extremes of body size, muscle mass, or nutritional status, or are non- or non-. According to the National Kidney Foundation, irrespective of diagnosis, the stage of the disease is based on the level of kidney function: Stage Description GFR(mL/min/1.73 m(2)) 1 Kidney damage with normal or decreased GFR 90 2 Kidney damage with mild decrease in GFR 60-89 3 Moderate decrease in GFR 30-59 4 Severe decrease in GFR 15-29 5 Kidney failure <15 (or dialysis) 64 THERAPEUTIC TARGET FOR THE TREATMENT OF DIABETES MELLITUS PATIENTS IS <7% HBA1C, AND IN SELECTIVE PATIENTS <6.0%. PLEASE REFER TO [employer] [place] DIABETIC CARE GUIDELINES FOR FURTHER INFORMATION. 65 FASTING 66 CHOLESTEROL INTERPRETATION: Desirable: Less than 200 MG/DL Borderline-High Risk: 200-239 MG/DL High-Risk: 240 MG/DL and over 67 HDL INTERPRETATION: Undesirable: High Risk: Less than 40 MG/DL Desirable: Low Risk: Greater than 60 MG/DL 68 LDL INTERPRETATION: Low Risk Optimal Level: LDL Less than 100 MG/DL Near or Above Optimal: LDL 100-129 MG/DL Borderline High Risk: LDL 130-159 MG/DL High Risk: LDL 160-189 MG/DL Very High Risk: LDL Greater than 189 MG/DL 69 THERAPEUTIC TARGET FOR THE TREATMENT OF DIABETES MELLITUS PATIENTS IS <7% HBA1C, AND IN SELECTIVE PATIENTS <6.0%. PLEASE REFER TO [employer] [place] DIABETIC CARE GUIDELINES FOR FURTHER INFORMATION. 70 Anion gap measurement may be of limited value in the presence of any alkalosis, especially in a combined acid base disorder. . 71 Note change in reference range as of 03/05/08. The change was based on recommendations from the [place] [employer]. 72 Please note change in reference range effective 07 . 73 A metabolite of Naproxen, O-desmethylnaproxen, has been shown to interfere with the Jendrassik-Sandra method for measuring total bilirubin. Samples from patients who have taken Naproxen have shown spurious elevation in total bilirubin levels. 74 Because ethnic data is not always readily available, this report includes an eGFR for both -Americans and non- Americans. The National Kidney Disease Education Program (NKDEP) does not endorse the use of the MDRD equation for patients that are not between the ages of 18 and 70, are , have extremes of body size, muscle mass, or nutritional status, or are non- or non-. According to the National Kidney Foundation, irrespective of diagnosis, the stage of the disease is based on the level of kidney function: Stage Description GFR(mL/min/1.73 m(2)) 1 Kidney damage with normal or decreased GFR 90 2 Kidney damage with mild decrease in GFR 60-89 3 Moderate decrease in GFR 30-59 4 Severe decrease in GFR 15-29 5 Kidney failure <15 (or dialysis) 75 Anion gap measurement may be of limited value in the presence of any alkalosis, especially in a combined acid base disorder. . 76 Note change in reference range as of 03/05/08. The change was based on recommendations from the [place] [employer]. 77 Please note change in reference range effective 07 . 78 A metabolite of Naproxen, O-desmethylnaproxen, has been shown to interfere with the Jendrassik-Oak [place] method for measuring total bilirubin. Samples from patients who have taken Naproxen have shown spurious elevation in total bilirubin levels. 79 Because ethnic data is not always readily available, this report includes an eGFR for both -Americans and non- Americans. The National Kidney Disease Education Program (NKDEP) does not endorse the use of the MDRD equation for patients that are not between the ages of 18 and 70, are , have extremes of body size, muscle mass, or nutritional status, or are non- or non-. According to the National Kidney Foundation, irrespective of diagnosis, the stage of the disease is based on the level of kidney function: Stage Description GFR(mL/min/1.73 m(2)) 1 Kidney damage with normal or decreased GFR 90 2 Kidney damage with mild decrease in GFR 60-89 3 Moderate decrease in GFR 30-59 4 Severe decrease in GFR 15-29 5 Kidney failure <15 (or dialysis) 80 A metabolite of Naproxen, O-desmethylnaproxen, has been shown to interfere with the Jendrassik-Sandra method for measuring total bilirubin. Samples from patients who have taken Naproxen have shown spurious elevation in total bilirubin levels. 81 MICROALBUMINURIA IN A RANDOM SAMPLE IS DEFINED : MICROALBUMIN/CREATININE RATIO OF 30-299 ug/mg. . 82 THERAPEUTIC TARGET FOR THE TREATMENT OF DIABETES MELLITUS PATIENTS IS <7% HBA1C, AND IN SELECTIVE PATIENTS <6.0%. PLEASE REFER TO [employer] [place] DIABETIC CARE GUIDELINES FOR FURTHER INFORMATION. 83 Anion gap measurement may be of limited value in the presence of any alkalosis, especially in a combined acid base disorder. . 84 Note change in reference range as of 03/05/08. The change was based on recommendations from the [place] [employer]. 85 Please note change in reference range effective 07 . 86 A metabolite of Naproxen, O-desmethylnaproxen, has been shown to interfere with the Jendrassik-Sandra method for measuring total bilirubin. Samples from patients who have taken Naproxen have shown spurious elevation in total bilirubin levels. 87 Because ethnic data is not always readily available, this report includes an eGFR for both -Americans and non- Americans. The National Kidney Disease Education Program (NKDEP) does not endorse the use of the MDRD equation for patients that are not between the ages of 18 and 70, are , have extremes of body size, muscle mass, or nutritional status, or are non- or non-. According to the National Kidney Foundation, irrespective of diagnosis, the stage of the disease is based on the level of kidney function: Stage Description GFR(mL/min/1.73 m(2)) 1 Kidney damage with normal or decreased GFR 90 2 Kidney damage with mild decrease in GFR 60-89 3 Moderate decrease in GFR 30-59 4 Severe decrease in GFR 15-29 5 Kidney failure <15 (or dialysis) Procedures Date CPT Code Description Status Comment 01/11/2018 35133 EKG Tracing & Interpretation Completed 11/13/2017 30682 Endoscopy Upper GI Biopsy Completed 10/17/2017 61240 EKG Tracing & Interpretation Completed 07/12/2017 80508 Stress Test Completed 07/12/2017 99285 Stress Test Completed 07/12/2017 95895 Myocardial Perfusion Imaging Completed Tomographic (Spect) Multiple Studies 07/06/2017 78743 EKG Tracing & Interpretation Completed 06/21/2017 85534 Inject/Drain Joint/Bursa Completed Intermediate W/O US 06/14/2017 59440 Treadmill Interp/Report Only Completed 06/14/2017 93661 Stress Test Supervsn W/Out I/R Completed 03/21/2017 93046 EKG Tracing & Interpretation Completed 12/08/2016 89760 EKG Tracing & Interpretation Completed 10/13/2016 18491 EKG Tracing & Interpretation Completed 08/18/2016 96803 Myocardial Perfusion Imaging Completed Tomographic (Spect) Multiple Studies 08/18/2016 22879 Stress Test Completed 08/11/2016 02844 EKG Tracing & Interpretation Completed 07/07/2016 99371 EKG Tracing & Interpretation Completed 06/21/2016 99865 EKG, Interpretation Only Completed 06/20/2016 47676 Left Heart Cath. Incl S/I Completed Coronaries, Angio S/I V Gram If Done 06/20/2016 17668 EKG, Interpretation Only Completed 06/20/2016 32106 Revascularization Acute Completed Total/Subtotal Occlusion 04/14/2015 Diabetic Retinal Eye Exam Completed Document: 04/14/15 - Rec.Rel/[facility] 02/03/2013 41104 Stress Test Completed 01/27/2013 52759 EKG Tracing & Interpretation Completed 10/18/2012 Diabetic Retinal Eye Exam Completed 06/23/2011 23858 Noninvasive Ear Or Pulse Oximetry Completed For Oxygen Saturation 04/05/2011 24869 Walking Cast Completed 06/01/2009 52785 Noninvasive Ear Or Pulse Oximetry Completed For Oxygen Saturation Encounters Type Date Location Provider CPT E/M Dx Office Visit 11/14/2017 [facility] Rosie Jones 40425 R07.9 4:00p Theodora Shepard I25.10 Office Visit 11/06/2017 11:15[place] [address] M84.375A Of C.M.ACecily Office Visit 10/25/2017 10:15a [facility] Monique Faith 90594 M65.832 Of C.MTania Shepard Office Visit 10/17/2017 4:00p [facility] Rosie Jones 45637 R07.9 Theodora Shepard I25.10 I10 Office Visit 07/06/2017 1:15p [facility] Joaquín Jones 33898 I10 MRalph R07.9 I25.10 Office Visit 06/27/2017 9:00a [facility] Monique Faith 69234 M25.532 Of Roshan Shepard M65.832 Office Visit 06/21/2017 2:30p [facility] Of Monique Garciaach, 11876 M25.532 Roshan Shepard Office Visit 06/13/2017 1:49p [facility] [place] [address] R07.89 Assoc,pc Hospitalists E11.65 Z79.4 I10 Office Visit 05/03/2017 9:00a [facility] Monique Marcell, 67319 M25.532 Of Roshan Shepard Office Visit 03/21/2017 9:45a [facility] Of Joaquín Jones, 18522 I25.10 Cook Chief M.D. R07.9 Office Visit 01/09/2017 9:30a [facility] Of [facility] MADHU Frazier 79994 I25.10 E11.8 R07.9 E78.5 Office Visit 12/08/2016 11:00a [facility] Of Joaquín Jones, 91609 I25.10 Cook Chief M.D. R07.9 Office Visit 10/13/2016 9:45a [facility] Of Joaquín Jones, 54048 I25.10 Cook Chief M.D. Office Visit 08/11/2016 10:30a [facility] Of Joaquín Jones, 36128 I25.10 Cook Chief M.D. R07.9 Office Visit 07/07/2016 9:15a [facility] Of Joaquín Jones, 68341 I21.4 Cook Chief M.D. I25.10 Office Visit 07/05/2016 2:45p [facility] Of Rogelio Reyes M.D., 09887 Z48.1 Cook Chief AT [facility] I21.4 Office Visit 06/21/2016 8:53a [facility] Assoc,doug Bowie, 35877 I21.4 Hospitalists MRalph E11.8 Z79.4 I10 Office Visit 06/20/2016 3:29p [facility] Of Rogelio Reyes M.D., 59277 Z48.1 Cook Chief AT [facility], FSCAI I21.4 Office Visit 06/20/2016 8:53a [facility],pc Michael Bowie, 66983 I21.4 Hospitalists M.DCecily E11.8 Z79.4 I10 Office Visit 06/20/2016 1:54p [facility] Of Joaquín Jones, 40654 I21.4 Theodora Shepard I25.10 Office Visit 06/19/2016 8:52a [facility], Dwayne Fredis, 62975 I21.4 Hospitalists N.P. E11.8 Z79.4 I10 Office Visit 08/23/2015 8:40a [facility] Medicine Kanchan Walton, 28149 E11.65 - [place] Devyn Office Visit 07/20/2015 9:00a [facility] Medicine Kanchan Walton 33440 E11.65 - [place] M.D. M25.511 Office Visit 04/27/2015 2:40p [facility] Internal Ankit Parekh, 09644 M25.561 Medicine - Cheli Shepard Office Visit 04/13/2015 10:00a [facility] Internal Kanchan Walton, 12876 R51 Medicine - Cheli Shepard E11.65 Office Visit 02/18/2015 9:00a [facility] Medicine Kanchan Walton, 40179 698.9 - [place] MRalph 250.02 Office Visit 01/01/2015 11:20a [facility] Medicine Kanchan Walton 24680 250.02 - [place] Devyn 782.1 272.4 Office Visit 11/11/2014 9:40a [facility] Medicine Kanchan Walton 21995 784.0 - [place] Devyn 726.31 719.46 250.02 Office Visit 10/01/2014 11:00a [facility] [place] [address] 250.02 [place] 726.31 848.9 Office Visit 04/27/2014 10:40a [facility] Medicine Kanchan Walton 59204 250.00 - [place] Devyn 729.5 250.02 Office Visit 01/27/2013 11:40a [facility] Medicine Dennise Patel, N.P. 27738 786.50 - [place] Office Visit 01/06/2013 2:40p [facility] Medicine Kanchanasher Walton, 77346 V70.0 - [place] M.D. V76.44 250.02 845.09 724.5 389.9 Office Visit 12/10/2012 10:40a [facility] Medicine Kanchan Anton, 57475 493.00 - [place] M.D. Office Visit 10/11/2012 1:40p [facility] Medicine Kanchanasher Walton 92781 250.02 - [place] M.D. 790.4 493.90 Office Visit 08/30/2012 1:20p [facility] Medicine Kanchanasher Walton 91465 250.02 - [place] M.D. Office Visit 07/23/2012 1:20p [facility] Medicine Kanchan Walton 23714 250.02 - [place] M.D. 493.90 272.4 790.4 Office Visit 06/18/2012 1:20p [facility] Medicine Kanchan Walton 17023 493.90 - [place] M.D. 719.43 Office Visit 04/22/2012 3:00p [facility] Medicine Kanchan Walton 73393 250.02 - [place] M.D. Office Visit 02/05/2012 11:20a [facility] Medicine Kanchan Walton 99875 250.02 - [place] M.D. Office Visit 01/01/2012 2:00p [facility] Medicine Kanchan Walton 27739 250.02 - [place] M.D. 272.4 796.2 844.9 Office Visit 08/09/2011 11:00a [facility] Xavier Panchal M.D. 47356 719.44 Of C.M.Denys Office Visit 07/24/2011 10:20a [facility] Medicine Kanchan Walton 37067 250.02 - [place] M.D. 493.90 272.4 Office Visit 06/23/2011 3:40p DO Not Use Kanchan Walton 14989 466.0 Cook Chief-[place] M.D. 250.02 Office Visit 06/14/2011 11:00a [facility] Of Xavier Panchal 19383 718.44 C.MTania Shepard Office Visit 04/19/2011 11:00a [facility] Of Xavier Panchal, 96722 726.71 C.M.A. M.D. Office Visit 04/05/2011 11:00a [facility] Of Xaveir Panchal, 66622 726.71 C.M.A. M.D. 726.71 733.20 733.20 Office Visit 03/28/2011 10:20a DO Not Use Kanchan Cotton, 61447 250.02 Cook Chief[place] M.D. 729.5 Office Visit 01/31/2011 10:40a DO Not Use Kanchan Cotton, 73433 707.8 Cook Chief[place] M.D. Office Visit 01/24/2011 9:20a DO Not Use Kanchan Cotton, 83466 707.8 Cook Chief[place] M.D. Office Visit 01/19/2011 11:20a DO Not Use Kanchan Cotton, 10768 250.02 Cook Chief[place] M.D. Office Visit 12/20/2010 11:00a DO Not Use Kanchan Cotton, 35612 250.02 Cook Chief[place] M.D. 493.90 729.5 Office Visit 09/02/2010 10:45a DO Not Use Kanchan Cotton, 69204 250.02 Cook Chief[place] M.D. Office Visit 06/02/2010 9:30a DO Not Use Kanchan Cotton, 16655 250.02 Cook Chief[place] M.D. 493.90 Office Visit 04/13/2010 4:00p DO Not Use Kanchan Cotton, 79164 250.02 Cook Chief[place] M.D. 493.90 780.93 346.90 V03.82 Office Visit 02/25/2010 11:15a DO Not Use Kanchan Cotton, 80437 250.02 Cook Chief[place] M.D. 493.90 Office Visit 01/07/2010 4:15p DO Not Use Kanchan Cotton, 36434 729.5 Cook Chief[place] M.D. Office Visit 11/25/2009 1:15p DO Not Use Kanchan Cotton, 82490 250.02 Cook Chief[place] M.D. 493.00 Office Visit 10/01/2009 10:40a DO Not Use Cook Chief AT Kanchan Cotton, 22910 250.02 Nicole Quinn.Kenia Office Visit 09/17/2009 10:40a DO Not Use Cook Chief AT [facility], 24386 250.02 Nicole M.DCecily 790.4 780.79 493.90 Office Visit 08/24/2009 11:00a DO Not Use Cook Chief AT [facility], 63867 250.02 Nicole Quinn.Kenia 493.90 790.4 Office Visit 08/10/2009 11:00a DO Not Use Cook Chief AT [facility], 42513 250.00 Nicole Quinn.Kenia 790.4 Office Visit 08/03/2009 11:00a DO Not Use Cook Chief AT [facility], 75859 493.90 Nicole Quinn.Kenia 729.5 527.7 Office Visit 06/01/2009 11:40a DO Not Use Cook Chief AT [facility], 80391 493.90 Nicole Shepard Plan of Care Future Appointment(s):02/06/2018 11:45 am - Joaquín Jones M.D. 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
[2018-01-23] MEDS ORDERED: Nitroglycerin 2% OINT* 1 GM PAK TOPICAL ONE (12:19)
[2018-01-23 12:53] LABS: ABS Basophils 0.1 10^3/ul (0-0.2); ABS Eosinophils 0.3 10^3/ul (0-0.6); ABS Lymphocytes 3.1 10^3/ul (1.0-4.8); ABS Monocytes 0.7 10^3/ul (0-0.8); ABS Neutrophils 3.4 10^3/ul (1.5-7.7); ABS Nucleated RBC 0 10^3/ul; Eosinophil % 3.9 % (0-6); Hematocrit 40 % (42-52); Hemoglobin 12.9 g/dl (14.0-18.0); Lymphocyte % 40.5 % (25-47); Mean Corpuscular HGB Conc 32 g/dl (31-36); Mean Corpuscular Hemoglobin 27 pg (27-31); Mean Corpuscular Volume 84 fL (80-94); Mean Platelet Volume 7.4 um3 (7.4-10.4); Nucleated Red Blood Cells % 0.2; Platelet Count 266 10^3/ul (150-450); Red Blood Count 4.78 10^6/ul (4.00-5.40); Red Cell Distribution Width 15 % (10.5-15); White Blood Count 7.5 10^3/ul (3.5-10.8)
[2018-01-23 13:06] LABS: EGFR Non-African American 100.3 (>60)
--- NOTE | 2018-01-23 13:13 | ED ---
HPI Chest Pain - HPI Summary HPI Summary: This patient is a 47 year old M presenting to [facility] with a chief complaint of chest pain since 1000. Pt locates pain sub-sternally. Pt endorses onset of CP while working, so he called an ambulance who gave him NTG, bringing pain down to 2/10. PMHx CAD, HTN, MT, HLD 2x stents. - History of Current Complaint Time Seen by Provider: 01/23/18 12:16 Hx Obtained From: Patient Onset/Duration: Started Hours Ago Timing: Constant, Lasting Hours Initial Severity: Moderate Current Severity: Mild Pain Scale Used: 0-10 Numeric Chest Pain Location: Discrete at: - sub-sternal Chest Pain Radiates: No Character: Pressure/Squeezing Aggravating Factor(s): Exertion Alleviating Factor(s): Medication - ASA, NTG 123 Associated Signs and Symptoms: Positive: Chest Pain Related History: Obesity - Additional Pertinent History Primary Care Physician: BASHIR - Allergy/Home Medications Allergies/Adverse Reactions: Allergies Allergy/AdvReac Type Severity Reaction Status Date / Time fentanyl Allergy Hallucinati Verified 11/13/17 11:46 ons lisinopril Allergy Unknown Verified 11/13/17 11:46 Reaction Details shellfish derived Allergy Unknown Verified 11/13/17 11:46 Reaction Details Home Medications: Home Medications Omeprazole CAP* [Prilosec CAP* 20 MG] 40 mg PO QAM 01/23/18 [History Confirmed 01/23/18] Ranolazine (NF) [Ranexa (NF)] 500 mg PO BID 01/23/18 [History Confirmed 01/23/18 ] PMH/Surg Hx/FS Hx/Imm Hx Endocrine/Hematology History: Reports: Hx Diabetes Denies: Hx Thyroid Disease Cardiovascular History: Reports: Hx Angina, Hx Coronary Artery Disease, Hx Hypercholesterolemia, Hx Hypertension, Hx Myocardial Infarction - Jun 2016, Other Cardiovascular Problems/Disorders - Current admission for chest pain Denies: Hx Pacemaker/ICD Respiratory History: Reports: Hx Asthma - SEASONAL Denies: Hx Chronic Obstructive Pulmonary Disease (COPD), Other Respiratory Problems/Disorders GI History: Denies: Hx Ulcer History: Denies: Hx Renal Disease Musculoskeletal History: Reports: Other Musculoskeletal History - Lt wrist pain of unknown origin Sensory History: Reports: Hx Contacts or Glasses Denies: Hx Hearing Aid Opthamlomology History: Reports: Hx Contacts or Glasses Neurological History: Denies: Hx Peripheral Neuropathy Psychiatric History: Denies: Hx Panic Disorder - Cancer History Cancer Type, Location and Year: none - Surgical History Surgery Procedure, Year, and Place: appendectomy. stent placed June 2016 after heart attack Hx Anesthesia Reactions: No Infectious Disease History: Denies: Hx Clostridium Difficile, Hx Hepatitis, Hx Human Immunodeficiency Virus (HIV), Hx of Known/Suspected MRSA, Hx Shingles, Hx Tuberculosis, Hx Known/ Suspected VRE, Hx Known/Suspected VRSA, History Other Infectious Disease, Traveled Outside the [place] in Last 30 Days - Family History Known Family History: Positive: Cardiac Disease, Hypertension, Diabetes - Social History Alcohol Use: Weekly Alcohol Amount: 2-3 beers per week Hx Substance Use: Yes Substance Use Type: Reports: Marijuana Substance Use Comment - Amount & Last Used: OCCASIONALLY Hx Tobacco Use: Yes Smoking Status (MU): Current Some Day Smoker Type: Cigarettes Have You Smoked in the Last Year: Yes Review of Systems Negative: Fever, Chills Negative: Erythema Negative: Sore Throat Positive: Chest Pain Negative: Shortness Of Breath, Cough Negative: Abdominal Pain, Vomiting, Nausea Negative: dysuria, hematuria Negative: Myalgia, Edema Negative: Rash Neurological: Other - NEGATIVE: Dizziness All Other Systems Reviewed And Are Negative: Yes Physical Exam - Summary Physical Exam Summary: Constitutional: Well-developed, Well-nourished, Alert. (-) Distressed Skin: Warm, Dry HENT: Normocephalic; Atraumatic Eyes: Conjunctiva normal Neck: Musculoskeletal ROM normal neck. (-) JVD, (-) Stridor, (-) Tracheal deviation Cardio: Rhythm regular, rate normal, Heart sounds normal; Intact distal pulses; The pedal pulses are 2+ and symmetric. Radial pulses are 2+ and symmetric. (-) Murmur Pulmonary/Chest wall: Effort normal. (-) Respiratory distress, (-) Wheezes, (-) Rales Abd: Soft, (-), epigastric tenderness, (-) Distension, (-) Guarding, (-) Rebound Musculoskeletal: (-) Edema Lymph: (-) Cervical adenopathy Neuro: Alert, Oriented x3 Psych: Mood and affect Normal Triage Information Reviewed: Yes Vital Signs Reviewed: Yes Diagnostics - Laboratory Lab Results: Lab Results 07/11/18 07/11/18 07/11/18 Range/Units 12:30 12:30 12:30 WBC 7.5 (3.5-10.8) 10^3/ul RBC 4.78 (4.00-5.40) 10^6/ul Hgb 12.9 L (14.0-18.0) g/dl Hct 40 L (42-52) % MCV 84 (80-94) fL MCH 27 (27-31) pg MCHC 32 (31-36) g/dl RDW 15 (10.5-15) % Plt Count 266 (150-450) 10^3/ul MPV 7.4 (7.4-10.4) um3 Neut % (Auto) 45.3 (38-83) % Lymph % (Auto) 40.5 (25-47) % [place] % (Auto) 9.3 H (0-7) % Eos % (Auto) 3.9 (0-6) % Baso % (Auto) 1.0 (0-2) % Absolute Neuts (auto) 3.4 (1.5-7.7) 10^3/ul Absolute Lymphs (auto) 3.1 (1.0-4.8) 10^3/ul Absolute Monos (auto) 0.7 (0-0.8) 10^3/ul Absolute Eos (auto) 0.3 (0-0.6) 10^3/ul Absolute Basos (auto) 0.1 (0-0.2) 10^3/ul Absolute Nucleated RBC 0 10^3/ul Nucleated RBC % 0.2 Sodium 138 (135-145) mmol/L Potassium 3.8 (3.5-5.0) mmol/L Chloride 106 (101-111) mmol/L Carbon Dioxide 24 (22-32) mmol/L Anion Gap 8 (2-11) mmol/L BUN 15 (6-24) mg/dL Creatinine 0.82 (0.67-1.17) mg/dL Est GFR ( Amer) 121.3 (>60) Est GFR (Non-Af Amer) 100.3 (>60) BUN/Creatinine Ratio 18.3 (8-20) Glucose 132 H (70-100) mg/dL Lactic Acid 1.2 (0.5-2.0) mmol/L Calcium 8.7 (8.6-10.3) mg/dL Total Bilirubin 0.20 (0.2-1.0) mg/dL AST 23 (13-39) U/L ALT 29 (7-52) U/L Alkaline Phosphatase 50 (34-104) U/L Troponin I 0.00 (<0.04) ng/mL Total Protein 7.1 (6.4-8.9) g/dL Albumin 3.4 (3.2-5.2) g/dL Globulin 3.7 (2-4) g/dL Albumin/Globulin Ratio 0.9 L (1-3) Result Diagrams: 01/23/18 12:30 01/23/18 12:30 Lab Statement: Any lab studies that have been ordered have been reviewed, and results considered in the medical decision making process. - Radiology CXR Xray Interpretation: No Acute Changes Radiology Interpretation Completed By: Radiologist - No active cardiopulmonary disease. Dr. Sierra has reviewed this report. - EKG 1202 Cardiac Rate: NL - 80 EKG Rhythm: Sinus Rhythm ST Segment: Normal EKG Interpretation: No STEMI, no changes from previous EKG EKG Comparison: No Significant Change Re-Evaluation - Re-Evaluation First Eval Re-Evaluation Time: 13:40 Change: Improved Comment: Pain now gone with NTG paste Chest Pain Course/Dx - Course Course Of Treatment: EKG reveals nl sinus rythym at 80 BPM. No STEMI, no changes from previous EKG. CXR was (-). Pt given NTG paste, which removed CP sx. Pt displays elevated monocytes and glucose. - Diagnoses Provider Diagnoses: Chest pain, unspecified - Provider Notifications Discussed Care Of Patient With: Joseph Gonzalez Time Discussed With Above Provider: 13:35 Instructed by Provider To: Other - Accepted admission Discharge - Sign-Out/Discharge Documenting (check all that apply): Patient Departure - admit - Discharge Plan Condition: Fair Disposition: ADMITTED TO [facility] - Billing Disposition and Condition Condition: FAIR Disposition: Admitted to [facility]
--- NOTE | 2018-01-23 13:41 | RAD ---
HISTORY: Chest pain COMPARISONS: September 28, 2017 VIEWS: 1: frontal portable view of the chest at 12:58 PM FINDINGS: LINES AND TUBES: None. CARDIOMEDIASTINAL SILHOUETTE: The cardiomediastinal silhouette is normal for portable technique. PLEURA: The costophrenic angles are sharp. No pleural abnormalities are noted. LUNG PARENCHYMA: The lungs are clear. ABDOMEN: The upper abdomen is clear. There is no subphrenic gas. BONES AND SOFT TISSUES: No bone or soft tissue abnormalities are noted. IMPRESSION: NO ACTIVE CARDIOPULMONARY DISEASE.
[2018-01-23] MEDS ORDERED: Dextrose 50% Syringe 50 ML* 25 GM/50 ML SYRINGE IV PUSH PRN (19:00)
[2018-01-23] MEDS: Insulin LISPRO* 1 UNITS UNIT SUBCUT SCH (21:28)
[2018-01-23] MEDS ORDERED: Acetaminophen TAB* 325 MG PO PRN (23:28)
--- NOTE | 2018-01-24 07:53 | ADMNOTE ---
Subjective Date of Service: 01/24/18 Interval History: ADMISSION HISTORY AND PHYSICAL EXAM: Allergies Allergy/AdvReac Type Severity Reaction Status Date / Time fentanyl Allergy Hallucinati Verified 11/13/17 11:46 ons lisinopril Allergy Unknown Verified 11/13/17 11:46 Reaction Details shellfish derived Allergy Unknown Verified 11/13/17 11:46 Reaction Details Home Medications Medication Instructions Recorded Confirmed Type metFORMIN* [Glucophage 500 MG TAB 1,000 mg PO BID 11/12/12 01/23/18 History *] amLODIPine TAB* [Norvasc 5 mg TAB*] 5 mg PO DAILY 06/19/16 01/23/18 History Aspirin 81 mg CHEW TAB* 81 mg PO DAILY #30 tab.chew 06/21/16 01/23/18 Rx Multivitamins/Minerals TAB* 1 tab PO DAILY 09/28/17 01/23/18 History [Theragran/minerals TAB*] Rosuvastatin (NF) [Crestor (NF)] 10 mg PO DAILY 09/28/17 01/23/18 History Liraglutide (NF) [Victoza (NF)] 1.2 mg SUBCUT WEEKLY 11/07/17 01/23/18 History Metoprolol Succinate XL TAB* 25 mg PO DAILY 11/07/17 01/23/18 History [Toprol XL TAB*] Omeprazole CAP* [Prilosec CAP* 20 40 mg PO QAM 01/23/18 01/23/18 History MG] Ranolazine (NF) [Ranexa (NF)] 500 mg PO BID 01/23/18 01/23/18 History HPI: The patient was in his usual state of health and went to work about 6:30 AM 01/23. He developed midsternal chest pain about 11 AM. 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 The patient did not have any NTG with him (or at home either). The EMT gave him ASA and NTG. The pain did not go away until after he arrived in the ER , lasted about an hour. The patient states the pain was similar to when he had an NC in 2016, and this is the first time he had similar pain since then. He did not take any of his meds 01/23. Family History: Findings - Mother has DM. Social History: Findings - Smokes 1-2 cigarettes per day. No alcohol abuse. 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 Lives with his and 3 children. is his SDM. Past Medical History: Findings - NC 06/2016, stents. DM, HTN, asthma, esophagitis Review of Systems - Measurements Intake and Output: Intake and Output Last 24 Hours 01/22/18 01/23/18 01/24/18 01/25/18 06:59 06:59 06:59 06:59 Intake Total 0 Balance 0 Weight 234 lb Intake: Oral 0 - Review of Systems Constitutional Symptoms: Negative: Weight Gain, Weight Loss, Weakness, Fatigue, Fever, Night Sweats, Unexplained Falls, Other Dermatology: Positive: Normal HEENT: Positive: Normal Eyes: Positive: Normal Thyroid: Positive: Normal Pulmonary: Positive: Normal Cardiology: Positive: Chest Pain Gastroenterology: Positive: Normal Genital - Urinary: Positive: Normal Genitourinary - Male: Negative: Prostatism, Erectile Dysfunction, Family Hx of Prostate Cancer, Other Musculoskeletal: Negative: Joint Pain, Joint Stiffness, Arthritis, Osteoporosis, Low Back Pain , Sciatica, Joint Deformities, Kyphoscoliosis, Other Endocrinology: Positive: Diabetes Mellitus Hematologic/Lymphatic: Negative: Anemia, Easy Brusing, Hx Leukemia, Hx Lymphoma, Use of Anticoagulant, Use of Antiplatelet Drugs, Other Neurology: Positive: Normal Psychiatry: Positive: Normal Allergic/Immunologic: Negative: Hx Anaphylaxis, Hx Angioedema, Hx Environmental, Hx Seasonal, Athsma, Hx HIV, Immunocompromise, Swollen Glands LymphNodes, Other Objective Active Medications: Acetaminophen (Tylenol Tab*) 650 mg PO Q6H PRN PRN Reason: FEVER/PAIN Last Admin: 01/23/18 23:39 Dose: 650 mg Amlodipine Besylate (Norvasc Tab*) 5 mg PO DAILY [facility] Aspirin (Aspirin 81 Mg Chew Tab*) 81 mg PO DAILY [facility] Atorvastatin Calcium (Lipitor*) 20 mg PO DAILY [facility]; Protocol Dextrose (D50w Syringe 50 Ml*) 12.5 gm IV PUSH .FOR FS < 60 - SS PRN PRN Reason: FS < 60 Insulin Human Lispro (Humalog*) 0 units SUBCUT ACHS [facility]; Protocol Last Admin: 01/23/18 21:28 Dose: 3 units Metoprolol Succinate (Toprol Xl Tab*) 25 mg PO DAILY [facility] Multivitamins/Minerals (Theragran/Minerals Tab*) 1 tab PO DAILY [facility] Omeprazole (Prilosec Cap*) 40 mg PO [facility] Vital Signs - 8 hr 01/24/18 01/24/18 00:08 03:33 Temperature 97.8 F 97.5 F Pulse Rate 76 71 Respiratory 22 20 Rate Blood Pressure 147/83 130/71 (mmHg) O2 Sat by Pulse 98 97 Oximetry Oxygen Devices in Use Now: None Appearance: Alert, partly up in bed. In good spirits. Looks comfortable. Eyes: No Scleral Icterus Ears/Nose/Mouth/Throat: Clear Oropharnyx, Mucous Membranes Moist Neck: NL Appearance and Movements; NL JVP, No Thyroid Enlargement, Masses Respiratory: Symmetrical Chest Expansion and Respiratory Effort, Clear to Auscultation, Clear to Percussion Cardiovascular: NL Sounds; No Murmurs; No JVD, RRR, No Edema, - Abdominal: NL Sounds; No Tenderness; No Distention, No Hepatosplenomegaly, - Extremities: No Edema, No Clubbing, Cyanosis, - Skin: No Rash or Ulcers, No Nodules or Sclerosis, - Neurological: Alert and Oriented x 3, NL Sensation Result Diagrams: 01/23/18 12:30 01/23/18 12:30 Additional Lab and Data: Lab Results 01/23/18 01/23/18 01/23/18 Range/Units 12:30 12:30 12:30 WBC 7.5 (3.5-10.8) 10^3/ul RBC 4.78 (4.00-5.40) 10^6/ul Hgb 12.9 L (14.0-18.0) g/dl Hct 40 L (42-52) % MCV 84 (80-94) fL MCH 27 (27-31) pg MCHC 32 (31-36) g/dl RDW 15 (10.5-15) % Plt Count 266 (150-450) 10^3/ul MPV 7.4 (7.4-10.4) um3 Neut % (Auto) 45.3 (38-83) % Lymph % (Auto) 40.5 (25-47) % [place] % (Auto) 9.3 H (0-7) % Eos % (Auto) 3.9 (0-6) % Baso % (Auto) 1.0 (0-2) % Absolute Neuts (auto) 3.4 (1.5-7.7) 10^3/ul Absolute Lymphs (auto) 3.1 (1.0-4.8) 10^3/ul Absolute Monos (auto) 0.7 (0-0.8) 10^3/ul Absolute Eos (auto) 0.3 (0-0.6) 10^3/ul Absolute Basos (auto) 0.1 (0-0.2) 10^3/ul Absolute Nucleated RBC 0 10^3/ul Nucleated RBC % 0.2 Sodium 138 (135-145) mmol/L Potassium 3.8 (3.5-5.0) mmol/L Chloride 106 (101-111) mmol/L Carbon Dioxide 24 (22-32) mmol/L Anion Gap 8 (2-11) mmol/L BUN 15 (6-24) mg/dL Creatinine 0.82 (0.67-1.17) mg/dL Est GFR ( Amer) 121.3 (>60) Est GFR (Non-Af Amer) 100.3 (>60) BUN/Creatinine Ratio 18.3 (8-20) Glucose 132 H (70-100) mg/dL Lactic Acid 1.2 (0.5-2.0) mmol/L Calcium 8.7 (8.6-10.3) mg/dL Total Bilirubin 0.20 (0.2-1.0) mg/dL AST 23 (13-39) U/L ALT 29 (7-52) U/L Alkaline Phosphatase 50 (34-104) U/L Troponin I 0.00 (<0.04) ng/mL Total Protein 7.1 (6.4-8.9) g/dL Albumin 3.4 (3.2-5.2) g/dL Globulin 3.7 (2-4) g/dL Albumin/Globulin Ratio 0.9 L (1-3) Assess/Plan/Problems-Billing Assessment: - Patient Problems (1) Chest pain Current Visit: No Status: Acute Code(s): R07.9 - CHEST PAIN, UNSPECIFIED SNOMED Code(s): 58775183 Comment: Atypical. Possibily his esophagitis, espceially considering he missed his omeprazole that day. All three troponins wnl. Exercise nuclear stress test 01/24, hold metoprol as he did not have it 01/23 either. (2) CAD (coronary artery disease) Current Visit: No Status: Acute Code(s): I25.10 - ATHSCL HEART DISEASE OF [place] CORONARY ARTERY W/O ANG PCTRS SNOMED Code(s): 57557235 Comment: Continue statin, ASA. Resume BB, ranolazine after stress test. (3) Diabetes Current Visit: Yes Status: Acute Code(s): E11.9 - TYPE 2 DIABETES MELLITUS WITHOUT COMPLICATIONS SNOMED Code(s): 45652129 Comment: Hold metformin until discharge. Other home DM meds on hold. Lispro by SS. (4) HTN (hypertension) Current Visit: Yes Status: Acute Code(s): I10 - ESSENTIAL (PRIMARY) HYPERTENSION SNOMED Code(s): 15407820 Comment: Continue amlodipine. (5) Tobacco abuse Current Visit: Yes Status: Acute Code(s): Z72.0 - TOBACCO USE SNOMED Code( s): 412558102 Comment: Pt advised to quit smoking and avoid second hand smoke.
[2018-01-24] MEDS: Insulin LISPRO* 1 UNITS UNIT SUBCUT SCH ×2 (08:48→11:54)
[2018-01-24] MEDS ORDERED: Metoprolol Succinate XL TAB* 25 MG PO SCH (09:00)
[2018-01-24] MEDS ORDERED: Aspirin 81 mg CHEW TAB* 81 MG TAB.CHEW PO SCH (09:00)
[2018-01-24] MEDS ORDERED: Omeprazole CAP* 20 MG PO SCH (09:00)
[2018-01-24] MEDS ORDERED: Atorvastatin* 20 MG TAB PO SCH (09:00)
[2018-01-24] MEDS ORDERED: Multivitamins/Minerals TAB PO SCH (09:00)
[2018-01-24] MEDS ORDERED: amLODIPine TAB* 5 MG PO SCH (09:00)
--- NOTE | 2018-01-24 14:54 | RAD ---
INDICATION: Chest pain. Shortness of breath. History of myocardial infarction. Previous stenting. COMPARISON: June 14, 2017 TECHNIQUE: 10.900 mCi of Tc-99m Myoview were administered IV. SPECT images of the heart were obtained. Later on the same day. Under the direction of Dr. Gonsales, an exercise stress test was performed. The patient achieved a peak heart rate of 156 bpm, 91 % of the age-predicted maximum. Subsequently, the patient was given an IV injection of 25.100 mCi Tc-99m Myoview. SPECT images of the heart were obtained and a gated wall motion study was performed. FINDINGS: Gated wall motion images were obtained at stress and demonstrate wall motion to be within normal limits. The calculated left ventricular ejection fraction is 61 % at stress. Estimated LEFT ventricular end diastolic volume is 86 mL. TID 1.0. Small perfusion defects at the apical anterior and apical inferior narayan at stress with reversal at rest. The anterior apical reversible perfusion abnormality is grossly unchanged. The apical inferior reversible perfusion abnormality is new. IMPRESSION: #. The constellation of findings is suggestive of small foci of ischemia at the apical anterior and inferior segments. The apical inferior reversible perfusion abnormality is new. #. Normal LEFT ventricular wall motion and estimated ejection fraction. ASSESSMENT: Low risk based on nuclear portion. Based on imaging criteria from ACC/AHA 2002 Guideline Update for the Management of Patients With Chronic Stable Angina Table 23. Noninvasive Risk Stratification.
[2018-01-24] MEDS ORDERED: Metoprolol Succinate XL TAB* 25 MG PO ONE (16:06)
[2018-01-24] MEDS ORDERED: CMCS:Ranolazine (NF) 500 MG TAB PO SCH (16:30)
[2018-01-24 18:18] VITALS: BP 148/67
[2018-01-24] MEDS ORDERED: Ranolazine (NF) 500 MG TAB PO SCH (21:00)
--- NOTE | 2018-01-25 01:14 | DS ---
CC: Dr. Camarena; Dr. Jones * DISCHARGE SUMMARY: DATE OF ADMISSION: DATE OF DISCHARGE: 01/24/18 HOSPITAL COURSE: This 47-year-old man presented with chest pain. He was in his usual state of health until he went to work. After several hours at work, he developed midsternal chest pain, he came to the emergency room, the pain lasted many hours despite giving nitroglycerin and aspirin. It had subsided by the time of discharge. He was monitored on the telemetry unit, 3 troponin levels were all within normal limits. He had a treadmill stress test, which showed two small reversible areas of ischemia, one of which was felt to be new, but overall was felt to be at low risk. The patient did exhibit chest wall tenderness on his right chest, which he said pressure there reproduces pain. The pain was quite atypical and that it lasted many hours despite having a normal EKG and normal troponin. This is most likely either chest wall pain or pain from his known esophagitis. FINAL DIAGNOSES: 1. Atypical chest pain. 2. Coronary artery disease. 3. Diabetes. 4. Hypertension. 5. Tobacco abuse. DISCHARGE MEDICATIONS: 1. Metformin 1000 mg b.i.d. 2. Amlodipine 5 mg daily. 3. Aspirin 81 mg daily. 4. Multivitamin with mineral daily. 5. Rosuvastatin 10 mg daily. 6. Liraglutide 1.2 mg subcu weekly. 7. Metoprolol succinate 25 mg daily. 8. Ranolazine 500 mg b.i.d. 9. Omeprazole 40 mg daily. [id number]/[facility] #: [id number] MTDD
== END 2018-01-24 17:21 | disposition home or self-care (01) ==
LOC: ED 11:42 → MEDTELE 13:47
PROVIDERS: ADMIT Internal Medicine; ATTEND Internal Medicine
DX: R07.89 Other chest pain (principal); I25.10 Atherosclerotic heart disease of native coronary artery without angina pectoris; E11.9 Type 2 diabetes mellitus without complications; I10 Essential (primary) hypertension; E66.9 Obesity, unspecified; Z88.6 Allergy status to analgesic agent; Z72.0 Tobacco use; Z79.82 Long term (current) use of aspirin; I25.2 Old myocardial infarction; Z95.9 Presence of cardiac and vascular implant and graft, unspecified
CPT/HCPCS: 36415; 71045; 78452; 80053; 83605; 84484; 85025; 93005; 93017; 99283; A9270-GY; A9502; G0378

== ENCOUNTER → 2018-02-26 06:55 | Day surgery (SDC) | payer OTHER ==
[~2018-02-26 06:55] MED LIST: Acetaminophen TAB* 325 MG PO PRN; Aspirin 81 mg CHEW TAB* 81 MG TAB.CHEW ONE; Heparin 2 UNITS/ML IVPREMIX* 2,000 ML IV ONE; Heparin(*) 1000 UNIT/ML 10 ML VIAL CATH LAB IV ONE; Iohexol 350 (CONTRAST) 200 ML MDV IV ONE; Lidocaine 1%* 5 ML VIAL ONE; Midazolam* 1 MG/ML 10 ML VIAL (10 MG) ONE; NS 0.9% 1000 ML* 1,000 ML IV SCH; VERAPAMIL 2.5 MG/ML 2 ML VIAL ** 5 mg/2 ml ONE; nitroGLYCERIN DRIP* 25,000 MCG/250 ML BTL ONE
[2018-02-26 10:15] LABS: ABS Basophils 0.1 10^3/ul (0-0.2); ABS Eosinophils 0.3 10^3/ul (0-0.6); ABS Lymphocytes 2.6 10^3/ul (1.0-4.8); ABS Monocytes 0.7 10^3/ul (0-0.8); ABS Neutrophils 2.9 10^3/ul (1.5-7.7); ABS Nucleated RBC 0 10^3/ul; Eosinophil % 4.7 % (0-6); Hematocrit 42 % (42-52); Hemoglobin 13.4 g/dl (14.0-18.0); Lymphocyte % 39.6 % (25-47); Mean Corpuscular HGB Conc 32 g/dl (31-36); Mean Corpuscular Hemoglobin 27 pg (27-31); Mean Corpuscular Volume 85 fL (80-94); Mean Platelet Volume 7.9 um3 (7.4-10.4); Nucleated Red Blood Cells % 0.2; Platelet Count 241 10^3/ul (150-450); Red Blood Count 4.96 10^6/ul (4.00-5.40); Red Cell Distribution Width 14 % (10.5-15); White Blood Count 6.6 10^3/ul (3.5-10.8)
[2018-02-26 10:25] LABS: EGFR Non-African American 103.2 (>60)
[2018-02-26 14:34] VITALS: BP 126/79
--- NOTE | 2018-02-27 02:25 | CATH ---
CARDIAC CATHETERIZATION REPORT: DATE OF PROCEDURE: 02/26/18 PROCEDURE: Cardiac catheterization including coronary angiography. INDICATION FOR STUDY: Coronary artery disease, chest pain. The patient is a 47-year-old gentleman with a history of coronary artery disease, history of stent in to his proximal left circumflex artery in June 2016. At that time, the patient had done well in the hospital and was discharged home. About 3 weeks after discharge, the patient started experiencing atypical chest pain. The patient has had that same atypical chest pain frequently over the last yea r and a half. He has had multiple admissions to the hospital and multiple stress tests. At the beginning of January, the patient was admitted to the hospital, underwent an exercise nuclear str ess test. At that time, he exercised for 8 minutes, he had no chest pain and no EKG changes. His nu clear images had a small area of ischemia to the base of the inferior wall that was not present on pr evious studies. Cardiac catheterization was recommended. DESCRIPTION OF PROCEDURE: The patient was brought to the cardiac catheterization lab in a fasting st ate. Informed consent had been obtained prior to the procedure. All labs were reviewed. The patient was placed supine on the procedure table. His right radial wrist was prepped and draped in the usua l fashion. 1% lidocaine was used for local anesthesia. The radial artery was entered by a Seldinger technique and a guidewire was placed. Over the guidewire, a 6-Gambian sheath introducer was placed. The patient underwent coronary angiography using a 6-Gambian TIG catheter. At the end of the procedur e, all sheaths and catheters were removed. The patient tolerated the procedure with no complications . A total 45 cc of Omnipaque dye was used. A total of 4.3 minutes of fluoro time was used. FINDINGS: 1. Left main: The left main was normal in size. It bifurcated into the LAD and circumflex. There was no evidence of stenosis. 2. Left anterior descending artery: The LAD was normal in size. It gave off one diagonal vessel. There was mild disease to the distal LAD. The remainder of the vessel was without disease. 3. Left circumflex artery: The circumflex artery was normal in size. It gave off 2 obtuse marginal branches. There was minimal disease in the second obtuse marginal branch. 4. Right coronary artery: The RCA was a dominant vessel giving off the PDA. The proximal portion o f the right coronary artery had a long 50% stenosis. The mid vessel and the distal right coronary ar jimy were without disease. The PDA had a mid 60% stenosis. The posterolateral branches were without disease. IMPRESSION: 1. Stent to the left circumflex artery was open and patent. 2. Mild disease to the LAD, left circumflex artery, and right coronary artery. 3. In reviewing these films from his cardiac catheterization in 2016, his 60% PDA vessel and his pro ximal right coronary artery vessel are exactly the same. There is no change in its presentation. RECOMMENDATION: The patient will continue on maximum medical therapy. [id number]/[facility] #: [id number]
== END | disposition home or self-care (01) ==
LOC: CHICATH 06:55
PROVIDERS: ATTEND Specialist
DX: I25.10 Atherosclerotic heart disease of native coronary artery without angina pectoris (principal); R07.89 Other chest pain; Z95.5 Presence of coronary angioplasty implant and graft; E11.9 Type 2 diabetes mellitus without complications; Z79.4 Long term (current) use of insulin; Z79.84 Long term (current) use of oral hypoglycemic drugs; I10 Essential (primary) hypertension; Z87.891 Personal history of nicotine dependence
CPT/HCPCS: 36415; 80048; 85025; 93454; 99156; A9270-GY; J1644; J2250

== ENCOUNTER 2018-03-06 14:29 | Emergency (ER) | payer OTHER ==
[2018-03-06] MEDS ORDERED: Nitroglycerin TAB 0.4 MG* 0.4 MG TAB SL ONE (14:43)
--- NOTE | 2018-03-06 14:59 | RAD ---
HISTORY: CP COMPARISONS: January 23, 2018 VIEWS: 1: frontal portable view of the chest at 2:50 PM FINDINGS: LINES AND TUBES: None. CARDIOMEDIASTINAL SILHOUETTE: The cardiomediastinal silhouette is normal for portable technique. PLEURA: The costophrenic angles are sharp. No pleural abnormalities are noted. LUNG PARENCHYMA: The lungs are clear. ABDOMEN: The upper abdomen is clear. There is no subphrenic gas. BONES AND SOFT TISSUES: No bone or soft tissue abnormalities are noted. IMPRESSION: NO ACTIVE CARDIOPULMONARY DISEASE.
[2018-03-06 15:04] LABS: ABS Basophils 0.1 10^3/ul (0-0.2); ABS Eosinophils 0.3 10^3/ul (0-0.6); ABS Lymphocytes 2.9 10^3/ul (1.0-4.8); ABS Monocytes 0.6 10^3/ul (0-0.8); ABS Neutrophils 3.1 10^3/ul (1.5-7.7); ABS Nucleated RBC 0 10^3/ul; Eosinophil % 4.6 % (0-6); Hematocrit 40 % (42-52); Lymphocyte % 41.3 % (25-47); Mean Corpuscular HGB Conc 32 g/dl (31-36); Mean Corpuscular Hemoglobin 27 pg (27-31); Mean Corpuscular Volume 84 fL (80-94); Mean Platelet Volume 7.4 um3 (7.4-10.4); Nucleated Red Blood Cells % 0.2; Platelet Count 275 10^3/ul (150-450); Red Blood Count 4.77 10^6/ul (4.00-5.40); Red Cell Distribution Width 14 % (10.5-15); White Blood Count 7.1 10^3/ul (3.5-10.8)
[2018-03-06] MEDS ORDERED: Iodixanol* (CONTRAST) 320 MG/ML 100 ML SDV IV ONE (15:44)
--- NOTE | 2018-03-06 16:23 | RAD ---
Indication: Chest pain, back pain. Contrast: Administered 100.0 ml of VISAPAQUE 320 mg/ml CTA of the chest performed after IV contrast administration. Coronal and sagittal reconstructed images were obtained as well as 3-D reconstructive images. The origins of the great vessels are unremarkable. The thoracic aorta demonstrates no evidence of thoracic aortic dilatation. No evidence of thoracic aortic dissection is noted. The origins of the celiac axis, superior mesenteric artery and both renal arteries are unremarkable. Inferior mesenteric artery is unremarkable. The common iliac and external iliacs are unremarkable. The pulmonary arterial tree is well opacified. There are no filling defects present to suggest pulmonary embolus. The heart demonstrates no pericardial effusion. Scattered prevascular space lymph nodes are noted measuring up to 8 mm in the prevascular space. The trachea and major bronchi appear patent. The lung abarca demonstrate no evidence of alveolar consolidation. No pleural fluid is identified. The axilla demonstrates small lymph nodes bilaterally. CT of the abdomen and pelvis demonstrates liver to be normal in size. No focal lesions or intrahepatic ductal dilatation is noted. Gallbladder demonstrates no calcified gallstones. The pancreas demonstrates no mass or pancreatic duct dilatation. The spleen is normal in size. No adrenal masses are noted. The kidneys demonstrate symmetric nephrograms without focal lesions. No dilated loops of bowel are noted. The colon is filled with stool. The urinary bladder is otherwise unremarkable. No hernias are identified. The visualized bony structures are grossly unremarkable. IMPRESSION: There is no evidence of thoracic aortic dissection. No evidence of thoracic or abdominal aortic aneurysm is noted. No definite pulmonary embolus is noted. No other masses or fluid collections are identified. There are scattered lymph nodes in the prevascular space the largest measures up to 8 mm in its short axis of uncertain etiology.
--- NOTE | 2018-03-06 16:47 | ED ---
HPI Chest Pain - HPI Summary HPI Summary: The patient is a 47 y/o M presenting to [facility] with a chief complaint of mid -sternal chest pain that radiates to his right back starting approximately a month ago. The pain is rated 6/10 in severity. The pain is aggravated by breathing and alleviated somewhat by NTG and aspirin given in ambulance. He denies fevers, chills, cough, swelling in feet. He has not had any recent illnesses. He has hx of HTN, CAD, hypercholesterolemia, diabetes. He had one stent placed by Dr. Strickland. He was supposed to have an operation about 1.5 weeks ago to check a cath placement, but he did not have the procedure due an unforeseen circumstance with another pt the doctor was seeing. He is supposed to have an appointment with his neuropsychology medical consultant, Dr. Jones, tomorrow. - History of Current Complaint Chief Complaint: EDChestWallPain Time Seen by Provider: 03/06/18 14:37 Hx Obtained From: Patient Onset/Duration: Started Weeks Ago, Still Present Timing: Lasting Days Initial Severity: Moderate Current Severity: Moderate Pain Intensity: 6 Pain Scale Used: 0-10 Numeric Chest Pain Location: Mid Sternal Chest Pain Radiates: Yes Chest Pain Radiates To:: Back - right Character: Dyspnea at Exertion Aggravating Factor(s): Deep Breaths Alleviating Factor(s): NTG 123 - one, Other: - baby aspirin Associated Signs and Symptoms: Positive: Chest Pain - mid sternal radiating to right back. Negative: Fever, Chills, Cough, Edema - Additional Pertinent History Primary Care Physician: [id number] - Allergy/Home Medications Allergies/Adverse Reactions: Allergies Allergy/AdvReac Type Severity Reaction Status Date / Time fentanyl Allergy Hallucinati Verified 03/06/18 15:17 ons lisinopril Allergy Unknown Verified 03/06/18 15:17 Reaction Details shellfish derived Allergy Unknown Verified 03/06/18 15:17 Reaction Details Home Medications: Home Medications Dulaglutide (NF) [Trulicity (NF)] 1.5 mg SUBCUT DAILY 03/06/18 [History Confirmed 03/06/18] Indomethacin CAP* [Indocin CAP*] 50 mg PO TID 03/06/18 [History Confirmed ] LoraTADine TAB(NF) [Claritin 10 MG TAB(NF)] 10 mg PO DAILY 03/06/18 [History Confirmed 03/06/18] Omeprazole CAP* [Prilosec CAP* 20 MG] 40 mg PO DAILY 03/06/18 [History Confirmed 03/06/18] PMH/Surg Hx/FS Hx/Imm Hx Endocrine/Hematology History: Reports: Hx Diabetes Denies: Hx Thyroid Disease Cardiovascular History: Reports: Hx Angina, Hx Coronary Artery Disease, Hx Hypercholesterolemia, Hx Hypertension, Hx Myocardial Infarction - Jun 2016, Other Cardiovascular Problems/Disorders - Current admission for chest pain Denies: Hx Pacemaker/ICD Respiratory History: Reports: Hx Asthma - SEASONAL Denies: Hx Chronic Obstructive Pulmonary Disease (COPD), Other Respiratory Problems/Disorders GI History: Denies: Hx Ulcer History: Denies: Hx Renal Disease Musculoskeletal History: Reports: Other Musculoskeletal History - Lt wrist pain of unknown origin Denies: Hx Arthritis, Hx Osteoporosis Sensory History: Reports: Hx Contacts or Glasses Denies: Hx Hearing Aid Opthamlomology History: Reports: Hx Contacts or Glasses Neurological History: Denies: Hx Peripheral Neuropathy Psychiatric History: Denies: Hx Panic Disorder - Cancer History Cancer Type, Location and Year: none - Surgical History Surgery Procedure, Year, and Place: appendectomy. stent placed June 2016 after heart attack Hx Anesthesia Reactions: No - Immunization History Immunizations Up to Date: Yes Infectious Disease History: No Infectious Disease History: Denies: Hx Clostridium Difficile, Hx Hepatitis, Hx Human Immunodeficiency Virus (HIV), Hx of Known/Suspected MRSA, Hx Shingles, Hx Tuberculosis, Hx Known/ Suspected VRE, Hx Known/Suspected VRSA, History Other Infectious Disease, Traveled Outside the [place] in Last 30 Days - Family History Known Family History: Positive: Cardiac Disease, Hypertension, Diabetes - Social History Alcohol Use: Weekly Alcohol Amount: 2-3 beers per week Hx Substance Use: Yes Substance Use Type: Reports: Marijuana Substance Use Comment - Amount & Last Used: OCCASIONALLY Hx Tobacco Use: Yes Smoking Status (MU): Current Some Day Smoker Type: Cigarettes Amount Used/How Often: 2 Have You Smoked in the Last Year: Yes Review of Systems Negative: Fever, Chills Positive: Chest Pain - mid sternal radiating to right back Negative: Cough Negative: Edema - in ankles All Other Systems Reviewed And Are Negative: Yes Physical Exam - Summary Physical Exam Summary: Constitutional: Well-developed, Well-nourished, Alert. (-) Distressed Skin: Warm, Dry HENT: Normocephalic; Atraumatic Eyes: Conjunctiva normal Neck: Musculoskeletal ROM normal neck. (-) JVD, (-) Stridor, (-) Tracheal deviation Cardio: Rhythm regular, rate normal, Heart sounds normal; Intact distal pulses; The pedal pulses are 2+ and symmetric. Radial pulses are 2+ and symmetric. (-) Murmur Pulmonary/Chest wall: Effort normal. (-) Respiratory distress, (-) Wheezes, (-) Rales Abd: Soft, (-) epigastric tenderness, (-) Distension, (-) Guarding, (-) Rebound Musculoskeletal: (-) Edema Lymph: (-) Cervical adenopathy Neuro: Alert, Oriented x3 Psych: Mood and affect Normal Triage Information Reviewed: Yes Vital Signs On Initial Exam: Initial Vitals Temp Pulse Resp BP Pulse Ox 97.8 F 85 20 135/75 96 03/06/18 14:31 03/06/18 14:31 03/06/18 14:31 03/06/18 14:31 03/06/18 14:31 Vital Signs Reviewed: Yes Diagnostics - Vital Signs Vital Signs Temp Pulse Resp BP Pulse Ox 03/06/18 15:35 83 22 118/76 95 03/06/18 15:05 91 20 119/70 95 03/06/18 14:57 87 16 144/74 97 03/06/18 14:35 87 20 135/75 96 03/06/18 14:31 97.8 F 85 20 135/75 96 - Laboratory Lab Results: Lab Results 03/06/18 03/06/18 03/06/18 Range/Units 14:52 14:52 14:52 WBC 7.1 (3.5-10.8) 10^3/ul RBC 4.77 (4.00-5.40) 10^6/ul Hgb 13.0 L (14.0-18.0) g/dl Hct 40 L (42-52) % MCV 84 (80-94) fL MCH 27 (27-31) pg MCHC 32 (31-36) g/dl RDW 14 (10.5-15) % Plt Count 275 (150-450) 10^3/ul MPV 7.4 (7.4-10.4) um3 Neut % (Auto) 44.4 (38-83) % Lymph % (Auto) 41.3 (25-47) % [place] % (Auto) 8.6 H (0-7) % Eos % (Auto) 4.6 (0-6) % Baso % (Auto) 1.1 (0-2) % Absolute Neuts (auto) 3.1 (1.5-7.7) 10^3/ul Absolute Lymphs (auto) 2.9 (1.0-4.8) 10^3/ul Absolute Monos (auto) 0.6 (0-0.8) 10^3/ul Absolute Eos (auto) 0.3 (0-0.6) 10^3/ul Absolute Basos (auto) 0.1 (0-0.2) 10^3/ul Absolute Nucleated RBC 0 10^3/ul Nucleated RBC % 0.2 Sodium 138 (135-145) mmol/L Potassium 4.0 (3.5-5.0) mmol/L Chloride 106 (101-111) mmol/L Carbon Dioxide 25 (22-32) mmol/L Anion Gap 7 (2-11) mmol/L BUN 14 (6-24) mg/dL Creatinine 1.02 (0.67-1.17) mg/dL Est GFR ( Amer) 94.3 (>60) Est GFR (Non-Af Amer) 78.0 (>60) BUN/Creatinine Ratio 13.7 (8-20) Glucose 187 H (70-100) mg/dL Lactic Acid 1.3 (0.5-2.0) mmol/L Calcium 9.1 (8.6-10.3) mg/dL Total Bilirubin 0.20 (0.2-1.0) mg/dL AST 22 (13-39) U/L ALT 31 (7-52) U/L Alkaline Phosphatase 63 (34-104) U/L Troponin I 0.00 (<0.04) ng/mL Total Protein 7.4 (6.4-8.9) g/dL Albumin 3.6 (3.2-5.2) g/dL Globulin 3.8 (2-4) g/dL Albumin/Globulin Ratio 0.9 L (1-3) Result Diagrams: 03/06/18 14:52 03/06/18 14:52 Lab Statement: Any lab studies that have been ordered have been reviewed, and results considered in the medical decision making process. - Radiology CXR Xray Interpretation: No Acute Changes - No active cardiopulmonary disease. ED physician has reviewed this report. Radiology Interpretation Completed By: Radiologist - CT Chest/Abd/Pel CTA CT Interpretation: Positive (See Comments) - There is no evidence of thoracic aortic dissection. No evidence of thoracic or abdominal aortic aneurysm is noted. No definite pulmonary embolus is noted. No other masses or fluid collections are identified. There are scattered lymph nodes in the prevascular space the largest measures up to 8 mm in its short axis of uncertain etiology. ED physician has reviewed this report. CT Interpretation Completed By: Radiologist - EKG 14:20 Cardiac Rate: NL - 83 BPM EKG Rhythm: Sinus Rhythm EKG Interpretation: No STEMI. Re-Evaluation - Re-Evaluation First Eval Re-Evaluation Time: 18:20 Change: Improved Comment: Patient will be d/c home. He will follow up with Dr. Jones tomorrow at his appt. Chest Pain Course/Dx - Course Course Of Treatment: The patient is a 47 y/o M presenting to [facility] with a chief complaint of mid-sternal chest pain that radiates to his right back starting approximately a month ago. The pain is rated 6/10 in severity. The pain is aggravated by breathing and alleviated somewhat by NTG and aspirin given in ambulance. He denies fevers, chills, cough, swelling in feet. He has not had any recent illnesses. He has hx of HTN, CAD, hypercholesterolemia, diabetes. He had one stent placed by Dr. Strickland. He was supposed to have an operation about 1.5 weeks ago to check a cath placement, but he did not have the procedure due an unforeseen circumstance with another pt the doctor was seeing. He is supposed to have an appointment with his neuropsychology medical consultant, Dr. Jones, tomorrow. In the ED course, the pt was administered NTG and Iodixanol. Lab work shows increased glucose, but pt is a diabetic. EKG is normal. Chest/Abd/ Pel CTA reveals scattered lympnodes. CXR reveals no acute findings. Patient is diagnosed with mediastinal lymphadenopathy and unspecified chest pain. Patient will be discharged home under stable conditions. He will follow up with Dr. Jones at his scheduled appointment tomorrow. I discussed the need to return to the ED for any new or worsening symptoms. Patient understands and agrees with this plan. - Diagnoses Provider Diagnoses: Mediastinal lymphadenopathy, Chest pain, unspecified Discharge - Sign-Out/Discharge Documenting (check all that apply): Patient Departure - Patient will be discharged home. - Discharge Plan Condition: Stable Disposition: HOME Patient Education Materials: Chest Pain (ED) Referrals: Nancie Camarena MD [Primary Care Provider] - Joaquín Jones MD [Medical Doctor] - 03/07/18 Additional Instructions: Follow up with Dr. Jones at your appointment tomorrow as planned. RETURN TO THE EMERGENCY DEPARTMENT FOR ANY NEW OR WORSENING SYMPTOMS - Billing Disposition and Condition Condition: STABLE Disposition: Home - Attestation Statements Document Initiated by Kisha: Yes Documenting Scribe: Courtney Reid Provider For Whom Kisha is Documenting (Include Credential): Jose Sierra MD Scribe Attestation: Courtney Griffin, scribed for Jose Sierra MD on 03/06/18 at 1825. Scribe Documentation Reviewed: Yes Provider Attestation: The documentation as recorded by the Courtney melton accurately reflects the service I personally performed and the decisions made by me, Jose Sierra MD
[2018-03-06 18:31] VITALS: BP 139/80
--- NOTE | 2018-03-06 21:27 | CONS ---
CC: Dr. Nancie Camarena; Dr. Joaquín Jones; Dr. Jose Sierra * CONSULTATION REPORT: DATE OF CONSULT: 03/06/18 - EMERGENCY DEPT PRIMARY CARE PROVIDER: Dr. Nancie Camarena. MY ATTENDING WHILE IN THE HOSPITAL: Christi Martin DO (DICTATED BY MADHU WHITNEY) OUTPATIENT EPIDEMIOLOGIST: Dr. Joaquín Jones. CONSULTING PROVIDER: Dr. Jose Sierra. REASON FOR CONSULT: Chest pain. HISTORY OF PRESENT ILLNESS: Mr. Powers is a 47-year-old male with past medical history significant for coronary artery disease with an AL and a stent placed in 2016 in his left circumflex artery as well as hypertension, diabetes mellitus, hyperlipidemia, and chronic intermittent angina since his catheterization in 2016. The patient since 2016 has had 2 stress tests, both of which were read as low risk with one showing the concern for new area of possible inferior ischemia on 01/24/18. The patient has been following with outpatient provider, Dr. Joaquín Jones, as well as his primary care provider, Dr. 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 The patient has been started on amlodipine, ranolazine, and his episode of chest pain usually resolves with nitroglycerin and Tylenol. The patient states that today he was working around 12:30 to 12:45 while he was doing dishes, he began to have a sharp pain in the right side of his chest, which was sharp and radiated to his back. He states that this felt like when he previously had an myocardial infarction in 2016. The patient states that the pain was 8/10, constant, with no provoking or alleviating factors. The patient states they lasted for approximately an hour or 45 minutes. The patient received one nitroglycerin while in the ambulance with no relief and a second nitroglycerin upon arrival to the emergency department, after which time his chest pain had preferably resolved. The patient states that his chest pain is somewhat reproducible with palpation. The patient states when his chest pain first started, he had a mild amount of shortness of breath, but none after that. The patient has not had any nausea, vomiting, diaphoresis episode. The patient denies any recent illnesses, change in medications, fevers, or chills. The patient denies any radiation of this pain down his arms. The patient still drinks coffee and soda intermittently. The patient also smokes intermittently. The patient has had moderate control of his diabetes. The patient does not know the findings from his EGD because he was not told anything. The patient denies heartburn symptoms; however, he did eat soon before his presentation to the hospital. The patient denies any productive cough, wheezing, shortness of breath. The patient did not have to use his asthma inhaler frequently. The patient is not on any standing inhaled medications. The patient has occasional headaches and back pain. The patient has no other issues that he is concerned about. The patient stated in the emergency department that he was prepped for a cath on 02/26/18, but that was aborted before it was completed; however, the catheterization report from Dr. Joaquín Jones from that date is showing a completed exam is present in the medical record. That catheterization report showed 50% to 60% stenosis in the branch of the right coronary artery with long 50% stenosis in proximal portion and a mid 60% stenosis in the posterior descending artery, that when compared with his cardiac catheterization in 2016 has had absolutely no change with recommendation for continuation of maximum medical therapy. The patient states that he has an appointment with Dr. Jones tomorrow to follow up on these findings. The patient also on evaluation of his chest pain has had a EGD on 08/[address] Crystal Barakat of Gastroenterology, which showed esophagitis, but no other acute findings. PAST MEDICAL HISTORY: Hypertension, diabetes mellitus type 2, angina, hyperlipidemia, asthma, coronary artery disease with AL and stent placement in 2016. PAST SURGICAL HISTORY: Cardiac catheterization x2, appendectomy 25 years ago. MEDICATIONS: 1. Metformin 1000 mg p.o. b.i.d. 2. Amlodipine 10 mg p.o. daily. 3. Aspirin 81 mg p.o. daily. 4. Crestor 10 mg p.o. at bedtime. 5. Metoprolol 25 mg p.o. daily. 6. Glargine 10 units subcutaneous daily. 7. Albuterol 2 puffs MDI 4 times a day as needed. 8. Nicardipine 10 mg p.o. daily. 9. Indomethacin 50 mg p.o. t.i.d. 10. Omeprazole 40 mg p.o. daily. 11. Trulicity 1.5 mg subcutaneous daily. 12. Ranexa 500 mg p.o. twice a day. ALLERGIES: FENTANYL, LISINOPRIL, SHELLFISH. FAMILY HISTORY: The patient's mother of complications from diabetes. The patient has numerous siblings, none of whom have any pertinent medical history he knows of. The patient is estranged from his father and knows none of his past medical history, knows none of the past medical history of his grandparents. SOCIAL HISTORY: The patient still smokes an occasional cigarette and is a former smoker. The patient is not able to quantify his smoking history. The patient drinks beers on the weekends, but denies abusing alcohol. The patient denies any illicit drug use. The patient still drinks coffee and soda daily. 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 The patient is and has 2 children. Neither of whom have health issues. REVIEW OF SYSTEMS: A 14-point review of systems was reviewed and is negative, except as above in the HPI. PHYSICAL EXAM: General: The patient is a 47-year-old male, who appears his stated age, sitting comfortably in bed, in no acute distress. HEENT: Head: Normocephalic, atraumatic. Sclerae anicteric. No conjunctival injection. Nasal mucosa moist. Oral mucosa moist. No pharyngeal erythema, discharge, or exudate. Vital Signs: At the time of evaluation, temperature 97.8, pulse rate 80, respiratory rate 16, oxygen saturation 96% on room air, blood pressure 104/88. Neck: Supple, nontender. No lymphadenopathy. No carotid bruit auscultated. No JVD. Cardiac: Regular rate and rhythm. No clicks, murmurs, gallops, or rubs. Pulses are 2+ in the bilateral dorsalis pedis, posterior tibialis, and radial areas. No bilateral lower extremities edema noted. No calf tenderness noted bilaterally. Abdomen: Soft, nontender, nondistended. Bowel sounds present and normoactive in all 4 quadrants. No hepatosplenomegaly. No abdominal bruits auscultated. No hepatojugular reflux. Respiratory: Clear to auscultation bilaterally. No wheezes, rales, rhonchi. Good air exchange bilaterally. Genitourinary: No suprapubic or CVA tenderness. Skin: Clean, dry, intact. No rash. Neuro: Cranial nerves II through XII intact. No focal deficits. Alert and oriented x3. Psychiatric: Pleasant and cooperative. DIAGNOSTIC STUDIES/LAB DATA: White blood cell count 7.1, hemoglobin 13.0, hematocrit 40, platelet count 275. Sodium 138, potassium 4.0, chloride 106, carbon dioxide 25, anion gap 7, BUN 14, creatinine 1.02, glucose 187, lactic acid 1.3, calcium 9.1. Bilirubin 0.2, AST 22, ALT 31, alkaline phosphatase 63. Troponin I 0.00 x2. Total protein 7.4. Albumin 3.6, globulin 3.8. Studies: Chest x-ray read as no active cardiopulmonary disease. Electrocardiogram from 03/06/18 shows normal sinus rhythm, minimal convex ST elevation from V3 to V5, which is exactly identical to ST elevations present in several other EKGs, not taken while the patient is having an active AL, T-wave inversion in lead III, no other ST segment abnormalities, no blocks or hypertrophy, QTc of 418, rate of 83, no other abnormalities, no other significant changes from previous exam. Chest, abdomen, pelvis CTA from 03/06/18 read as there is no evidence for thoracic aortic dissection, no evidence for thoracoabdominal aortic aneurysm is noted, no definite pulmonary embolus is noted, no other mass or fluid collection is identified, there are scattered lymph nodes in the perivascular space, the largest measured up to 8 mm, and short axis of uncertain etiology. ASSESSMENT AND PLAN: The patient has chest pain, which has been a problem for him. The patient had a catheterization consistent with his previous exams, no progression of disease, 8 days ago with recommendation from his outpatient rug frame mounter to maintain maximum medical therapy for his coronary artery disease. The patient will be following up to discuss these results with Dr. Jones tomorrow. Given the patient has a recent cath and recent negative stress test as well as a negative CTA, electrocardiogram with no changes, negative chest x-ray, no vital sign abnormalities, troponins of 0.00 x2, the optimum care for the patient's angina would likely be to follow up with his outpatient rug frame mounter, Dr. Jones ,tomorrow as scheduled to discuss the results of his cath and the ongoing diagnostic evaluation of his chronic angina. He should also follow up with his primary care provider to discuss ongoing evaluation by Gastroenterology with possible esophageal manometry or esophageal pH testing. The patient should be continued on his antacids and consideration for additional antacid therapy should be considered. The patient should take nitroglycerin as prescribed for angina and return to the hospital for anginal symptoms. The patient is currently chest pain free. The patient has no significant laboratory abnormalities. The patient should stop the smoking and maintain optimal control for his diabetes, hyperlipidemia, hypertension, as well as continue with his antianginal therapy of ranolazine, amlodipine, and metoprolol. The patient is stable to be discharged from the emergency department with no further inpatient workup needed or risk stratification based on recent cardiac catheterization. TIME SPENT: Approximately 60 minutes were spent on this consultation, 30 of which was spent [id number] with the patient obtaining history and physical and discussing treatment plan. This plan has been discussed with my attending, Dr. Christi Martin, as well as emergency department physician, Dr. Jose Sierra, and they are in agreement as well. MADHU WHITNEY [id number]/[facility] #: [id number] LYNDA
== END 2018-03-06 18:30 | disposition home or self-care (01) ==
LOC: ED 14:29
DX: R59.0 Localized enlarged lymph nodes (principal); R07.89 Other chest pain; E11.9 Type 2 diabetes mellitus without complications; Z79.4 Long term (current) use of insulin; Z79.84 Long term (current) use of oral hypoglycemic drugs; I25.119 Atherosclerotic heart disease of native coronary artery with unspecified angina pectoris; I10 Essential (primary) hypertension; Z95.5 Presence of coronary angioplasty implant and graft; E78.00 Pure hypercholesterolemia, unspecified; Z88.8 Allergy status to other drugs, medicaments and biological substances; Z88.5 Allergy status to narcotic agent; Z91.013 Allergy to seafood; Z72.0 Tobacco use
CPT/HCPCS: 36415; 71045; 71275; 74174; 80053; 83605; 84484; 85025; 93005; 99283; A9270-GY; Q9967

== ENCOUNTER → 2018-03-20 00:53 | Emergency (ER) | payer OTHER ==
[~2018-03-20 00:53] MED LIST changes: -Acetaminophen TAB* 325 MG PO PRN; -Aspirin 81 mg CHEW TAB* 81 MG TAB.CHEW ONE; -Heparin 2 UNITS/ML IVPREMIX* 2,000 ML IV ONE; -Heparin(*) 1000 UNIT/ML 10 ML VIAL CATH LAB IV ONE; -Iohexol 350 (CONTRAST) 200 ML MDV IV ONE; +Ketorolac INJ* 30 MG/ML 1 ML VIAL IV PUSH ONE; +LORazepam INJ* 2 MG/ML 1 ML VIAL IV PUSH ONE; -Lidocaine 1%* 5 ML VIAL ONE; -Midazolam* 1 MG/ML 10 ML VIAL (10 MG) ONE; -NS 0.9% 1000 ML* 1,000 ML IV SCH; -VERAPAMIL 2.5 MG/ML 2 ML VIAL ** 5 mg/2 ml ONE; -nitroGLYCERIN DRIP* 25,000 MCG/250 ML BTL ONE
--- NOTE | 2018-03-20 01:17 | ED ---
HPI Chest Pain - HPI Summary HPI Summary: This patient is a 47 year old M presenting to [facility] with a chief complaint of chest pain since 23:30. The patient rates the pain 7/10 in severity. Patient reports that the pain radiates to his back. He took 2 NTG SL and 324mg ASA [employer]. His travel administrator is Joaquín Jones MD. Patients last stress test was 1 month ago at [facility] which he reports was normal. - History of Current Complaint Chief Complaint: EDChestWallPain Time Seen by Provider: 03/20/18 01:05 Hx Obtained From: Patient Onset/Duration: Started Hours Ago - 23:45 on 03/19/2018, Still Present Timing: Constant Initial Severity: Moderate Current Severity: Moderate Pain Intensity: 7 Pain Scale Used: 0-10 Numeric Chest Pain Radiates: Yes Chest Pain Radiates To:: Back - Additional Pertinent History Primary Care Physician: [id number] - Allergy/Home Medications Allergies/Adverse Reactions: Allergies Allergy/AdvReac Type Severity Reaction Status Date / Time fentanyl Allergy Hallucinati Verified 03/20/18 01:08 ons lisinopril Allergy Unknown Verified 03/20/18 01:08 Reaction Details shellfish derived Allergy Unknown Verified 03/20/18 01:08 Reaction Details Home Medications: Home Medications Nitroglycerin TAB 0.4 MG* 0.4 mg SL Q5M PRN 03/20/18 [History Confirmed 03/20/18 ] PMH/Surg Hx/FS Hx/Imm Hx Endocrine/Hematology History: Reports: Hx Diabetes Denies: Hx Thyroid Disease Cardiovascular History: Reports: Hx Angina, Hx Coronary Artery Disease, Hx Hypercholesterolemia, Hx Hypertension, Hx Myocardial Infarction - Jun 2016, Other Cardiovascular Problems/Disorders - Current admission for chest pain Denies: Hx Pacemaker/ICD Respiratory History: Reports: Hx Asthma - SEASONAL Denies: Hx Chronic Obstructive Pulmonary Disease (COPD), Other Respiratory Problems/Disorders GI History: Denies: Hx Ulcer History: Denies: Hx Renal Disease Musculoskeletal History: Reports: Other Musculoskeletal History - Lt wrist pain of unknown origin Denies: Hx Arthritis, Hx Osteoporosis Sensory History: Reports: Hx Contacts or Glasses Denies: Hx Hearing Aid Opthamlomology History: Reports: Hx Contacts or Glasses Neurological History: Denies: Hx Peripheral Neuropathy Psychiatric History: Denies: Hx Panic Disorder - Cancer History Cancer Type, Location and Year: none - Surgical History Surgery Procedure, Year, and Place: appendectomy. stent placed June 2016 after heart attack Hx Anesthesia Reactions: No Infectious Disease History: No Infectious Disease History: Denies: Hx Clostridium Difficile, Hx Hepatitis, Hx Human Immunodeficiency Virus (HIV), Hx of Known/Suspected MRSA, Hx Shingles, Hx Tuberculosis, Hx Known/ Suspected VRE, Hx Known/Suspected VRSA, History Other Infectious Disease, Traveled Outside the [place] in Last 30 Days - Family History Known Family History: Positive: Cardiac Disease, Hypertension, Diabetes - Social History Occupation: Employed Full-time Alcohol Use: Weekly Alcohol Amount: 2-3 beers per week Hx Substance Use: Yes Substance Use Type: Reports: Marijuana Substance Use Comment - Amount & Last Used: OCCASIONALLY Hx Tobacco Use: Yes Smoking Status (MU): Current Some Day Smoker Type: Cigarettes Amount Used/How Often: 2 Have You Smoked in the Last Year: Yes Review of Systems Negative: Fever Positive: Chest Pain - radiating to his back All Other Systems Reviewed And Are Negative: Yes Physical Exam - Summary Physical Exam Summary: VITAL SIGNS: Reviewed. GENERAL: Patient is a well-developed and nourished MALE who is lying comfortable in the stretcher. Patient is not in any acute respiratory distress. HEAD AND FACE: No signs of trauma. No ecchymosis, hematomas or skull depressions. No sinus tenderness. EYES: PERRLA, EOMI x 2, No injected conjunctiva, no nystagmus. EARS: Hearing grossly intact. Ear canals and tympanic membranes are within normal limits. MOUTH: Oropharynx within normal limits. NECK: Supple, trachea is midline, no adenopathy, no JVD, no carotid bruit, no c- spine tenderness, neck with full ROM. CHEST: Symmetric, no tenderness at palpation LUNGS: Clear to auscultation bilaterally. No wheezing or crackles. CVS: Regular rate and rhythm, S1 and S2 present, no murmurs or gallops appreciated. ABDOMEN: Soft, non-tender. No signs of distention. No rebound no guarding, and no masses palpated. Bowel sounds are normal. EXTREMITIES: FROM in all major joints, no edema, no cyanosis or clubbing. NEURO: Alert and oriented x 3. No acute neurological deficits. Speech is normal and follows commands. SKIN: Dry and warm Triage Information Reviewed: Yes Vital Signs On Initial Exam: Initial Vitals Temp Pulse Resp BP Pulse Ox 98 F 81 17 138/83 98 03/20/18 01:06 03/20/18 01:06 03/20/18 01:06 03/20/18 01:06 03/20/18 01:06 Vital Signs Reviewed: Yes Diagnostics - Vital Signs Vital Signs Temp Pulse Resp BP Pulse Ox 03/20/18 01:06 98 F 81 17 138/83 98 - Laboratory Result Diagrams: 03/20/18 01:25 03/20/18 01:25 Lab Statement: Any lab studies that have been ordered have been reviewed, and results considered in the medical decision making process. - Radiology Chest X-Ray Radiology Interpretation Completed By: ED Physician - Read 02:40. No acute process. Pending official report. - EKG 00:58 Cardiac Rate: NL - 77 BPM EKG Rhythm: Sinus Rhythm ST Segment: Non-Specific - Non-specific T wave changes EKG Interpretation: Inferior leads Re-Evaluation - Re-Evaluation 1 Re-Evaluation Time: 02:42 Comment: Patient is asleep and snoring. Chest Pain Course/Dx - Course Assessment/Plan: This patient is a 47 year old M presenting to [facility] with a chief complaint of chest pain since 23:30. The patient rates the pain 7/10 in severity. Patient reports that the pain radiates to his back. He took 2 NTG SL and 324mg ASA [employer]. His travel administrator is Joaquín Jones MD. Patients last stress test was 1 month ago at [facility] which he reports was normal. Chest X-Ray showed no acute process. Patient had a cardiac catheter on February 26 that was negative for acute disease, no change from the one he had in 2016. Patient had a CTA at the end of February that came back negative for PE. Patients pain is most likely musculoskeletal or from anxiety. He was given Toradol and Ativan in ED. Pt is sleeping and will be D/C home for atypical CP. - Diagnoses Provider Diagnoses: Atypical chest pain Discharge - Sign-Out/Discharge Documenting (check all that apply): Patient Departure - D/C - Discharge Plan Condition: Stable Disposition: HOME Patient Education Materials: Chest Pain (ED) Referrals: Nancie Camarena MD [Primary Care Provider] - 2 Days Additional Instructions: RETURN TO THE EMERGENCY DEPARTMENT FOR CHANGING OR WORSENING SYMPTOMS. FOLLOW UP WITH PCP IN 1-2 DAYS. - Attestation Statements Document Initiated by Scribe: Yes Documenting Scribe: Ernesto Rainey Provider For Whom Scribe is Documenting (Include Credential): Fanta Ferrara MD Scribe Attestation: Ernesto Griffin, scribed for Fanta Ferrara MD on 03/20/18 at 0244.
--- OUTSIDE RECORDS SUMMARY | 2018-03-20 01:32 | XMS REPORT ---
:1970 External Reference #:[id number] Author Organization [facility] [employer] Address [address] [place] [address] [place] [address] Phone [phone] Care Team Providers Name Role Phone Nancie Camarena MD Primary Care Physician Unavailable Payers Type Date Identification Numbers Payment Provider Subscriber Commercial Policy Number: [id number] Barry Ness Group Number: [id number] [address] PayID: [id number] [place] [address] Workers Onset: 2015 Policy Number: [place] [facility] Michael Compensation [id number] Thi [address] [address] [place] [address] Problems Date Description Provider Status Onset: 06/01/2009 Asthma without status asthmaticus Kanchan Walton M.D. Active Onset: 09/17/2009 Type II diabetes mellitus Kanchan Walton M.D. 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 Active Onset: 01/24/2018 Type 2 diabetes mellitus Joseph Gonzalez M.D. Active Onset: 01/24/2018 Chest pain Joseph Gonzalez M.D. Active Onset: 11/06/2017 Stress fracture of metatarsal Jon Smith MD Active bone Family History Date Family Member(s) Problem(s) Comments General Diabetes General Hypertension Mother Diabetes Type II on insulin Mother due to Unknown Causes () - late 70s Siblings 3 Siblings - one /2 sib on mother's side, four - no details five 1/2 sibs on father's side Social History Type Date Description Comments Lives With Spouse Occupation Currently Working [employer] Cigarette Use 2010 Former Cigarette Smoker [...] D. /2017 12HR s twice a day Devyn Jones Indomethacin 05/09 Active Capsules 50mg 60cap take one Monique s tab three Faith, times a day M.D. as needed for pain Rosuvastatin 01/09 Active Tablets 10mg 90tab take 1 tab E78.5 Joaquín Aquino Calcium s by mouth at Robert, bedtime M.D. Lantus Solostar 07/20 Active Solution 100Unit/M 30ml inject 10 Pen-Inject L units once Cotton, daily or as M.D. directed Pen [place] For 07/20 Active Misc 30uni use once Kanchan Lantus Solostar ts daily Anton M.DCecily Glucocom Blood 01/01 Active Kit W/Device 1unit for use E11.65 Kanchan Glucose /2014 s once daily Cotton, Monitoring 250.02 M.D. System Glucocom Lancets 01/01 Active Misc 33G 50uni for use E11.65 Kanchan 33G /2014 ts once daily Anton M.D. Glucocom Test 01/01 Active Strips 50uni for testing E11.65 Kanchan /2015 ts once daily Anton M.D. Metformin HCL ER 11/11 Active Tablets ER 500mg 90tab 1 tab po E11.65 24HR s bid Devyn Walton Loratadine 07/25 Active Tablets 10mg 30tab Take One s Tablet By Cotton, Mouth Every M.D. Day as Needed For Allergy Symptoms Wrist Brace/Left 04/27 Active Misc 1unit for use 729.5 s every night Cotton, and daily M.D. as needed Proair HFA 02/10 Active Aerosol 108(90Bas 1unit 2 puffs 4 J45.909 e) s times daily Cotton, mcg/Act as needed M.D. Aspirin Active Tablets DR 81mg 1 by mouth Unknown / every day Am Metoprolol Active Tablets ER 25mg 90tab 1 by mouth Joaquín Aquino Succinate ER /0000 24HR s every day BrandDevyn Amlodipine Active Tablets 10mg 1 by mouth Unknown Besylate / every day Nitrostat Active Tablets 0.4mg one sl Unknown Sub q5min up to 3 doses as needed Acetaminophen Active Tablets 500mg 2 tabs 3 Unknown Extra Strength /0000 times daily as needed for pain One Daily For Active 1 tablet po Unknown Men Plus Vitamin /0000 daily D Trulicity Active Solution 0.75mg/0. inject Unknown /0000 Pen-Inject 5ML 0.75mg once a week Clopidogrel 12/08 Hx Tablets 75mg 90tab 1 tab by R07.9 Joaquín Aquino Bisulf s mouth daily Brand, - M.D. 09/17 Glimepiride 04/13 Hx Tablets 1mg 30tab 1 tablet E11.65 s once daily Cotton, - in the M.D. 10/28 Glimepiride 01/01 Hx Tablets 1mg 30tab 1 tablet 250.02 s once daily Cotton, - in the M.D. 02/18 Hydrocortisone 01/01 Hx Cream 2.5% 60gm apply to 782.1 affected Cotton, - area twice M.D. 07/04 Pioglitazone HCL 04/27 Hx Tablets 30mg 30tab 1 by mouth s every day Cotton, - M.D. 10/28 Mupirocin 02/10 Hx Ointment 2% 22gm apply to 707.8 skin Cotton, - lesions M.D. 04/26 twice daily Pulmicort 12/10 Hx Aerosol 180mcg/Ac 1unit 2 puffs 493.90 t s twice daily Cotton, - M.D. [...] M.D. 07/23 on days 2- Freestyle Lite 12/31 Hx 100un use once 250.02 Kanchan Lancets ( its daily Cotton, Dexter Lite - before M.D. Monitor) 02/02 and prn Freestyle Lite 12/31 Hx 100un Use once 250.02 Kanchan Test Strip its daily and Cotton, - prn M.D. 02/02 Nateglinide 07/31 Hx Tablets 120mg 90tab 1 PO tid. 250.02 Kanchan s Take 30 Cotton, - minutes M.D. 04/26 prior meals Pulmicort 07/27 Hx Aerosol 90mcg/Act 1unit 1 493.90 Kanchan [facility] s inhalation Cotton, - bid M.D. 12/10 Qvar 07/25 Hx Aerosol 40mcg/Act 8.700 1 puff bid 493.90 gm Cotton, - M.D. 07/27 Proair HFA 07/24 Hx Aerosol 108(90Bas 1unit 2 puffs 4 493.90 e) mcg/ac s times daily Cotton, - as needed M.D. 02/10 Voltaren 04/19 Hx Gel 1% 2tube apply 2 s grams to [place], - affected M.D. 08/30 area bid prn Prandin 03/28 Hx Tablets 1mg 180ta 2 tablets 250.02 bs before each Cotton, - meal M.D. 07/31 Mupirocin 01/24 Hx Ointment 2% 22gm apply to 707.8 skin Cotton, - lesions M.D. 02/02 twice daily Prandin 01/19 Hx Tablets 1mg 60tab 1 tablet 250.02 s twice daily Cotton, - before .D. 03/28 meals Metamucil 01/19 Hx Powder 48.57% QS 1 tbsp 250.02 daily Cotton, - M.D. 01/31 Prandin 12/20 Hx Tablets 0.5mg 60tab 1 tablet 2 250.02 s times daily Cotton, - before .D. 01/19 lunch and dinner Glimepiride 09/02 Hx Tablets 1mg 30tab 1 tablet 250.02 s once daily Cotton, - in the M.D. 12/20 morning Ventolin HFA 03/17 Hx Aerosol 108(90Bas 18gm 2 puffs 4 493.90 e) mcg/ac times daily Cotton, - as needed M.D. 07/24 Metformin HCL 09/17 Hx Tablets 500mg 90tab 1 tablets 250.02 Daren s in the [facility], [facility] - morning , 2 11/11 tablets in evening Albuterol 08/24 Hx 17gm 2 puffs 493.90 Kanchan Inhaler four times Cotton, Proair - daily as M.D. 03/17 Glipizide XL 08/24 Hx Tablets ER 2.5mg 30tab 1/2 Tab PO 250.02 Kanchan 24HR s Q Am Kingsley, - M.D. 10/01 Freestyle Lite 08/24 Hx 50uni use once 250.02 Kanchan Lancets ( ts daily Kingsley, Dexter Lite - before M.D. Monitor) 02/25 breakfast; Januvia 08/11 Hx Tablets 100mg 1 po qd Kanchan /2010 Anton, - M.D. 08/24 Flovent HFA 08/03 Hx Aerosol 110mcg/Ac 1unit 2 puffs 493.90 Kanchan t s twice daily Kingsley, - M.D. 07/25 Albuterol 06/01 Hx Nebulizer 0.63mg/3M 100un 1 via Kanchan L its nebulizer Kingsley, - every 6 hrs M.D. 02/02 as needed Flovent HFA 06/01 Hx Aerosol 110mcg/Ac 493.90 Kanchan t Anton, - M.D. 08/03 Freestyle Lite Hx 60uni Use once 250.02 Kanchan Test Strip /0000 ts twice daily Kingsley, - M.D. 02/25 Butalbital/Aceta Hx Tablets 50-500-40 30tab 1 tablet Kanchan minophen/Caffein /0000 mg s every 4-5 Anton, e - ours as M.D. 12/31 needed headache Actos Hx Tablets 30mg 30tab 1 by mouth Unknown /0000 s every day - 04/27 Vitamin D3 High Hx Capsules 1000Unit 60cap 2 by mouth Kanchan Potency /0000 s every day Kingsley M.DCecily 07/04 Tylenol With Hx Tablets 300-30mg 30tab 1 tab by Unknown Codeine #3 /0000 s mouth every - 4 to 6 04/29 hours needed Brilinta Hx Tablets 90mg 180ta 1 tab by R07.9 Joaquín D. /0000 bs mouth twice Brand, - a day M.D. 12/08 Atorvastatin 0000 Hx Tablets 80mg 90tab 1 by mouth Joaquín DCecily Calcium /0000 s every day Brand, - M.Kenia 01/08 Humalog Kwikpen Hx Solution 100Unit/M sliding Unknown /0000 Pen-Inject L scale - 06/19 Victoza Hx Solution 18mg/3ML inject up Unknown /0000 Pen-Inject to 45 units - daily 03/06 Medications Administered in Office Medication Date Status Form Strength Qnty SIG Indications Ordering Provider Technetium TC Administered Injection Jos SCecily 99M 017 Carlos, DO Tetrofosmin, FACC Per Unit Dose Up To 40 Millicuries Technetium TC Administered Injection Jos S. 99M 017 Carlos, DO Tetrofosmin, FACC Per Unit Dose Up To 40 Millicuries Depomedrol Administered Injection Monique 40MG 017 Devyn Faith Technetium TC Administered Injection Joaquín DCecily 99M 017 Devyn Jones Tetrofosmin, Per Unit Dose Up To 40 Millicuries Immunizations CPT Code Status Date Vaccine Lot # [id number] Given 04/13/2010 Pneumonia Vaccine Vital Signs Date Vital Result Comment 03/07/2018 Height 66 inches 5'6" Weight 235.00 lb Heart Rate 84 /min BP Systolic Sitting 118 mmHg Lue lg cuff BP Diastolic Sitting 74 mmHg Lue lg cuff BP Systolic Standing 124 mmHg Lue lg cuff BP Diastolic Standing 80 mmHg Lue lg cuff BMI (Body Mass Index) 37.9 kg/m2 Ejection Fraction 61% Stress Test 01/24/18 02/06/2018 Height 66 inches 5'6" Weight 234.00 lb Heart Rate 86 /min BP Systolic Sitting 108 mmHg Lue lg cuff BP Diastolic Sitting 80 mmHg Lue lg cuff BP Systolic Standing 114 mmHg Lue lg cuff BP Diastolic Standing 72 mmHg Lue lg cuff BMI (Body Mass Index) 37.8 kg/m2 Ejection Fraction 49% Nuclear Stress Test 07/12/17 01/11/2018 Height 66 inches 5'6" Weight 234.00 [...] Test Result H/L Range Note Laboratory test finding 02/26/2018 Point of Care 160 mg/dL High 70-100 1 Glucose CBC Auto Diff 02/26/2018 White Blood Count 6.6 10^3/uL 3.5-10.8 Red Blood Count 4.96 10^6/uL 4.00-5.40 Hemoglobin 13.4 g/dL Low 14.0-18.0 Hematocrit 42 % 42-52 Mean Corpuscular Volume 85 fL 80-94 Mean Corpuscular Hemoglobin 27 pg 27-31 Mean Corpuscular HGB Conc 32 g/dL 31-36 Red Cell Distribution Width 14 % 10.5-15 Platelet Count 241 10^3/uL 150-450 Mean Platelet Volume 7.9 um3 7.4-10.4 Abs Neutrophils 2.9 10^3/uL 1.5-7.7 Abs Lymphocytes 2.6 10^3/uL 1.0-4.8 Abs Monocytes 0.7 10^3/uL 0-0.8 Abs Eosinophils 0.3 10^3/uL 0-0.6 Abs Basophils 0.1 10^3/uL 0-0.2 Abs Nucleated RBC 0 10^3/uL Granulocyte % 44.3 % 38-83 Lymphocyte % 39.6 % 25-47 Monocyte % 10.4 % High 0-7 Eosinophil % 4.7 % 0-6 Basophil % 1.0 % 0-2 Nucleated Red Blood Cells % 0.2 Basic Metabolic Panel 02/26/2018 Sodium 137 mmol/L 135-145 Chloride 107 mmol/L 101-111 Co2 Carbon Dioxide 24 mmol/L 22-32 Glucose 177 mg/dL High 70-100 Blood Urea Nitrogen 13 mg/dL 6-24 Creatinine 0.80 mg/dL 0.67-1.17 BUN/Creatinine Ratio 16.3 8-20 Calcium 8.6 mg/dL 8.6-10.3 Egfr Non- 103.2 >60 Egfr 124.8 >60 2 Potassium TNP mmol/L 3.5-5.0 3 Anion Gap 6 mmol/L 2-11 Laboratory test 11/13/2017 Surgical Pathology SEE RESULT BELOW 4, 5 finding Laboratory test 11/13/2017 Clotest SEE RESULT BELOW 6, 7 finding Arthritis Panel 06/21/2017 Uric Acid 5.3 mg/dL 4.4-7.6 Erythrocyte Sed Rate 29 mm/Hr High 0-14 Rheumatoid Factor <15 IU/mL <15 8 Anti-Nuclear Antibody 4.2 U High 9 Cyclic Citrullinated Peptide >250.0 U 10 Laboratory test finding 07/20/2015 Hemoglobin A1c 14.0+ High 5-7 Laboratory test finding 04/13/2015 Hemoglobin A1c 10.8 High 5-7 Lipid Profile (Trig/Chol/HDL) 12/28/2014 Triglycerides 116 mg/dL 11, 12 Cholesterol 183 mg/dL 11, 13 HDL Cholesterol 52.5 mg/dL 11, 14 LDL Cholesterol 107 mg/dL 11, 15 Comp Metabolic Panel 12/28/2014 Sodium 133 mmol/L 133-145 11 Potassium 4.5 mmol/L 3.5-5.0 11 Chloride 103 mmol/L 101-111 11 Co2 Carbon Dioxide 24 mmol/L 22-32 11 Anion Gap 6 mmol/L 2-11 11 Glucose 235 mg/dL High 70-100 11 Blood Urea Nitrogen 15 mg/dL 6-24 11 Creatinine 0.93 mg/dL 0.67-1.17 11 BUN/Creatinine Ratio 16.1 8-20 11 Calcium 9.1 mg/dL 8.6-10.3 11 Total Protein 7.2 g/dL 6.4-8.9 11 Albumin 3.7 g/dL 3.2-5.2 11 Globulin 3.5 g/dL 2-4 11 Albumin/Globulin Ratio 1.1 1-3 11 Total Bilirubin 0.30 mg/dL 0.2-1.0 11 Alkaline Phosphatase 59 U/L 34-104 11 Alt 32 U/L 7-52 11 Ast 18 U/L 13-39 11 Egfr Non- 87.9 >60 11 Egfr 113.0 >60 11, 16 Urine Microalbumin Random 12/28/2014 Ur Microalbumin (mg/L) 6.0 mg/L 11 Urine Creatinine 139.58 mg/dL 11 Urine Microalbumin/Creatinine 4.2 ug/mg <31 11 Laboratory test 12/28/2014 Hemoglobin A1c 10.6 % High Less than 6.0 11, 17 finding (Glyco HGB) HIV 1/2 AB 12/28/2014 HIV 1 2 Antibody Nonreactive Nonreactive 11, 18 Evaluation Laboratory test 10/01/2014 Hemoglobin A1c 10.4 High 5-7 finding Laboratory test 04/27/2014 Hemoglobin A1c 7.1 High 5-7 finding Laboratory test 01/06/2013 Hemoglobin A1c 9.7 High 5-7 finding Order 12/10/2012 peak flow x 3 550, 550, 580 O2 sat 97 Wound Culture/Sensi 11/27/2012 Wound/Misc (SEE NOTE) 19 Culture-Gram Stain Laboratory test finding 10/11/2012 Hemoglobin [...] Egfr Non- 92.1 >60 Egfr 118.4 >60 20 CBC Auto Diff 08/26/2012 White Blood Count [...] Color Yellow Urine Appearance Clear Urine Specific [place] 1.028 1.010-1.030 Urine Esterase Negative Negative Urine Nitrate Negative Negative Urine Urobilinogen Negative E.U./dL Negative Urine Protein Negative mg/dL Negative Urine pH 5.0 5-9 Urine Blood Negative Negative Urine Ketones Negative mg/dL Negative Urine Bilirubin Negative Negative Urine Glucose 3+ mg/dL Negative Urine Microalbumin Random 07/23/2012 Ur Microalbumin (Mg/L) 18.0 mg/L 21 Urine Creatinine 191.3 mg/dL Urine Microalbumin/Creatinine 9.4 ug/mg Less Than 31 Laboratory test finding 07/23/2012 Hemoglobin A1c 9.3 High 5-7 Lipid Profile (Trig/Chol/HDL) 07/17/2012 Triglycerides 211 mg/dL High 40- 200 Cholesterol 168 mg/dL Less than 200 HDL Cholesterol 50 mg/dL 40-60 22 Cholesterol/HDL Ratio 3.4 Average 1-4.44 LDL Cholesterol 75.8 mg/dL Less Than 100 23 Comp Metabolic Panel 07/17/2012 Sodium 135 mmol/L [...] Egfr Non- 81.6 >60 Egfr 104.9 >60 24 Urine Microalbumin Random 05/24/2012 Ur Microalbumin (Mg/L) 9.0 mg/L 25 Urine Creatinine 191.4 mg/dL Urine Microalbumin/Creatinine 4.7 UG/MG Less Than 31 Laboratory test finding 04/22/2012 Hemoglobin A1c 8.6 High 5-7 Basic Metabolic Panel 01/18/2012 Sodium 138 mmol/L 135-145 Potassium 4.4 mmol/L 3.5-5.0 Chloride 106 mmol/L 101-111 Co2 (Carbon Dioxide) 27.0 mmol/L 22-32 Anion Gap 5.0 mmol/L 2-11 26 Glucose 242 mg/dL High 70-100 BUN 9 mg/dL 6-24 Creatinine 0.9 mg/dL 0.50-1.40 One Over Creatinine 1.11 BUN/Creatinine Ratio 10.0 8-20 Calcium 8.8 mg/dL 8.1-9.9 eGFR Non- 92.5 > 60 eGFR 119.0 > 60 27 Laboratory test finding 01/18/2012 PSA,Diagnostic 0.34 NG/ML 0-4 28 CBC Auto Diff 01/18/2012 White Blood Count [...] um3 7.4-10.4 Absolute Neutrophil Count 2.7 1.5-7.7 29 Manual Differential 01/18/2012 Polysegmented Neutrophil 42 % 38-83 Lymphocyte 44 % 25-47 Monocyte 8 % 0-13 Eosinophil 6 % 0-6 RBC Morphology NORMAL Culture And 12/21/2011 M <SEE 30 Sensitivity NOTE> Laboratory test 11/13/2011 Hemoglobin A1c 8.7 % High Less Than 31 finding 6.0 Comp Metabolic 07/14/2011 Sodium 139 mmol/L 135-145 Panel Potassium 4.6 mmol/L 3.5-5.0 Chloride 107 mmol/L 101-111 Co2 (Carbon Dioxide) 25.0 mmol/L 22-32 Anion Gap 7.0 mmol/L 2-11 32 Glucose 228 mg/dL High 70-100 BUN 7 mg/dL 6-24 Creatinine 1.0 mg/dL 0.50-1.40 One Over Creatinine 1.00 BUN/Creatinine Ratio 7.0 Low 8-20 Calcium 9.2 mg/dL 8.1-9.9 Total Protein 6.6 GM/DL 6.2-8.1 Albumin 3.5 GM/DL Low 3.6-5.4 Globulin 3.1 GM/DL 2-4 Albumin/Globulin Ratio 1.1 1-3 Bilirubin Total 0.6 mg/dL 0.4-1.5 33 Alkaline Phosphatase 70 U/L 39-117 Alt (SGPT) 46 U/L 17-63 Ast (Sgot) 29 U/L 12-42 eGFR Non- 81.9 > 60 eGFR 105.4 > 60 34 Laboratory test finding 07/14/2011 Hemoglobin A1c 9.0 % High Less Than 6.0 35 Urine Microalbumin 07/14/2011 Microalbumin (MG/L) 6.0 mg/L Random Urine Creatinine 207.8 mg/dL Sidney Alb/Creatinine Ratio 2.9 UG/MG Less Than 30 36 CBC Auto Diff 06/12/2011 White Blood Count [...] mmol/L 22-32 Anion Gap 9.0 mmol/L 2-11 37 Glucose 155 mg/dL High 70-100 BUN 10 mg/dL 6-24 Creatinine 1.1 mg/dL 0.50-1.40 One Over Creatinine 0.90 BUN/Creatinine Ratio 9.1 8-20 Calcium 9.1 mg/dL 8.1-9.9 Total Protein 7.2 GM/DL 6.2-8.1 Albumin 3.4 GM/DL Low 3.6-5.4 Globulin 3.8 GM/DL 2-4 Albumin/Globulin Ratio 0.9 Low 1-3 Bilirubin Total 0.7 mg/dL 0.4-1.5 38 Alkaline Phosphatase 69 U/L 39-117 Alt (SGPT) 43 U/L 17-63 Ast (Sgot) 34 U/L 12-42 eGFR Non- 73.4 > 60 eGFR 94.4 > 60 39 Laboratory test finding 06/12/2011 Troponin-I 0 NG/ML 0-0.06 40 Laboratory test finding 03/21/2011 Hemoglobin A1c 8.4 % High Less Than 6.0 41 CMP Panel 03/21/2011 Sodium 135 mmol/L 135-145 Potassium 4.6 mmol/L 3.5-5.0 Chloride 103 mmol/L 101-111 Co2 (Carbon Dioxide) 28.0 mmol/L 22-32 Anion Gap 4.0 mmol/L 2-11 42 Glucose 164 mg/dL High 70-100 BUN 9 mg/dL 6-24 Creatinine 1.0 mg/dL 0.50-1.40 One Over Creatinine 1.00 BUN/Creatinine Ratio 9.0 8-20 Calcium 8.8 mg/dL 8.1-9.9 Total Protein 7.0 GM/DL 6.2-8.1 Albumin 3.4 GM/DL Low 3.6-5.4 Globulin 3.6 GM/DL 2-4 Albumin/Globulin Ratio 0.9 Low 1-3 Bilirubin Total 0.5 mg/dL 0.4-1.5 43 Alkaline Phosphatase 63 U/L 39-117 Alt (SGPT) 31 U/L 17-63 Ast (Sgot) 22 U/L 12-42 eGFR Non- 82.3 > 60 eGFR 105.9 > 60 44 Laboratory test 01/24/2011 Culture Sensitivity/Gram FEW GRAM POSITIV 45, [address] <SEE NOTE> Culture Sensitivity STAPHYLOCOCCUS A <SEE NOTE> 45, 47 Sensitivity For Amg [facility] Culture 01/24/2011 Clindamycin <=0.25 45 Ciprofloxacin <=0.5 45 Erythromycin <=0.25 45 Gentamicin <=0.5 45 Levofloxacin 0.25 45 Linezolid 2 45 Oxacillin 0.5 45 Rifampin <=0.5 45 Trimeth-Sulfa <=10 45 Tetracycline <=1 45 Tigecycline <=0.12 45 Vancomycin 1 45 Comp Metabolic Panel 12/16/2010 Sodium 135 mmol/L 135-145 Potassium 4.3 mmol/L 3.5-5.0 Chloride 105 mmol/L 101-111 Co2 (Carbon Dioxide) 22.0 mmol/L 22-32 Anion Gap 8.0 mmol/L 2-11 48 Glucose 174 mg/dL High 70-100 BUN 10 mg/dL 6-24 Creatinine 1.00 mg/dL 0.50-1.40 One Over Creatinine 1.00 BUN/Creatinine Ratio 10.0 8-20 Calcium 9.1 mg/dL 8.1-9.9 Total Protein 7.2 GM/DL 6.2-8.1 Albumin 3.6 GM/DL 3.6-5.4 Globulin 3.6 GM/DL 2-4 Albumin/Globulin Ratio 1.0 1-3 Bilirubin Total 1.1 mg/dL 0.4-1.5 49 Alkaline Phosphatase 67 U/L 39-117 Alt (SGPT) 65 U/L High 17-63 Ast (Sgot) 46 U/L High 12-42 eGFR Non- 82.3 > 60 eGFR 105.9 > 60 50 Lipid Profile (Trig/Chol/HDL) 12/16/2010 Triglyceride 80 mg/dL 40-200 Cholesterol 188 mg/dL Less Than 200 51 High Density Lipoprotein 59 mg/dL 40-60 52 Cholesterol/HDL Ratio 3.19 AVERAGE 1-4.97 Low Density Lipoprotein 113 mg/dL High Less Than 100 53 Laboratory test finding 12/16/2010 Hemoglobin A1c 9.2 % High Less Than 6.0 54 Laboratory test finding 08/09/2010 Hemoglobin A1c 7.9 % High Less Than 6.0 55 Urine Microalbumin 08/09/2010 Microalbumin (MG/L) 8.0 mg/L Random Urine Creatinine 287.36 mg/dL Sidney Alb/Creatinine Ratio 2.7 UG/MG Less Than 30 56 Comp Metabolic Panel 05/14/2010 Sodium 137 mmol/L 135-145 Potassium 4.4 mmol/L 3.5-5.0 Chloride 105 mmol/L 101-111 Co2 (Carbon Dioxide) 25.0 mmol/L 22-32 Anion Gap 7.0 mmol/L 2-11 57 Glucose 144 mg/dL High 70-100 58 BUN 9 mg/dL 6-24 Creatinine 0.92 mg/dL 0.50-1.40 One Over Creatinine 1.00 BUN/Creatinine Ratio 9.8 8-20 Calcium 9.2 mg/dL 8.1-9.9 Total Protein 7.2 GM/DL 6.2-8.1 Albumin 3.6 GM/DL 3.6-5.4 Globulin 3.6 GM/DL 2-4 Albumin/Globulin Ratio 1.0 1-3 Bilirubin Total 0.8 mg/dL 0.4-1.5 59 Alkaline Phosphatase 61 U/L 39-117 Alt (SGPT) 46 U/L 17-63 Ast (Sgot) 29 U/L 12-42 eGFR Non- 96.4 > 60 eGFR 116.6 > 60 60 Laboratory test finding 05/14/2010 Vitamin B12 520 pg/mL 180-914 TSH 1.99 MIU/ML 0.34-5.60 Hemoglobin A1c 7.7 % High Less Than 6.0 61 Comp Metabolic Panel 02/03/2010 Sodium 138 mmol/L 135-145 Potassium 4.3 mmol/L 3.5-5.0 Chloride 106 mmol/L 101-111 Co2 (Carbon Dioxide) 28.0 mmol/L 22-32 Anion Gap 4.0 mmol/L 2-11 62 Glucose 141 mg/dL High 70-100 63 BUN 9 mg/dL 6-24 Creatinine 1.00 mg/dL 0.50-1.40 One Over Creatinine 1.00 BUN/Creatinine Ratio 9.0 8-20 Calcium 9.0 mg/dL 8.1-9.9 64 Total Protein 6.9 GM/DL 6.2-8.1 Albumin 3.5 GM/DL Low 3.6-5.4 Globulin 3.4 GM/DL 2-4 Albumin/Globulin Ratio 1.0 1-3 Bilirubin Total 0.5 mg/dL 0.4-1.5 65 Alkaline Phosphatase 59 U/L 39-117 Alt (SGPT) 48 U/L 17-63 Ast (Sgot) 29 U/L 12-42 eGFR Non- 88.0 > 60 eGFR 106.4 > 60 66 Laboratory test finding 02/03/2010 Hemoglobin A1c 8.6 % High Less Than 6.0 67 Laboratory test finding 11/24/2009 Hemoglobin A1c 9.4 % High Less Than 6.0 68, 69 Lipid Profile 11/24/2009 Triglyceride 162 mg/dL 40-200 68 (Trig/Chol/HDL) Cholesterol 187 mg/dL Less Than 200 68, 70 High Density Lipoprotein 50 mg/dL 40-60 68, 71 Cholesterol/HDL Ratio 3.74 AVERAGE 1-4.97 68 Low Density Lipoprotein 105 mg/dL High Less Than 100 68, 72 Comp Metabolic Panel 11/24/2009 Sodium 139 mmol/L 135-145 68 Potassium 4.5 mmol/L 3.5-5.0 68 Chloride 104 mmol/L 101-111 68 Co2 (Carbon Dioxide) 27.0 mmol/L 22-32 68 Anion Gap 8.0 mmol/L 2-11 68, 73 Glucose 215 mg/dL High 70-100 68, 74 BUN 11 mg/dL 6-24 68 Creatinine 0.90 mg/dL 0.50-1.40 68 One Over Creatinine 1.10 68 BUN/Creatinine Ratio 12.2 8-20 68 Calcium 9.4 mg/dL 8.1-9.9 68, 75 Total Protein 7.0 GM/DL 6.2-8.1 68 Albumin 3.7 GM/DL 3.6-5.4 68 Globulin 3.3 GM/DL 2-4 68 Albumin/Globulin Ratio 1.1 1-3 68 Bilirubin Total 0.7 mg/dL 0.4-1.5 68, 76 Alkaline Phosphatase 69 U/L 39-117 68 Alt (SGPT) 48 U/L 17-63 68 Ast (Sgot) 29 U/L 12-42 68 eGFR Non- 99.3 > 60 68 eGFR 120.2 > 60 68, 77 Laboratory test finding 09/17/2009 TSH 2.15 MIU/ML 0.34-5.60 Comp Metabolic Panel 09/17/2009 Sodium 136 mmol/L 135-145 Potassium 4.1 mmol/L 3.5-5.0 Chloride 106 mmol/L 101-111 Co2 (Carbon Dioxide) 23.0 mmol/L 22-32 Anion Gap 7.0 mmol/L 2-11 78 Glucose 172 mg/dL High 70-100 79 BUN 8 mg/dL 6-24 Creatinine 0.90 mg/dL 0.50-1.40 One Over Creatinine 1.10 BUN/Creatinine Ratio 8.9 8-20 Calcium 8.8 mg/dL 8.1-9.9 80 Total Protein 6.7 GM/DL 6.2-8.1 Albumin 3.4 GM/DL Low 3.6-5.4 Globulin 3.3 GM/DL 2-4 Albumin/Globulin Ratio 1.0 1-3 Bilirubin Total 0.7 mg/dL 0.4-1.5 81 Alkaline Phosphatase 73 U/L 39-117 Alt (SGPT) 54 U/L 17-63 Ast (Sgot) 27 U/L 12-42 eGFR Non- 99.3 > 60 eGFR 120.2 > 60 82 Hepatitis Acute Panel 08/10/2009 Hepatitis C Antibody NEGATIVE Negative Hepatitis A AB Igm NEGATIVE Negative Hepatitis B Core Igm NEGATIVE Negative Hepatitis B Surface Ag NEGATIVE Negative Laboratory test finding 08/10/2009 GGTP 70 U/L High 7-50 Liver Function Panel 08/10/2009 Total Protein 6.6 GM/DL 6.2-8.1 Albumin 3.6 GM/DL 3.6-5.4 Globulin 3.0 GM/DL 2-4 Albumin/Globulin Ratio 1.2 1-3 Bilirubin Total 0.5 mg/dL 0.4-1.5 83 Bilirubin Direct 0.1 mg/dL 0.1-0.5 Indirect Bilirubin 0.4 mg/dL 0.1-0.75 Alkaline Phosphatase 67 U/L 39-117 Alt (SGPT) 95 U/L High 17-63 Ast (Sgot) 47 U/L High 12-42 Urine Microalbumin Random 08/10/2009 Microalbumin (MG/L) 4.0 mg/L Urine Creatinine 76.91 mg/dL Sidney Alb/Creatinine Ratio 5.2 UG/MG Less Than 30 84 Laboratory test 08/10/2009 Hemoglobin A1c 12.2 % High Less Than 6.0 85 finding Laboratory test 08/10/2009 Hepatitis B Surface NEGATIVE Negative finding AB Comp Metabolic Panel 08/03/2009 Sodium 134 mmol/L Low 135-145 Potassium 4.4 mmol/L 3.5-5.0 Chloride 99 mmol/L Low 101-111 Co2 (Carbon Dioxide) 26.0 mmol/L 22-32 Anion Gap 9.0 mmol/L 2-11 86 Glucose 351 mg/dL High 70-100 87 BUN 10 mg/dL 6-24 Creatinine 1.00 mg/dL 0.50-1.40 One Over Creatinine 1.00 BUN/Creatinine Ratio 10.0 8-20 Calcium 9.3 mg/dL 8.1-9.9 88 Total Protein 7.3 GM/DL 6.2-8.1 Albumin 3.9 GM/DL 3.6-5.4 Globulin 3.4 GM/DL 2-4 Albumin/Globulin Ratio 1.1 1-3 Bilirubin Total 0.5 mg/dL 0.4-1.5 89 Alkaline Phosphatase 71 U/L 39-117 Alt (SGPT) 92 U/L High 17-63 Ast (Sgot) 43 U/L High 12-42 eGFR Non- 88.0 > 60 eGFR 106.4 > 60 90 1 Golf Player Assistant: [id number] 2 Because ethnic data is not always readily [...] 15-29 5 Kidney failure <15 (or dialysis) 3 Specimen Hemolyzed. Result may not be valid. Unable to report test result due to hemolysis. 4 [id number] 5 SEE RESULT BELOW Name: THIMICHAEL : [address]: Crystal Barakat DO Acct: [id number] Unit: [id number] AGE: 47 Location: [facility] Re11/13/17 SEX: M Status: DEP REF SPEC: [id number] PEDRO: 11/13/17- SUBM DR: Crystal Barakat DO REQ: [id number] RECD: 11/13/17 STATUS: LIMA WALTERS DR: Joaquín Camarena MD PC _ ORDERED: LEVEL 4, SPEC STAIN ORG COMMENTS: [id number] A GMS stain, with appropriately reacting controls, [...] one cassette. Signed by and Reported on: Ana Munoz MD 11/14/17 1102 END OF REPORT DEPARTMENT OF PATHOLOGY, [address] [place] [address] Anthony Dumas M.D. Director [facility] # [id number] SEE RESULT BELOW Name: MICHAEL NESS : [address]: Crystal Barakat DO Acct: [id number] Unit: [id number] AGE: 47 Location: [facility] Re11/13/17 SEX: M Status: DEP REF SPEC: [id number] PEDRO: 11/13/17-[address]: Crystal Barakat DO REQ: [id number] RECD: 11/13/177891 STATUS: GWENDOLYN WALTERS DR: Joaquín [facility] _ SOURCE: GAS ANTRUM SPDESC: ORDERED: Clotest COMMENTS: [id number] Procedure Result Reported Site Clotest Final 11/14/17- 810 ML Clotest Positive * ML - Main Lab . END OF REPORT DEPARTMENT OF PATHOLOGY, [address] [place] [address] Anthony Dumas M.D. Director [facility] # [id number] Test Performed by: [place] [address] 9 Interpretation: Positive (3.0-5.9) REFERENCE VALUE <=1.0 (Negative) 10 Interpretation: Strong Positive (>=60.0) REFERENCE VALUE <20.0 (Negative) Test Performed by: [place] [address] 11 PT IS FASTING 12 Desirable <150 Borderline high 150-199 High 200-499 Very High >500 13 Desirable <200 Borderline high 200-239 High >239 14 Low <40 Desirable: 40-60 High: >60 15 Desirable: <100 mg/dL Near Optimal: 100-129 mg/dL Borderline High: 130-159 mg/dL High: 160-189 mg/dL Very High: >189 mg/dL 16 Because ethnic data is not always readily [...] 15-29 5 Kidney failure <15 (or dialysis) 17 Therapeutic target for the treatment of diabetes Mellitus patients is <7% HBA1C, and in selective patients <6.0%.Please refer to [place] [employer] Diabetic care guidelines for further information. 18 It is recognized that currently available assays [...] 95% confidence interval of 99.78 to 99.96%. 19 RUN DATE: 11/30/12 [facility] LAB LIVE PAGE 1 RUN TIME: [address] [place] [address] Specimen Inquiry Name: MICHAEL NESS : [address]: Ankit Osorio MD Acct: [id number] Unit: [id number] AGE: 42 Location: [facility] Re11/27/12 SEX: M Status: DEP ER SPEC: [id number] PEDRO: 11/27/12-[address]: Virginia LEUNG REQ: [id number] RECD: 11/28/12 STATUS: GWENDOLYN WALTERS DR: Kanchan Osorio MD _ SOURCE: FACE [...] performed at Main Lab DEPARTMENT OF PATHOLOGY, [facility] [employer] [place], [place] [address] Anthony Dumas M.D. Director [facility] Permit #[id number] RUN DATE: 11/30/12 [facility] LAB LIVE PAGE 2 RUN TIME: 935 [facility] [address] [place], [place] [address] Specimen Inquiry Patient: MICHAEL NESS [id number] (Continued) Specimen: [id number] Collected: 11/27/12 Received: 11/28/12-1103 (Continued) Procedure Result Verified Site Wound/Misc Culture Final (continued) 11/30/12- 934 1. MRSA (continued) M.I.C. RX --------- ------ * Ampicillin/Sulbactam-Deduced R Cefazolin-Deduced R * These antibiotics are not available in the [facility] Formulary Contact the Microbiology Department for any additional antibiotic reporting. END OF REPORT * ML=Testing performed at Main Lab DEPARTMENT OF PATHOLOGY, [address] [place] [address] Anthony Dumas M.D. Director [facility] Permit #[id number] 20 Because ethnic data is not always readily [...] 15-29 5 Kidney failure <15 (or dialysis) 21 Microalbuminuria in a random sample is defined as: Microalbumin/Creatinine ratio of 30-299 ug/mg. 22 HDL Interpretation: Undesirable: High Risk: Less than 40 MG/DL Desirable: Low Risk: Greater than 60 MG/DL 23 LDL Interpretation: Low Risk Optimal Level: LDL Less than 100 MG/DL Near or Above Optimal: LDL 100-129 MG/DL Borderline High Risk: LDL 130-159 MG/DL High Risk: LDL 160-189 MG/DL Very High Risk: LDL Greater than 189 MG/DL 24 Because ethnic data is not always [...] 5 Kidney failure <15 (or dialysis) 25 Microalbuminuria in a random sample is defined as: Microalbumin/Creatinine ratio of 30-299 ug/mg. 26 Anion gap measurement may be of limited value in the presence of any alkalosis, especially in a combined acid base disorder. . 27 Because ethnic data is not always readily [...] 15-29 5 Kidney failure <15 (or dialysis) 28 * SERUM LEVELS OF PSA MEASURED USING THE FABIAN TINY ACCESS HYBRITECH IMMUNOASSAY SHOULD NOT BE INTERPRETED [...] methods of kits cannot be used interchangeably. 29 Neutropenia % Lymphocytosis % 30 RUN DATE: 12/24/11 [facility] NMI LIVE PAGE 1 RUN TIME: 1211 Specimen Inquiry RUN USER: INTERFACE Name: MICHAEL NESS#: [id number] Status: DEP ER Re12/21/11 Age/Sex: 41/M Unit#: [id number] Location: : 68 SPEC #: [id number] PEDRO: 12/21/11 STATUS: COMP REQ #: [id number] RECD: 12/21/[address]: Carter Bobby DO SOURCE: [facility] [place] [facility] 12/21/11 [facility] DR: Anton AGUILAR, Kanchan Moura [...] <=0.5 CLINDAMYCIN S <=0.25 DEPARTMENT OF PATHOLOGY, [address] [place] [address] [facility] Permit #[id number] Devyn Lozano M.D. [employer] RUN DATE: 12/24/11 [facility] NMI LIVE PAGE 2 RUN TIME: 1211 Specimen Inquiry RUN USER: INTERFACE Name: MICHAEL NESS Accfreddie#: [id number] Status: DEP ER Re12/21/11 Age/Sex: 41/M Unit#: [id number] Location: ED : 68 -- -- CONTINU [...] *These antibiotics are not available in the [facility] Formul[facility]. Contact the Microbiology Department for any additional antibiotic reporting. > GRAM STAIN SMEAR Final 12/22/11- 0754 ML POLYS MODERATE SMEAR: MANY GRAM POSITIVE COCCI RESEMBLING STAPH FEW GRAM POSITIVE BACILLI ML - [facility] Permit #[id number] [facility] [address] [place] [address] DEPARTMENT OF PATHOLOGY, [facility] [employer] [place] [address] [facility] Permit #[id number] Anthony Dumas M.D. Director Charleen Casillas M.D. Boat As[employer]er 31 THERAPEUTIC TARGET FOR THE TREATMENT OF DIABETES MELLITUS PATIENTS IS <7% HBA1C, AND IN SELECTIVE PATIENTS <6.0%. PLEASE REFER TO [place] [employer] DIABETIC CARE GUIDELINES FOR FURTHER INFORMATION. 32 Anion gap measurement may be of limited value in the presence of any alkalosis, especially in a combined acid base disorder. . 33 A metabolite of Naproxen, O-desmethylnaproxen, has been shown to interfere with the Jenrichard-Sandra method for measuring total bilirubin. Samples from patients who have taken Naproxen have shown spurious elevation in total bilirubin levels. 34 Because ethnic data is not always readily [...] 15-29 5 Kidney failure <15 (or dialysis) 35 THERAPEUTIC TARGET FOR THE TREATMENT OF DIABETES MELLITUS PATIENTS IS <7% HBA1C, AND IN SELECTIVE PATIENTS <6.0%. PLEASE REFER TO [place] [employer] DIABETIC CARE GUIDELINES FOR FURTHER INFORMATION. 36 MICROALBUMINURIA IN A RANDOM SAMPLE IS DEFINED : MICROALBUMIN/CREATININE RATIO OF 30-299 ug/mg. . 37 Anion gap measurement may be of limited value in the presence of any alkalosis, especially in a combined acid base disorder. . 38 A metabolite of Naproxen, O-desmethylnaproxen, has been shown to interfere with the Jendrassik-Sandra method for measuring total bilirubin. Samples from patients who have taken Naproxen have shown spurious elevation in total bilirubin levels. 39 Because ethnic data is not always readily [...] 15-29 5 Kidney failure <15 (or dialysis) 40 New Reference Range and Interpretation effective 04/18/2002 TnI (ng/ml) INTERPRETATION Less Than 0.06 ng/mL NOT SUPPORTIVE OF DIAGNOSIS OF [place] 0.06 - 0.50 ng/ml INDETERMINATE: SUGGEST SERIAL STUDIES IF CLINICALLY INDICATED. Greater than 0.5 ng/mL CONSISTENT WITH DIAGNOSIS OF [place] . 41 THERAPEUTIC TARGET FOR THE TREATMENT OF DIABETES MELLITUS PATIENTS IS <7% HBA1C, AND IN SELECTIVE PATIENTS <6.0%. PLEASE REFER TO [place] [employer] DIABETIC CARE GUIDELINES FOR FURTHER INFORMATION. 42 Anion gap measurement may be of limited value in the presence of any alkalosis, especially in a combined acid base disorder. . 43 A metabolite of Naproxen, O-desmethylnaproxen, has been shown to interfere with the J[place]rassik-[place] method for measuring total bilirubin. Samples from patients who have taken Naproxen have shown spurious elevation in total bilirubin levels. 44 Because ethnic data is not always readily [...] 15-29 5 Kidney failure <15 (or dialysis) 45 RIGHT MID ABDOMINAL AREA 46 FEW GRAM POSITIVE COCCI NONE 47 STAPHYLOCOCCUS AUREUS M^MANY^QTY 48 Anion gap measurement may be of limited value in the presence of any alkalosis, especially in a combined acid base disorder. . 49 A metabolite of Naproxen, O-desmethylnaproxen, has been shown to interfere with the Jendrassik-Sandra method for measuring total bilirubin. Samples from patients who have taken Naproxen have shown spurious elevation in total bilirubin levels. 50 Because ethnic data is not always readily [...] 15-29 5 Kidney failure <15 (or dialysis) 51 CHOLESTEROL INTERPRETATION: Desirable: Less than 200 MG/DL Borderline-High Risk: 200-239 MG/DL High-Risk: 240 MG/DL and over 52 HDL INTERPRETATION: Undesirable: High Risk: Less than 40 MG/DL Desirable: Low Risk: Greater than 60 MG/DL 53 LDL INTERPRETATION: Low Risk Optimal Level: LDL Less than 100 MG/DL Near or Above Optimal: LDL 100-129 MG/DL Borderline High Risk: LDL 130-159 MG/DL High Risk: LDL 160-189 MG/DL Very High Risk: LDL Greater than 189 MG/DL 54 THERAPEUTIC TARGET FOR THE TREATMENT OF DIABETES MELLITUS PATIENTS IS <7% HBA1C, AND IN SELECTIVE PATIENTS <6.0%. PLEASE REFER TO [place] [employer] DIABETIC CARE GUIDELINES FOR FURTHER INFORMATION. 55 THERAPEUTIC TARGET FOR THE TREATMENT OF DIABETES MELLITUS PATIENTS IS <7% HBA1C, AND IN SELECTIVE PATIENTS <6.0%. PLEASE REFER TO [place] DIABETIC CARE GUIDELINES FOR FURTHER INFORMATION. 56 MICROALBUMINURIA IN A RANDOM SAMPLE IS DEFINED : MICROALBUMIN/CREATININE RATIO OF 30-299 ug/mg. . 57 Anion gap measurement may be of limited value in the presence of any alkalosis, especially in a combined acid base disorder. . 58 Note change in reference range as of 03/05/08. The change was based on recommendations from the [place] [employer]. 59 A metabolite of Naproxen, O-desmethylnaproxen, has been shown to interfere with the Jendrassik-[place] method for measuring total bilirubin. Samples from patients who have taken Naproxen have shown spurious elevation in total bilirubin levels. 60 Because ethnic data is not always readily [...] 15-29 5 Kidney failure <15 (or dialysis) 61 THERAPEUTIC TARGET FOR THE TREATMENT OF DIABETES MELLITUS PATIENTS IS <7% HBA1C, AND IN SELECTIVE PATIENTS <6.0%. PLEASE REFER TO [place] [employer] DIABETIC CARE GUIDELINES FOR FURTHER INFORMATION. 62 Anion gap measurement may be of limited value in the presence of any alkalosis, especially in a combined acid base disorder. . 63 Note change in reference range as of 03/05/08. The change was based on recommendations from the [place] [employer]. 64 Please note change in reference range effective 07 . 65 A metabolite of Naproxen, O-desmethylnaproxen, has been shown to interfere with the J[place]rassik-[place] method for measuring total bilirubin. Samples from patients who have taken Naproxen have shown spurious elevation in total bilirubin levels. 66 Because ethnic data is not always readily [...] 15-29 5 Kidney failure <15 (or dialysis) 67 THERAPEUTIC TARGET FOR THE TREATMENT OF DIABETES MELLITUS PATIENTS IS <7% HBA1C, AND IN SELECTIVE PATIENTS <6.0%. PLEASE REFER TO [place] [employer] DIABETIC CARE GUIDELINES FOR FURTHER INFORMATION. 68 FASTING 69 THERAPEUTIC TARGET FOR THE TREATMENT OF DIABETES MELLITUS PATIENTS IS <7% HBA1C, AND IN SELECTIVE PATIENTS <6.0%. PLEASE REFER TO [place] [employer] DIABETIC CARE GUIDELINES FOR FURTHER INFORMATION. 70 CHOLESTEROL INTERPRETATION: Desirable: Less than 200 MG/DL Borderline-High Risk: 200-239 MG/DL High-Risk: 240 MG/DL and over 71 HDL INTERPRETATION: Undesirable: High Risk: Less than 40 MG/DL Desirable: Low Risk: Greater than 60 MG/DL 72 LDL INTERPRETATION: Low Risk Optimal Level: LDL Less than 100 MG/DL Near or Above Optimal: LDL 100-129 MG/DL Borderline High Risk: LDL 130-159 MG/DL High Risk: LDL 160-189 MG/DL Very High Risk: LDL Greater than 189 MG/DL 73 Anion gap measurement may be of limited value in the presence of any alkalosis, especially in a combined acid base disorder. . 74 Note change in reference range as of 03/05/08. The change was based on recommendations from the [place] [employer]. 75 Please note change in reference range effective 07 . 76 A metabolite of Naproxen, O-desmethylnaproxen, has been shown to interfere with the Jendrassik-[place] method for measuring total bilirubin. Samples from patients who have taken Naproxen have shown spurious elevation in total bilirubin levels. 77 Because ethnic data is not always readily [...] 15-29 5 Kidney failure <15 (or dialysis) 78 Anion gap measurement may be of limited value in the presence of any alkalosis, especially in a combined acid base disorder. . 79 Note change in reference range as of 03/05/08. The change was based on recommendations from the [place] [employer]. 80 Please note change in reference range effective 07 . 81 A metabolite of Naproxen, O-desmethylnaproxen, has been shown to interfere with the Jendrassik-[place] method for measuring total bilirubin. Samples from patients who have taken Naproxen have shown spurious elevation in total bilirubin levels. 82 Because ethnic data is not always readily [...] 15-29 5 Kidney failure <15 (or dialysis) 83 A metabolite of Naproxen, O-desmethylnaproxen, has been shown to interfere with the Jendrassik-Sandra method for measuring total bilirubin. Samples from patients who have taken Naproxen have shown spurious elevation in total bilirubin levels. 84 MICROALBUMINURIA IN A RANDOM SAMPLE IS DEFINED : MICROALBUMIN/CREATININE RATIO OF 30-299 ug/mg. . 85 THERAPEUTIC TARGET FOR THE TREATMENT OF DIABETES MELLITUS PATIENTS IS <7% HBA1C, AND IN SELECTIVE PATIENTS <6.0%. PLEASE REFER TO [place] [employer] DIABETIC CARE GUIDELINES FOR FURTHER INFORMATION. 86 Anion gap measurement may be of limited value in the presence of any alkalosis, especially in a combined acid base disorder. . 87 Note change in reference range as of 03/05/08. The change was based on recommendations from the [place] [employer]. 88 Please note change in reference range effective 07 . 89 A metabolite of Naproxen, O-desmethylnaproxen, has been shown to interfere with the Jendrassik-Sandra method for measuring total bilirubin. Samples from patients who have taken Naproxen have shown spurious elevation in total bilirubin levels. 90 Because ethnic data is not always readily [...] Procedures Date CPT Code Description Status Comment 02/26/2018 39157 Cath PLMT&NJX L Ventriculog Img Completed S&I 02/06/2018 63758 EKG Tracing & Interpretation Completed 01/24/2018 08543 Treadmill Interp/Report Only Completed 01/24/2018 46195 Stress Test Supervsn W/Out I/R Completed 01/11/2018 22039 EKG Tracing & Interpretation Completed 11/13/2017 64241 Endoscopy Upper GI Biopsy Completed 10/17/2017 00150 EKG Tracing & Interpretation Completed 07/12/2017 32512 Stress Test Completed 07/12/2017 83761 Stress Test Completed 07/12/2017 83281 Myocardial Perfusion Imaging Completed Tomographic (Spect) Multiple Studies 07/06/2017 32984 EKG Tracing & Interpretation Completed 06/21/2017 43201 Inject/Drain Joint/Bursa Completed Intermediate W/O US 06/14/2017 63905 Treadmill Interp/Report Only Completed 06/14/2017 99583 Stress Test Supervsn W/Out I/R Completed 03/21/2017 07251 EKG Tracing & Interpretation Completed 12/08/2016 48884 EKG Tracing & Interpretation Completed 10/13/2016 29919 EKG Tracing & Interpretation Completed 08/18/2016 67335 Stress Test Completed 08/18/2016 32788 Myocardial Perfusion Imaging Completed Tomographic (Spect) Multiple Studies 08/11/2016 50798 EKG Tracing & Interpretation Completed 07/07/2016 55462 EKG Tracing & Interpretation Completed 06/21/2016 17803 EKG, Interpretation Only Completed 06/20/2016 28719 Left Heart Cath. Incl S/I Completed Coronaries, Angio S/I V Gram If Done 06/20/2016 82195 EKG, Interpretation Only Completed 06/20/2016 14109 Revascularization Acute Completed Total/Subtotal Occlusion 04/14/2015 Diabetic Retinal Eye Exam Completed Document: 04/14/15 - Rec.Rel/[facility] 02/03/2013 15454 Stress Test Completed 01/27/2013 30312 EKG Tracing & Interpretation Completed 10/18/2012 Diabetic Retinal Eye Exam Completed 06/23/2011 18743 Noninvasive Ear Or Pulse Oximetry Completed For Oxygen Saturation 04/05/2011 04497 Walking Cast Completed 06/01/2009 86642 Noninvasive Ear Or Pulse Oximetry Completed For Oxygen Saturation Encounters Type Date Location Provider CPT E/M Dx Office Visit 02/06/2018 [facility] Rosie Jones, 27421 R07.89 11:45a Theodora Shepard I25.10 I10 Office Visit 01/24/2018 3:19p [facility], Joseph Gonzalez, 70766 R07.89 Hospitalists Devyn E11.9 I10 I25.10 Office Visit 01/11/2018 12:00p [facility] Rosie Jones 15611 R07.9 Thedoora Shepard I25.10 Office Visit 11/14/2017 4:00p [facility] Rosie Jones 28617 R07.9 Theodora Shepard I25.10 Office Visit 11/06/2017 11:15a [place] [address] M84.375A Of C.M.A. Office Visit 10/25/2017 10:15a [facility] Monique Marcell, 58814 M65.832 Of C.Anthony MKelli. Office Visit 10/17/2017 4:00p [facility] Of Joaquín Jones, 56006 R07.9 Sample Case Porter M.DCecily I25.10 I10 Office Visit 07/06/2017 1:15p [facility] Of [facility] Joaquín Jones, 53872 I10 M.D. R07.9 I25.10 Office Visit 06/27/2017 9:00a [facility] Moniquemagdiel Faith, 76832 M25.532 Of C.Anthony Shepard M65.832 Office Visit 06/21/2017 2:30p [facility] Of Monique Faith, 60516 M25.532 C.MTania MRalph Office Visit 06/13/2017 1:49p [facility] [place] [address] R07.89 [facility], Hospitalists E11.65 Z79.4 I10 Office Visit 05/03/2017 9:00a [facility] Monique Faith, 42972 M25.532 Of C.MTania MRalph Office Visit 03/21/2017 9:45a [facility] Of Joaquín Jones, 79494 I25.10 Sample Case Porter M.D. R07.9 Office Visit 01/09/2017 9:30a [facility] MADHU Frazier 43952 I25.10 E11.8 R07.9 E78.5 Office Visit 12/08/2016 11:00a [facility] Of Joaquín Jones, 75618 I25.10 Sample Case Porter M.D. R07.9 Office Visit 10/13/2016 9:45a [facility] Of Joaquín Jones, 33871 I25.10 Sample Case Porter M.D. Office Visit 08/11/2016 10:30a [facility] Of Joaquín Jones, 10869 I25.10 Sample Case Porter M.D. R07.9 Office Visit 07/07/2016 9:15a [facility] Of Joaquín Jones, 99300 I21.4 Sample Case Porter M.D. I25.10 Office Visit 07/05/2016 2:45p [facility] Of Rogelio Reyes M.D., 35635 Z48.1 Sample Case Porter AT [facility], FSCAI I21.4 Office Visit 06/21/2016 8:53a [facility], Michael Bowie, 12890 I21.4 Hospitalists M.DCecily E11.8 Z79.4 I10 Office Visit 06/20/2016 3:29p [facility] Of Rogelio Reyes M.D., 47332 Z48.1 Sample Case Porter AT [facility], FSCAI I21.4 Office Visit 06/20/2016 8:53a [facility], Michael Bowie, 55667 I21.4 Hospitalists M.DCecily E11.8 Z79.4 I10 Office Visit 06/20/2016 1:54p [facility] Of Joaquín Jones, 26221 I21.4 Theodora Shepard I25.10 Office Visit 06/19/2016 8:52a [facility], Dwayne Mcneal, 07745 I21.4 Hospitalists N.P. E11.8 Z79.4 I10 Office Visit 08/23/2015 8:40a [facility] Internal Medicine Kanchan Walton 57782 E11.65 - Cheli Shepard Office Visit 07/20/2015 9:00a [facility] Internal Medicine Kanchan Walton, 12562 E11.65 - Cheli Shepard M25.511 Office Visit 04/27/2015 2:40p [facility] Internal Ankit Parekh, 32440 M25.561 Medicine Kimberly Bower M.D. Office Visit 04/13/2015 10:00a [facility] Internal Kanchan Walton 06365 R51 Medicine Kimberly Bower M.D. E11.65 Office Visit 02/18/2015 9:00a [facility] Internal Medicine Kanchan Walton 25685 698.9 - Cheli Shepard 250.02 Office Visit 01/01/2015 11:20a [facility] Internal Medicine Kanchan Walton 38312 250.02 - Cheli Shepard 782.1 272.4 Office Visit 11/11/2014 9:40a [facility] Internal Medicine Kanchan Walton 96438 784.0 - [place] M.DCecily 726.31 719.46 250.02 Office Visit 10/01/2014 11:00a [facility] Internal Medicine - Daren FarhanNADIA hunter 48098 250.02 [place] 726.31 848.9 Office Visit 04/27/2014 10:40a [facility] Internal Medicine Kanchan Walton 73476 250.00 - [place] M.DCecily 729.5 250.02 Office Visit 01/27/2013 11:40a [facility] Internal Medicine Dennise Patel N.P. 68466 786.50 - [place] Office Visit 01/06/2013 2:40p [facility] Internal Medicine Kanchan Walton 80761 V70.0 - [place] M.DCecily V76.44 250.02 845.09 724.5 389.9 Office Visit 12/10/2012 10:40a [facility] Internal Medicine Kanchan Walton 70187 493.00 - [place] M.D. Office Visit 10/11/2012 1:40p [facility] Internal Medicine Kanchan Walton 07294 250.02 - [place] M.D. 790.4 493.90 Office Visit 08/30/2012 1:20p [facility] Internal Medicine Kanchan Walton 44556 250.02 - [place] M.D. Office Visit 07/23/2012 1:20p [facility] Internal Medicine Kanchan Walton 16858 250.02 - [place] M.D. 493.90 272.4 790.4 Office Visit 06/18/2012 1:20p [facility] Internal Medicine Kanchan Walton 56071 493.90 - [place] M.D. 719.43 Office Visit 04/22/2012 3:00p [facility] Internal Medicine Kanchan Walton 18505 250.02 - [place] M.D. Office Visit 02/05/2012 11:20a [facility] Internal Medicine Kanchan Walton 22903 250.02 - [place] M.D. Office Visit 01/01/2012 2:00p [facility] Internal Medicine Kanchan Walton 74389 250.02 - [place] M.D. 272.4 796.2 844.9 Office Visit 08/09/2011 11:00a [facility] Xavier Ansley, M.D. 89087 719.44 Of C.M.A. Office Visit 07/24/2011 10:20a [facility] Internal Medicine Kanchan Cotton, 49083 250.02 - [place] M.D. 493.90 272.4 Office Visit 06/23/2011 3:40p DO Not Use Kanchan Cotton, 23586 466.0 Sample Case Porter-[place] M.D. 250.02 Office Visit 06/14/2011 11:00a [facility] Of Xavier Panchal, 77086 718.44 C.M.A. M.D. Office Visit 04/19/2011 11:00a [facility] Of Xavier Panchal, 26168 726.71 C.M.A. M.D. Office Visit 04/05/2011 11:00a [facility] Of Xavier Panchal, 24147 726.71 C.M.A. M.D. 726.71 733.20 733.20 Office Visit 03/28/2011 10:20a DO Not Use Kanchan Cotton, 60258 250.02 Sample Case Porter-[place] M.D. 729.5 Office Visit 01/31/2011 10:40a DO Not Use Kanchan Cotton, 74310 707.8 Sample Case Porter-[place] M.D. Office Visit 01/24/2011 9:20a DO Not Use Kanchan Cotton, 10409 707.8 Sample Case Porter-[place] M.D. Office Visit 01/19/2011 11:20a DO Not Use Kanchan Cotton, 44547 250.02 Sample Case Porter-[place] M.D. Office Visit 12/20/2010 11:00a DO Not Use Kanchan Cotton, 73401 250.02 Sample Case Porter-[place] M.D. 493.90 729.5 Office Visit 09/02/2010 10:45a DO Not Use Kanchan Cotton, 99533 250.02 Sample Case Porter-[place] M.D. Office Visit 06/02/2010 9:30a DO Not Use Kanchan Cotton, 34589 250.02 Sample Case Porter-[place] M.D. 493.90 Office Visit 04/13/2010 4:00p DO Not Use Kanchan Cotton, 53955 250.02 Sample Case Porter-[place] M.D. 493.90 780.93 346.90 V03.82 Office Visit 02/25/2010 11:15a DO Not Use Kanchan Cotton, 75068 250.02 Sample Case Porter-[place] M.D. 493.90 Office Visit 01/07/2010 4:15p DO Not Use Kanchan Cotton, 90091 729.5 Sample Case Porter[place] M.D. Office Visit 11/25/2009 1:15p DO Not Use Kanchan Cotton, 58138 250.02 Sample Case Porter-[place] M.D. 493.00 Office Visit 10/01/2009 10:40a DO Not Use Sample Case Porter AT Kanchan Cotton, 95951 250.02 [place] M.D. Office Visit 09/17/2009 10:40a DO Not Use Sample Case Porter AT Kanchan Cotton, 01096 250.02 [place] M.D. 790.4 780.79 493.90 Office Visit 08/24/2009 11:00a DO Not Use Sample Case Porter AT Kanchan Cotton, 78125 250.02 [place] M.D. 493.90 790.4 Office Visit 08/10/2009 11:00a DO Not Use Sample Case Porter AT Kanchan Cotton, 21519 250.00 [place] M.D. 790.4 Office Visit 08/03/2009 11:00a DO Not Use Sample Case Porter AT Kanchan Cotton, 28609 493.90 [place] M.D. 729.5 527.7 Office Visit 06/01/2009 11:40a DO Not Use Sample Case Porter AT Kanchan Cotton, 09650 493.90 [place] M.D. Plan of Care 03/07/2018 - Joaquín Jones M.D.R07.9 Chest pain, unspecifiedFollow up:4 [id number] Essential (primary) [id number] Athscl heart disease of [place] coronary artery w/o ang pctrs
[2018-03-20 01:47] LABS: ABS Basophils 0.1 10^3/ul (0-0.2); ABS Eosinophils 0.3 10^3/ul (0-0.6); ABS Lymphocytes 3.7 10^3/ul (1.0-4.8); ABS Monocytes 0.9 10^3/ul (0-0.8); ABS Neutrophils 3.2 10^3/ul (1.5-7.7); ABS Nucleated RBC 0 10^3/ul; Eosinophil % 4.2 % (0-6); Hematocrit 40 % (42-52); Hemoglobin 13.1 g/dl (14.0-18.0); Lymphocyte % 45.2 % (25-47); Mean Corpuscular HGB Conc 32 g/dl (31-36); Mean Corpuscular Hemoglobin 27 pg (27-31); Mean Corpuscular Volume 83 fL (80-94); Mean Platelet Volume 7.4 um3 (7.4-10.4); Nucleated Red Blood Cells % 0.2; Platelet Count 270 10^3/ul (150-450); Red Blood Count 4.84 10^6/ul (4.00-5.40); Red Cell Distribution Width 14 % (10.5-15); White Blood Count 8.3 10^3/ul (3.5-10.8)
[2018-03-20 01:48] LABS: INR 0.82 (0.77-1.02)
[2018-03-20 01:59] LABS: EGFR Non-African American 88.9 (>60)
[2018-03-20 03:46] VITALS: BP 135/66
--- NOTE | 2018-03-20 07:43 | RAD ---
HISTORY: CP COMPARISONS: March 06, 2018 VIEWS: 1: frontal portable view of the chest at 1:40 AM. The right costophrenic angle is partially cut off. FINDINGS: LINES AND TUBES: None. CARDIOMEDIASTINAL SILHOUETTE: The cardiomediastinal silhouette is normal for portable technique. PLEURA: The right costophrenic angle is partially cut off. No pleural abnormalities are noted. LUNG PARENCHYMA: The lungs are clear. ABDOMEN: The upper abdomen is clear. There is no subphrenic gas. BONES AND SOFT TISSUES: No bone or soft tissue abnormalities are noted. IMPRESSION: NO ACTIVE CARDIOPULMONARY DISEASE. R0
== END | disposition home or self-care (01) ==
LOC: ED 00:53
DX: R07.89 Other chest pain (principal); I25.2 Old myocardial infarction; F17.210 Nicotine dependence, cigarettes, uncomplicated; Z95.5 Presence of coronary angioplasty implant and graft; Z88.8 Allergy status to other drugs, medicaments and biological substances
CPT/HCPCS: 36415; 71045; 80053; 82550; 83735; 84484; 85025; 85610; 85730; 93005; 96374; 96375; 99283; J1885; J2060

== ENCOUNTER 2018-05-19 15:17 | Observation (INO) | payer OTHER ==
--- NOTE | 2018-05-19 15:34 | ED ---
HPI Chest Pain - HPI Summary HPI Summary: Pt is a 48 y/o male brought in by EMS who presents to the ED c/o CP. He suddenly started to have sharp non-radiating right-sided CP while at work at 14: 30. The pain slowly began to resolve, but the pt still has some CP. He had an ID 2 years ago and has a stent, and states that the pain felt similar. Pt c/o SOB, but denies any nausea, diaphoresis, LE edema, LE pain, or palpitations. He is a former smoker. Pt denies any exertion at the time of pain onset. 234 mg ASA given by EMS. - History of Current Complaint Chief Complaint: EDChestPainROMI Time Seen by Provider: 05/19/18 15:19 Hx Obtained From: Patient Onset/Duration: Started Hours Ago - 14:30, Resolved Timing: Constant Current Severity: Moderate Pain Intensity: 4 Pain Scale Used: 0-10 Numeric Chest Pain Location: Right Anterior Chest Pain Radiates: No Character: Sharp/Stabbing Aggravating Factor(s): Nothing Alleviating Factor(s): Other: - ASA Associated Signs and Symptoms: Positive: Shortness of Breath. Negative: Diaphoresis, Nausea, Palpitations, Calf Pain/Swelling Related History: Similar Episode/Dx as: - ID - Additional Pertinent History Primary Care Physician: [id number] - Allergy/Home Medications Allergies/Adverse Reactions: Allergies Allergy/AdvReac Type Severity Reaction Status Date / Time fentanyl Allergy Hallucinati Verified 05/19/18 15:20 ons lisinopril Allergy Unknown Verified 05/19/18 15:20 Reaction Details shellfish derived Allergy Unknown Verified 05/19/18 15:20 Reaction Details PMH/Surg Hx/FS Hx/Imm Hx Endocrine/Hematology History: Reports: Hx Diabetes Denies: Hx Thyroid Disease Cardiovascular History: Reports: Hx Angina, Hx Coronary Artery Disease, Hx Hypercholesterolemia, Hx Hypertension, Hx Myocardial Infarction - Jun 2016, Other Cardiovascular Problems/Disorders - Current admission for chest pain Denies: Hx Pacemaker/ICD Respiratory History: Reports: Hx Asthma - SEASONAL Denies: Hx Chronic Obstructive Pulmonary Disease (COPD), Other Respiratory Problems/Disorders GI History: Denies: Hx Ulcer History: Denies: Hx Renal Disease Musculoskeletal History: Reports: Other Musculoskeletal History - Lt wrist pain of unknown origin Denies: Hx Arthritis, Hx Osteoporosis Sensory History: Reports: Hx Contacts or Glasses Denies: Hx Hearing Aid Opthamlomology History: Reports: Hx Contacts or Glasses Neurological History: Denies: Hx Peripheral Neuropathy Psychiatric History: Denies: Hx Panic Disorder - Cancer History Cancer Type, Location and Year: none - Surgical History Surgery Procedure, Year, and Place: appendectomy. stent placed June 2016 after heart attack Hx Anesthesia Reactions: No Infectious Disease History: No Infectious Disease History: Denies: Hx Clostridium Difficile, Hx Hepatitis, Hx Human Immunodeficiency Virus (HIV), Hx of Known/Suspected MRSA, Hx Shingles, Hx Tuberculosis, Hx Known/ Suspected VRE, Hx Known/Suspected VRSA, History Other Infectious Disease, Traveled Outside the [place] in Last 30 Days - Family History Known Family History: Positive: Cardiac Disease, Hypertension, Diabetes - Social History Alcohol Use: Occasionally Alcohol Amount: 2-3 beers per week Hx Substance Use: Yes Substance Use Comment - Amount & Last Used: OCCASIONALLY Hx Tobacco Use: Yes Smoking Status (MU): Former Smoker Type: Cigarettes Amount Used/How Often: 2 Have You Smoked in the Last Year: Yes Review of Systems Negative: Skin Diaphoresis Positive: Chest Pain. Negative: Palpitations Positive: Shortness Of Breath Negative: Nausea Negative: Myalgia - leg, Edema All Other Systems Reviewed And Are Negative: Yes Physical Exam - Summary Physical Exam Summary: Appearance: Well appearing, no pain distress, obese Skin: warm, dry, reflects adequate perfusion Head/face: normal Eyes: EOMI, STEFANIA ENT: mucous membranes moist Neck: supple, non-tender Respiratory: CTA, breath sounds present Cardiovascular: RRR, pulses symmetrical Abdomen: non-tender, soft Bowel Sounds: present Musculoskeletal: normal, strength/ROM intact Neuro: normal, sensory motor intact, A&Ox3 Triage Information Reviewed: Yes Vital Signs On Initial Exam: Initial Vitals Temp Pulse Resp BP Pulse Ox 98.2 F 85 16 127/78 95 05/19/18 15:20 05/19/18 15:20 05/19/18 15:20 05/19/18 15:20 05/19/18 15:20 Vital Signs Reviewed: Yes Diagnostics - Vital Signs Vital Signs Temp Pulse Resp BP Pulse Ox 05/19/18 15:23 82 21 95 05/19/18 15:20 98.2 F 85 16 127/78 95 - Laboratory Result Diagrams: 05/19/18 16:00 05/19/18 15:59 Lab Statement: Any lab studies that have been ordered have been reviewed, and results considered in the medical decision making process. - Radiology CXR Radiology Interpretation Completed By: Radiologist - No radiographic evidence for acute cardiopulmonary abnormality on this portable chest x-ray. ED physician reviewed radiology report. - EKG 15:39 Cardiac Rate: NL - 82 bpm EKG Rhythm: Sinus Rhythm ST Segment: Normal Summary of EKG Findings: Flipped T wave in III Re-Evaluation - Re-Evaluation First Eval Re-Evaluation Time: 15:50 Change: Unchanged Comment: Spoke to pt about admission. Chest Pain Course/Dx - Course Course Of Treatment: Heart score 4-5. Troponin is nonelevated. D-dimer just over normal level here. But only at 234. No shortness of breath. EKG nondiagnostic. Given elevated heart score and multiple risk factors he'll be admitted for further Dr. Sheikh to evaluate in the ER and admit. - Chest Pain Differential Diagnosis/HQI/PQRI: Acute ID, ACS, Angina, CHF, Chest Wall, GI Disease, Lower Respiratory Infection - Diagnoses Provider Diagnoses: Chest pain, Acute coronary syndrome - Provider Notifications Discussed Care Of Patient With: Denilson Sheikh Time Discussed With Above Provider: 15:45 Instructed by Provider To: Admit As Inpatient - Dr. Sheikh accepts pt for admission. Discharge - Sign-Out/Discharge Documenting (check all that apply): Patient Departure - Admit - Discharge Plan Condition: Stable Disposition: ADMITTED TO [facility] - Billing Disposition and Condition Condition: STABLE Disposition: Admitted to [facility] - Attestation Statements Document Initiated by Neetuibe: Yes Documenting Scribdonny: Nayeli Koch Provider For Whom Kisha is Documenting (Include Credential): Marty Smith MD Scribe Attestation: Nayeli Griffin, scribed for Marty Smith MD on 05/19/18 at 2132. Scribe Documentation Reviewed: Yes Provider Attestation: The documentation as recorded by the Nayeli melton accurately reflects the service I personally performed and the decisions made by me, Marty Smith MD
[2018-05-19] MEDS ORDERED: Metoprolol Tartrate IV* 1 MG/ML 5 ML VIAL IV ONE (15:37)
--- NOTE | 2018-05-19 16:10 | RAD ---
INDICATION: Chest pain COMPARISON: Most recent comparison chest x-rays dated March 20, 2018 TECHNIQUE: Single AP portable view of the chest was obtained. FINDINGS: Image quality is compromised due to the relative inferiority of a portable chest x-ray. The heart and mediastinum exhibit normal size and contour. The lungs are grossly clear. There is no evidence of a large pleural effusion. Visualized bones are normal for the patient's age. IMPRESSION: No radiographic evidence for acute cardiopulmonary abnormality on this portable chest x-ray.
[2018-05-19 16:11] LABS: ABS Basophils 0.1 10^3/ul (0-0.2); ABS Eosinophils 0.3 10^3/ul (0-0.6); ABS Monocytes 0.7 10^3/ul (0-0.8); ABS Neutrophils 2.4 10^3/ul (1.5-7.7); ABS Nucleated RBC 0 10^3/ul; Eosinophil % 5.4 % (0-6); Hematocrit 42 % (42-52); Hemoglobin 13.5 g/dl (14.0-18.0); Lymphocyte % 45.8 % (25-47); Mean Corpuscular HGB Conc 33 g/dl (31-36); Mean Corpuscular Hemoglobin 27 pg (27-31); Mean Corpuscular Volume 83 fL (80-94); Mean Platelet Volume 7.3 fL (7.4-10.4); Nucleated Red Blood Cells % 0.2; Platelet Count 269 10^3/ul (150-450); Red Cell Distribution Width 14 % (10.5-15); White Blood Count 6.5 10^3/ul (3.5-10.8)
[2018-05-19 16:18] LABS: INR 0.9 (0.77-1.02)
[2018-05-19 16:29] LABS: EGFR Non-African American 84.3 (>60)
[2018-05-19] MEDS ORDERED: Acetaminophen TAB* 325 MG PO PRN (18:23)
[2018-05-19] MEDS ORDERED: Albuterol HFA INHALER* 8 gm MDI INH PRN (18:27)
[2018-05-19] MEDS ORDERED: Nitroglycerin TAB 0.4 MG* 0.4 MG TAB SL PRN (18:27)
[2018-05-19] MEDS: metFORMIN* 500 MG TAB PO SCH (21:10)
[2018-05-19] MEDS: Heparin VIAL(*) 5000 UNITS/ML VIAL (FIVE THOUSAND) SUBCUT SCH (21:11)
[2018-05-19] MEDS: Omeprazole CAP* 20 MG PO SCH (21:11)
--- NOTE | 2018-05-19 21:52 | HP ---
CC: Dr. Jones; Dr. Camarena * HISTORY AND PHYSICAL: DATE OF ADMISSION: 05/19/18 PROVIDER: Latonya Salas NP PRIMARY CARE PROVIDER: Dr. Camarena. ATTENDING PHYSICIAN WHILE IN THE HOSPITAL: Dr. Demetrius Ortiz * (dictated by Latonya Salas NP). CHIEF COMPLAINT: Chest pain. HISTORY OF PRESENT ILLNESS: Mr. Powers is a 48-year-old male with past medical history significant for hypertension, diabetes, coronary artery disease with cardiac stenting in 2015, hyperlipidemia, and asthma, who presented to the hospital with chest pain. The patient reports that approximately 2:30 today, he started having right-sided chest pain that was sharp and radiates to his back , greater than 8. He denies any nausea, he denies any vomiting, denies any diaphoresis. He does report some mild shortness of breath that resolved with the resolution of his chest pain. He reports that he was at work and developed the chest pain, they called the ambulance. The ambulance brought him to the emergency room for further evaluation of his chest pain given his history of coronary artery disease. While in the ambulance, he did receive 3 baby aspirin which helped relieve his chest pain. The patient also reports that he is currently being followed with Gastroenterology and possibly being treated for H. pylori with omeprazole and amoxicillin at this time. The patient denies any recent sick contacts, denies any fever or chills. He does report that he does have a cold and does have an occasional cough. Denies any constant shortness of breath, denies any nausea, vomiting, or diarrhea, denies any hematuria or dysuria. Denies any other symptoms. Given his history of coronary artery disease with cardiac stenting, it was recommended that the patient be seen and evaluated by our team for possible admission to the hospital. PAST MEDICAL HISTORY: Significant for: 1. Hypertension. 2. Diabetes. 3. Coronary artery disease. 4. Hyperlipidemia. 5. Asthma. PAST SURGICAL HISTORY: 1. Cardiac stent in June of 2016. 2. Appendectomy. 3. Circumcision. MEDICATIONS: Home medications include: 1. Crestor 10 mg p.o. at bedtime. 2. Amlodipine 10 mg p.o. daily. 3. Nitro 0.4 mg sublingual q.5 minutes up to 3 doses as needed for chest pain. 4. Trulicity 0.75 mg inject once weekly. 5. Multivitamin 1 tablet p.o. daily. 6. Humalog p.r.n. 7. Omeprazole 40 mg p.o. b.i.d. 8. Metoprolol 25 mg p.o. daily. 9. Amoxicillin treatment is completed on Sunday. 10. Aspirin 81 mg p.o. daily. 11. Metformin 1000 mg p.o. b.i.d. 12. Albuterol inhaler 2 puffs four times a day as needed for shortness of breath. 13. Claritin 10 mg p.o. daily. 14. Ranexa 500 mg p.o. b.i.d. 15. The patient reports that he is prescribed Lantus, but he is not currently taking it. ALLERGIES TO MEDICATIONS: He has allergy to FENTANYL, LISINOPRIL, and SHELLFISH. FAMILY HISTORY: No reported history of coronary artery disease. Does report his mother had a history of diabetes. No reported history of cancer. SOCIAL HISTORY: He reports he quit smoking in February of 2018. Alcohol: He does report occasional alcohol use and denies any illicit drug use. He is . Surrogate decision maker in the event he is unable to make his own decisions is his , Elvia. Her phone number is [phone]. He is a full code. REVIEW OF SYSTEMS: There is no documented fever. There has been no significant weight change. No double vision, no ear discharge, no rhinorrhea. Denies any sore throat. He does report right-sided chest pain that radiated to his back, that subsided after taking 3 baby aspirin. Denies any orthopnea or nocturnal dyspnea. There was no abdominal pain. No nausea, vomiting, or diarrhea. Denies any dysuria or urinary frequency. Denies any seizures or loss of consciousness. No pruritus or skin ulcerations. Review of 14 systems completed and all others are negative. PHYSICAL EXAMINATION GENERAL: At this time, Mr. Powers is a 48-year-old male with a past medical history significant for coronary artery disease with cardiac stenting in 2016. He is sitting on the stretcher in the emergency room, alert and oriented, in no acute distress. VITAL SIGNS: Blood pressure was 117/84, heart rate 83, respirations 18, O2 saturation 96%, and temperature 98.2. HEENT: Head is atraumatic and normocephalic. Eyes: EOMs are intact. Sclerae anicteric and not pale. Oral mucosa appeared to be moist. NECK: Supple. LUNGS: Clear to auscultation bilaterally. No wheezes, rales, or rhonchi. CARDIAC: S1 and S2. Regular rate and rhythm. There are no murmurs, rubs, or gallops. ABDOMEN: Soft and nontender. Bowel sounds are present x4. EXTREMITIES: Pulses are +2 bilaterally. He is able to move all 4 extremities with 5/5 strength. NEUROLOGIC: He is awake, alert, and oriented x3. Speech is clear. There are no gross focal deficits noted. SKIN: Intact. DIAGNOSTIC STUDIES/LAB DATA: WBCs are 6.5, RBC is 5.0, hemoglobin 13.5, hematocrit was 42, platelet count was 269. INR was 0.90, D-dimer was 234. Sodium 139, potassium 4.0, chloride 107, carbon dioxide was 24, anion gap was 8 , BUN was 15, creatinine 0.95, glucose was 170, lactic acid was 1.3, calcium was 9.0, magnesium is currently pending. Total bilirubin was 0.30, total CK was 402. He had a chest x-ray, Radiologist's impression: No radiographic evidence of acute cardiopulmonary abnormality on this portable chest x-ray. He had an electrocardiogram which showed sinus rhythm at a rate of 82. ASSESSMENT AND PLAN: Mr. Powers is a 48-year-old male with a past medical history significant for hypertension, hyperlipidemia, coronary artery disease with stenting in left anterior descending artery in 2016, who presented to the emergency room with chest pain. He will be admitted under observation for: 1. Chest pain. Will rule out acute coronary syndrome as the patient does have this significant history of coronary artery disease with stenting in 2016. Subsequently, the patient has recently undergone cardiac catheterization in February 2018, at which time the patient's stent to the left circumflex artery was open and patent. His right coronary artery had a 50% stenosis in the mid of the right coronary artery, his posterior descending artery had 60% stenosis. The images were reviewed in great detail with Dr. Reyes. We compared the 2016 images with the 2018 images and found no changes in the right coronary artery, particularly in the mid posterior descending artery with the 60% stenosis. It is exactly the same as it was in 2016 and if the patient had progression of that lesion, you would expect apical inferior defect on nuclear imaging per Cardiology's report. The cardiac stress portion of his nuclear test was low risk, Ayon score for EKG portion of the exercise stress with no evidence of myocardial ischemia. The nuclear portion on 01/24/18 prior to his cardiac catheterization did show small foci of ischemia at the apical, anterior , and inferior segments. The apical inferior reversible perfusion abnormality was new and there was no left ventricular wall motion and estimated ejection fraction low risk based on the nuclear portion. I would recommend at this time that we consult Cardiology in the a.m. to see if the patient would require a repeat nuclear stress test. We will continue to trend his troponins overnight. We will continue him on aspirin, continue his beta mercy. I will place him on telemetry and repeat an EKG in the a.m. I will also repeat a BMP. If the patient does have subsequent episodes of chest pain during the night, I will reach out to Cardiology for further recommendations. 2. Gastroesophageal reflux disease. The patient is currently being followed by Gastroenterology and is currently being treated for Helicobacter pylori with amoxicillin and omeprazole 40 mg twice daily. We will continue him on this regimen during his hospitalization. 3. Hypertension. The patient will continue on amlodipine and metoprolol as previously prescribed. 4. Diabetes. I will place him on lispro sliding scale. I will hold his metformin and Trulicity at this time and will complete Accu-Chek a.c. 5. FEN. He will be placed on a heart-healthy, decaf okay diet. 6. DVT prophylaxis. I will place him on heparin subcu 5000 units q.8 hours. 7. Code status. He is a full code. TIME SPENT: Time spent on this admission was approximately 60 minutes, greater than half that time was spent [id number] with the patient obtaining my history and physical, the other half the time was spent going over my plan of care and implementing my plan of care. I have discussed this with my attending, Dr. Demetrius Ortiz; he is in agreement with my plan. LATONYA SALAS, NADIA [id number]/[facility] #: [id number] LYNDA
[2018-05-19] MEDS: CMC:Ranolazine (NF) 500 MG TAB PO SCH (22:05)
[2018-05-19] MEDS: CMC:Rosuvastatin (NF) 10 MG TAB PO SCH (22:05)
[2018-05-20] MEDS ORDERED: NS 0.9% 500 ML* 500 ML IV ONE (00:02)
[2018-05-20] MEDS ORDERED: Dextrose 50% Syringe 50 ML* 25 GM/50 ML SYRINGE IV PUSH PRN ×2 (00:03→14:29)
[2018-05-20] MEDS: Heparin VIAL(*) 5000 UNITS/ML VIAL (FIVE THOUSAND) SUBCUT SCH ×3 (05:44→20:48)
[2018-05-20 07:49] LABS: EGFR Non-African American 83.3 (>60)
[2018-05-20] MEDS: Aspirin 81 mg CHEW TAB* 81 MG TAB.CHEW PO SCH (08:14)
[2018-05-20] MEDS: Omeprazole CAP* 20 MG PO SCH ×2 (08:14→20:47)
[2018-05-20] MEDS: CMC:Ranolazine (NF) 500 MG TAB PO SCH ×2 (08:14→20:47)
[2018-05-20] MEDS: Metoprolol Succinate XL TAB* 25 MG PO SCH (08:14)
[2018-05-20] MEDS: amLODIPine TAB* 5 MG PO SCH (08:14)
[2018-05-20] MEDS: metFORMIN* 500 MG TAB PO SCH (08:14)
[2018-05-20] MEDS: Insulin LISPRO* 1 UNITS UNIT SUBCUT SCH ×3 (08:15→17:01)
[2018-05-20] MEDS ORDERED: Omeprazole CAP* 20 MG PO SCH (09:00)
[2018-05-20] MEDS ORDERED: Iodixanol* (CONTRAST) 320 MG/ML 100 ML SDV IV ONE (12:34)
--- NOTE | 2018-05-20 12:52 | PN ---
Subjective Date of Service: 05/20/18 Interval History: Patient reports Patient reports right sided chest pain when rolling onto his side. Denies cough , SOB. No fever or chills. Objective Active Medications: Acetaminophen (Tylenol Tab*) 650 mg PO Q4H PRN PRN Reason: FEVER/PAIN Albuterol (Ventolin Hfa Inhaler*) 2 puff INH QID PRN PRN Reason: WHEEZING Amlodipine Besylate (Norvasc Tab*) 10 mg PO DAILY [facility] Last Admin: 05/20/18 08:14 Dose: 10 mg Aspirin (Aspirin 81 Mg Chew Tab*) 81 mg PO DAILY [facility] Last Admin: 05/20/18 08:14 Dose: 81 mg Dextrose (D50w Syringe 50 Ml*) 12.5 gm IV PUSH .FOR FS < 60 - SS PRN PRN Reason: FS < 60 Heparin Sodium (Porcine) (Heparin Vial(*)) 5,000 units SUBCUT Q8HR [facility] Last Admin: 05/20/18 05:44 Dose: 5,000 units Insulin Human Lispro (Humalog*) 0 units SUBCUT AC [facility]; Protocol Last Admin: 05/20/18 12:11 Dose: 3 units Iodixanol (Visipaque* 320 (Contrast)) 91 ml IV ONCE ONE Stop: 05/20/18 12:35 Metformin HCl (Glucophage*) 1,000 mg PO BID [facility] Last Admin: 05/20/18 08:14 Dose: 1,000 mg Metoprolol Succinate (Toprol Xl Tab*) 25 mg PO DAILY [facility] Last Admin: 05/20/18 08:14 Dose: 25 mg Nitroglycerin (Nitroglycerin Tab 0.4 Mg*) 0.4 mg SL Q5M PRN PRN Reason: PAIN - CHEST Omeprazole (Prilosec Cap*) 40 mg PO BID [facility] Last Admin: 05/20/18 08:14 Dose: 40 mg Ranolazine (Ranexa (Nf)) 500 mg PO BID [facility]; Protocol Last Admin: 05/20/18 08:14 Dose: 500 mg Rosuvastatin Calcium (Crestor (Nf)) 10 mg PO BEDTIME [facility]; Protocol Last Admin: 05/19/18 22:05 Dose: 10 mg Sucralfate (Carafate*) 1 gm PO QID [facility] Vital Signs - 8 hr 05/20/18 05/20/18 08:13 11:39 Temperature 98.4 F 97.9 F Pulse Rate 79 73 Respiratory 16 16 Rate Blood Pressure 126/69 121/75 (mmHg) O2 Sat by Pulse 100 98 Oximetry Oxygen Devices in Use Now: None Appearance: 48 yo chornically ill appearing male A+O x3 in NAD Eyes: No Scleral Icterus, PERRLA Ears/Nose/Mouth/Throat: NL Teeth, Lips, Gums, Mucous Membranes Moist Neck: NL Appearance and Movements; NL JVP Respiratory: Symmetrical Chest Expansion and Respiratory Effort, Clear to Auscultation Cardiovascular: NL Sounds; No Murmurs; No JVD, RRR, No Edema Abdominal: NL Sounds; No Tenderness; No Distention Extremities: No Edema, No Clubbing, Cyanosis Skin: No Rash or Ulcers, No Nodules or Sclerosis Neurological: Alert and Oriented x 3, NL Muscle Strength and Tone Lines/Tubes/Other Access: Clean, Dry and Intact Peripheral IV Nutrition: Taking PO's Result Diagrams: 05/19/18 16:00 05/20/18 06:33 Assess/Plan/Problems-Billing Assessment: - Patient Problems (1) Chest pain Comment: Atypical. Possibily his esophagitis/GERD - currently on treatment for Hpylori and reflux. All three troponins wnl. No EKG changes. Cardiac Cath in 2017 which show stent was patent. His pain is reproducible rolling onto his right side - with epigastric discomfort. - mildly elevated DDIMER - obtain CTA (2) GERD with esophagitis Comment: - pt reports recent dx and current treatment of hpylori and signs of inflammation. Just finishing course of abx. Continue PPI. Start carafate - (3) CAD (coronary artery disease) Comment: Continue statin, ASA, BB, ranolazine (4) Diabetes Comment: Hold metformin. Lispro by SS. (5) HTN (hypertension) Comment: Continue amlodipine. Status and Disposition: OBV. Home when medically stable
[2018-05-20] MEDS: Sucralfate TAB* 1 GM PO SCH ×3 (13:36→20:47)
[2018-05-20] MEDS ORDERED: predniSONE TAB* 50 MG PO ONE (19:00)
[2018-05-20] MEDS: CMC:Rosuvastatin (NF) 10 MG TAB PO SCH (20:47)
[2018-05-21] MEDS ORDERED: predniSONE TAB* 50 MG PO ONE ×2 (01:00→07:00)
[2018-05-21] MEDS: Heparin VIAL(*) 5000 UNITS/ML VIAL (FIVE THOUSAND) SUBCUT SCH (06:28)
[2018-05-21] MEDS ORDERED: diPHENhydraMINE PO* 50 MG PO ONE (07:00)
[2018-05-21] MEDS ORDERED: Iodixanol* (CONTRAST) 320 MG/ML 100 ML SDV IV SCH (07:40)
[2018-05-21] MEDS: Sucralfate TAB* 1 GM PO SCH ×2 (08:55→11:32)
[2018-05-21] MEDS: Aspirin 81 mg CHEW TAB* 81 MG TAB.CHEW PO SCH (08:55)
[2018-05-21] MEDS: CMC:Ranolazine (NF) 500 MG TAB PO SCH (08:55)
[2018-05-21] MEDS: amLODIPine TAB* 5 MG PO SCH (08:55)
[2018-05-21 08:56] LABS: ABS Basophils 0 10^3/ul (0-0.2); ABS Eosinophils 0 10^3/ul (0-0.6); ABS Lymphocytes 1.6 10^3/ul (1.0-4.8); ABS Monocytes 0.3 10^3/ul (0-0.8); ABS Neutrophils 6.8 10^3/ul (1.5-7.7); ABS Nucleated RBC 0 10^3/ul; Eosinophil % 0 % (0-6); Hematocrit 43 % (42-52); Lymphocyte % 18.2 % (25-47); Mean Corpuscular HGB Conc 32 g/dl (31-36); Mean Corpuscular Hemoglobin 27 pg (27-31); Mean Corpuscular Volume 84 fL (80-94); Mean Platelet Volume 7.5 fL (7.4-10.4); Nucleated Red Blood Cells % 0.1; Platelet Count 282 10^3/ul (150-450); Red Blood Count 5.14 10^6/ul (4.00-5.40); Red Cell Distribution Width 13 % (10.5-15); White Blood Count 8.7 10^3/ul (3.5-10.8)
[2018-05-21] MEDS: Metoprolol Succinate XL TAB* 25 MG PO SCH (08:56)
[2018-05-21] MEDS: Omeprazole CAP* 20 MG PO SCH (08:56)
[2018-05-21] MEDS: Insulin LISPRO* 1 UNITS UNIT SUBCUT SCH ×2 (08:56→12:06)
[2018-05-21 09:07] LABS: EGFR Non-African American 95.8 (>60)
[2018-05-21 12:15] VITALS: BP 138/71
[2018-05-21] MEDS ORDERED: Insulin GLARGINE(*) 1 UNITS UNIT SUBCUT ONE (12:32)
[2018-05-21] MEDS ORDERED: Insulin GLARGINE(*) 1 UNITS UNIT ONE (12:42)
--- NOTE | 2018-05-23 02:56 | DS ---
DISCHARGE SUMMARY: DATE OF ADMISSION: 05/19/18 DATE OF DISCHARGE: 05/21/18 PROVIDER: Marilee Mcmillan NP ATTENDING PHYSICIAN: Dr. Daniels * ((report dictated by Marilee Mcmillan NP). PRIMARY CARE PROVIDER: Dr. Camarena. DISCHARGE DIAGNOSES: 1. Atypical chest pain, thought to be secondary to gastroesophageal reflux disease/possible esophagitis. 2. Small lung nodules per Radiology read, likely of no clinical significance, recommendation, follow up CT chest in 6 months. HISTORY OF PRESENT ILLNESS AND HOSPITAL COURSE: Please see history and physical by Latonya Salas NP, for full admission details, but in summary, this is a 48-year- old male who presented to the emergency department on with complaint of chest pain, starting at approximately 2:30 that day, reporting he was having right- sided chest pain that was sharp and radiated to his back, greater than an 8. The patient reports that when he rolls to his right side while lying down, it worsens. He denies any nausea, vomiting, diaphoresis. He was brought to the emergency department via ambulance and in the emergency department, he was given 3 baby aspirin. He had no EKG changes and his troponin was negative. He was admitted to the hospitalist service to telemetry to rule out acute coronary syndrome. The patient had 4 flat troponins. He patient continued to have intermittent atypical chest pain throughout hospitalization in which he reports the chest pain presents when he rolls to his right side. He also reports epigastric discomfort and tenderness. He is currently under the treatment for H. pylori and reports that he has known reflux and esophagitis. The patient was started on Carafate, which improved his symptoms. The patient does have a history of coronary artery disease with stenting in 2015. Subsequently, the patient recently has undergone cardiac catheterization in February 2018 at which time the patient's stent to the left circumflex artery was open and patent. His right coronary artery had 50% stenosis in the mid of the right coronary artery, his posterior descending artery had 60% stenosis. The patient also had a low risk stress test in January 2018. It was not felt that the patient required to repeat nuclear stress test. The patient's D-dimer was noted to be mildly elevated at 241 and he underwent a CTA of the chest/thorax, which showed no evidence of pulmonary embolism, but did show that there are tiny 2 to 3 mm nodules scattered throughout both lung abarca reported by the radiologist to likely be of no clinical significance. However, I do recommend the patient have followup imaging in 6 months. The patient has remained hemodynamically stable throughout hospitalization. He had a HIV 1 and 2 antibody, which was nonreactive. His blood sugars were noted to be elevated. Due to that, prior to the CTA, he was given prophylaxis treatment with 3 doses of prednisone. I do note that his last blood sugar reported was 392; however, this was retested after the patient had lispro 15 units as well as he was given Lantus of 10 units and his blood pressure had come down to 202. The patient is to restart his home medications. DISCHARGE MEDICATIONS: 1. Omeprazole 40 mg p.o. b.i.d. 2. Metformin 1000 mg p.o. b.i.d. 3. Norvasc 10 mg p.o. daily. 4. Crestor 10 mg p.o. at bedtime. 5. Ranexa 500 mg p.o. b.i.d. 6. Nitroglycerin 0.4 sublingual q.5 minutes p.r.n. 7. Metoprolol succinate 25 mg p.o. daily. 8. Claritin 10 mg p.o. daily. 9. Trulicity 1.5 mg subcu daily. 10. Aspirin 81 mg p.o. daily. 11. ProAir 2 puffs INH 4 times a day p.r.n. 12. Carafate 1 g p.o. 4 times a day (new medication). The patient was instructed to take this medication separately within 2 hours from other medications. REVIEW OF SYSTEMS: A 14-point review of systems was performed. All the pertinent positives and negatives are mentioned in the history of present illness. Otherwise, they are negative. PHYSICAL EXAMINATION: Vital Signs: Temperature 97.8, heart rate 90, respirations 16, O2 sat 96% on room air, blood pressure 138/71. General Appearance: A 48-year- old male, alert and oriented x3, in no acute distress. HEENT: Head is normocephalic, atraumatic. Pupils are equal and reactive to light. Oropharynx is clear. Moist mucous membranes. Cardiac: S1, S2. Regular rate and rhythm. No murmur, rub, or gallop appreciated. Lungs are clear to auscultation bilaterally. Good aeration throughout. Abdomen: Obese, soft. Tender in the epigastric area. Normal bowel sounds throughout. No guarding. Extremities: Moves all extremities equally. No lower extremity edema. No clubbing noted. Neuro: Alert and oriented x3. No focal deficits noted. DISCHARGE PLAN: 1. The patient is to follow up with Dr. Camarena in 4 to 7 days. 2. Follow up chest CAT scan in 6 months. 3. Continue smoking cessation. Per the patient, he reports that he quit smoking several months ago. This was strongly encouraged. 4. The patient was instructed to return to the emergency department with any worsening or concerning symptoms. TIME SPENT: Approximately 60 minutes were spent on this discharge. MARILEE MCMILLAN NP [id number]/[facility] #: [id number] LYNDA
== END 2018-05-21 14:06 | disposition home or self-care (01) ==
LOC: ED 15:17 → MEDTELE 18:23
PROVIDERS: ADMIT Student in an Organized Health Care Education/Training Program; ATTEND Internal Medicine
DX: R07.89 Other chest pain (principal); K21.0 Gastro-esophageal reflux disease with esophagitis; R91.8 Other nonspecific abnormal finding of lung field; I25.10 Atherosclerotic heart disease of native coronary artery without angina pectoris; E11.9 Type 2 diabetes mellitus without complications; I10 Essential (primary) hypertension; Z79.82 Long term (current) use of aspirin; Z90.89 Acquired absence of other organs; Z95.5 Presence of coronary angioplasty implant and graft
CPT/HCPCS: 36415; 71045; 71275; 80048; 80053; 80061; 82550; 83605; 83735; 84484; 85025; 85379; 85610; 86703; 93005; 96361; 96372; 96374; 99285; A9270-GY; G0378; J1644; J3490; J7512; Q9967

== ENCOUNTER 2018-09-29 22:23 | Emergency (ER) | payer OTHER ==
--- OUTSIDE RECORDS SUMMARY | 2018-09-29 22:39 | XMS REPORT | Continuity of Care Document ---
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 Nancie Camarena MD Primary Care Physician Unavailable Payers Date Identification Numbers Payment Provider Subscriber Policy Number: [id number] Barry Powers PayID: [id number] [address] [place] [phone] Advance Directives Description No Information Available Problems Date Description Provider Status Onset: 07/01/2016 Hyperlipidemia Active Onset: 06/29/2016 Type 2 diabetes mellitus Active Onset: 06/29/2016 Morbid obesity Active Onset: 06/29/2016 Essential hypertension Active Onset: 06/28/2016 Myocardial infarction Active Onset: 11/15/2015 Diabetes mellitus Active Onset: 04/02/2018 Helicobacter pylori Angela Beaulieu PA-C Active Onset: 11/06/2017 Right upper quadrant pain Angela Beaulieu PA-C Active Onset: 11/06/2017 Chest pain Angela Beaulieu PA-C Active Family History Description No Information Available Social History Type Date Description Comments Sex Unknown Tobacco Use Start: Unknown End: Unknown Patient is a former smoker Smoking Status Reviewed: 09/18/18 Patient is a former smoker Allergies, Adverse Reactions, Alerts Date Description Reaction Status Severity Comments 11/06/2017 Fentanyl Active 11/06/2017 Lisinopril Active Medications Medication Date Status Form Strength Qnty SIG Indications Ordering Provider Omeprazole 09/18 Active Tablets 20mg 28tab [address] díaz twice a day X Foor-Pess 14 Days inMD Levofloxacin 04/08 Active Tablets 500mg 14tab 1 tablet by Charles Aquino s mouth once [place], daily for 14 MD days Amoxicillin 04/08 Active Tablets 500mg 56tab 2 tabs by Charles Aquino s mouth twice a [place], day for 14 MD days Humalog Kwikpen 04/25 Active Solution 100Unit/M Inject 25 Pen-Injec L units every t day by subcutaneous route at dinner for 30 days. Acetaminophen 06/21 Active Tablets 325mg 650 mg by oral route. Nitroglycerin 06/21 Active Tablets 0.4mg 0.4 mg by Sub sublingual route. Amlodipine Active Tablets 5mg Take One Unknown Besylate /0000 Tablet By Mouth Every Day Aspirin 81 Low Active Chewtabs 81mg Chew 1 tablet Unknown Dose /0000 every day by oral route for 100 days. Metformin HCL Active Tablets 1000mg Take One Unknown /0000 Tablet By Mouth Twice A Day Toprol XL Active Tablets 25mg Take 1 tablet Unknown /0000 ER 24HR every day by oral route for 90 days. Rosuvastatin Active Tablets 10mg rosuvastatin Unknown Calcium 0000 10 mg tablet Proventil HFA Active Aerosol 108(90Bas Inhale 2 puffs Unknown /0000 e) every 6 hours mcg/Act by inhalation route for 30 days. Victoza Active Solution 18mg/3ML Inject 1.2 mL Unknown /0000 Pen-Injec every day by t subcutaneous route. Trulicity Active Solution 1.5mg/0.5 inject Unknown /0000 Pen-Injec ML subcutaneously t once a week (sample given) Ranexa Active Tablets 500mg Brand, /0000 ER 12HR Joaquín Ku MD Omeprazole 06/11 Hx Capsules 40mg 30cap Take One Angela Adriel díaz Capsule By L. - Mouth Every [place] 09/18 Day 30 Minutes , PA-C Before Breakfast Omeprazole 04/08 Hx Capsules 20mg 60cap 1 cap by mouth Angela Adriel díaz bid 30 minutes L. - before meals [place] 09/17 , PA-C Metronidazole 11/22 Hx Tablets 500mg 20tab one by mouth Charles Aquino s two times a [place], - day x 10 days 04/08 Omeprazole 11/22 Hx Capsules 40mg 30cap Take One Angela /Adriel díaz Capsule By L. - Mouth Every [place] 04/08 Day 30 Minutes , JOYCELYN Before Breakfast Prevpac 11/20 Hx Misc 1unit use as Charles D. s directed x 14 , - days MD 04/08 Clarithromycin 11/20 Hx Tablets 500mg 28tab 1 by mouth Charles D. s twice a day x , - 14 days 04/08 Amoxicillin 11/20 Hx Capsules 500mg 56cap 2 tablets by Charles D. s mouth twice a Willy, - day for 14 Omeprazole 11/13 Hx Capsules 40mg 30cap 1 cap by mouth Angela DR díaz daily 30 L. - minutes before [place] 04/08 breakfast , Atorvastatin 00 Hx Tablets 80mg Take 1 tablet Unknown Calcium /0000 every day by - oral route for 11/06 90 days. Brilinta Hx Tablets 90mg 90 mg by oral Unknown /0000 route. - 11/06 Chlorhexidine 00 Hx Solution 0.12% chlorhexidine Unknown Gluconate Oral /0000 gluconate 0.12 Rinse - % mouthwash 11/06 Clopidogrel Hx Tablets 75mg clopidogrel 75 Unknown Bisulfate /0000 mg tablet - 11/06 Lisinopril 00 Hx Tablets 5mg lisinopril 5 Unknown /0000 mg tablet - 11/06 Losartan 0000 Hx Tablets 25mg Take 1 tablet Unknown Potassium /0000 every day by - oral route for 11/06 30 days. Tresiba Hx Solution 200Unit/M Inject 45 Unknown Flextouch /0000 Pen-Injec L units every - t day by 11/06 route for 30 days. Immunizations Description No Information Available Vital Signs Date Vital Result Comment 09/18/2018 8:29am Height 66 inches 5'6" Weight 235.00 lb BP Systolic 142 mmHg BP Diastolic 93 mmHg Heart Rate 76 /min BMI (Body Mass Index) 37.9 kg/m2 04/02/2018 1:00pm Height 66 inches 5'6" Weight 234.00 lb BP Systolic 146 mmHg BP Diastolic 88 mmHg Heart Rate 80 /min BMI (Body Mass Index) 37.8 kg/m2 11/06/2017 8:49am Height 66 inches 5'6" Weight 232.00 lb BP Systolic 141 mmHg BP Diastolic 81 mmHg Heart Rate 82 /min BMI (Body Mass Index) 37.4 kg/m2 Results Test Date Facility Test Result H/L Range Note Laboratory test [facility] Surgical SEE RESULT 1, 2 finding 8 [address] Laboratory test [facility] Clotest SEE RESULT 3, 4 finding 8 BELOW Hemoglobin N2N/CCD Import HbA1c 9.6 % A1c/Hemoglobin.tot 8 al in Blood Glucose N2N/CCD Import Blood Glucose: 180 [Mass/volume] in 8 mg/dl Capillary blood Laboratory test N2N/CCD Import activated 33.3 seconds 26.0- 36.3 finding 8 partial thrombo time Creatine kinase N2N/CCD Import creatine 236 U/L High 10-223 [Enzymatic 8 kinase activity/volume] in Ser Comprehensive N2N/CCD Import Alt 41 U/L 7-52 metabolic 2000 8 panel - Serum or Plas Ast 31 U/L 13-39 BUN/creatinine ratio 14.1 8-20 Co2 carbon dioxide 22 mmol/L 22-32 albumin 3.5 g/dL 3.2-5.2 albumin/globulin ratio 0.9 Low 1-3 alkaline phosphatase 51 U/L 34-104 anion gap 10 mmol/L 2-11 blood urea nitrogen 12 mg/dL 6-24 calcium 9.1 mg/dL 8.6-10.3 chloride 103 mmol/L 101-111 creatinine 0.85 mg/dL 0.67-1.17 eGFR 123.7 >60 eGFR non- 96.2 >60 globulin 3.7 g/dL 2-4 glucose 233 mg/dL High 70-100 potassium 3.6 mmol/L 3.5-5.0 sodium 135 mmol/L 133-145 total bilirubin 0.40 mg/dL 0.2-1.0 total protein 7.2 g/dL 6.4-8.9 CBC W Auto Differential 09/28/2017 N2N/CCD Import abs basophils 0.1 10_3/ uL 0-0.2 panel - Blood abs eosinophils 0.3 10_3/uL 0-0.6 abs lymphocytes 2.8 10_3/uL 1.0-4.8 abs monocytes 0.5 10_3/uL 0-0.8 abs neutrophils 3.0 10_3/uL 1.5-7.7 abs nucleated RBC 0 10_3/uL basophil % 0.8 % 0-2 eosinophil % 3.9 % 0-6 granulocyte % 44.7 % 38-83 hematocrit 42 % 42-52 hemoglobin 13.8 g/dL Low 14.0-18.0 lymphocyte % 42.5 % 25-47 mean corpuscular HGB conc 33 g/dL 31-36 mean corpuscular hemoglobin 27 pg 27-31 mean corpuscular volume 84 fL 80-94 mean platelet volume 8 um3 7.4-10.4 monocyte % 8.1 % High 0-7 nucleated red blood cells % 0.1 platelet count 268 10_3/uL 150-450 red blood count 5.03 10_6/uL 4.0-5.4 red cell distribution width 14 % 10.5-15 white blood count 6.7 10_3/uL 3.5-10.8 Laboratory test 09/28/2017 N2N/Kno Import troponin I 0.00 NG/mL <0.04 finding Laboratory test 09/28/2017 N2N/Kno Import TSH (thyroid 1.90 0.34-5.60 finding stimulating horm) mciu/mL Laboratory test 09/28/2017 N2N/Kno Import B type natriuretic 21 pg/mL finding peptide CKMB NG/mL 2.1 NG/mL 0.6-6.3 Laboratory test 09/28/2017 N2N/Kno Import myoglobin 34.8 NG/mL 17.4- 105.7 finding Laboratory test 09/28/2017 N2N/Kno Import troponin I 0.00 NG/mL <0.04 finding Glucose 09/13/2017 N2N/CCD Import Blood Glucose: 146 [Mass/volume] in mg/dl Capillary blood Glucose 06/14/2017 N2N/CCD Import point of care 178 mg/dL High 70-100 [Mass/volume] in glucose Capillary blood Glucose 06/14/2017 N2N/CCD Import point of care 154 mg/dL High 70-100 [Mass/volume] in glucose Capillary blood Laboratory test 06/14/2017 N2N/Kno Import hemoglobin A1c 9.2 % High 4.0- 5.6 finding Lipid 1996 panel 06/14/2017 N2N/CCD Import HDL cholesterol 43.0 mg/dL - Serum or Plasma LDL cholesterol 49 mg/dL cholesterol 112 mg/dL triglycerides 98 mg/dL Glucose 06/13/2017 N2N/CCD Import point of care 188 mg/dL High 70-100 [Mass/volume] in glucose Capillary blood Laboratory test 06/13/2017 N2N/CCD Import troponin I 0.01 NG/mL <0.04 finding Glucose 06/13/2017 N2N/CCD Import point of care 97 mg/dL 70-100 [Mass/volume] in glucose Capillary blood Laboratory test 06/13/2017 N2N/CCD Import troponin I 0.00 NG/mL <0.04 finding Laboratory test 06/13/2017 N2N/CCD Import troponin I 0.00 NG/mL <0.04 finding Comprehensive 06/13/2017 N2N/CCD Import Alt 56 U/L High 7-52 metabolic 2000 panel - Serum or Plas Ast 38 U/L 13-39 BUN/creatinine ratio 12.6 8-20 Co2 carbon dioxide 24 mmol/L 22-32 albumin 3.7 g/dL 3.2-5.2 albumin/globulin ratio 1.0 1-3 alkaline phosphatase 52 U/L 34-104 anion gap 7 mmol/L 2-11 blood urea nitrogen 12 mg/dL 6-24 calcium 9.4 mg/dL 8.6-10.3 chloride 106 mmol/L 101-111 creatinine 0.95 mg/dL 0.67-1.17 eGFR 108.8 >60 eGFR non- 84.6 >60 globulin 3.8 g/dL 2-4 glucose 89 mg/dL 70-100 potassium 4.0 mmol/L 3.5-5.0 sodium 137 mmol/L 133-145 total bilirubin 0.40 mg/dL 0.2-1.0 total protein 7.5 g/dL 6.4-8.9 Laboratory test 06/13/2017 N2N/CCD Import lactic acid 1.0 mmol/L 0.5- 2.0 finding CBC W Auto 06/13/2017 N2N/CCD Import abs basophils 0.1 10_3/uL 0-0.2 Differential panel - Blood abs eosinophils 0.3 10_3/uL 0-0.6 abs lymphocytes 3.1 10_3/uL 1.0-4.8 abs monocytes 0.8 10_3/uL 0-0.8 abs neutrophils 2.9 10_3/uL 1.5-7.7 abs nucleated RBC 0 10_3/uL basophil % 1.3 % 0-2 eosinophil % 4.7 % 0-6 granulocyte % 39.9 % 38-83 hematocrit 44 % 42-52 hemoglobin 14.0 g/dL 14.0-18.0 lymphocyte % 43.0 % 25-47 mean corpuscular HGB conc 32 g/dL 31-36 mean corpuscular hemoglobin 27 pg 27-31 mean corpuscular volume 85 fL 80-94 mean platelet volume 7 um3 Low 7.4-10.4 monocyte % 11.1 % High 1-9 nucleated red blood cells % 0.1 platelet count 277 10_3/uL 150-450 red blood count 5.12 10_6/uL 4.0-5.4 red cell distribution width 14 % 10.5-15 white blood count 7.3 10_3/uL 3.5-10.8 1 [id number] SEE RESULT BELOW Name: MICHAEL POWERS : [address]: Crystal Barakat DO Acct: [id number] Unit: [id number] AGE: 47 Location: [facility] Re11/13/17 SEX: M Status: DEP REF SPEC: [id number] PEDRO: 11/13/17- [facility] DR: Crystal Barakat DO REQ: [id number] RECD: 11/13/171602 STATUS: LIMA WALTERS DR: Joaquín Camarena MD PC _ ORDERED: LEVEL 4 COMMENTS: [id number] FINAL DIAGNOSIS Esophagus, distal, biopsy: -- Columnar-type [...] 1102 END OF REPORT DEPARTMENT OF PATHOLOGY, [address] [place] [address] Anthony Dumas M.D. Director [facility] # [id number] SEE RESULT BELOW Name: MICHAEL POWERS : [address]: Crystal Barakat DO Acct: [id number] Unit: [id number] AGE: 47 Location: [facility] Re11/13/17 SEX: M Status: DEP REF SPEC: [id number] PEDRO: 11/13/17- SUBM DR: Crystal Barakat DO REQ: [id number] RECD: 11/13/17 STATUS: LIMA WALTERS DR: Joaquín Camarena MD PC _ ORDERED: LEVEL 4 COMMENTS: [id number] FINAL DIAGNOSIS Esophagus, distal, biopsy: -- Columnar-type [...] 1102 END OF REPORT DEPARTMENT OF PATHOLOGY, [address] [place] [address] Anthony Dumas M.D. Director [facility] # [id number] SEE RESULT BELOW Name: MICHAEL POWERS : [address]: Crystal Barakat DO Acct: [id number] Unit: [id number] AGE: 47 Location: [facility] Re11/13/17 SEX: M Status: DEP REF SPEC: [id number] PEDRO: 11/13/17- SUBM DR: Crystal Barakat DO REQ: [id number] RECD: 11/13/17 STATUS: LIMA WALTERS DR: Joaquín Camarena MD PC _ ORDERED: LEVEL 4, SPEC STAIN ORG COMMENTS: [id number] A GMS stain, with appropriately reacting controls, [...] 1102 END OF REPORT DEPARTMENT OF PATHOLOGY, [address] [place] [address] Anthony Dumas M.D. Director [facility] # [id number] SEE RESULT BELOW Name: MICHAEL POWERS : [address]: Crystal Barakat DO Acct: [id number] Unit: [id number] AGE: 47 Location: [facility] Re11/13/17 SEX: M Status: DEP REF SPEC: [id number] PEDRO: 11/13/17- SUBM DR: Crystal Barakat DO REQ: [id number] RECD: 11/13/17 STATUS: LIMA WALTERS DR: Joaquín Camarena MD PC _ ORDERED: LEVEL 4, SPEC STAIN ORG COMMENTS: [id number] A GMS stain, with appropriately reacting controls, [...] 1102 END OF REPORT DEPARTMENT OF PATHOLOGY, [address] [place] [address] Anthony Dumas M.D. Director [facility] # [id number] SEE RESULT BELOW Name: MICHAEL POWERS : [address]: Crystal Barakat DO Acct: [id number] Unit: [id number] AGE: 47 Location: [facility] Re11/13/17 SEX: M Status: DEP REF SPEC: [id number] PEDRO: 11/13/17-0 [facility] [address]: Crystal Barakat DO REQ: [id number] RECD: 11/13/17351 STATUS: GWENDOLYN WALTERS DR: Joaquín Camarena MD PC _ SOURCE: GAS ANTRUM SPDESC: ORDERED: Clotest COMMENTS: [id number] Procedure Result Reported Site Clotest Final 11/13/17- 1619 ML Clotest Positive * ML - Main Lab . END OF REPORT DEPARTMENT OF PATHOLOGY, [address] [place] [address] Anthony Dumas M.D. Director [facility] # [id number] SEE RESULT BELOW Name: MICHAEL POWERS : [address]: Crystal Barakat DO Acct: [id number] Unit: [id number] AGE: 47 Location: [facility] Re11/13/17 SEX: M Status: DEP REF SPEC: [id number] PEDRO: 11/13/17-[address]: Crystal Barakat DO REQ: [id number] RECD: 11/13/172057 STATUS: GWENDOLYN WALTERS DR: Joaquín Camarena MD PC _ SOURCE: GAS ANTRUM SPDESC: ORDERED: Clotest COMMENTS: [id number] Procedure Result Reported Site Clotest Final 11/13/17- 7412 ML Clotest Positive * ML - Main Lab . END OF REPORT DEPARTMENT OF PATHOLOGY, [address] [place] [address] Anthony Dumas M.D. Director [facility] # [id number] SEE RESULT BELOW Name: MICHAEL POWERS : [address]: Crystal Barakat DO Acct: [id number] Unit: [id number] AGE: 47 Location: [facility] Re11/13/17 SEX: M Status: DEP REF SPEC: [id number] PEDRO: 11/13/17-[address] [facility] [address]: Crystal Barakat DO REQ: [id number] RECD: 11/13/17 STATUS: COMP OTHR DR: Joaquín Camarena MD PC _ SOURCE: GAS ANTRUM SPDESC: ORDERED: Clotest COMMENTS: [id number] Procedure Result Reported Site Clotest Final 11/14/17810 ML Clotest Positive * - [facility] . END OF REPORT DEPARTMENT OF PATHOLOGY, [address] [place] [address] Anthony Dumas M.D. Director [facility] # [id number] SEE RESULT BELOW Name: MICHAEL POWERS : [address]: Crystal Barakat DO Acct: [id number] Unit: [id number] AGE: 47 Location: [facility] Re11/13/17 SEX: M Status: DEP REF SPEC: [id number] PEDRO: 11/13/17-[address] [facility] [address]: Crystal Barakat DO REQ: [id number] RECD: 11/13/175551 STATUS: COMP ROMEO DR: Joaquín Camarena MD PC _ SOURCE: GAS ANTRUM SPDESC: ORDERED: Clotest COMMENTS: [id number] Procedure Result Reported Site Clotest Final 11/14/17- 0811 ML Clotest Positive * ML - Main Lab . END OF REPORT DEPARTMENT OF PATHOLOGY, [address] [place] [address] Anthony Dumas M.D. Director [facility] # [id number] Procedures Description No Information Available Encounters Type Date Location Provider Dx Diagnosis Office Visit 04/02/2018 Gastroenterdarlyn Quintero R07.89 Other chest pain 1:00p Romelia bain [place] JOYCELYN Beaulieu B96.81 Helicobacter pylori as the cause of diseases classd elswhr Office Visit 11/06/2017 Gastroenterdarlyn Quintero R07.89 Other chest 10:00a Shon Beaulieu PA-C pain R10.11 Right upper quadrant pain Plan of Treatment No Information Available
--- NOTE | 2018-09-30 00:57 | ED ---
HPI Febrile Illness - HPI Summary HPI Summary: This patient is a 48 year old M presenting to [facility] with a chief complaint of fever (max 99.9) that began yesterday. The patient rates the pain 7/10 in severity. Symptoms aggravated by nothing. Symptoms alleviated by nothing. Patient reports cough, sore throat, and CP (with cough). Patient states he has been unable to take any of his medications, as his has his medications and they are no longer together. - History of Current Complaint Chief Complaint: EDUpperRespComplaint Time Seen by Provider: 09/30/18 00:29 Hx Obtained From: Patient Onset/Duration: Started Days Ago, Atraumatic, Still Present Timing: Constant Initial Severity: Moderate Current Severity: Moderate Pain Intensity: 7 Pain Scale Used: 0-10 Numeric Aggravating Factors: Nothing Alleviating Factors: Nothing Associated Signs and Symptoms: Other: - Positive cough, sore throat, and CP ( with cough) - Additional Pertinent History Primary Care Physician: BASHIR - Allergy/Home Medications Allergies/Adverse Reactions: Allergies Allergy/AdvReac Type Severity Reaction Status Date / Time fentanyl Allergy Hallucinati Verified 09/29/18 22:30 ons lisinopril Allergy Unknown Verified 09/29/18 22:30 Reaction Details shellfish derived Allergy Unknown Verified 09/29/18 22:30 Reaction Details IV CONTRAST Allergy Hives Uncoded 09/29/18 22:30 PMH/Surg Hx/FS Hx/Imm Hx Previously Healthy: No Endocrine/Hematology History: Reports: Hx Diabetes Denies: Hx Thyroid Disease Cardiovascular History: Reports: Hx Angina, Hx Coronary Artery Disease, Hx Hypercholesterolemia, Hx Hypertension, Hx Myocardial Infarction - Jun 2016, Other Cardiovascular Problems/Disorders - Current admission for chest pain Denies: Hx Pacemaker/ICD Respiratory History: Reports: Hx Asthma - SEASONAL Denies: Hx Chronic Obstructive Pulmonary Disease (COPD), Other Respiratory Problems/Disorders GI History: Denies: Hx Ulcer History: Denies: Hx Renal Disease Musculoskeletal History: Reports: Other Musculoskeletal History - Lt wrist pain of unknown origin Denies: Hx Arthritis, Hx Osteoporosis Sensory History: Reports: Hx Contacts or Glasses Denies: Hx Hearing Aid Opthamlomology History: Reports: Hx Contacts or Glasses Neurological History: Denies: Hx Peripheral Neuropathy Psychiatric History: Denies: Hx Panic Disorder - Cancer History Cancer Type, Location and Year: none - Surgical History Surgery Procedure, Year, and Place: appendectomy. stent placed June 2016 after heart attack Hx Anesthesia Reactions: No - Immunization History Date of Tetanus Vaccine: unk Date of Influenza Vaccine: none Infectious Disease History: No Infectious Disease History: Denies: Hx Clostridium Difficile, Hx Hepatitis, Hx Human Immunodeficiency Virus (HIV), Hx of Known/Suspected MRSA, Hx Shingles, Hx Tuberculosis, Hx Known/ Suspected VRE, Hx Known/Suspected VRSA, History Other Infectious Disease, Traveled Outside the [place] in Last 30 Days - Family History Known Family History: Positive: Cardiac Disease, Hypertension, Diabetes - Social History Occupation: Employed Full-time Lives: Alone Alcohol Use: Occasionally Alcohol Amount: 2-3 beers per week Hx Substance Use: Yes Substance Use Type: Reports: None Substance Use Comment - Amount & Last Used: OCCASIONALLY Hx Tobacco Use: Yes Smoking Status (MU): Former Smoker Type: Cigarettes Amount Used/How Often: 2 Have You Smoked in the Last Year: Yes Review of Systems Positive: Fever Positive: Sore Throat Positive: Chest Pain Positive: Cough All Other Systems Reviewed And Are Negative: Yes Physical Exam - Summary Physical Exam Summary: VITAL SIGNS: Reviewed. GENERAL: Patient is a well-developed and nourished male who is lying comfortable in the stretcher. Patient is not in any acute respiratory distress. HEAD AND FACE: No signs of trauma. No ecchymosis, hematomas or skull depressions. No sinus tenderness. EYES: PERRLA, EOMI x 2, No injected conjunctiva, no nystagmus. EARS: Hearing grossly intact. Ear canals and tympanic membranes are within normal limits. MOUTH: Oropharynx within normal limits. NECK: Supple, trachea is midline, no adenopathy, no JVD, no carotid bruit, no c- spine tenderness, neck with full ROM. CHEST: Symmetric, no tenderness at palpation LUNGS: Clear to auscultation bilaterally. No wheezing or crackles. CVS: Regular rate and rhythm, S1 and S2 present, no murmurs or gallops appreciated. ABDOMEN: Soft, non-tender. No signs of distention. No rebound no guarding, and no masses palpated. Bowel sounds are normal. EXTREMITIES: FROM in all major joints, no edema, no cyanosis or clubbing. NEURO: Alert and oriented x 3. No acute neurological deficits. Speech is normal and follows commands. SKIN: Dry and warm Triage Information Reviewed: Yes Vital Signs On Initial Exam: Initial Vitals Temp Pulse Resp BP Pulse Ox 99.1 F 95 16 168/103 97 09/29/18 22:26 09/29/18 22:26 09/29/18 22:26 09/29/18 22:26 09/29/18 22:26 Vital Signs Reviewed: Yes Diagnostics - Vital Signs Vital Signs Temp Pulse Resp BP Pulse Ox 09/29/18 22:26 99.1 F 95 16 168/103 97 - Laboratory Lab Statement: Any lab studies that have been ordered have been reviewed, and results considered in the medical decision making process. - Radiology Chest XR Radiology Interpretation Completed By: ED Physician Summary of Radiographic Findings: CXR reveals, per ED physician, no acute disease. Course/Dx - Course Course Of Treatment: This patient is a 48 year old M presenting to [facility] with a chief complaint of fever (max 99.9) that began yesterday. Physical Exam Findings : Nml. CXR reveals, per ED physician, no acute disease. In the ED course the patient was given Ibuprofen. Patient will be discharged with follow up from PCP. The patient is agreeable with this plan. - Diagnoses Provider Diagnoses: Viral syndrome Discharge - Sign-Out/Discharge Documenting (check all that apply): Patient Departure - Discharge home Patient Received Moderate/Deep Sedation with Procedure: No - Discharge Plan Condition: Stable Disposition: HOME Patient Education Materials: Viral Syndrome (ED) Referrals: Nancie Camarena MD [Primary Care Provider] - Additional Instructions: TAKE TYLENOL NEEDED RETURN TO THE EMERGENCY DEPARTMENT FOR NEW OR WORSENING SYMPTOMS - Billing Disposition and Condition Condition: STABLE Disposition: Home - Attestation Statements Document Initiated by Neetuibe: Yes Documenting Scribe: Joaquina Maria Provider For Whom Kisha is Documenting (Include Credential): Dr. Katey Ferrara MD Scribe Attestation: Joaquina Griffin scribed for Dr. Katey Ferrara MD on 09/30/18 at 0627. Scribe Documentation Reviewed: Yes Provider Attestation: The documentation as recorded by the Joaquina melton accurately reflects the service I personally performed and the decisions made by me, Dr. Katey Ferrara MD Status of Scribe Document: Viewed
[2018-09-30] MEDS ORDERED: Ibuprofen TAB* 400 MG PO ONE (01:12)
[2018-09-30 02:55] LABS: Influenza A Molecular NEGATIVE (Negative); Influenza B Molecular NEGATIVE (Negative)
[2018-09-30 03:33] VITALS: BP 142/83
== END 2018-09-30 03:33 | disposition home or self-care (01) ==
LOC: ED 22:23
DX: B34.9 Viral infection, unspecified (principal); I25.119 Atherosclerotic heart disease of native coronary artery with unspecified angina pectoris; I25.2 Old myocardial infarction; I10 Essential (primary) hypertension; Z95.5 Presence of coronary angioplasty implant and graft; Z88.8 Allergy status to other drugs, medicaments and biological substances; Z91.041 Radiographic dye allergy status; Z88.5 Allergy status to narcotic agent; Z91.013 Allergy to seafood; Z82.49 Family history of ischemic heart disease and other diseases of the circulatory system; Z83.3 Family history of diabetes mellitus; Z87.891 Personal history of nicotine dependence
CPT/HCPCS: 36415; 71046; 86703; 87651; 99283; A9270-GY

== ENCOUNTER 2018-12-04 17:19 | Emergency (ER) | payer OTHER ==
[2018-12-04] MEDS ORDERED: Aspirin 81 mg CHEW TAB* 81 MG TAB.CHEW PO ONE (17:30)
--- NOTE | 2018-12-04 18:00 | ED ---
HPI Chest Pain - HPI Summary HPI Summary: The patient is a 48 y/o M presenting to [facility] with a chief complaint of sudden onset stabbing, sharp right-sided CP starting at 1630 tonight. He states he was watching TV when the pain started. He additionally c/o SOB and dizziness that is similar to a syncopal episode. The pain is currently rated 5/10 in severity, and deep breathing aggravates the pain. The pain he is currently having is similar to the pain he had during his [place] three years ago, and stents were placed. Last stress test in July 2018. - History of Current Complaint Chief Complaint: EDChestPainROMI Time Seen by Provider: 12/04/18 17:29 Hx Obtained From: Patient Onset/Duration: Started Hours Ago - at 1630 Timing: Lasting Hours Initial Severity: Severe Current Severity: Moderate Pain Intensity: 5 Pain Scale Used: 0-10 Numeric Chest Pain Location: Right Anterior Chest Pain Radiates: No Character: Sharp/Stabbing Aggravating Factor(s): Deep Breaths Alleviating Factor(s): Nothing Associated Signs and Symptoms: Positive: Chest Pain, Dizziness, Shortness of Breath - Additional Pertinent History Primary Care Physician: BASHIR - Allergy/Home Medications Allergies/Adverse Reactions: Allergies Allergy/AdvReac Type Severity Reaction Status Date / Time fentanyl Allergy Hallucinati Verified 12/04/18 17:49 ons lisinopril Allergy Unknown Verified 12/04/18 17:49 Reaction Details shellfish derived Allergy Unknown Verified 12/04/18 17:49 Reaction Details IV CONTRAST Allergy Hives Uncoded 09/29/18 22:30 PMH/Surg Hx/FS Hx/Imm Hx Endocrine/Hematology History: Reports: Hx Diabetes Denies: Hx Thyroid Disease Cardiovascular History: Reports: Hx Angina, Hx Coronary Artery Disease, Hx Hypercholesterolemia, Hx Hypertension, Hx Myocardial Infarction - Jun 2016, Other Cardiovascular Problems/Disorders - Current admission for chest pain Denies: Hx Pacemaker/ICD Respiratory History: Reports: Hx Asthma - SEASONAL Denies: Hx Chronic Obstructive Pulmonary Disease (COPD), Other Respiratory Problems/Disorders GI History: Denies: Hx Ulcer History: Denies: Hx Renal Disease Musculoskeletal History: Reports: Other Musculoskeletal History - Lt wrist pain of unknown origin Denies: Hx Arthritis, Hx Osteoporosis Sensory History: Reports: Hx Contacts or Glasses Denies: Hx Hearing Aid Opthamlomology History: Reports: Hx Contacts or Glasses Neurological History: Denies: Hx Peripheral Neuropathy Psychiatric History: Denies: Hx Panic Disorder - Cancer History Cancer Type, Location and Year: none - Surgical History Surgery Procedure, Year, and Place: appendectomy. stent placed June 2016 after heart attack Hx Anesthesia Reactions: No - Immunization History Date of Tetanus Vaccine: unk Date of Influenza Vaccine: none Infectious Disease History: No Infectious Disease History: Denies: Hx Clostridium Difficile, Hx Hepatitis, Hx Human Immunodeficiency Virus (HIV), Hx of Known/Suspected MRSA, Hx Shingles, Hx Tuberculosis, Hx Known/ Suspected VRE, Hx Known/Suspected VRSA, History Other Infectious Disease, Traveled Outside the [place] in Last 30 Days - Family History Known Family History: Positive: Cardiac Disease, Hypertension, Diabetes - Social History Alcohol Use: Occasionally Alcohol Amount: 2-3 beers per week Hx Substance Use: Yes Substance Use Type: Reports: None Substance Use Comment - Amount & Last Used: OCCASIONALLY Hx Tobacco Use: Yes Smoking Status (MU): Former Smoker Type: Cigarettes Amount Used/How Often: 2 Have You Smoked in the Last Year: Yes Review of Systems Positive: Chest Pain - stabbing Positive: Shortness Of Breath Neurological: Other - dizziness, near syncope All Other Systems Reviewed And Are Negative: Yes Physical Exam - Summary Physical Exam Summary: VITAL SIGNS: Reviewed. GENERAL: Patient is a well-developed and nourished male who is lying comfortable in the stretcher. Patient is not in any acute respiratory distress. HEAD AND FACE: No signs of trauma. No ecchymosis, hematomas or skull depressions. No sinus tenderness. EYES: PERRLA, EOMI x 2, No injected conjunctiva, no nystagmus. EARS: Hearing grossly intact. Ear canals and tympanic membranes are within normal limits. MOUTH: Oropharynx within normal limits. NECK: Supple, trachea is midline, no adenopathy, no JVD, no carotid bruit, no c- spine tenderness, neck with full ROM. CHEST: Symmetric, no tenderness at palpation LUNGS: Clear to auscultation bilaterally. No wheezing or crackles. CVS: Regular rate and rhythm, S1 and S2 present, no murmurs or gallops appreciated. ABDOMEN: Soft, non-tender. No signs of distention. No rebound no guarding, and no masses palpated. Bowel sounds are normal. EXTREMITIES: FROM in all major joints, no edema, no cyanosis or clubbing. NEURO: Alert and oriented x 3. No acute neurological deficits. Speech is normal and follows commands. SKIN: Dry and warm Triage Information Reviewed: Yes Vital Signs On Initial Exam: Initial Vitals Temp Pulse Resp BP Pulse Ox 98.4 F 70 18 153/89 97 12/04/18 17:24 12/04/18 17:24 12/04/18 17:24 12/04/18 17:24 12/04/18 17:24 Vital Signs Reviewed: Yes Diagnostics - Vital Signs Vital Signs Temp Pulse Resp BP Pulse Ox 12/04/18 17:24 98.4 F 70 18 153/89 97 - Laboratory Result Diagrams: 12/04/18 18:02 12/04/18 18:02 Lab Statement: Any lab studies that have been ordered have been reviewed, and results considered in the medical decision making process. - Radiology CXR Radiology Interpretation Completed By: Radiologist Summary of Radiographic Findings: No evidence for active cardiopulmonary disease. ED physician has reviewed this report. - EKG 17:28 Cardiac Rate: NL - 65 BPM EKG Rhythm: Sinus Rhythm EKG Comparison: No Significant Change - Similar to 05/20/18 Summary of EKG Findings: Nml axis, no ST elevations Re-Evaluation - Re-Evaluation First Eval Re-Evaluation Time: 21:00 Change: Improved Comment: We discussed findings and discharge home. Chest Pain Course/Dx - Course Assessment/Plan: The patient is a 48 y/o M presenting to [facility] with a chief complaint of sudden onset stabbing, sharp right-sided CP starting at 1630 tonight. He states he was watching TV when the pain started. He additionally c/ o SOB and dizziness that is similar to a syncopal episode. The pain is currently rated 5/10 in severity, and deep breathing aggravates the pain. The pain he is currently having is similar to the pain he had during his [place] three years ago, and stents were placed. Last stress test in July 2018. Past medical history significant for diabetes, hypertension, GERD, CAD, insulin- dependent diabetes, and STEMI. Patient was placed in a knockdown worker and IV access was obtained. The patient was given aspirin for EMS. Blood test results without significant abnormality except for hemoglobin 13.1, hematocrit of 41, glucose 169 medication and 0.6. Troponin 0.00. The patient was given magnesium for the hypomagnesemia. Second troponin 0.01. Patient continues to be asymptomatic. Therefore he will be discharged home with follow-up with primary care physician. The heart score is equal to 3 therefore is low suspicion for acute cardiomyopathy syndrome. The patient was instructed to return to the emergency department the patient develops more chest pain, shortness of breath, dizziness, diaphoresis, or any other symptom. The patient understands and agrees. I discussed all the findings and test results with the patient. Patient was instructed to return to the emergency room immediately if any of the symptoms return worsens. Plan of care was discussed with the patient and understands and agrees. All questions were answered at patient satisfaction. There were no further complaints or concerns. Lung exam before discharge: CTA B/ L. Good air exchange. No wheezing or crackles heard. CVS: S1 and S2 present. No murmurs appreciated. Patient is alert and oriented x 3. Patient is hemodynamically stable. Patient will be discharged home with follow up PCP in the next 2-3 days. - Chest Pain Differential Diagnosis/HQI/PQRI: Acute [place], ACS, Angina, CHF, Chest Wall, GI Disease, Lower Respiratory Infection - Diagnoses Provider Diagnoses: Atypical chest pain Discharge - Sign-Out/Discharge Documenting (check all that apply): Patient Departure - Patient will be discharged home. Patient Received Moderate/Deep Sedation with Procedure: No - Discharge Plan Condition: Stable Disposition: HOME Patient Education Materials: Chest Pain (DC) Referrals: Nancie Camarena MD [Primary Care Provider] - 3 Days Additional Instructions: FOLLOW UP WITH YOUR PRIMARY CARE PROVIDER WITHIN ONE WEEK. RETURN TO THE ED FOR ANY WORSENING OR NEW SYMPTOMS. - Billing Disposition and Condition Condition: STABLE Disposition: Home - Attestation Statements Document Initiated by Kisha: Yes Documenting Scribe: Courtney Reid Provider For Whom Kisha is Documenting (Include Credential): Dr. Ankit Tai MD Scribe Attestation: Courtney Griffin scribed for Dr. Ankit Tai MD on 12/05/18 at 2131. Scribe Documentation Reviewed: Yes Provider Attestation: The documentation as recorded by the Courtney melton accurately reflects the service I personally performed and the decisions made by me, Dr. Ankit Tai MD Status of Scribe Document: Viewed
[2018-12-04 18:21] LABS: ABS Basophils 0.1 10^3/ul (0-0.2); ABS Eosinophils 0.3 10^3/ul (0-0.6); ABS Lymphocytes 2.9 10^3/ul (1.0-4.8); ABS Monocytes 0.6 10^3/ul (0-0.8); ABS Neutrophils 2.5 10^3/ul (1.5-7.7); Eosinophil % 5.1 %; Hematocrit 41 % (42-52); Hemoglobin 13.1 g/dL (14.0-18.0); Lymphocyte % 46.2 %; Mean Corpuscular HGB Conc 32 g/dL (31-36); Mean Corpuscular Hemoglobin 27 pg (27-31); Mean Corpuscular Volume 84 fL (80-94); Mean Platelet Volume 7.3 fL (7.4-10.4); Nucleated Red Blood Cells % 0.1; Platelet Count 292 10^3/uL (150-450); Red Blood Count 4.82 10^6 /uL (4.18-5.48); Red Cell Distribution Width 14 % (10.5-15); White Blood Count 6.4 10^3/uL (3.5-10.8)
[2018-12-04 18:34] LABS: Albumin 3.7 g/dL (3.2-5.2); Albumin/Globulin Ratio 1.1 (1-3); Calcium 9.1 mg/dL (8.6-10.3); EGFR African American 120.8 (>60); EGFR Non-African American 99.9 (>60); Globulin 3.5 g/dL (2-4); Magnesium 1.6 mg/dL (1.9-2.7); Total Bilirubin 0.3 mg/dL (0.2-1.0); Total Protein 7.2 g/dL (6.4-8.9)
[2018-12-04 18:37] LABS: CKMB ng/mL 1.1 ng/mL (0.6-6.3)
[2018-12-04 19:01] LABS: TSH (Thyroid Stimulating Horm) 1.41 mcIU/mL (0.34-5.60)
[2018-12-04] MEDS ORDERED: Magnesium Oxide TAB* 400 MG PO ONE (19:48)
[2018-12-04] MEDS ORDERED: Acetaminophen TAB* 325 MG PO ONE (19:49)
[2018-12-04 21:37] VITALS: BP 161/97
== END 2018-12-04 21:37 | disposition home or self-care (01) ==
LOC: ED 17:19
DX: R07.89 Other chest pain (principal); R06.02 Shortness of breath; R42 Dizziness and giddiness; E11.9 Type 2 diabetes mellitus without complications; Z79.4 Long term (current) use of insulin; Z95.5 Presence of coronary angioplasty implant and graft; Z88.8 Allergy status to other drugs, medicaments and biological substances; Z91.041 Radiographic dye allergy status; Z88.5 Allergy status to narcotic agent; Z91.013 Allergy to seafood; Z82.49 Family history of ischemic heart disease and other diseases of the circulatory system; Z83.3 Family history of diabetes mellitus; Z87.891 Personal history of nicotine dependence
CPT/HCPCS: 36415; 71045; 80053; 82550; 82553; 83605; 83735; 83880; 84443; 84484; 85025; 85730; 93005; 99283; A9270-GY

== ENCOUNTER 2019-02-03 16:41 | Emergency (ER) | payer OTHER ==
--- NOTE | 2019-02-03 17:02 | ED ---
HPI Chest Pain - HPI Summary HPI Summary: This pt is a 48 y/o male presenting to [facility] via EMS c/o right sided chest pain today since around 15:40. He reports he was sitting at the library when he suddenly experienced chest pain. He walked over to the gas station and asked the staff to call 911. Pt states his right sided chest pain radiates to his back. Chest pain is aggravated with breathing. Additionally reports SOB but attributes it to his asthma. Denies fever, chills, nausea, abd pain, constipation, difficulty voiding. He notes he had diarrhea all last night. Pt reports he has had pain like this int he past. PMHx includes [place] 3 years ago and cardiac catheterization. He is unsure if he had a cardiac stent placed. He notes he drinks alcohol occasionally. - History of Current Complaint Chief Complaint: EDChestPainROMI Time Seen by Provider: 02/03/19 16:51 Hx Obtained From: Patient Onset/Duration: Started Hours Ago, Still Present Timing: Lasting Hours Current Severity: Moderate Pain Intensity: 5 Pain Scale Used: 0-10 Numeric Chest Pain Location: Right Anterior Chest Pain Radiates: Yes Chest Pain Radiates To:: Back Character: Sharp/Stabbing - Sharp Aggravating Factor(s): Deep Breaths Alleviating Factor(s): Nothing Associated Signs and Symptoms: Positive: Chest Pain, Shortness of Breath - secondary to asthma, Other: - NEGATIVE: constipation, difficulty voiding. POSITIVE: diarrhea. Negative: Fever, Chills, Nausea, Abdominal Pain - Additional Pertinent History Primary Care Physician: [id number] - Allergy/Home Medications Allergies/Adverse Reactions: Allergies Allergy/AdvReac Type Severity Reaction Status Date / Time fentanyl Allergy Hallucinati Verified 02/03/19 16:48 ons lisinopril Allergy Unknown Verified 02/03/19 16:48 Reaction Details shellfish derived Allergy Unknown Verified 02/03/19 16:48 Reaction Details IV CONTRAST Allergy Hives Uncoded 02/03/19 16:48 PMH/Surg Hx/FS Hx/Imm Hx Endocrine/Hematology History: Reports: Hx Diabetes Denies: Hx Thyroid Disease Cardiovascular History: Reports: Hx Angina, Hx Coronary Artery Disease, Hx Hypercholesterolemia, Hx Hypertension, Hx Myocardial Infarction - Jun 2016, Other Cardiovascular Problems/Disorders - Current admission for chest pain Denies: Hx Pacemaker/ICD Respiratory History: Reports: Hx Asthma - SEASONAL Denies: Hx Chronic Obstructive Pulmonary Disease (COPD), Other Respiratory Problems/Disorders GI History: Denies: Hx Ulcer History: Denies: Hx Renal Disease Musculoskeletal History: Reports: Other Musculoskeletal History - Lt wrist pain of unknown origin Denies: Hx Arthritis, Hx Osteoporosis Sensory History: Reports: Hx Contacts or Glasses Denies: Hx Hearing Aid Opthamlomology History: Reports: Hx Contacts or Glasses Neurological History: Denies: Hx Peripheral Neuropathy Psychiatric History: Denies: Hx Panic Disorder - Cancer History Cancer Type, Location and Year: none - Surgical History Surgery Procedure, Year, and Place: appendectomy. stent placed June 2016 after heart attack Hx Anesthesia Reactions: No - Immunization History Date of Tetanus Vaccine: unk Date of Influenza Vaccine: none Infectious Disease History: No Infectious Disease History: Denies: Hx Clostridium Difficile, Hx Hepatitis, Hx Human Immunodeficiency Virus (HIV), Hx of Known/Suspected MRSA, Hx Shingles, Hx Tuberculosis, Hx Known/ Suspected VRE, Hx Known/Suspected VRSA, History Other Infectious Disease, Traveled Outside the [place] in Last 30 Days - Family History Known Family History: Positive: Cardiac Disease, Hypertension, Diabetes - Social History Alcohol Use: Occasionally Alcohol Amount: 2-3 beers per week Hx Substance Use: Yes Substance Use Type: Reports: None Substance Use Comment - Amount & Last Used: OCCASIONALLY Hx Tobacco Use: Yes Smoking Status (MU): Former Smoker Type: Cigarettes Amount Used/How Often: 2 Have You Smoked in the Last Year: Yes Review of Systems Negative: Fever, Chills Positive: Chest Pain Positive: Shortness Of Breath Positive: Diarrhea. Negative: Abdominal Pain, Nausea Positive: no symptoms reported All Other Systems Reviewed And Are Negative: Yes Physical Exam - Summary Physical Exam Summary: Constitutional: Well-developed, Well-nourished, Alert. (-) Distressed Skin: Warm, Dry HENT: Normocephalic; Atraumatic Eyes: Conjunctiva normal Neck: Musculoskeletal ROM normal neck. (-) JVD, (-) Stridor, (-) Tracheal deviation Cardio: Rhythm regular, rate normal, Heart sounds normal; Intact distal pulses; The pedal pulses are 2+ and symmetric. Radial pulses are 2+ and symmetric. (-) Murmur. Reproducible chest wall tenderness on the right. Pulmonary/Chest wall: Effort normal. (-) Respiratory distress, (-) Wheezes, (-) Rales Abd: Soft, (-) tenderness, (-) Distension, (-) Guarding, (-) Rebound Musculoskeletal: (-) Edema Lymph: (-) Cervical adenopathy Neuro: Alert, Oriented x3 Psych: Mood and affect Normal Triage Information Reviewed: Yes Vital Signs On Initial Exam: Initial Vitals Temp Pulse Resp BP Pulse Ox 98.0 F 76 15 162/94 98 02/03/19 16:42 02/03/19 16:42 02/03/19 16:42 02/03/19 16:42 02/03/19 16:42 Vital Signs Reviewed: Yes Diagnostics - Vital Signs Vital Signs Temp Pulse Resp BP Pulse Ox 02/03/19 16:42 98.0 F 76 15 162/94 98 - Laboratory Result Diagrams: 02/03/19 17:19 02/03/19 17:19 Lab Statement: Any lab studies that have been ordered have been reviewed, and results considered in the medical decision making process. - Radiology Chest XR Radiology Interpretation Completed By: Radiologist Summary of Radiographic Findings: IMPRESSION: No active cardiopulmonary disease is noted. Dr. Xiong has reviewed this report. - EKG 16:45 Cardiac Rate: NL - at 76 bpm EKG Rhythm: Sinus Rhythm Summary of EKG Findings: Normal axis. Normal IA. Normal QRS. Normal QTc. STs are elevated in V2, V3, V4. T waves are fine. Nonspecific EKG. Re-Evaluation - Re-Evaluation First Eval Re-Evaluation Time: 18:59 Change: Improved Comment: Pt reports he is chest pain free after nitroglycerin. Chest Pain Course/Dx - Course Assessment/Plan: Pt is a 48 y/o male presenting to [facility] via EMS c/o right sided chest pain today since around 15:40. He reports he was sitting at the library when he suddenly experienced chest pain. Pt states his right sided chest pain radiates to his back. Chest pain is aggravated with breathing. Test results are unremarkable except glucose of 162. D-dimer is negative. First troponin is negative. Chest XR is negative for a cardiopulmonary disease. In the ED course the pt was given nitroglycerin. Pt will be signed out to Dr. Ferrara, pending disposition, awaiting second troponin and CTA chest. - Diagnoses Provider Diagnoses: Chest pain Discharge - Sign-Out/Discharge Documenting (check all that apply): Sign-Out Patient Signing out patient TO: Katey Ferrara - pending second trop and CTA Patient Received Moderate/Deep Sedation with Procedure: No - Discharge Plan Condition: Stable Referrals: Nancie Camarena MD [Primary Care Provider] - - Billing Disposition and Condition Condition: STABLE - Attestation Statements Document Initiated by Scribe: Yes Documenting Scribe: Kasey Soria Provider For Whom Scribe is Documenting (Include Credential): Bee Huynh MD Scribe Attestation: Kasey Griffin, scribed for Bee Parisi MD on 02/03/19 at 1917. Scribe Documentation Reviewed: Yes Provider Attestation: The documentation as recorded by the Kasey melton accurately reflects the service I personally performed and the decisions made by , Bee Parisi MD Status of Scribe Document: Viewed
[2019-02-03 17:33] LABS: INR 1.03 (0.82-1.09)
--- OUTSIDE RECORDS SUMMARY | 2019-02-03 17:35 | XMS REPORT | Continuity of Care Document ---
:1970 External Reference #:[id number] Author Name Angela Beaulieu PA-C Address [address] [place] [address] [place] [address] Care Team Providers Name Role Phone Simeon Moreno NP Care Team Information Die Technician Unavailable Nancie Camarena MD Primary Care Physician Unavailable Payers Date Identification Numbers Payment Provider Subscriber Policy Number: [id number] Barry Powers PayID: [id number] [address] [place] [id number] Problems Active Problems Provider Date Hyperlipidemia Onset: 07/01/2016 Type 2 diabetes mellitus Onset: 06/29/2016 Morbid obesity Onset: 06/29/2016 Essential hypertension Onset: 06/29/2016 Myocardial infarction Onset: 06/28/2016 Diabetes mellitus Onset: 11/15/2015 Helicobacter pylori Angela Beaulieu PA-C Onset: 04/02/2018 Right upper quadrant pain Angela Beaulieu PA-C Onset: 11/06/2017 Chest pain Angela Beaulieu PA-C Onset: 11/06/2017 Social History Type Date Description Comments Sex Unknown Tobacco Use Start: Unknown End: Unknown Patient is a former smoker Smoking Status Reviewed: 01/06/19 Patient is a former smoker Allergies, Adverse Reactions, Alerts Active Allergies Reaction Severity Comments Date Fentanyl 11/06/2017 Lisinopril 11/06/2017 Medications Active Medications SIG Qnty Indications Ordering Date Provider Omeprazole 1 cap by mouth daily 30caps R07.89 Charles D. 01/06/2019 20mg 30 minutes before MD Willy Capsules DR patti Humalog Kwikpen Inject 25 units every Unknown 04/25/2017 day by subcutaneous 100Unit/ML Solution route at dinner for Pen-Inject 30 days. Acetaminophen 650 mg by oral Unknown 06/21/2016 325mg route. Tablets Nitroglycerin 0.4 mg by sublingual Unknown 06/21/2016 0.4mg route. Tablets Sub Aspirin 81 Low Dose Chew 1 tablet every Unknown day by oral route for 81mg Chewtabs 100 days. Metformin HCL Take One Tablet By Unknown 1000mg Mouth Twice A Day Tablets Toprol XL Take 1 tablet every Unknown 25mg day by oral route for Tablets ER 24HR 90 days. Rosuvastatin Calcium rosuvastatin 10 mg Unknown tablet 10mg Tablets Proventil HFA Inhale 2 puffs every Unknown 6 hours by inhalation 108(90Base) mcg/Act route for 30 days. Aerosol Victoza Inject 1.2 mL every Unknown 18mg/3ML day by subcutaneous Solution Pen-Inject route. Trulicity inject subcutaneously Unknown 1.5mg/0.5ML once a week (sample Solution Pen-Inject given) Ranexa Brand, Joaquín 500mg Tablets D, ER 12HR History Medications Omeprazole 1 by mouth twice a 28tabs Hanna 09/18/2018 - 20mg Tablets day X 14 Days MD Kiki 01/06/2019 DR Omeprazole Take One Capsule By 30samantha Quintero 06/11/2018 - 40mg Mouth Every Day 30 JOYCELYN Beaulieu 09/18/[address] Minutes Before Breakfast Omeprazole 1 cap by mouth bid 60caps Angela Quintero 04/08/2018 - 20mg 30 minutes before JOYCELYN Beaulieu 09/17/[address] meals Amoxicillin 2 tabs by mouth 56tabs Charles Aguilera, 04/08/2018 - 500mg twice a day for 14 [place] 01/06/2019 Tablets days Levofloxacin 1 tablet by mouth 14tabs Charles Aguilera, 04/08/2018 - 500mg once daily for 14 [place] 01/06/2019 Tablets days Metronidazole one by mouth two 20tabs Charles Aguilera, 11/22/2017 - 500mg times a day x 10 [place] 04/08/2018 Tablets days Omeprazole Take One Capsule By 30samantha Quintero 11/22/2017 - 40mg Mouth Every Day 30 JOYCELYN Beaulieu 04/08/[address] Minutes Before Breakfast Prevpac use as directed x 14 1units Charles Aguilera, 11/20/2017 - Misc days MD 04/08/2018 Clarithromycin 1 by mouth twice a 28tabs Charles Aguilera, 11/20/2017 - 500mg day x 14 days [place] 04/08/2018 Tablets Amoxicillin 2 tablets by mouth 56caps Charles Aguilera, 11/20/2017 - 500mg twice a day for 14 MD 04/08/2018 Capsules days Omeprazole 1 cap by mouth daily 30caps Angela Ingrid 11/13/2017 - 40mg 30 minutes before JOYCELYN Beaulieu 04/08/[address] breakfast Amlodipine Besylate Take One Tablet By Unknown - 5mg Mouth Every Day 01/06/2019 Tablets Atorvastatin Calcium Take 1 tablet every Unknown - day by oral route 11/06/2017 80mg Tablets for 90 days. Brilinta 90 mg by oral Unknown - 90mg Tablets route. 11/06/2017 Chlorhexidine chlorhexidine Unknown - Gluconate Oral Rinse gluconate 0.12 % 11/06/2017 mouthwash 0.12% Solution Clopidogrel Bisulfate clopidogrel 75 mg Unknown - tablet 11/06/2017 75mg Tablets Lisinopril lisinopril 5 mg Unknown - 5mg Tablets tablet 11/06/2017 Losartan Potassium Take 1 tablet every Unknown - 25mg day by oral route 11/06/2017 Tablets for 30 days. Tresiba Flextouch Inject 45 units Unknown - every day by 11/06/2017 200Unit/ML Solution subcutaneous route Pen-Inject for 30 days. Vital Signs Date Vital Result Comment 01/06/2019 8:42am Height 66 inches 5'6" Weight 218.00 lb BMI (Body Mass Index) 35.2 kg/m2 09/18/2018 8:29am Height 66 inches 5'6" Weight [...] Test Result H/L Range Note Laboratory test [facility] [place] [facility] Surgical SEE RESULT 1, 2 finding 8 Pathology BELOW Laboratory test [facility] Clotest SEE RESULT 3, 4 finding 8 [...] count 6.7 10_3/uL 3.5-10.8 Laboratory test 09/28/2017 [employer] Import troponin I 0.00 NG/mL <0.04 finding Laboratory test 09/28/2017 [employer] Import TSH (thyroid 1.90 0.34-5.60 finding stimulating horm) mciu/mL Laboratory test 09/28/2017 [employer] Import B type natriuretic 21 pg/mL finding peptide CKMB NG/mL 2.1 NG/mL 0.6-6.3 Laboratory test 09/28/2017 [employer] Import myoglobin 34.8 NG/mL 17.4- 105.7 finding Laboratory test 09/28/2017 [employer] Import troponin I 0.00 NG/mL <0.04 finding Glucose 09/13/2017 [employer] Import Blood Glucose: 146 [Mass/volume] in mg/dl Capillary blood Glucose 06/14/2017 [employer] Import point of care 178 mg/dL High 70-100 [Mass/volume] in glucose Capillary blood Glucose 06/14/2017 [employer] Import point of care 154 mg/dL High 70-100 [Mass/volume] in glucose Capillary blood Laboratory test 06/14/2017 [employer] Import hemoglobin A1c 9.2 % High 4.0- [...] white blood count 7.3 10_3/uL 3.5-10.8 1 [id number] 2 SEE RESULT BELOW Name: MICHAEL POWERS : [address]: Crystal Barakat DO Acct: [id number] Unit: [id number] AGE: 47 Location: [facility] Re11/13/17 SEX: M Status: DEP REF SPEC: [id number] PEDRO: 11/13/17- SUBM DR: Crystal Barakat DO REQ: [id number] RECD: 11/13/17 STATUS: LIMA WALTERS DR: Joaquín Camarena MD PC _ ORDERED: LEVEL 4 COMMENTS: [id number] FINAL DIAGNOSIS Esophagus, distal, biopsy: -- Columnar-type [...] 1102 END OF REPORT DEPARTMENT OF PATHOLOGY, [address] [place] [address] Anthony Dumas M.D. Director [facility] # [id number] SEE RESULT BELOW Name: MICHAEL POWERS : [address]: Crystal Barakat DO Acct: [id number] Unit: [id number] AGE: 47 Location: [facility] Re/01/18 SEX: M Status: DEP REF SPEC: [id number] PEDRO: 11/13/17- SUBM DR: Crystal Barakat DO REQ: [id number] RECD: 11/13/17 STATUS: LIMA WALTERS DR: Joaquín Camarena MD PC _ ORDERED: LEVEL 4 COMMENTS: [id number] FINAL DIAGNOSIS Esophagus, distal, biopsy: -- Columnar-type [...] 1102 END OF REPORT DEPARTMENT OF PATHOLOGY, [address] [place] [address] Anthony Dumas M.D. Director [facility] # [id number] SEE RESULT BELOW Name: MICHAEL POWERS : [address]: Crystal Barakat DO Acct: [id number] Unit: [id number] AGE: 47 Location: [facility] Re11/13/17 SEX: M Status: DEP REF SPEC: [id number] PEDRO: 11/13/17- [facility] DR: Crystal Barakat DO REQ: [id number] RECD: 11/13/17 STATUS: LIMA WALTERS DR: Joaquín Camarena MD PC _ ORDERED: LEVEL 4, SPEC STAIN ORG COMMENTS: [id number] A GMS stain, with appropriately reacting controls, [...] 1102 END OF REPORT DEPARTMENT OF PATHOLOGY, [address] [place] [address] Anthony Dumas M.D. Director [facility] # [id number] SEE RESULT BELOW Name: MICHAEL POWERS : [address]: Crystal Barakat DO Acct: [id number] Unit: [id number] AGE: 47 Location: [facility] Re11/13/17 SEX: M Status: DEP REF SPEC: [id number] PEDRO: 11/13/17- SUBM DR: Crystal Roshni REQ: [id number] RECD: 11/13/17 STATUS: LIMA WALTERS DR: Joaquín Camarena MD PC _ ORDERED: LEVEL 4, SPEC STAIN ORG COMMENTS: [id number] A GMS stain, with appropriately reacting controls, [...] 1102 END OF REPORT DEPARTMENT OF PATHOLOGY, [address] [place] [address] Anthony Dumas M.D. Director [facility] # [id number] SEE RESULT BELOW Name: MICHAEL POWERS : [address]: Crystal Barakat DO Acct: [id number] Unit: [id number] AGE: 47 Location: [facility] Re11/13/17 SEX: M Status: DEP REF SPEC: [id number] PEDRO: 11/13/17-[address] [facility] [address]: Crystal Barakat DO REQ: [id number] RECD: 11/13/17-0828 STATUS: COMP OTHR DR: Joaquín Camarena MD PC _ SOURCE: GAS ANTRUM SPDESC: ORDERED: Clotest COMMENTS: [id number] Procedure Result Reported Site Clotest Final 11/13/17- 1619 ML Clotest Positive * ML - Main Lab . END OF REPORT DEPARTMENT OF PATHOLOGY, [address] [place] [address] Anthony Dumas M.D. Director [facility] # [id number] SEE RESULT BELOW Name: MICHAEL POWERS : [address]: Crystal Barakat DO Acct: [id number] Unit: [id number] AGE: 47 Location: [facility] Re11/13/17 SEX: M Status: DEP REF SPEC: [id number] PEDRO: 11/13/17-[address]: Crystal Barakat DO REQ: [id number] RECD: 11/13/177501 STATUS: COMP [facility] DR: Joaquín Camarena MD PC _ SOURCE: GAS ANTRUM SPDESC: ORDERED: Clotest COMMENTS: [id number] Procedure Result Reported Site Clotest Final 11/13/17- 1618 ML Clotest Positive * ML - Main Lab . END OF REPORT DEPARTMENT OF PATHOLOGY, [address] [place] [address] Anthony Dumas M.D. Director [facility] # [id number] SEE RESULT BELOW Name: MICHAEL POWERS : [address]: Crystal Barakat DO Acct: [id number] Unit: [id number] AGE: 47 Location: [facility] Re11/13/17 SEX: M Status: DEP REF SPEC: [id number] PEDRO: 11/13/17-[address]: Crystal Barakat DO REQ: [id number] RECD: 11/13/17969 STATUS: COMP JAIROHR DR: Joaquín Camarena MD PC _ SOURCE: GAS ANTRUM SPDESC: ORDERED: Clotest COMMENTS: [id number] Procedure Result Reported Site Clotest Final 11/14/17 08 ML Clotest Positive * - Main Lab . END OF REPORT DEPARTMENT OF PATHOLOGY, [address] [place] [address] Anthony Dumas M.D. Director [facility] # [id number] SEE RESULT BELOW Name: MICHAEL POWERS : [address]: Crystal Barakat DO Acct: [id number] Unit: [id number] AGE: 47 Location: [facility] Re11/13/17 SEX: M Status: DEP REF SPEC: [id number] PEDRO: 11/13/17-[address] [facility] [address]: Crystal Barakat DO REQ: [id number] RECD: 11/13/179330 STATUS: GWENDOLYN WALTERS DR: Joaquín Camarena MD PC _ SOURCE: GAS ANTRUM SPDESC: ORDERED: Clotest COMMENTS: [id number] Procedure Result Reported Site Clotest Final 11/14/17- 810 ML Clotest Positive * ML - Main Lab . END OF REPORT DEPARTMENT OF PATHOLOGY, [address] [place] [address] Anthony Dumas M.D. Director [facility] # [id number] Encounters Type Date Location Provider Dx Diagnosis Office Visit 09/18/2018 Gastroenterdarlyn Quintero R07.89 Other chest pain 9:00a Romelia bain Bonitataylor Beaulieu PA-C B96.81 Helicobacter [facility] the [facility] 04/02/2018 Gastroenterdarlyn Quintero R07.89 Other chest 1:00p Romelia bain Bonitataylor Beaulieu PA-C pain B96.81 Helicobacter pylori as the cause of diseases classd [facility] Office Visit 11/06/2017 Gastroenterology Angela Quintero R07.89 Other chest 10:00a Shon Beaulieu PA-C pain R10.11 Right upper quadrant pain Plan of Treatment Future Appointment(s):01/29/2019 9:30 am - Angela Beaulieu PA-C at [facility]01/06/2019 - MADHU Luna- CR07.89 Other chest painNew Medication:Omeprazole 20 mg - 1 cap by mouth daily 30 minutes before viybkkbciD98.81 Helicobacter pylori [H. pylori] as the cause of diseases classified elsewhere
[2019-02-03 17:38] LABS: ABS Basophils 0.1 10^3/ul (0-0.2); ABS Eosinophils 0.2 10^3/ul (0-0.6); ABS Lymphocytes 3.2 10^3/ul (1.0-4.8); ABS Monocytes 0.9 10^3/ul (0-0.8); ABS Neutrophils 3.3 10^3/ul (1.5-7.7); Eosinophil % 2.2 %; Hematocrit 43 % (42-52); Lymphocyte % 42.2 %; Mean Corpuscular HGB Conc 33 g/dL (31-36); Mean Corpuscular Hemoglobin 28 pg (27-31); Mean Corpuscular Volume 85 fL (80-94); Mean Platelet Volume 7.4 fL (7.4-10.4); Nucleated Red Blood Cells % 0.1; Platelet Count 252 10^3/uL (150-450); Red Cell Distribution Width 14 % (10-15); White Blood Count 7.7 10^3/uL (3.5-10.8)
[2019-02-03 17:47] LABS: Albumin 3.7 g/dL (3.2-5.2); BUN/Creatinine Ratio 12.9 (8-20); EGFR African American 115.9 (>60); EGFR Non-African American 95.8 (>60); Globulin 3.7 g/dL (2-4); Potassium 4.2 mmol/L (3.5-5.0); Total Bilirubin 0.4 mg/dL (0.2-1.0); Total Protein 7.4 g/dL (6.4-8.9)
[2019-02-03] MEDS ORDERED: Nitroglycerin TAB 0.4 MG* 0.4 MG TAB SL ONE (17:52)
--- NOTE | 2019-02-03 19:13 | ED ---
Progress - Progress Note Progress Note: Pt is a sign out from Dr. Xiong to Dr. Ferrara at shift change 02/03/19 at 1911 pending a chest CTA and a 2nd troponin reading. - Results/Orders Results/Orders: Chest CTA: Interval increase in size and number of the previously seen pulmonary nodules which show a doubling time of 147 days which were not present on the 2017 study. Follow up is less than a year which would've been recommended on prior study, and the slow growth and increase in number concerning for metastatic. ED physician has reviewed this report. Re-Evaluation - Re-Evaluation First Eval Re-Evaluation Time: 18:59 Change: Improved Comment: Pt reports he is chest pain free after nitroglycerin. Course/Dx - Course Course Of Treatment: Pt is a sign out from Dr. Xiong to Dr. Ferrara at shift change 02/03/19 at 1911 pending a chest CTA and a 2nd troponin reading. During our shift he had a Chest CTA which showed: Interval increase in size and number of the previously seen pulmonary nodules which show a doubling time of 147 days which were not present on the 2017 study. Follow up is less than a year which would've been recommended on prior study, and the slow growth and increase in number concerning for metastatic. Pt will be discharged home with a Dx of pulmonary chest pain and enlargements in her 1st and 2nd pulmonary nodules. 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 - Diagnoses Provider Diagnoses: Chest pain, Pulmonary nodules Discharge - Sign-Out/Discharge Documenting (check all that apply): Patient Departure - discharge, Receiving Sign-Out Receiving patient FROM: Bee Parisi Patient Received Moderate/Deep Sedation with Procedure: No - Discharge Plan Condition: Stable Disposition: HOME Patient Education Materials: Angina (ED), Pulmonary Nodules (ED) Referrals: Nancie Camarena MD [Primary Care Provider] - 2 Days Additional Instructions: You are being discharged with chest pain and enlargement in your 1st and 2nd pulmonary nodules. 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 Please return to the emergency department for any new or worsening symptoms. - Billing Disposition and Condition Condition: STABLE Disposition: Home - Attestation Statements Document Initiated by Scribe: Yes Documenting Scribe: Kashif Taylor Provider For Whom Scribe is Documenting (Include Credential): Katey Ferrara MD Scribe Attestation: I, Kashif Taylor, scribed for Katey Ferrara MD on 02/04/19 at 0350. Scribe Documentation Reviewed: Yes Provider Attestation: The documentation as recorded by the micheleibeKashif accurately reflects the service I personally performed and the decisions made by me, Katey Ferrara MD Status of Scribe Document: Viewed
[2019-02-03 21:25] VITALS: BP 170/82
== END 2019-02-03 21:24 | disposition home or self-care (01) ==
LOC: ED 16:41
DX: R07.9 Chest pain, unspecified (principal); R91.8 Other nonspecific abnormal finding of lung field; E11.9 Type 2 diabetes mellitus without complications; I25.119 Atherosclerotic heart disease of native coronary artery with unspecified angina pectoris; E78.00 Pure hypercholesterolemia, unspecified; I10 Essential (primary) hypertension; I25.2 Old myocardial infarction; Z87.891 Personal history of nicotine dependence; Z88.5 Allergy status to narcotic agent; Z88.8 Allergy status to other drugs, medicaments and biological substances; Z91.041 Radiographic dye allergy status
CPT/HCPCS: 36415; 71045; 71250; 80053; 84484; 85025; 85379; 85610; 93005; 99284; A9270-GY

== ENCOUNTER 2019-04-14 00:36 | Emergency (ER) | payer OTHER ==
[2019-04-14 01:27] LABS: ABS Basophils 0.1 10^3/ul (0-0.2); ABS Eosinophils 0.3 10^3/ul (0-0.6); ABS Lymphocytes 3.7 10^3/ul (1.0-4.8); ABS Monocytes 0.8 10^3/ul (0-0.8); ABS Neutrophils 3.7 10^3/ul (1.5-7.7); Eosinophil % 3.1 %; Hematocrit 45 % (42-52); Hemoglobin 14.7 g/dL (14.0-18.0); Lymphocyte % 43.2 %; Mean Corpuscular HGB Conc 33 g/dL (31-36); Mean Corpuscular Hemoglobin 28 pg (27-31); Mean Corpuscular Volume 86 fL (80-94); Mean Platelet Volume 7.7 fL (7.4-10.4); Nucleated Red Blood Cells % 0.1; Platelet Count 277 10^3/uL (150-450); Red Blood Count 5.24 10^6 /uL (4.18-5.48); Red Cell Distribution Width 14 % (10-15); White Blood Count 8.7 10^3/uL (3.5-10.8)
[2019-04-14 01:42] LABS: Urine Appearance Clear; Urine Bilirubin Negative (Negative); Urine Blood Negative (Negative); Urine Color Yellow; Urine Glucose 3+(>=500 mg/dL) (Negative); Urine Ketones Trace (Negative); Urine Nitrite Negative (Negative); Urine Protein Negative (Negative); Urine Specific Gravity 1.028 (1.010-1.030); Urine Urobilinogen Negative (Negative)
[2019-04-14 01:50] LABS: ALT 20 U/L (7-52); AST 17 U/L (13-39); Albumin/Globulin Ratio 1.1 (1-3); Alkaline Phosphatase 63 U/L (34-104); Anion Gap 7 mmol/L (2-11); BUN/Creatinine Ratio 12.3 (8-20); Blood Urea Nitrogen 14 mg/dL (6-24); CO2 Carbon Dioxide 21 mmol/L (22-32); Calcium 9.1 mg/dL (8.6-10.3); Chloride 108 mmol/L (101-111); EGFR African American 82.6 (>60); EGFR Non-African American 68.3 (>60); Globulin 3.6 g/dL (2-4); Glucose 217 mg/dL (70-100); Potassium 3.8 mmol/L (3.5-5.0); Sodium 136 mmol/L (135-145); Total Protein 7.6 g/dL (6.4-8.9)
[2019-04-14 02:08] LABS: Urine Benzodiazepine Screen None Detected (None Detect); Urine Opiates Screen None Detected (None Detect)
[2019-04-14 02:16] LABS: Acetaminophen < 15 mcg/mL; Alcohol < 10 mg/dL (<10); Salicylate < 2.50 mg/dL (<30)
[2019-04-14 02:30] LABS: TSH (Thyroid Stimulating Horm) 2.51 mcIU/mL (0.34-5.60)
--- NOTE | 2019-04-14 02:30 | ED ---
Psychiatric Complaint - HPI Summary HPI Summary: This patient is a 48 year old M presenting to [facility] via EMS with a chief complaint of stress and SI since 2229 yesterday. Patient reports significant social stressors. Pt does not have any mental health diagnoses. Pt takes medication for diabetes. He occasionally drinks alcohol and uses marijuana. He does not have any FHx. Denies ingestion of anything. +SI, no HI. - History Of Current Complaint Chief Complaint: EDMentalHealth Time Seen by Provider: 04/14/19 01:06 Hx Obtained From: Patient Onset/Duration: Lasting Days - since yesterday, Still Present Timing: Constant Severity Initially: Mild Severity Currently: Mild Aggravating Factor(s): Nothing Alleviating Factor(s): Nothing Has Suicidal: Reports: Thoughts - Allergies/Home Medications Allergies/Adverse Reactions: Allergies Allergy/AdvReac Type Severity Reaction Status Date / Time fentanyl Allergy Hallucinati Verified 02/03/19 16:48 ons lisinopril Allergy Unknown Verified 02/03/19 16:48 Reaction Details shellfish derived Allergy Unknown Verified 02/03/19 16:48 Reaction Details IV CONTRAST Allergy Hives Uncoded 02/03/19 16:48 PMH/Surg Hx/FS Hx/Imm Hx Previously Healthy: No Endocrine/Hematology History: Reports: Hx Diabetes Denies: Hx Thyroid Disease Cardiovascular History: Reports: Hx Angina, Hx Coronary Artery Disease, Hx Hypercholesterolemia, Hx Hypertension, Hx Myocardial Infarction - Jun 2016, Other Cardiovascular Problems/Disorders - Current admission for chest pain Denies: Hx Pacemaker/ICD Respiratory History: Reports: Hx Asthma - SEASONAL Denies: Hx Chronic Obstructive Pulmonary Disease (COPD), Other Respiratory Problems/Disorders GI History: Denies: Hx Ulcer History: Denies: Hx Renal Disease Musculoskeletal History: Reports: Other Musculoskeletal History - Lt wrist pain of unknown origin Denies: Hx Arthritis, Hx Osteoporosis Sensory History: Reports: Hx Contacts or Glasses Denies: Hx Hearing Aid Opthamlomology History: Reports: Hx Contacts or Glasses Neurological History: Denies: Hx Peripheral Neuropathy Psychiatric History: Denies: Hx Panic Disorder - Cancer History Cancer Type, Location and Year: none - Surgical History Surgical History: Yes Surgery Procedure, Year, and Place: appendectomy. stent placed June 2016 after heart attack Hx Anesthesia Reactions: No - Immunization History Date of Tetanus Vaccine: unk Date of Influenza Vaccine: none Infectious Disease History: No Infectious Disease History: Denies: Hx Clostridium Difficile, Hx Hepatitis, Hx Human Immunodeficiency Virus (HIV), Hx of Known/Suspected MRSA, Hx Shingles, Hx Tuberculosis, Hx Known/ Suspected VRE, Hx Known/Suspected VRSA, History Other Infectious Disease, Traveled Outside the [place] in Last 30 Days - Family History Known Family History: Positive: Cardiac Disease, Hypertension, Diabetes - Social History Alcohol Use: Occasionally Alcohol Amount: 2-3 beers per week Hx Substance Use: Yes Substance Use Type: Reports: None Substance Use Comment - Amount & Last Used: OCCASIONALLY Hx Tobacco Use: Yes Smoking Status (MU): Former Smoker Type: Cigarettes Amount Used/How Often: 2 Have You Smoked in the Last Year: Yes Review of Systems Negative: Fever Psychological: Other - positive - stress, SI All Other Systems Reviewed And Are Negative: Yes Physical Exam - Summary Physical Exam Summary: Constitutional: Well-developed, Well-nourished, Alert. (-) Distressed Skin: Warm, Dry HENT: Normocephalic; Atraumatic Eyes: Conjunctiva normal Neck: Musculoskeletal ROM normal neck. (-) JVD, (-) Stridor, (-) Nuchal rigidity Cardio: Rhythm regular, rate normal, Heart sounds normal; Intact distal pulses; Radial pulses are 2+ and symmetric. (-) Murmur Pulmonary/Chest wall: Effort normal. (-) Respiratory distress, (-) Wheezes, (-) Rales Abd: Soft, (-) tenderness, (-) Distension, (-) Guarding, (-) Rebound Musculoskeletal: (-) Edema Lymph: (-) Cervical adenopathy Neuro: Alert, Oriented x3 Psych: SI Triage Information Reviewed: Yes Vital Signs On Initial Exam: Initial Vitals Temp Pulse Resp BP Pulse Ox 97.1 F 88 16 143/86 99 04/14/19 00:43 04/14/19 00:43 04/14/19 00:43 04/14/19 00:43 04/14/19 00:43 Vital Signs Reviewed: Yes Diagnostics - Vital Signs Vital Signs Temp Pulse Resp BP Pulse Ox 04/14/19 00:43 97.1 F 88 16 143/86 99 - Laboratory Lab Results: Lab Results 04/14/19 04/14/19 04/14/19 Range/Units 01:10 01:10 01:18 WBC 8.7 (3.5-10.8) 10^3/uL RBC 5.24 (4.18-5.48) 10^6 /uL Hgb 14.7 (14.0-18.0) g/dL Hct 45 (42-52) % MCV 86 (80-94) fL MCH 28 (27-31) pg MCHC 33 (31-36) g/dL RDW 14 (10-15) % Plt Count 277 (150-450) 10^3/uL MPV 7.7 (7.4-10.4) fL Neut % (Auto) 42.9 % Lymph % (Auto) 43.2 % Citrus % (Auto) 9.5 % Eos % (Auto) 3.1 % Baso % (Auto) 1.3 % Absolute Neuts (auto) 3.7 (1.5-7.7) 10^3/ul Absolute Lymphs (auto) 3.7 (1.0-4.8) 10^3/ul Absolute Monos (auto) 0.8 (0-0.8) 10^3/ul Absolute Eos (auto) 0.3 (0-0.6) 10^3/ul Absolute Basos (auto) 0.1 (0-0.2) 10^3/ul Absolute Nucleated RBC 0.0 10^3/ul Nucleated RBC % 0.1 Sodium (135-145) mmol/L Potassium (3.5-5.0) mmol/L Chloride (101-111) mmol/L Carbon Dioxide (22-32) mmol/L Anion Gap (2-11) mmol/L BUN (6-24) mg/dL Creatinine (0.67-1.17) mg/dL Est GFR ( Amer) (>60) Est GFR (Non-Af Amer) (>60) BUN/Creatinine Ratio (8-20) Glucose (70-100) mg/dL Calcium (8.6-10.3) mg/dL Total Bilirubin (0.2-1.0) mg/dL AST (13-39) U/L ALT (7-52) U/L Alkaline Phosphatase (34-104) U/L Total Protein (6.4-8.9) g/dL Albumin (3.2-5.2) g/dL Globulin (2-4) g/dL Albumin/Globulin Ratio (1-3) TSH Urine Color Yellow Urine Appearance Clear Urine pH 5.0 (5-9) Ur Specific [place]lin 1.028 (1.010-1.030) Urine Protein Negative (Negative) Urine Ketones Trace A (Negative) Urine Blood Negative (Negative) Urine Nitrate Negative (Negative) Urine Bilirubin Negative (Negative) Urine Urobilinogen Negative (Negative) Ur Leukocyte Esterase Negative (Negative) Urine Glucose 3+(>=500 mg/dl) A (Negative) Salicylates (<30) mg/dL Urine Opiates Screen None detected (None Detect) Acetaminophen mcg/mL Ur Barbiturates Screen None detected (None Detect) Ur Phencyclidine Scrn None detected (None Detect) Ur Amphetamines Screen None detected (None Detect) U Benzodiazepines Scrn None detected (None Detect) Urine Cocaine Screen None detected (None Detect) U Cannabinoids Screen Presumptive positive A (None Detect) Serum Alcohol (<10) mg/dL 04/14/19 Range/Units 01:18 WBC (3.5-10.8) 10^3/uL RBC (4.18-5.48) 10^6 /uL Hgb (14.0-18.0) g/dL Hct (42-52) % MCV (80-94) fL MCH (27-31) pg MCHC (31-36) g/dL RDW (10-15) % Plt Count (150-450) 10^3/uL MPV (7.4-10.4) fL Neut % (Auto) % Lymph % (Auto) % Citrus % (Auto) % Eos % (Auto) % Baso % (Auto) % Absolute Neuts (auto) (1.5-7.7) 10^3/ul Absolute Lymphs (auto) (1.0-4.8) 10^3/ul Absolute Monos (auto) (0-0.8) 10^3/ul Absolute Eos (auto) (0-0.6) 10^3/ul Absolute Basos (auto) (0-0.2) 10^3/ul Absolute Nucleated RBC 10^3/ul Nucleated RBC % Sodium 136 (135-145) mmol/L Potassium 3.8 (3.5-5.0) mmol/L Chloride 108 (101-111) mmol/L Carbon Dioxide 21 L (22-32) mmol/L Anion Gap 7 (2-11) mmol/L BUN 14 (6-24) mg/dL Creatinine 1.14 (0.67-1.17) mg/dL Est GFR ( Amer) 82.6 (>60) Est GFR (Non-Af Amer) 68.3 (>60) BUN/Creatinine Ratio 12.3 (8-20) Glucose 217 H (70-100) mg/dL Calcium 9.1 (8.6-10.3) mg/dL Total Bilirubin 0.20 (0.2-1.0) mg/dL AST 17 (13-39) U/L ALT 20 (7-52) U/L Alkaline Phosphatase 63 (34-104) U/L Total Protein 7.6 (6.4-8.9) g/dL Albumin 4.0 (3.2-5.2) g/dL Globulin 3.6 (2-4) g/dL Albumin/Globulin Ratio 1.1 (1-3) TSH Pending Urine Color Urine Appearance Urine pH (5-9) Ur Specific Rocklin (1.010-1.030) Urine Protein (Negative) Urine Ketones (Negative) Urine Blood (Negative) Urine Nitrate (Negative) Urine Bilirubin (Negative) Urine Urobilinogen (Negative) Ur Leukocyte Esterase (Negative) Urine Glucose (Negative) Salicylates < 2.50 (<30) mg/dL Urine Opiates Screen (None Detect) Acetaminophen < 15 mcg/mL Ur Barbiturates Screen (None Detect) Ur Phencyclidine Scrn (None Detect) Ur Amphetamines Screen (None Detect) U Benzodiazepines Scrn (None Detect) Urine Cocaine Screen (None Detect) U Cannabinoids Screen (None Detect) Serum Alcohol < 10 (<10) mg/dL Result Diagrams: 04/14/19 01:18 04/14/19 01:18 Lab Statement: Any lab studies that have been ordered have been reviewed, and results considered in the medical decision making process. Course/Dx - Course Course Of Treatment: 48 y/o male p/w SI in setting of social stressors. Will have MHU evaluate him - Differential Dx/Clinical Impression Differential Diagnosis/HQI/PQRI: Positive: Suicidal Ideation Provider Diagnosis: Suicidal ideation Discharge ED - Sign-Out/Discharge Documenting (check all that apply): Sign-Out Patient Signing out patient TO: Jose Sierra - This pt will be signed out from Dr. Kelly to Dr. Sierra at 0700 shift change. Patient Received Moderate/Deep Sedation with Procedure: No - Discharge Plan Condition: Stable Referrals: Nancie Camarena MD [Primary Care Provider] - - Billing Disposition and Condition Condition: STABLE - Attestation Statements Document Initiated by Scribe: Yes Documenting Scribe: Frankie De Leon Provider For Whom Scribe is Documenting (Include Credential): Dr. Abdirashid Kelly MD Scribe Attestation: Frankie Griffin, scribed for Dr. Abdirashid Kelly MD on 04/14/19 at 0738. Scribe Documentation Reviewed: Yes Provider Attestation: The documentation as recorded by the Frankie melton accurately reflects the service I personally performed and the decisions made by me, Dr. Abdirashid Kelly MD Status of Scribe Document: Viewed
--- NOTE | 2019-04-14 08:58 | ED ---
Progress - Progress Note Progress Note: Patient is received as a sign-out from Dr. Kelly to Dr. Sierra at 0700 shift change pending disposition of this mental health patient. [facility] - worker reports that the patient's case was reviewed by Dr. Morrison, patient will be discharged to home with Dx of adjustment. - Consult/PCP Time Called: 02:45 Course/Dx - Course Course Of Treatment: Patient is received as a sign-out from Dr. Kelly to Dr. Sierra at 0700 04/14/19 shift change pending disposition of this mental health patient. 101 - worker reports that the patient's case was reviewed by Dr. Morrison, patient will be discharged to home with Dx of adjustment. - Diagnoses Provider Diagnoses: Adjustment disorder - Provider Notifications Discussed Care Of Patient With: Florin Morrison Time Discussed With Above Provider: 10:17 Instructed by Provider To: Other - 101 - worker reports that the patient's case was reviewed by Dr. Morrison, patient will be discharged to home with Dx of adjustment. Discharge ED - Sign-Out/Discharge Documenting (check all that apply): Patient Departure - discharge, Receiving Sign-Out Receiving patient FROM: Abdirashid Kelly Patient Received Moderate/Deep Sedation with Procedure: No - Discharge Plan Condition: Stable Disposition: HOME Referrals: Nancie Camarena MD [Primary Care Provider] - - Attestation Statements Document Initiated by Scribe: Yes Documenting Scribe: DARLENE GARCIA Provider For Whom Scribe is Documenting (Include Credential): J LUIS SIERRA MD Scribe Attestation: IDARLENE, scribed for J LUIS SIERRA MD on 04/14/19 at 1043. Status of Scribe Document: Ready
[2019-04-14 10:56] VITALS: BP 000/00
== END 2019-04-14 10:30 | disposition home or self-care (01) ==
LOC: ED 00:36
DX: R45.851 Suicidal ideations (principal); F43.20 Adjustment disorder, unspecified; E11.9 Type 2 diabetes mellitus without complications; Z79.84 Long term (current) use of oral hypoglycemic drugs; I25.2 Old myocardial infarction; I10 Essential (primary) hypertension; Z95.5 Presence of coronary angioplasty implant and graft; Z88.5 Allergy status to narcotic agent; Z88.2 Allergy status to sulfonamides; Z88.8 Allergy status to other drugs, medicaments and biological substances; Z91.041 Radiographic dye allergy status; Z87.891 Personal history of nicotine dependence
CPT/HCPCS: 36415; 80053; 80307; 80320; 80329; 81003; 84443; 85025; 99284; G0480

== ENCOUNTER 2019-06-06 17:34 | Emergency (ER) | payer OTHER ==
[2019-06-06 18:22] LABS: ABS Basophils 0.1 10^3/ul (0-0.2); ABS Eosinophils 0.3 10^3/ul (0-0.6); ABS Lymphocytes 3.8 10^3/ul (1.0-4.8); ABS Monocytes 0.6 10^3/ul (0-0.8); ABS Neutrophils 3.1 10^3/ul (1.5-7.7); Eosinophil % 3.2 %; Hematocrit 44 % (42-52); Hemoglobin 14.4 g/dL (14.0-18.0); Lymphocyte % 48.2 %; Mean Corpuscular HGB Conc 33 g/dL (31-36); Mean Corpuscular Hemoglobin 28 pg (27-31); Mean Corpuscular Volume 86 fL (80-94); Mean Platelet Volume 7.5 fL (7.4-10.4); Nucleated Red Blood Cells % 0.1; Platelet Count 245 10^3/uL (150-450); Red Blood Count 5.13 10^6 /uL (4.18-5.48); Red Cell Distribution Width 14 % (10-15); White Blood Count 7.8 10^3/uL (3.5-10.8)
[2019-06-06 18:27] LABS: INR 0.99 (0.82-1.09)
[2019-06-06 18:38] LABS: Albumin 3.7 g/dL (3.2-5.2); BUN/Creatinine Ratio 15.9 (8-20); Calcium 9.1 mg/dL (8.6-10.3); EGFR African American 110.9 (>60); EGFR Non-African American 91.7 (>60); Globulin 3.8 g/dL (2-4); Total Bilirubin 0.3 mg/dL (0.2-1.0); Total Protein 7.5 g/dL (6.4-8.9)
[2019-06-06 18:40] LABS: Troponin I 0.01 ng/mL (<0.03)
[2019-06-06 19:04] VITALS: BP 125/81
== END 2019-06-06 22:50 | disposition left against medical advice (07) ==
LOC: ED 17:34
DX: Z53.21 Procedure and treatment not carried out due to patient leaving prior to being seen by health care provider (principal); R07.9 Chest pain, unspecified
CPT/HCPCS: 36415; 71045; 80053; 84484; 85025; 85610; 93005; 99282

== ENCOUNTER 2019-06-08 17:11 | Emergency (ER) | payer OTHER ==
[2019-06-08] MEDS ORDERED: Aspirin 81 mg CHEW TAB* 81 MG TAB.CHEW PO ONE (17:53)
[2019-06-08 17:57] LABS: ABS Eosinophils 0.2 10^3/ul (0-0.6); ABS Lymphocytes 3.1 10^3/ul (1.0-4.8); ABS Monocytes 0.6 10^3/ul (0-0.8); ABS Neutrophils 2.5 10^3/ul (1.5-7.7); Eosinophil % 3.8 %; Hematocrit 41 % (42-52); Hemoglobin 13.6 g/dL (14.0-18.0); Lymphocyte % 47.4 %; Mean Corpuscular HGB Conc 33 g/dL (31-36); Mean Corpuscular Hemoglobin 28 pg (27-31); Mean Corpuscular Volume 85 fL (80-94); Mean Platelet Volume 7.5 fL (7.4-10.4); Nucleated Red Blood Cells % 0.1; Platelet Count 255 10^3/uL (150-450); Red Blood Count 4.86 10^6 /uL (4.18-5.48); Red Cell Distribution Width 14 % (10-15); White Blood Count 6.5 10^3/uL (3.5-10.8)
--- NOTE | 2019-06-08 18:00 | ED ---
HPI Chest Pain - HPI Summary HPI Summary: Patient complains of right-sided chest pain radiating to right shoulder starting this morning. Pain described as intermittent, worse with cough. Chest pain currently rated at 7/10. Patient given nitroglycerin by EMS with no change in symptoms. States cough started this morning as well, nonproductive. Associated symptoms include mild SOB, lightheadedness, stuffy nose. Denies fever, sore throat, ear pain, neck stiffness, N/V/D, abdominal pain, change in urine, change in BM. Denies decrease in endurance or symptoms with activity level recently. Medical history is cardiac stents, and STEMI, DM, HTN, CAD. Patient taking Brilinta daily. NSTEMI 3 years ago. History of cardiac catheter 02/26/18 with no further stents placed. Stress EKG/ negative. Dr. oJnes aws developer. - History of Current Complaint Chief Complaint: EDChestPainROMI Time Seen by Provider: 06/08/19 17:22 Hx Obtained From: Patient Onset/Duration: Started Hours Ago Timing: Intermittent, Lasting Minutes Initial Severity: Moderate Current Severity: Moderate Pain Intensity: 7 Pain Scale Used: 0-10 Numeric Chest Pain Location: Right Anterior Chest Pain Radiates: Yes Chest Pain Radiates To:: Shoulder Character: Cough, Non-Productive Aggravating Factor(s): Position, Other: Alleviating Factor(s): Spontaneous Resolution Associated Signs and Symptoms: Positive: Chest Pain, Shortness of Breath, Cough - Additional Pertinent History Primary Care Physician: [id number] - Allergy/Home Medications Allergies/Adverse Reactions: Allergies Allergy/AdvReac Type Severity Reaction Status Date / Time fentanyl Allergy Hallucinati Verified 06/09/19 19:33 ons lisinopril Allergy Unknown Verified 06/09/19 19:33 Reaction Details shellfish derived Allergy Unknown Verified 06/09/19 19:33 Reaction Details IV CONTRAST Allergy Hives Uncoded 02/03/19 16:48 PMH/Surg Hx/FS Hx/Imm Hx Endocrine/Hematology History: Reports: Hx Diabetes Denies: Hx Thyroid Disease Cardiovascular History: Reports: Hx Angina, Hx Coronary Artery Disease, Hx Hypercholesterolemia, Hx Hypertension, Hx Myocardial Infarction - Jun 2016, Other Cardiovascular Problems/Disorders - Current admission for chest pain Denies: Hx Pacemaker/ICD Respiratory History: Reports: Hx Asthma - SEASONAL Denies: Hx Chronic Obstructive Pulmonary Disease (COPD), Other Respiratory Problems/Disorders GI History: Denies: Hx Ulcer History: Denies: Hx Renal Disease Musculoskeletal History: Reports: Other Musculoskeletal History - Lt wrist pain of unknown origin Denies: Hx Arthritis, Hx Osteoporosis Sensory History: Reports: Hx Contacts or Glasses Denies: Hx Hearing Aid Opthamlomology History: Reports: Hx Contacts or Glasses Neurological History: Denies: Hx Developmental Delay, Hx Peripheral Neuropathy Psychiatric History: Denies: Hx Panic Disorder, Hx of Violent Episodes Against Others - Cancer History Cancer Type, Location and Year: none - Surgical History Surgery Procedure, Year, and Place: appendectomy. stent placed June 2016 after heart attack Hx Anesthesia Reactions: No - Immunization History Date of Tetanus Vaccine: unk Date of Influenza Vaccine: none Infectious Disease History: No Infectious Disease History: Denies: Hx Clostridium Difficile, Hx Hepatitis, Hx Human Immunodeficiency Virus (HIV), Hx of Known/Suspected MRSA, Hx Shingles, Hx Tuberculosis, Hx Known/ Suspected VRE, Hx Known/Suspected VRSA, History Other Infectious Disease, Traveled Outside the [place] in Last 30 Days - Family History Known Family History: Positive: Cardiac Disease, Hypertension, Diabetes - Social History Alcohol Use: Occasionally Alcohol Amount: 2-3 beers per week Hx Substance Use: Yes Substance Use Type: Reports: Marijuana Substance Use Comment - Amount & Last Used: OCCASIONALLY Hx Tobacco Use: Yes Smoking Status (MU): Former Smoker Type: Cigarettes Amount Used/How Often: 2 Have You Smoked in the Last Year: Yes Review of Systems Constitutional: Negative Eyes: Negative Positive: Nasal Discharge Positive: Chest Pain Positive: Shortness Of Breath, Cough Gastrointestinal: Negative Genitourinary: Negative Musculoskeletal: Negative Skin: Negative Neurological: Negative Psychological: Normal All Other Systems Reviewed And Are Negative: Yes Physical Exam - Summary Physical Exam Summary: Mild pain with palpation of right anterior chest. No chest pain with movement of right arm. Or palpation of right shoulder. Abdomen soft nontender. Lung sounds clear to auscultation bilaterally Triage Information Reviewed: Yes Vital Signs On Initial Exam: Initial Vitals Temp Pulse Resp BP Pulse Ox 98.3 F 80 16 128/75 98 06/08/19 17:12 06/08/19 17:12 06/08/19 17:12 06/08/19 17:12 06/08/19 17:12 Vital Signs Reviewed: Yes Appearance: Positive: Well-Appearing Skin: Positive: Warm Head/Face: Positive: Normal Head/Face Inspection Eyes: Positive: Normal ENT: Positive: Normal ENT inspection Neck: Positive: Supple Respiratory/Lung Sounds: Positive: Clear to Auscultation Cardiovascular: Positive: Normal Abdomen Description: Positive: Nontender Musculoskeletal: Positive: Normal Neurological: Positive: Normal Psychiatric: Positive: Normal AVPU Assessment: Alert - Cameron Coma Scale Best Eye Response: 4 - Spontaneous Best Motor Response: 6 - Obeys Commands Best Verbal Response: 5 - Oriented Coma Scale Total: 15 Procedures - Sedation Patient Received Moderate/Deep Sedation with Procedure: No Diagnostics - Vital Signs Vital Signs Temp Pulse Resp BP Pulse Ox 06/08/19 17:16 80 98 06/08/19 17:12 98.3 F 80 16 128/75 98 - Laboratory Result Diagrams: 06/08/19 17:50 06/08/19 17:50 Lab Statement: Any lab studies that have been ordered have been reviewed, and results considered in the medical decision making process. Chest Pain Course/Dx - Course Course Of Treatment: Patient complains of right-sided chest pain radiating to right shoulder starting this morning. Pain described as intermittent, worse with cough. Chest pain currently rated at 7/10. Patient given nitroglycerin by EMS with no change in symptoms. States cough started this morning as well, nonproductive. Associated symptoms include mild SOB, lightheadedness, stuffy nose. Denies fever, sore throat, ear pain, neck stiffness, N/V/D, abdominal pain, change in urine, change in BM. Denies decrease in endurance or symptoms with activity level recently. Medical history is cardiac stents, and STEMI, DM , HTN, CAD. Patient taking Brilinta daily. NSTEMI 3 years ago. History of cardiac catheter 02/26/18 with no further stents placed. Stress EKG/ negative. Dr. Jones aws developer. Vital signs within normal limits. Labs unremarkable. EKG sinus rhythm, heart rate of 78, same as prior. Chest x-ray unremarkable. Serial troponins negative. Heart score 3. - Diagnoses Provider Diagnoses: Atypical chest pain Discharge ED - Sign-Out/Discharge Documenting (check all that apply): Patient Departure - Discharge Plan Condition: Stable Disposition: HOME Patient Education Materials: Chest Pain (ED) Forms: *Work Release Referrals: Nancie Camarena MD [Primary Care Provider] - Additional Instructions: Follow-up with your aws developer Dr. Jones for further evaluation of chronic chest pain. Return to the ED for any new or worsening symptoms - Billing Disposition and Condition Condition: STABLE Disposition: Home - Attestation Statements Provider Attestation: I was available for consult. This patient was seen by the FARHAN. The patient was not presented to, seen by, or examined by me. Perry Brian MD
[2019-06-08 18:03] LABS: INR 1.05 (0.82-1.09)
[2019-06-08 18:25] LABS: Albumin 3.5 g/dL (3.2-5.2); Calcium 8.8 mg/dL (8.6-10.3); Potassium 3.6 mmol/L (3.5-5.0); Total Bilirubin 0.4 mg/dL (0.2-1.0)
[2019-06-08 18:31] LABS: BUN/Creatinine Ratio 13.8 (8-20); EGFR Non-African American 92.9 (>60)
[2019-06-08 18:32] LABS: EGFR African American 112.4 (>60); Globulin 3.4 g/dL (2-4); Total Protein 6.9 g/dL (6.4-8.9)
[2019-06-08 21:51] VITALS: BP 142/79
== END 2019-06-08 21:51 | disposition home or self-care (01) ==
LOC: ED 17:11
DX: R07.89 Other chest pain (principal); E11.9 Type 2 diabetes mellitus without complications; I10 Essential (primary) hypertension; E78.00 Pure hypercholesterolemia, unspecified; I25.10 Atherosclerotic heart disease of native coronary artery without angina pectoris; I25.2 Old myocardial infarction; Z95.5 Presence of coronary angioplasty implant and graft; Z90.89 Acquired absence of other organs; Z87.891 Personal history of nicotine dependence; Z79.01 Long term (current) use of anticoagulants; Z88.5 Allergy status to narcotic agent; Z88.8 Allergy status to other drugs, medicaments and biological substances; Z91.041 Radiographic dye allergy status
CPT/HCPCS: 36415; 71046; 80053; 84484; 85025; 85610; 93005; 99283

== ENCOUNTER 2019-06-09 19:23 | Emergency (ER) | payer OTHER ==
--- NOTE | 2019-06-09 19:42 | ED ---
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 Pt reports his ex-girlfriend called the police telling them the patient was holding a knife to his neck. Additionally pt states his ex-girlfriend told the police patient had stated he was going to kill himself. Patient denies any SI or HI thoughts/plan. Pt states "she's psycho!" He denies any physical complaints. Pt reports he is concerned he is going to miss work at 0400 on 06/10. He denies any tobacco or drug use. Pt does admit to occasional alcohol use. - History Of Current Complaint Chief Complaint: EDMentalHealth Time Seen by Provider: 06/09/19 19:36 Hx Obtained From: Patient Onset/Duration: Sudden Onset Severity Currently: None Aggravating Factor(s): Nothing Alleviating Factor(s): Nothing Associated Signs And Symptoms: Positive: Negative Has Suicidal: Denies: Thoughts, With A Plan Has Homicidal: Denies: Thoughts, With A Plan - Allergies/Home Medications Allergies/Adverse Reactions: Allergies Allergy/AdvReac Type Severity Reaction Status Date / Time fentanyl Allergy Hallucinati Verified 06/09/19 19:33 ons lisinopril Allergy Unknown Verified 06/09/19 19:33 Reaction Details shellfish derived Allergy Unknown Verified 06/09/19 19:33 Reaction Details IV CONTRAST Allergy Hives Uncoded 02/03/19 16:48 PMH/Surg Hx/FS Hx/Imm Hx Endocrine/Hematology History: Reports: Hx Diabetes Denies: Hx Thyroid Disease Cardiovascular History: Reports: Hx Angina, Hx Coronary Artery Disease, Hx Hypercholesterolemia, Hx Hypertension, Hx Myocardial Infarction - Jun 2016, Other Cardiovascular Problems/Disorders - Current admission for chest pain Denies: Hx Pacemaker/ICD Respiratory History: Reports: Hx Asthma - SEASONAL Denies: Hx Chronic Obstructive Pulmonary Disease (COPD), Other Respiratory Problems/Disorders GI History: Denies: Hx Ulcer History: Denies: Hx Renal Disease Musculoskeletal History: Reports: Other Musculoskeletal History - Lt wrist pain of unknown origin Denies: Hx Arthritis, Hx Osteoporosis Sensory History: Reports: Hx Contacts or Glasses Denies: Hx Hearing Aid Opthamlomology History: Reports: Hx Contacts or Glasses Neurological History: Denies: Hx Developmental Delay, Hx Peripheral Neuropathy Psychiatric History: Denies: Hx Panic Disorder, Hx of Violent Episodes Against Others - Cancer History Cancer Type, Location and Year: none - Surgical History Surgery Procedure, Year, and Place: appendectomy. stent placed June 2016 after heart attack Hx Anesthesia Reactions: No - Immunization History Date of Tetanus Vaccine: unk Date of Influenza Vaccine: none Infectious Disease History: No Infectious Disease History: Denies: Hx Clostridium Difficile, Hx Hepatitis, Hx Human Immunodeficiency Virus (HIV), Hx of Known/Suspected MRSA, Hx Shingles, Hx Tuberculosis, Hx Known/ Suspected VRE, Hx Known/Suspected VRSA, History Other Infectious Disease, Traveled Outside the [place] in Last 30 Days - Family History Known Family History: Positive: Cardiac Disease, Hypertension, Diabetes - Social History Alcohol Use: Occasionally Alcohol Amount: 2-3 beers per week Hx Substance Use: Yes Substance Use Type: Reports: Marijuana Substance Use Comment - Amount & Last Used: OCCASIONALLY Hx Tobacco Use: Yes Smoking Status (MU): Former Smoker Type: Cigarettes Amount Used/How Often: 2 Have You Smoked in the Last Year: Yes Review of Systems Negative: Fever Cardiovascular: Negative Respiratory: Negative Gastrointestinal: Negative Negative: Other - NEGATIVE: SI or HI thoughts/plan All Other Systems Reviewed And Are Negative: Yes Physical Exam - Summary Physical Exam Summary: GENERAL: Patient is a well-developed and nourished male. Patient is not in any acute respiratory distress. HEAD AND FACE: No signs of trauma. No ecchymosis, hematomas or skull depressions. No sinus tenderness. EYES: PERRLA, EOMI x 2, No injected conjunctiva, no nystagmus. EARS: Hearing grossly intact. Ear canals and tympanic membranes are within normal limits. MOUTH: Oropharynx within normal limits. NECK: Supple, trachea is midline, no adenopathy, no JVD, no carotid bruit, no c- spine tenderness, neck with full ROM. CHEST: Symmetric, no tenderness at palpation LUNGS: Clear to auscultation bilaterally. No wheezing or crackles. CVS: Regular rate and rhythm, S1 and S2 present, no murmurs or gallops appreciated. ABDOMEN: Soft, non-tender. No signs of distention. No rebound no guarding, and no masses palpated. Bowel sounds are normal. EXTREMITIES: FROM in all major joints, no edema, no cyanosis or clubbing. NEURO: Alert and oriented x 3. No acute neurological deficits. Speech is normal and follows commands. SKIN: Dry and warm Triage Information Reviewed: Yes Vital Signs On Initial Exam: Initial Vitals Temp Pulse Resp BP Pulse Ox 99.1 F 93 16 129/94 98 06/09/19 19:25 06/09/19 19:25 06/09/19 19:25 06/09/19 19:25 06/09/19 19:25 Vital Signs Reviewed: Yes Procedures - Sedation Patient Received Moderate/Deep Sedation with Procedure: No Diagnostics - Vital Signs Vital Signs Temp Pulse Resp BP Pulse Ox 06/09/19 19:25 99.1 F 93 16 129/94 98 - Laboratory Result Diagrams: 06/09/19 19:48 06/09/19 19:48 Lab Statement: Any lab studies that have been ordered have been reviewed, and results considered in the medical decision making process. Course/Dx - Course Assessment/Plan: Blood work w/o a significant abnormality. He is medically cleared. He is waiting for a MHE. Patient is hemodynamically stable and A+O x 3. Patient will be signed out to Dr. Corey at shift change pending mental health evaluation and disposition. - Differential Dx/Clinical Impression Differential Diagnosis/HQI/PQRI: Positive: Anxiety, Depression Provider Diagnosis: Depression Discharge ED - Sign-Out/Discharge Documenting (check all that apply): Sign-Out Patient Signing out patient TO: Nasim Corey - Discharge Plan Referrals: Nancie Camarena MD [Primary Care Provider] - - Attestation Statements Document Initiated by Kisha: Yes Documenting Scribe: Kasey Soria Provider For Whom Kisha is Documenting (Include Credential): Ankit Tai MD Scribe Attestation: Kasey Griffin, scribed for Ankit Tai MD on 06/10/19 at 0826. Scribe Documentation Reviewed: Yes Provider Attestation: The documentation as recorded by the Kasey melton accurately reflects the service I personally performed and the decisions made by me, Ankit Tai MD Status of Scribe Document: Viewed
[2019-06-09 19:56] LABS: ABS Eosinophils 0.2 10^3/ul (0-0.6); ABS Lymphocytes 3.5 10^3/ul (1.0-4.8); ABS Monocytes 0.8 10^3/ul (0-0.8); ABS Neutrophils 4.3 10^3/ul (1.5-7.7); Eosinophil % 1.9 %; Hematocrit 44 % (42-52); Hemoglobin 14.8 g/dL (14.0-18.0); Lymphocyte % 40.1 %; Mean Corpuscular HGB Conc 34 g/dL (31-36); Mean Corpuscular Hemoglobin 28 pg (27-31); Mean Corpuscular Volume 85 fL (80-94); Mean Platelet Volume 7.4 fL (7.4-10.4); Nucleated Red Blood Cells % 0.1; Platelet Count 277 10^3/uL (150-450); Red Blood Count 5.24 10^6 /uL (4.18-5.48); Red Cell Distribution Width 14 % (10-15); White Blood Count 8.8 10^3/uL (3.5-10.8)
[2019-06-09 20:07] LABS: Urine Appearance Clear; Urine Bilirubin Negative (Negative); Urine Blood Negative (Negative); Urine Color Amber; Urine Glucose Negative (Negative); Urine Ketones Trace (Negative); Urine Nitrite Negative (Negative); Urine Protein Negative (Negative); Urine Specific Gravity 1.026 (1.010-1.030); Urine Urobilinogen Negative (Negative)
[2019-06-09 20:15] LABS: ALT 17 U/L (7-52); AST 17 U/L (13-39); Albumin 4.1 g/dL (3.2-5.2); Albumin/Globulin Ratio 1.1 (1-3); Alkaline Phosphatase 69 U/L (34-104); Anion Gap 10 mmol/L (2-11); BUN/Creatinine Ratio 13.8 (8-20); Blood Urea Nitrogen 11 mg/dL (6-24); CO2 Carbon Dioxide 22 mmol/L (22-32); Calcium 9.6 mg/dL (8.6-10.3); Chloride 106 mmol/L (101-111); EGFR African American 123.8 (>60); EGFR Non-African American 102.3 (>60); Globulin 3.9 g/dL (2-4); Glucose 108 mg/dL (70-100); Potassium 3.7 mmol/L (3.5-5.0); Sodium 138 mmol/L (135-145)
[2019-06-09 20:25] LABS: Alcohol < 10 mg/dL (<10); Salicylate < 2.50 mg/dL (<30)
[2019-06-09 20:30] LABS: Urine Benzodiazepine Screen None Detected (None Detect); Urine Opiates Screen None Detected (None Detect)
[2019-06-09 20:30] LABS: Acetaminophen < 15 mcg/mL
[2019-06-09 20:35] LABS: TSH (Thyroid Stimulating Horm) 2.88 mcIU/mL (0.34-5.60)
--- NOTE | 2019-06-09 22:02 | ED ---
Progress - Progress Note Progress Note: Pt is a signout from Dr. Tai at 2200 on 06/09/19 pending MHE. Course/Dx - Course Course Of Treatment: Pt is a signout from Dr. Tai at 2200 on 06/09/19 pending MHE. Pt will be held until the morning for further eval. Pt will be signed out to Dr. Tai at shift change, 0700, on 06/10/19. - Diagnoses Provider Diagnoses: Depression Discharge ED - Sign-Out/Discharge Documenting (check all that apply): Sign-Out Patient, Receiving Sign-Out Signing out patient TO: Ankit Tai Receiving patient FROM: Ankit Tai - Discharge Plan Referrals: Nancie Camarena MD [Primary Care Provider] - - Attestation Statements Document Initiated by Kisha: Yes Documenting Scribe: Carmencita Wu Provider For Whom Kisha is Documenting (Include Credential): Nasim Corey MD. Scribe Attestation: Carmencita Griffin scribed for Nasim Corey MD. on 06/10/19 at 0541. Scribe Documentation Reviewed: Yes Provider Attestation: The documentation as recorded by the micheleibeCarmencita accurately reflects the service I personally performed and the decisions made by Nasim gonzales MD. Status of Scribe Document: Viewed
--- NOTE | 2019-06-10 07:11 | ED ---
Progress - Progress Note Progress Note: The patient is a sign-out from Dr. Nasim Corey MD, to Dr. Ankit Tai MD, at change of shift at 0700 on 06/10/19, pending mental health hold and disposition. 09 - Susan Nuñez from mental health confirms safe discharge as per Dr. Morrison , psychiatry, with plan for outpatient treatment, diagnosis of alcohol abuse - Consult/PCP Time Called: 23:00 Course/Dx - Course Course Of Treatment: The patient is a sign-out from Dr. Nasim Corey MD, to Dr. Ankit Tai MD, at change of shift at 0700 on 06/10/19, pending mental health hold and disposition. Dr. Morrison, psychiatry, has evaluated the patient and has determined that he is safe for discharge with outpatient follow up at [facility]. Patient understands and agrees with this plan. - Diagnoses Provider Diagnoses: Alcohol abuse - Provider Notifications Discussed Care Of Patient With: Susan Nuñez - mental health furniture and bedding inspector Time Discussed With Above Provider: 09:15 Instructed by Provider To: Other - Susan reports that Dr. Morrison, psychiatry, has evaluated the patient and recommends discharge with outpatient treatment at [facility]. Diagnosis of alcohol abuse. Discharge ED - Sign-Out/Discharge Documenting (check all that apply): Patient Departure - Patient will be discharged by mental health staff., Receiving Sign-Out Receiving patient FROM: Nasim Corey - Patient is a sign-out from Dr. Nasim Corye MD, at change of shift at 0700 on 06/10/19, pending mental health hold and disposition. - Discharge Plan Condition: Stable Disposition: HOME Patient Education Materials: Abuse of Alcohol (DC) Referrals: Nancie Camarena MD [Primary Care Provider] - [facility] [Outside] Additional Instructions: Patient is a 49 year old male brought to the ED 9.41 by police after exGF called to report he sent pictures on his phone of him with a knife to his throat and threatening to kill himself. Pt denies depression, SI,HI .Pt states "She is unstable and started sending me text messages calling me bad names. She is depressed and she is trying to make me feel like her." pt reports he has a 27 yo handicapped son that "prevents me from considering suicide." He reports this happened once before and he believes she was behind that 9.41. He denies making threats or motions stating "I am fine."Pt reports a hx of chest pain and diabetes. "I lost a lot of weight recently due to stress." His ex GF Lesly Richey [phone] was contacted and message was left.The police were contacted and according to the police report Sgt Ando said the pt told the officer he did threaten suicide. Patient currently denies suicidal ideation or homicidal ideation at this time. 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 IMPORTANT PHONE NUMBERS : [facility]: [phone] SUICIDE PREVENTION AND CRISIS LINE: [phone] [facility]: [phone] [facility] SU[facility] PREVENTION [facility] LINE: [phone] ([phone]) [facility]: [phone] Alcoholics Anonymous: [phone] [facility] [place]: [phone] [facility]: [phone] [facility] [phone] - Billing Disposition and Condition Condition: STABLE Disposition: Home - Attestation Statements Document Initiated by Scribe: Yes Documenting Scribe: Courtney Reid Provider For Whom Kisha is Documenting (Include Credential): Dr. Ankit Tai MD Scribe Attestation: I, Courtney Reid, scribed for Dr. Ankit Tai MD on 06/10/19 at 1820. Scribe Documentation Reviewed: Yes Provider Attestation: The documentation as recorded by the Courtney melton accurately reflects the service I personally performed and the decisions made by me, Dr. Ankit Tai MD Status of Scribe Document: Viewed Procedures - Sedation Patient Received Moderate/Deep Sedation with Procedure: No
[2019-06-10 10:02] VITALS: BP 0/0
== END 2019-06-10 09:50 | disposition home or self-care (01) ==
LOC: ED 19:23
DX: F32.9 Major depressive disorder, single episode, unspecified (principal); Z87.891 Personal history of nicotine dependence; E11.9 Type 2 diabetes mellitus without complications; I25.10 Atherosclerotic heart disease of native coronary artery without angina pectoris; E78.00 Pure hypercholesterolemia, unspecified; I10 Essential (primary) hypertension; I25.2 Old myocardial infarction; J45.909 Unspecified asthma, uncomplicated
CPT/HCPCS: 36415; 80053; 80307; 80320; 80329; 81003; 84443; 85025; 99285; G0480

== ENCOUNTER 2019-06-20 15:25 | Inpatient (IN) | payer OTHER ==
--- NOTE | 2019-06-20 16:24 | ED ---
Psychiatric Complaint - HPI Summary HPI Summary: This pt is a 49 y/o male, accompanied by his significant other, presenting to [facility] c/o SI today. Pt states he has had recent stressor, his brother recently kicked the pt out of his home. Pt notes he has "family issues" and has been feeling suicidal. Per triage note "Also reports SI w/plan." Denies any physical pain or other symptoms. - History Of Current Complaint Chief Complaint: EDSuicidal Time Seen by Provider: 06/20/19 16:14 Hx Obtained From: Patient Onset/Duration: Lasting Days, Still Present Timing: Days Severity Currently: Moderate Character: Depressed Aggravating Factor(s): Recent Stress Alleviating Factor(s): Nothing Has Suicidal: Reports: Thoughts, With A Plan Has Homicidal: Denies: Thoughts, With A Plan Recent Stressor(s): got kicked out by his brother - Allergies/Home Medications Allergies/Adverse Reactions: Allergies Allergy/AdvReac Type Severity Reaction Status Date / Time fentanyl Allergy Hallucinati Verified 06/09/19 19:33 ons lisinopril Allergy Unknown Verified 06/09/19 19:33 Reaction Details shellfish derived Allergy Unknown Verified 06/09/19 19:33 Reaction Details IV CONTRAST Allergy Hives Uncoded 02/03/19 16:48 Home Medications: Home Medications Losartan Potassium 1 tab PO DAILY 06/20/19 [History Confirmed 06/20/19] Ticagrelor* [Brilinta 90 MG*] 1 tab PO BID 06/20/19 [History Confirmed 06/20/19] PMH/Surg Hx/FS Hx/Imm Hx Endocrine/Hematology History: Reports: Hx Diabetes Denies: Hx Thyroid Disease Cardiovascular History: Reports: Hx Angina, Hx Coronary Artery Disease, Hx Hypercholesterolemia, Hx Hypertension, Hx Myocardial Infarction - Jun 2016, Other Cardiovascular Problems/Disorders - Current admission for chest pain Denies: Hx Pacemaker/ICD Respiratory History: Reports: Hx Asthma - SEASONAL Denies: Hx Chronic Obstructive Pulmonary Disease (COPD), Other Respiratory Problems/Disorders GI History: Denies: Hx Ulcer History: Denies: Hx Renal Disease Musculoskeletal History: Reports: Other Musculoskeletal History - Lt wrist pain of unknown origin Denies: Hx Arthritis, Hx Osteoporosis Sensory History: Reports: Hx Contacts or Glasses Denies: Hx Hearing Aid Opthamlomology History: Reports: Hx Contacts or Glasses Neurological History: Denies: Hx Developmental Delay, Hx Peripheral Neuropathy Psychiatric History: Denies: Hx Panic Disorder, Hx of Violent Episodes Against Others - Cancer History Cancer Type, Location and Year: none - Surgical History Surgical History: Yes Surgery Procedure, Year, and Place: appendectomy. stent placed June 2016 after heart attack Hx Anesthesia Reactions: No - Immunization History Date of Tetanus Vaccine: unk Date of Influenza Vaccine: none Infectious Disease History: No Infectious Disease History: Denies: Hx Clostridium Difficile, Hx Hepatitis, Hx Human Immunodeficiency Virus (HIV), Hx of Known/Suspected MRSA, Hx Shingles, Hx Tuberculosis, Hx Known/ Suspected VRE, Hx Known/Suspected VRSA, History Other Infectious Disease, Traveled Outside the [place] in Last 30 Days - Family History Known Family History: Positive: Cardiac Disease, Hypertension, Diabetes - Social History Alcohol Use: Occasionally Alcohol Amount: 2-3 beers per week Hx Substance Use: Yes Substance Use Type: Reports: Marijuana Substance Use Comment - Amount & Last Used: OCCASIONALLY Hx Tobacco Use: Yes Smoking Status (MU): Former Smoker Type: Cigarettes Amount Used/How Often: 2 Have You Smoked in the Last Year: Yes Review of Systems Negative: Fever, Chills Cardiovascular: Negative Respiratory: Negative Gastrointestinal: Negative Psychological: Other - POSITIVE: SI Positive: Depressed All Other Systems Reviewed And Are Negative: Yes Physical Exam - Summary Physical Exam Summary: GENERAL: Patient is a well-developed and nourished male. Patient is not in any acute respiratory distress. HEAD AND FACE: No signs of trauma. No ecchymosis, hematomas or skull depressions. No sinus tenderness. EYES: PERRLA, EOMI x 2, No injected conjunctiva, no nystagmus. EARS: Hearing grossly intact. Ear canals and tympanic membranes are within normal limits. MOUTH: Oropharynx within normal limits. NECK: Supple, trachea is midline, no adenopathy, no JVD, no carotid bruit, no c- spine tenderness, neck with full ROM. CHEST: Symmetric, no tenderness at palpation LUNGS: Clear to auscultation bilaterally. No wheezing or crackles. CVS: Regular rate and rhythm, S1 and S2 present, no murmurs or gallops appreciated. ABDOMEN: Soft, non-tender. No signs of distention. No rebound no guarding, and no masses palpated. Bowel sounds are normal. EXTREMITIES: FROM in all major joints, no edema, no cyanosis or clubbing. NEURO: Alert and oriented x 3. No acute neurological deficits. Speech is normal and follows commands. SKIN: Dry and warm Triage Information Reviewed: Yes Vital Signs On Initial Exam: Initial Vitals Temp Pulse Resp BP Pulse Ox 96.6 F 78 18 147/95 99 06/20/19 15:48 06/20/19 15:48 06/20/19 15:48 06/20/19 15:48 06/20/19 15:48 Vital Signs Reviewed: Yes Procedures - Sedation Patient Received Moderate/Deep Sedation with Procedure: No Diagnostics - Vital Signs Vital Signs Temp Pulse Resp BP Pulse Ox 06/20/19 15:48 96.6 F 78 18 147/95 99 - Laboratory Result Diagrams: 06/20/19 17:26 06/20/19 17:26 Lab Statement: Any lab studies that have been ordered have been reviewed, and results considered in the medical decision making process. Re-Evaluation - Re-Evaluation First Eval Re-Evaluation Time: 16:23 Comment: Pt is medically cleared. Course/Dx - Course Assessment/Plan: This pt is a 49 y/o male presenting to [facility] c/o SI today. Pt states he has had recent stressor, his son recently kicked the pt out of his home. Pt notes he has "family issues" and has been feeling suicidal. Per triage note "Also reports SI w/plan.". Blood work w/o a significant abnormality. He is medically cleared. He is waiting for a MHE. Patient is hemodynamically stable and A+O x 3. Patient will be signed out to Dr. Eden at shift change waiting for mental health evaluation and pending disposition. - Differential Dx/Clinical Impression Differential Diagnosis/HQI/PQRI: Positive: Anxiety, Depression, Suicidal Ideation Provider Diagnosis: Depression Discharge ED - Sign-Out/Discharge Documenting (check all that apply): Sign-Out Patient Signing out patient TO: Mary Eden - pending MHE and dispo - Discharge Plan Condition: Stable Disposition: PSYCHIATRIC FACILITY-[facility] - Billing Disposition and Condition Condition: STABLE - Attestation Statements Document Initiated by Scribe: Yes Documenting Scribe: Kasey Soria Provider For Whom Scribe is Documenting (Include Credential): Ankit Tai MD Scribe Attestation: Kasey Griffin, scribed for Ankit Tai MD on 06/22/19 at 1847. Scribe Documentation Reviewed: Yes Provider Attestation: The documentation as recorded by the scribe, Kasey Soria accurately reflects the service I personally performed and the decisions made by me, Ankit Tai MD Status of Scribe Document: Viewed
[2019-06-20 17:26] LABS: Urine Appearance Clear; Urine Bilirubin Negative (Negative); Urine Blood Negative (Negative); Urine Color Yellow; Urine Glucose 1+(50 mg/dL) (Negative); Urine Ketones Trace (Negative); Urine Nitrite Negative (Negative); Urine Protein Negative (Negative); Urine Specific Gravity 1.024 (1.010-1.030); Urine Urobilinogen Negative (Negative)
[2019-06-20 17:34] LABS: ABS Basophils 0.1 10^3/ul (0-0.2); ABS Eosinophils 0.2 10^3/ul (0-0.6); ABS Lymphocytes 2.7 10^3/ul (1.0-4.8); ABS Monocytes 0.5 10^3/ul (0-0.8); Hematocrit 42 % (42-52); Hemoglobin 14.2 g/dL (14.0-18.0); Lymphocyte % 36.2 %; Mean Corpuscular HGB Conc 34 g/dL (31-36); Mean Corpuscular Hemoglobin 29 pg (27-31); Mean Corpuscular Volume 87 fL (80-94); Mean Platelet Volume 7.2 fL (7.4-10.4); Nucleated Red Blood Cells % 0.2; Platelet Count 274 10^3/uL (150-450); Red Blood Count 4.88 10^6 /uL (4.18-5.48); Red Cell Distribution Width 14 % (10-15); White Blood Count 7.6 10^3/uL (3.5-10.8)
--- OUTSIDE RECORDS SUMMARY | 2019-06-20 17:37 | XMS REPORT | Continuity of Care Document ---
:1970 External Reference #:[id number] Author Name Joaquín Jones M.D. 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 Onset: 06/01/2009 Type II diabetes mellitus Kanchan Walton M.D. Onset: 09/17/2009 uncontrolled Encounter for planned postprocedural Rogelio Reyes M.D., [facility], [facility] Onset: wound closure Gastroesophageal reflux disease Phylicia Romero NP Onset: 05/20/2018 Tobacco use MADHU Howell Onset: 03/06/2018 Hyperlipidemia MADHU Howell Onset: 03/06/2018 Atherosclerotic heart disease of Joseph Gonzalez M.D. Onset: 01/24/2018 [place] coronary artery without angina pectoris Essential hypertension Joseph Gonzalez M.D. Onset: 01/24/2018 Type 2 diabetes mellitus Joseph Gonzalez M.D. Onset: 01/24/2018 Chest pain Joseph Gonzalez M.D. Onset: 01/24/2018 Stress fracture of metatarsal bone Jon Smith MD Onset: 11/06/2017 Social History Type Date Description Comments Sex Unknown Tobacco Use Start: Unknown End: Former Cigarette Smoker Unknown Smoking Status Reviewed: 07/03/18 Former Cigarette Smoker ETOH Use Occasionally consumes one beer a week alcohol Tobacco Use Start: Unknown End: Patient is a former Unknown smoker Recreational Drug Use Denies Drug Use Exercise Type/Frequency Exercises sporadically walking Allergies, Adverse Reactions, Alerts Active Allergies Reaction Severity Comments Date Glipizide made him sleepy 02/18/2015 Fentanyl confusion Severe 08/11/2016 Shellfish-derived Products 07/06/2017 Inactive Allergies NKDA 06/01/2009 Medications Active Medications SIG Qnty Indications Ordering Provider Date Ranexa 1 by mouth twice 60tabs I25.10 Joaquín Jones, 10/17/2017 500mg Tablets ER a day M.D. 12HR Indomethacin take one tab 60caps Monique Faith, 05/09/2017 50mg three times a M.D. Capsules day as needed for pain Rosuvastatin Calcium take 1 tab by 90tabs E78.5 Joaquín Jones, 2016 mouth at bedtime M.D. 10mg Tablets Lantus Solostar inject 10 units 30ml Kanchan [place], 07/20/2015 once daily or as M.D. 100Unit/ML Solution directed Pen-Inject Pen [place] For use once daily 30units Kanchan [place], 07/20/2015 Lantus Solostar M.D. [facility] Glucocom Blood for use once 1units E11.65 NEXAGE, 01/01/2015 Glucose Monitoring daily 250.02 M.D. System W/Device Kit Glucocom Lancets 33G for use once 50units E11.65 Kanchan [place], 2014 daily M.D. 33G [facility] Glucocom Test for testing once 50units E11.65 Kanchan [place], 01/01/2015 Strips daily M.D. Metformin HCL ER 1 tab po bid 90tabs E11.65 Kanchan [place], 11/11/2014 500mg M.D. Tablets ER 24HR Loratadine Take One Tablet 30tabs [place], 07/25/2014 10mg Tablets By Mouth Every M.D. Day as Needed For Allergy Symptoms Wrist Brace/Left for use every 1units 729.5 Kanchan [place], 04/27/2014 [facility] night and daily M.D. as needed Proair HFA 2 puffs 4 times 1units J45.909 Kanchan [place], 02/10/2013 108(90Base) daily as needed M.D. mcg/Act Aerosol Aspirin 1 by mouth every Unknown 81mg Tablets DR day Am Metoprolol Succinate 1 by mouth every 90tabs Joaquín Jones, ER day M.DCecily 25mg Tablets ER 24HR Amlodipine Besylate 1 by mouth every Unknown day 10mg Tablets Nitrostat one sl q5min up Unknown 0.4mg Tablets to 3 doses as Sub needed Acetaminophen Extra 2 tabs 3 times Unknown Strength daily as needed 500mg Tablets for pain One Daily For Men 1 tablet po Unknown Plus Vitamin D daily Trulicity inject 0.75mg Unknown 0.75mg/0.5ML once a week Solution Pen-Inject Medications Administered in Office Medication SIG Qnty Indications Ordering Provider Date Records Fee Joaquín Jones M.D. 03/13/2019 Injection Records Fee Joaquín Jones M.D. 03/12/2019 Injection Technetium TC 99M Jos Carlos, DO [facility] 07/12/2017 Tetrofosmin, Per Unit Dose Up To 40 [place] Injection Technetium TC 99M Jos Carlos, DO [facility] 07/11/2017 Tetrofosmin, Per Unit Dose Up To 40 [place] Injection Depomedrol 40MG Monique Faith M.D. 06/21/2017 Injection Technetium TC 99M Joaquín Jones M.D. 08/18/2016 Tetrofosmin, Per Unit Dose Up To 40 [place] Injection Immunizations CPT Code Status Date Vaccine Lot # [id number] Given 04/13/2010 Pneumonia Vaccine Vital Signs Date Vital Result Comment 07/03/2018 8:02am Height 66 inches 5'6" Weight 235.00 lb Heart Rate 76 /min Reg BP Systolic Sitting 130 mmHg LA re gcuff BP Diastolic Sitting 85 mmHg LA re gcuff Respiratory Rate 18 /min BMI (Body Mass Index) 37.9 kg/m2 03/07/2018 11:07am Height 66 inches 5'6" Weight 235.00 lb Heart Rate 84 /min BP Systolic Sitting 118 mmHg Lue lg cuff BP Diastolic Sitting 74 mmHg Lue lg cuff BP Systolic Standing 124 mmHg Lue lg cuff BP Diastolic Standing 80 mmHg Lue lg cuff BMI (Body Mass Index) 37.9 kg/m2 Ejection Fraction 61% Stress Test 01/24/18 Results Description No Information Available Procedures Date Code Description Status 04/14/2015 283822998 Diabetic Retinal Eye Exam Completed 10/18/2012 [id number] Diabetic Retinal Eye Exam Completed Medical Devices Description No Information Available Encounters Description No Information Available Assessments Description No Information Available Plan of Treatment 07/03/2018 - Joaquín Jones M.D.I10 Essential (primary) hypertensionFollow up :1 yearI25.10 Atherosclerotic heart disease of [place] coronary artery with Functional Status Description No Information Available Mental Status Description No Information Available Referrals Description No Information Available
--- OUTSIDE RECORDS SUMMARY | 2019-06-20 17:37 | XMS REPORT | Continuity of Care Document ---
:1970 External Reference #:[id number] Author Name Joaquín Jones M.D. (transmitted by agent of provider Myrna Miller) Address [address] [place] [address] Care Team Providers Name Role Phone Nancie Camarena MD - Internal Care Team Information Ammonia Distiller [phone] Medicine Problems Active Problems Provider Date Asthma without status asthmaticus Kanchan Walton M.D. Onset: 06/01/2009 Type II diabetes mellitus Kanchan Walton M.D. Onset: 09/17/2009 uncontrolled Encounter for planned postprocedural Rogelio Reyes M.D., [facility], [facility] Onset: wound closure Gastroesophageal reflux disease Phylicia Romero NP Onset: 05/20/2018 Tobacco use MADHU Howell Onset: 03/06/2018 Hyperlipidemia MADHU Howell Onset: 03/06/2018 Atherosclerotic heart disease of Joseph Gonzalez M.D. Onset: 01/24/2018 [place] coronary artery without angina pectoris Essential hypertension Joseph Gonzalez M.D. Onset: 01/24/2018 Type 2 diabetes mellitus Joseph Gonzalez M.D. Onset: 01/24/2018 Chest pain Joseph Gonzalez M.D. Onset: 01/24/2018 Stress fracture of metatarsal bone Jon Smith MD Onset: 11/06/2017 Social History Type Date Description Comments Sex Unknown Tobacco Use Start: Unknown End: Former Cigarette Smoker Unknown Smoking Status Reviewed: 06/20/19 Former Cigarette Smoker ETOH Use Occasionally consumes [...] Medications SIG Qnty Indications Ordering Provider Date Rosuvastatin Calcium take 1 tab by 90tabs E78.5 Joaquín Jones, 2016 mouth at bedtime M.D. 10mg Tablets Lantus Solostar inject 10 units 30ml Kanchan Anton, 07/20/2015 once daily or as M.D. 100Unit/ML Solution directed Pen-Inject Pen [place] For use once daily 30units [facility], 07/20/2015 Lantus Solostar M.D. [facility] [place] Glucocom Blood for use once 1units E11.65 Kanchan Anton, 01/01/2015 Glucose Monitoring daily 250.02 M.D. System W/Device Kit Glucocom Lancets 33G for use once 50units E11.65 Kanchan Anton, 2014 daily M.D. 33G [facility] [place] Glucocom Test for testing once 50units E11.65 Kanchan Cotton, 01/01/2015 Strips daily M.D. Metformin HCL ER 1 tab po bid 90tabs E11.65 Kanchan [place], 11/11/2014 500mg M.D. Tablets ER 24HR Wrist Brace/Left for use every 1units 729.5 [facility], 04/27/2014 [facility] night and daily M.D. as needed Proair HFA 2 puffs 4 times 1units J45.909 [facility], 02/10/2013 108(90Base) daily as needed M.D. mcg/Act Aerosol Aspirin 1 by mouth every Unknown 81mg Tablets DR day Am Metoprolol Succinate 1 by mouth every 90tabs Joaquín Jones, ER day M.D. 25mg Tablets ER 24HR Nitrostat one sl q5min up Unknown 0.4mg Tablets to 3 doses as Sub needed Acetaminophen Extra 2 tabs 3 times Unknown Strength daily as needed 500mg Tablets for pain Medications Administered in Office Medication SIG Qnty Indications Ordering Provider Date Records Fee Joaquín Jones M.D. 03/13/2019 Injection Records Fee Joaquín Jones M.D. 03/12/2019 Injection Technetium TC 99M Jos Carlos, DO [facility] 07/12/2017 Tetrofosmin, Per Unit Dose Up To 40 Millicuries Injection Technetium TC 99M Jos Carlos, DO [facility] 07/11/2017 Tetrofosmin, Per Unit Dose Up To 40 [place] Injection Depomedrol 40MG Monique Faith M.D. 06/21/2017 Injection Technetium TC 99M Joaquín Jones M.D. 08/18/2016 Tetrofosmin, Per Unit Dose Up To 40 [place] Injection Immunizations CPT Code Status Date Vaccine Lot # [id number] Given 04/13/2010 Pneumonia Vaccine Vital Signs Date Vital Result Comment 06/20/2019 10:01am Height 66 inches 5'6" Weight 196.00 lb with shoes Heart Rate 75 /min BP Systolic Sitting 112 mmHg Rue reg cuff BP Diastolic Sitting 96 mmHg Rue reg cuff BP Systolic Standing 102 mmHg Rue reg cuff BP Diastolic Standing 88 mmHg Rue reg cuff Respiratory Rate 13 /min BMI (Body Mass Index) 31.6 kg/m2 07/03/2018 8:02am Height 66 inches 5'6" Weight 235.00 lb Heart Rate 76 /min Reg BP Systolic Sitting 130 mmHg LA re gcuff BP Diastolic Sitting 85 mmHg LA re gcuff Respiratory Rate 18 /min BMI (Body Mass Index) 37.9 kg/m2 Results Description No Information Available Procedures Date Code Description Status 06/20/2019 57818 EKG Tracing & Interpretation Completed 04/14/2015 [id number] Diabetic Retinal Eye Exam Completed 10/18/2012 [id number] Diabetic Retinal Eye Exam Completed Medical Devices Description No Information Available Encounters Description No Information Available Assessments Date Code Description Provider 06/20/2019 I25.10 Atherosclerotic heart disease of [place] Joaquín Jones M.D. coronary artery with 06/20/2019 I10 Essential (primary) hypertension Joaquín Jones M.D. 06/20/2019 R07.9 Chest pain, unspecified Joaquín Jones M.D. Plan of Treatment 06/20/2019 - Joaquín Jones M.D.I25.10 Atherosclerotic heart disease of [place] coronary artery withI10 Essential (primary) [id number] Chest pain , unspecifiedFollow up:1 year Functional Status Description No Information Available Mental Status Description No Information Available Referrals Description No Information Available
[2019-06-20 18:03] LABS: Urine Benzodiazepine Screen None Detected (None Detect); Urine Opiates Screen None Detected (None Detect)
[2019-06-20 18:04] LABS: ALT 15 U/L (7-52); AST 18 U/L (13-39); Albumin 3.5 g/dL (3.2-5.2); Albumin/Globulin Ratio 0.9 (1-3); Alkaline Phosphatase 62 U/L (34-104); Anion Gap 4 mmol/L (2-11); BUN/Creatinine Ratio 15.6 (8-20); Blood Urea Nitrogen 15 mg/dL (6-24); CO2 Carbon Dioxide 28 mmol/L (22-32); Calcium 9.1 mg/dL (8.6-10.3); Chloride 105 mmol/L (101-111); EGFR African American 100.3 (>60); EGFR Non-African American 82.9 (>60); Globulin 3.7 g/dL (2-4); Glucose 190 mg/dL (70-100); Potassium 4.2 mmol/L (3.5-5.0); Sodium 137 mmol/L (135-145); Total Protein 7.2 g/dL (6.4-8.9)
[2019-06-20 18:06] LABS: Acetaminophen < 15 mcg/mL; Alcohol < 10 mg/dL (<10); Salicylate < 2.50 mg/dL (<30)
--- NOTE | 2019-06-20 19:07 | ED ---
Progress - Progress Note Progress Note: This patient was signed out to Dr. Eden from Dr. Tai at shift change on 01/01 at 1900 awaiting MHE and disposition. Re-Evaluation - Re-Evaluation First Eval Re-Evaluation Time: 16:23 Comment: Pt is medically cleared. Course/Dx - Course Course Of Treatment: This patient was signed out to Dr. Eden from Dr. Tai at shift change on 06/20/19 at 1900 awaiting MHE and disposition. 2320. Pt is trying to make out in the annex according to psych. Pt is refusing to sit down. According to Psych staff he has reportedly made threats about punching the staff. Pt is continuously refusing to listen to both Dr, Psych staff, and security about staying on his bed. Pt was told that he had to move to the ED due to his threats, pt is currently refusing. Pt was moved to room 19 - Diagnoses Provider Diagnoses: Depression - Provider Notifications Discussed Care Of Patient With: Alessandro Gregory Time Discussed With Above Provider: 01:29 Instructed by Provider To: Admit As Inpatient - voluntary Admit/Transition Orders Completed By ED Provider: Yes Discharge ED - Sign-Out/Discharge Documenting (check all that apply): Patient Departure - admitted, Receiving Sign -Out Receiving patient FROM: Ankit Tai - Discharge Plan Condition: Stable Disposition: [facility]CHIATRIC FACILITY[place] [place] - Billing Disposition and Condition Condition: STABLE Disposition: Psychiatric Facility [facility] [place] - Attestation Statements Document Initiated by Scribe: Yes Documenting Scribe: Kashif Taylor Provider For Whom Scribe is Documenting (Include Credential): Mary Eden MD Scribe Attestation: Kashif Griffin, scribed for Mary Eden MD on 06/21/19 at 2020. Scribe Documentation Reviewed: Yes Provider Attestation: The documentation as recorded by the Kashif melton accurately reflects the service I personally performed and the decisions made by me, Mary Eden MD Status of Scribe Document: Viewed Procedures - Sedation Patient Received Moderate/Deep Sedation with Procedure: No
[2019-06-21] MEDS ORDERED: Al Hydrox/Mg Hydrox/Simet LIQ* 30 ML UDC PO PRN (03:22)
[2019-06-21] MEDS ORDERED: Acetaminophen TAB* 325 MG PO PRN (03:22)
[2019-06-21] MEDS ORDERED: Vitamin THERAPEUTIC TAB PO SCH (09:00)
[2019-06-21 09:06] VITALS: BP 130/87
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
== END 2019-06-21 18:10 | disposition home or self-care (01) | DRG 754 ==
LOC: ED 15:25 → BSU 06-21 00:03 → ED 06-21 02:13
PROVIDERS: ADMIT Psychiatry & Neurology Psychiatry; ATTEND Psychiatry & Neurology Psychiatry
DX: F43.21 Adjustment disorder with depressed mood (principal); R45.851 Suicidal ideations; F60.2 Antisocial personality disorder; F12.90 Cannabis use, unspecified, uncomplicated; R45.850 Homicidal ideations; E11.9 Type 2 diabetes mellitus without complications; J45.909 Unspecified asthma, uncomplicated; I10 Essential (primary) hypertension; E78.00 Pure hypercholesterolemia, unspecified; Z72.89 Other problems related to lifestyle; I25.2 Old myocardial infarction; Z79.84 Long term (current) use of oral hypoglycemic drugs; Z79.82 Long term (current) use of aspirin; Z79.51 Long term (current) use of inhaled steroids; Z79.899 Other long term (current) drug therapy
CPT/HCPCS: 36415; 80053; 80307; 80320; 80329; 81003; 84443; 85025; 99285; G0480

== ENCOUNTER 2019-07-29 13:01 | Emergency (ER) | payer OTHER ==
[2019-07-29 13:11] VITALS: BP 133/82
--- NOTE | 2019-07-29 13:13 | ED ---
HPI Chest Pain - HPI Summary HPI Summary: This pt is a 49 y/o male presenting to [facility] via EMS for left sided chest pain today since 10:30. 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 He describes chest pain as a stabbing pain. Pt states associated symptoms of dizziness and SOB. Denies fever, chills, nausea, vomiting. PMHx includes DM, angina, CAD, dyslipidemia, HTN, MA with stents, asthma, GERD. - History of Current Complaint Time Seen by Provider: 07/29/19 13:05 Hx Obtained From: Patient Onset/Duration: Started Hours Ago, Still Present Timing: Lasting Hours Current Severity: Mild Pain Intensity: 3 Pain Scale Used: 0-10 Numeric Chest Pain Location: Left Anterior Chest Pain Radiates: No Character: Sharp/Stabbing - stabbing Aggravating Factor(s): Nothing Alleviating Factor(s): Nothing Associated Signs and Symptoms: Positive: Chest Pain, Dizziness, Shortness of Breath. Negative: Fever, Chills, Nausea, Vomiting - Additional Pertinent History Primary Care Physician: [id number] - Allergy/Home Medications Allergies/Adverse Reactions: Allergies Allergy/AdvReac Type Severity Reaction Status Date / Time fentanyl Allergy Hallucinati Verified 07/24/19 19:38 ons lisinopril Allergy Unknown Verified 07/24/19 19:38 Reaction Details shellfish derived Allergy Unknown Verified 07/24/19 19:38 Reaction Details IV CONTRAST Allergy Hives Uncoded 02/03/19 16:48 Home Medications: Home Medications Albuterol HFA INHALER* [Ventolin HFA Inhaler*] 2 puff INH Q6H PRN 07/29/19 [ History Confirmed 07/29/19] Atorvastatin* [Lipitor*] 80 mg PO DAILY 07/29/19 [History Confirmed 07/29/19] Losartan TAB* [Cozaar TAB*] 25 mg PO DAILY 07/29/19 [History Confirmed 07/29/19] Sucralfate TAB* [Carafate*] 1 gm PO TID 07/29/19 [History Confirmed 07/29/19] PMH/Surg Hx/FS Hx/Imm Hx Endocrine/Hematology History: Reports: Hx Diabetes Denies: Hx Thyroid Disease Cardiovascular History: Reports: Hx Angina, Hx Coronary Artery Disease, Hx Hypercholesterolemia, Hx Hypertension, Hx Myocardial Infarction - Jun 2016, Other Cardiovascular Problems/Disorders - Current admission for chest pain Denies: Hx Pacemaker/ICD Respiratory History: Reports: Hx Asthma - SEASONAL Denies: Hx Chronic Obstructive Pulmonary Disease (COPD), Other Respiratory Problems/Disorders GI History: Reports: Hx Gastroesophageal Reflux Disease Denies: Hx Ulcer History: Denies: Hx Renal Disease Musculoskeletal History: Reports: Other Musculoskeletal History - Lt wrist pain of unknown origin Denies: Hx Arthritis, Hx Osteoporosis Sensory History: Reports: Hx Contacts or Glasses Denies: Hx Hearing Aid Opthamlomology History: Reports: Hx Contacts or Glasses Neurological History: Denies: Hx Developmental Delay, Hx Peripheral Neuropathy Psychiatric History: Reports: Hx Depression, Hx Post Traumatic Stress Disorder, Hx Bipolar Disorder, Hx Suicide Attempt Denies: Hx Eating Disorder, Hx Panic Disorder, Hx Schizophrenia, Hx of Violent Episodes Against Others Comment Only: Other Psychiatric Issues/Disorders - patient denies psychiatric history and hx of outpatient tx - Cancer History Cancer Type, Location and Year: none - Surgical History Surgical History: Yes Surgery Procedure, Year, and Place: appendectomy. stent placed June 2016 after heart attack Hx Anesthesia Reactions: No - Immunization History Date of Tetanus Vaccine: unk Date of Influenza Vaccine: none Infectious Disease History: No Infectious Disease History: Denies: Hx Clostridium Difficile, Hx Hepatitis, Hx Human Immunodeficiency Virus (HIV), Hx of Known/Suspected MRSA, Hx Shingles, Hx Tuberculosis, Hx Known/ Suspected VRE, Hx Known/Suspected VRSA, History Other Infectious Disease, Traveled Outside the [place] in Last 30 Days - Family History Known Family History: Positive: Cardiac Disease, Hypertension, Diabetes - Social History Alcohol Use: Occasionally Alcohol Amount: 2-3 beers per week Hx Substance Use: Yes Substance Use Type: Reports: Marijuana Substance Use Comment - Amount & Last Used: OCCASIONALLY Hx Tobacco Use: Yes Smoking Status (MU): Former Smoker Type: Cigarettes Amount Used/How Often: 2 Have You Smoked in the Last Year: Yes Review of Systems Negative: Fever, Chills Positive: Chest Pain Positive: Shortness Of Breath Negative: Vomiting, Nausea Neurological: Other - POSITIVE: dizziness All Other Systems Reviewed And Are Negative: Yes Physical Exam - Summary Physical Exam Summary: VITAL SIGNS: Reviewed. GENERAL: Patient is a well-developed and nourished male who is lying comfortable in the stretcher. Patient is not in any acute respiratory distress. HEAD AND FACE: No signs of trauma. No ecchymosis, hematomas or skull depressions. No sinus tenderness. EYES: PERRLA, EOMI x 2, No injected conjunctiva, no nystagmus. EARS: Hearing grossly intact. Ear canals and tympanic membranes are within normal limits. MOUTH: Oropharynx within normal limits. NECK: Supple, trachea is midline, no adenopathy, no JVD, no carotid bruit, no c- spine tenderness, neck with full ROM. CHEST: Symmetric, no tenderness at palpation LUNGS: Clear to auscultation bilaterally. No wheezing or crackles. CVS: Regular rate and rhythm, S1 and S2 present, no murmurs or gallops appreciated. ABDOMEN: Soft, non-tender. No signs of distention. No rebound, no guarding, and no masses palpated. Bowel sounds are normal. EXTREMITIES: FROM in all major joints, no edema, no cyanosis or clubbing. NEURO: Alert and oriented x 3. No acute neurological deficits. Speech is normal and follows commands. SKIN: Dry and warm Triage Information Reviewed: Yes Vital Signs On Initial Exam: Initial Vitals Temp Pulse Resp BP Pulse Ox 97.8 F 78 16 133/82 98 07/29/19 13:03 07/29/19 13:03 07/29/19 13:03 07/29/19 13:03 07/29/19 13:03 Vital Signs Reviewed: Yes Procedures - Sedation Patient Received Moderate/Deep Sedation with Procedure: No Diagnostics - Vital Signs Vital Signs Temp Pulse Resp BP Pulse Ox 07/29/19 13:03 97.8 F 78 16 133/82 98 - Laboratory Result Diagrams: 07/29/19 13:34 07/29/19 13:34 Lab Statement: Any lab studies that have been ordered have been reviewed, and results considered in the medical decision making process. - Radiology chest XR Radiology Interpretation Completed By: Radiologist Summary of Radiographic Findings: IMPRESSION: No evidence for acute intrathoracic disease. Dr. Tai has reviewed this report. - EKG 13:00 Cardiac Rate: NL - at 80 bpm EKG Rhythm: Sinus Rhythm EKG Comparison: No Significant Change - similar to prior on 07/24/19. Summary of EKG Findings: EKG at 13:00 shows normal sinus rhythm at a rate of [address] elevations. Similar EKG to prior on 07/24/19. This EKG was reviewed and interpreted by ED physician. Chest Pain Course/Dx - Course Assessment/Plan: This pt is a 49 y/o male presenting to [facility] via EMS for left sided chest pain today since 10:30. 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 He describes chest pain as a stabbing pain. Pt states associated symptoms of dizziness and SOB. Denies fever , chills, nausea, vomiting. PMHx includes DM, angina, CAD, dyslipidemia, HTN, MA with stents, asthma, GERD. Blood test results without any significant abnormality except for magnesium 1.8 and CPK of 1422. Urinalysis is negative for UTI. 2 troponins 4 hours apart is negative for acute coronary syndrome. In the ED course the patient was given IV fluids, all symptoms have resolved. EKG shows a normal sinus rhythm without any ST elevation. EKG is similar to previous. Chest x-ray impression: No evidence for intrathoracic disease. Patient reports that all symptoms have resolved. Patient HEART score is: 3 therefore there is a low suspicion for CAD. Patient is not hypoxic or tachycardic. Wells criteria is 0, therefore no suspicion for PE. Patient has no abdominal bruit thus no suspicion for AAA. Patients pain does not radiate to the back and pain has resolved thus low suspicion for aortic dissection. I discussed all the findings and test results with the patient. Patient was instructed to return to the emergency room immediately if any of the symptoms return or worsen. Patient understands and agrees. Plan of care was discussed with the patient and patient understands and agrees. All questions were answered at patient satisfaction. There were no further complaints or concerns. Physical Exam before discharge: CVS: S1 and S2 present. No murmurs appreciated. Abdominal exam before discharge: Soft, non-tender. No signs of distention. No rebound no guarding, and no masses palpated. Bowel sounds are normal. Patient is alert and oriented x 3. Patient is hemodynamically stable. - Chest Pain Differential Diagnosis/HQI/PQRI: Acute MA, ACS, Angina, CHF, Chest Wall, GI Disease, Lower Respiratory Infection - Diagnoses Provider Diagnoses: Atypical chest pain, Rhabdomyolysis Discharge ED - Sign-Out/Discharge Documenting (check all that apply): Patient Departure - Discharge home - Discharge Plan Condition: Stable Disposition: HOME Patient Education Materials: Chest Pain (ED), Rhabdomyolysis (ED) Referrals: Nancie Camarena MD [Primary Care Provider] - Additional Instructions: FOLLOW UP WITH YOUR PRIMARY CARE PROVIDER IN 2-3 DAYS. RETURN TO THE ED FOR ANY NEW OR WORSENING SYMPTOMS. - Billing Disposition and Condition Condition: STABLE Disposition: Home - Attestation Statements Document Initiated by Neetuibe: Yes Documenting Scribe: Kasey Soria Provider For Whom Scribe is Documenting (Include Credential): Ankit Tai MD Scribe Attestation: Kasey Griffin, scribed for Ankit Tai MD on 07/29/19 at 2143. Scribe Documentation Reviewed: Yes Provider Attestation: The documentation as recorded by the Kasey melton accurately reflects the service I personally performed and the decisions made by , Ankit Tai MD Status of Scribe Document: Viewed
[2019-07-29 13:44] LABS: ABS Basophils 0.1 10^3/ul (0-0.2); ABS Eosinophils 0.2 10^3/ul (0-0.6); ABS Lymphocytes 2.3 10^3/ul (1.0-4.8); ABS Monocytes 0.5 10^3/ul (0-0.8); ABS Neutrophils 3.1 10^3/ul (1.5-7.7); Eosinophil % 2.7 %; Hematocrit 42 % (42-52); Lymphocyte % 38.2 %; Mean Corpuscular HGB Conc 33 g/dL (31-36); Mean Corpuscular Hemoglobin 28 pg (27-31); Mean Corpuscular Volume 86 fL (80-94); Mean Platelet Volume 7.3 fL (7.4-10.4); Platelet Count 247 10^3/uL (150-450); Red Blood Count 4.96 10^6 /uL (4.18-5.48); Red Cell Distribution Width 14 % (10-15); White Blood Count 6.1 10^3/uL (3.5-10.8)
[2019-07-29 14:07] LABS: Albumin 3.9 g/dL (3.2-5.2); Albumin/Globulin Ratio 1.2 (1-3); BUN/Creatinine Ratio 18.1 (8-20); EGFR African American 118.7 (>60); EGFR Non-African American 98.1 (>60); Globulin 3.3 g/dL (2-4); Magnesium 1.8 mg/dL (1.9-2.7); Total Bilirubin 0.4 mg/dL (0.2-1.0); Total Protein 7.2 g/dL (6.4-8.9)
[2019-07-29 14:08] LABS: Troponin I 0.01 ng/mL (<0.03)
[2019-07-29 14:10] LABS: CKMB ng/mL 3.9 ng/mL (0.6-6.3)
--- OUTSIDE RECORDS SUMMARY | 2019-07-29 14:10 | XMS REPORT | Summary of Care ---
:1970 Author Organization [facility] Address [address] [place] [address] Care Team Providers Name Role Phone Nancie Camarena MD Primary Care Provider Reason for Visit Reason Comments ED To ED Transfer Encounter Details Date Type Department Care Team Description 07/25/2019 Emergency EMERGENCY DEPARTMENT [facility] Chest pain, unspecified [address] [facility] type (Primary Dx) [place] [address] Allergies Active Allergy Reactions Severity Noted Date Comments Fentanyl 08/11/2016 Glipizide 02/18/2015 Shellfish-Derived Products 07/06/2017 documented as of this encounter (statuses as of 07/25/2019) Medications Medication Sig Dispensed Refills Start Date End Date Status ranolazine (RANEXA) 500 Take 500 mg by 0 Active MG 12 hr tablet mouth Two Times Daily indomethacin (INDOCIN) Place 50 mg 0 Active 50 MG suppository rectally every 12 (twelve) hours as needed rosuvastatin (CRESTOR) Take 10 mg by 0 Active 10 MG tablet mouth daily insulin glargine Inject into the 0 Active (LANTUS SOLOSTAR) 100 skin nightly UNIT/ML pen Lancets MISC Use as directed. 0 Active metformin (GLUCOPHAGE) Take 500 mg by 0 Active 500 MG tablet mouth Two times daily with meals loratadine (CLARITIN) Take 10 mg by 0 Active 10 MG tablet mouth daily albuterol (PROVENTIL Inhale 2 puffs 0 Active HFA;VENTOLIN HFA) 108 into the lungs (90 Base) MCG/ACT every 6 (six) inhaler hours as needed for Wheezing aspirin 81 MG tablet Take 81 mg by 0 Active mouth daily metoprolol tartrate Take 25 mg by 0 Active (LOPRESSOR) 25 MG mouth Two Times tablet Daily amlodipine (NORVASC) 10 Take 10 mg by 0 Active MG tablet mouth daily nitroglycerin Place 0.4 mg 0 Active (NITROSTAT) 0.4 MG SL under the tongue tablet every 5 (five) minutes as needed for Chest pain acetaminophen (TYLENOL) Take 500 mg by 0 Active 500 MG tablet mouth every 6 (six) hours as needed for Pain Multiple Take by mouth 0 Active Vitamins-Minerals (PA MENS 50 PLUS VITAPAK PO) dulaglutide (TRULICITY) Inject 0.75 mg 0 Active 0.75 MG/0.5ML injection into the skin pen 0.75 mg/0.5 mL once a week documented as of this encounter (statuses as of 07/25/2019) Active Problems Problem Noted Date Morbid obesity 06/29/2016 Essential hypertension 06/29/2016 Hyperlipidemia 06/28/2016 Myocardial infarction 06/19/2016 DM (diabetes mellitus) 11/15/2015 documented as of this encounter (statuses as of 07/25/2019) Social History Tobacco Use Types Packs/Day Years Used Date Former Smoker Quit: 2010 Alcohol Use Drinks/Week oz/Week Comments Yes Sex Assigned at Date Recorded Not on file Job Start Date Occupation Industry Not on file Not on file Not on file Travel History Travel Start Travel End No recent travel history available. documented as of this encounter Last Filed Vital Signs Vital Sign Reading Time Taken Comments Blood Pressure 140/64 07/25/2019 7:18 PM EST Pulse 66 07/25/2019 7:18 PM EST Temperature 37 07/25/2019 7:00 PM EST C (98.6 F) Respiratory Rate 24 07/25/2019 7:18 PM EST Oxygen Saturation 98% 07/25/2019 7:18 PM EST Inhaled Oxygen Concentration - - Weight 90.7 kg (200 lb) 07/25/2019 5:16 PM EST Height 167.6 cm (5' 6") 07/25/2019 5:16 PM EST Body Mass Index 32.28 07/25/2019 5:16 PM EST documented in this encounter Discharge Instructions InstructionsSuchoJose serna PA - 07/25/2019THERE ARE PULMONARY NODULES NOTED ON IMAGING TODAY RECOMMEND REPEAT IMAGING AT THE DISCRETION OF YOUR PRIMARY DOCTOR TO CHECK FOR STABILITY AttachmentsThe following attachments cannot be sent through Care Everywhere.Chest Pain, Uncertain Cause (Spanish)documented in this encounter Plan of Treatment Health Maintenance Due Date Last Done Comments MMR Vaccines (1 of 1 - Standard 1970 series) Varicella Vaccines (1 of 2 - 1970 2-dose childhood series) Pneumococcal Vaccine: Pediatrics 1975 (0 to 5 Years) and At-Risk Patients (6 to 64 Years) (1 of 1 - PPSV23) DTaP,Tdap,and Td Vaccines (1 - 1976 Tdap) HIV Screening 1982 Hepatitis B Vaccines (1 of 3 - 1988 Risk 3-dose series) Influenza Vaccine 04/15/2019 Colon Cancer Screening 10 yrs 2019 Pneumococcal Vaccine: 65+ Years (1 2034 of 2 - PCV13) HIB Vaccines Aged Out No longer eligible based on patient's age to complete this topic Hepatitis A Vaccines Aged Out No longer eligible based on patient's age to complete this topic IPV Vaccines Aged Out No longer eligible based on patient's age to complete this topic documented as of this encounter Procedures Procedure Name Priority Date/Time Associated Comments Diagnosis POCT ISTAT TROPONIN Routine 07/25/2019 7:03 Results for this PM EST procedure are in the results section. CT ANGIOGRAPHY THORAX STAT 07/25/2019 6:16 Results for this 00763 PM EST procedure are in the results section. PARTIAL THROMBOPLASTIN STAT 07/25/2019 5:38 Results for this TIME (PTT) PM EST procedure are in the results section. PROTIME INR STAT 07/25/2019 5:38 Results for this PM EST procedure are in the results section. documented in this encounter Results POCT i-STAT Troponin (07/25/2019 7:03 PM EST) i-STAT Troponin I 0.00 0.00 - 0.08 ng/mL [facility] POC Specimen Whole Blood Performing Organization Address City/State/Zipcode Phone Number POINT OF CARE TEST [address], [place] [id number] [place] [address] POC [address] [place] [address] CT Angiography Thorax (07/25/2019 6:16 PM EST) Specimen Narrative Performed At PROCEDURE INFORMATION: [facility] Exam: CT Angiography Chest With Contrast Exam date and time: 07/25/2019 6:07 PM Age: 49 years old Clinical indication: Shortness of breath; Additional info: Cp, SOB, elevated d-dimer; RO pe TECHNIQUE: Imaging protocol: Computed tomographic angiography of the chest with intravenous contrast. 3D rendering: MIP and/or 3D reconstructed images were created by the technologist. Radiation optimization: All CT scans at this facility use at least one of these dose optimization techniques: automated exposure control; mA and/or kV adjustment per patient size (includes targeted exams where dose is matched to clinical indication); or iterative reconstruction. Contrast material: OMNI 350; Contrast volume: 100 ml; Contrast route: IV; COMPARISON: DX CHEST PA AND LATERAL 07/25/2019 11:06 AM FINDINGS: Pulmonary arteries: There is no evidence of filling defects within the pulmonary arterial circulation to suggest pulmonary embolism. Aorta: The aorta is normal. Lungs: The bronchial tree is normal. There is a 1 cm solid appearing nodule in the lingula seen on axial image 128 of series 5. This is seen on series 6 image 55. There is a second pleurally based 7 mm nodule in the same portion of the lung. Pleural space: There are no pleural effusions present. Heart: The heart demonstrates mild diffuse enlargement. Mediastinum: The trachea is normal. Lymph nodes: No pathologic lymph node enlargement is demonstrated. Bones/joints: Unremarkable Soft tissues: The extrathoracic soft tissues are normal. IMPRESSION: 1. Mild cardiomegaly. 2. No evidence of pulmonary embolism. 3. 1 cm and 7 mm nodules in the lingula. For patients at low risk (minimal or absent history of smoking and of other known risk factors), recommend CT at 3-6 months, then consider CT at 18-24 months. For patients at high risk (history of smoking or of other known risk factors), recommend CT at 3-6 months, then CT at 18-24 months. (Anisha et al., Fleischner Society, 2017) THIS DOCUMENT HAS BEEN ELECTRONICALLY SIGNED BY RAMA PONCE MD Procedure Note Interface, Received Via [employer] System - 07/25/2019 6:36 PM EST PROCEDURE INFORMATION: Exam: CT Angiography Chest With Contrast Exam date and time: 07/25/2019 6:07 PM Age: 49 years old Clinical indication: Shortness of breath; Additional info: Cp, SOB, elevated d-dimer; RO pe TECHNIQUE: Imaging protocol: Computed tomographic angiography of the chest with intravenous contrast. 3D rendering: MIP and/or 3D reconstructed images were created by the technologist. Radiation optimization: All CT scans at this facility use at least one of these dose optimization techniques: automated exposure control; mA and/or kV adjustment per patient size (includes targeted exams where dose is matched to clinical indication); or iterative reconstruction. Contrast material: OMNI 350; Contrast volume: 100 ml; Contrast route: IV; COMPARISON: DX CHEST PA AND LATERAL 07/25/2019 11:06 AM FINDINGS: Pulmonary arteries: There is no evidence of filling defects within the pulmonary arterial circulation to suggest pulmonary embolism. Aorta: The aorta is normal. Lungs: The bronchial tree is normal. There is a 1 cm solid appearing nodule in the lingula seen on axial image 128 of series 5. This is seen on series 6 image 55. There is a second pleurally based 7 mm nodule in the same portion of the lung. Pleural space: There are no pleural effusions present. Heart: The heart demonstrates mild diffuse enlargement. Mediastinum: The trachea is normal. Lymph nodes: No pathologic lymph node enlargement is demonstrated. Bones/joints: Unremarkable Soft tissues: The extrathoracic soft tissues are normal. IMPRESSION: 1. Mild cardiomegaly. 2. No evidence of pulmonary embolism. 3. 1 cm and 7 mm nodules in the lingula. For patients at low risk (minimal or absent history of smoking and of other known risk factors), recommend CT at 3-6 months, then consider CT at 18-24 months. For patients at high risk (history of smoking or of other known risk factors), recommend CT at 3-6 months, then CT at 18-24 months. (Anisha et al., Fleischner Society, 2017) THIS DOCUMENT HAS BEEN ELECTRONICALLY SIGNED BY RAMA PONCE MD Performing Organization Address City/[facility]/Zipcode Phone Number [facility] [address] [place] [address] Partial Thromboplastin Time (PTT) (07/25/2019 5:38 PM EST) PTT Patient (PAT) 30.4 24.0 - 34.0 s [facility] Pathology Specimen Plasma Performing Organization Address City/[facility]/Zipcode Phone Number [facility] [address] [place] [address] [facility] [address] [place] [address] Pathology Protime-INR (07/25/2019 5:38 PM EST) PT Patient 12.9 12.5 - 14.9 [facility] s Univ Clin Pathology Int'l Normalized 0.95Comment: Routine [facility] Ratio intensity oral Univ Clin anticoagulation INR is Pathology typically 2.0-3.0. Target INR must be clinically individualized. Specimen Plasma Performing Organization Address City/State/Zipcode Phone Number [facility] [address] [place] [address] [facility] [address] [place] [address] Pathology documented in this encounter Visit Diagnoses Diagnosis Chest pain, unspecified type - Primary documented in this encounter Administered Medications Medication Order MAR Action Action Date Dose Rate Site iohexol (OMNIPAQUE) 350 New 07/25/2019 6:12 PM 100 mLs Left Arm MG/ML contrast injection Syringe/Cartridge EST 100 mL 100 mL, Given by IV, 1 TIME IMAGING, Sun07/25/19 at 1730, For 1 dose documented in this encounter
[2019-07-29 14:27] LABS: TSH (Thyroid Stimulating Horm) 1.13 mcIU/mL (0.34-5.60)
[2019-07-29 15:16] LABS: Urine Appearance Clear; Urine Bilirubin Negative (Negative); Urine Blood Negative (Negative); Urine Color Yellow; Urine Glucose Negative (Negative); Urine Ketones Trace (Negative); Urine Nitrite Negative (Negative); Urine Protein Negative (Negative); Urine Specific Gravity 1.025 (1.010-1.030); Urine Urobilinogen Negative (Negative)
[2019-07-29] MEDS ORDERED: NS 0.9% 1000 ML** 1,000 ML IV ONE (16:39)
== END 2019-07-29 18:34 | disposition home or self-care (01) ==
LOC: ED 13:01
DX: R07.89 Other chest pain (principal); R42 Dizziness and giddiness; R06.02 Shortness of breath; E11.9 Type 2 diabetes mellitus without complications; I25.10 Atherosclerotic heart disease of native coronary artery without angina pectoris; E78.5 Hyperlipidemia, unspecified; I25.2 Old myocardial infarction; J45.909 Unspecified asthma, uncomplicated; K21.9 Gastro-esophageal reflux disease without esophagitis; Z79.899 Other long term (current) drug therapy; Z87.891 Personal history of nicotine dependence; M62.82 Rhabdomyolysis
CPT/HCPCS: 36415; 71045; 80053; 81003; 82550; 82553; 83605; 83735; 83880; 84443; 84484; 85025; 93005; 96360; 99283

== ENCOUNTER 2019-08-16 13:35 | Emergency (ER) | payer OTHER ==
--- NOTE | 2019-08-16 13:51 | ED ---
HPI Chest Pain - HPI Summary HPI Summary: Patient is a 49 y/o M presenting to [facility] via EMS with chief complaint of chest pain that onset an hour ago today, 08/16/19. The patient characterizes the pain as a pressure. No SOB, N/V, dizziness reported. Patient was given ASA and nitro by EMS with relief in Sx. PMHx of [place] with cardiac stent placement 3 years ago is noted. PMHx of diabetes, CAD, HTN, HLD, asthma, depression, PTSD, bipolar disorder noted. FMHx of diabetes, cardiac disease, HTN noted. He is a current smoker, drinks occasionally, and denies substance usage. Home medications and allergies are reviewed. - History of Current Complaint Chief Complaint: EDChestPainROMI Time Seen by Provider: 08/16/19 13:39 Hx Obtained From: Patient Onset/Duration: Started Hours Ago Timing: Lasting Hours Initial Severity: Severe Current Severity: Severe Pain Intensity: 7 Pain Scale Used: 0-10 Numeric Character: Pressure/Squeezing Associated Signs and Symptoms: Positive: Chest Pain. Negative: Dizziness, Shortness of Breath, Nausea, Vomiting - Additional Pertinent History Primary Care Physician: [id number] - Allergy/Home Medications Allergies/Adverse Reactions: Allergies Allergy/AdvReac Type Severity Reaction Status Date / Time fentanyl Allergy Hallucinati Verified 08/16/19 13:45 ons Iodinated Contrast Media Allergy See Comment Verified 08/16/19 14:23 lisinopril Allergy Unknown Verified 08/16/19 13:45 Reaction Details shellfish derived Allergy Unknown Verified 08/16/19 13:45 Reaction Details PMH/Surg Hx/FS Hx/Imm Hx Endocrine/Hematology History: Reports: Hx Diabetes Denies: Hx Thyroid Disease Cardiovascular History: Reports: Hx Angina, Hx Coronary Artery Disease, Hx Hypercholesterolemia, Hx Hypertension, Hx Myocardial Infarction - Jun 2016, Other Cardiovascular Problems/Disorders - Current admission for chest pain Denies: Hx Pacemaker/ICD Respiratory History: Reports: Hx Asthma - SEASONAL Denies: Hx Chronic Obstructive Pulmonary Disease (COPD), Other Respiratory Problems/Disorders GI History: Reports: Hx Gastroesophageal Reflux Disease Denies: Hx Ulcer History: Denies: Hx Renal Disease Musculoskeletal History: Reports: Other Musculoskeletal History - Lt wrist pain of unknown origin Denies: Hx Arthritis, Hx Osteoporosis Sensory History: Reports: Hx Contacts or Glasses Denies: Hx Hearing Aid Opthamlomology History: Reports: Hx Contacts or Glasses Neurological History: Denies: Hx Developmental Delay, Hx Peripheral Neuropathy Psychiatric History: Reports: Hx Depression, Hx Post Traumatic Stress Disorder, Hx Bipolar Disorder, Hx Suicide Attempt Denies: Hx Eating Disorder, Hx Panic Disorder, Hx Schizophrenia, Hx of Violent Episodes Against Others Comment Only: Other Psychiatric Issues/Disorders - patient denies psychiatric history and hx of outpatient tx - Cancer History Cancer Type, Location and Year: none - Surgical History Surgery Procedure, Year, and Place: appendectomy. stent placed June 2016 after heart attack Hx Anesthesia Reactions: No - Immunization History Date of Tetanus Vaccine: unk Date of Influenza Vaccine: none Infectious Disease History: No Infectious Disease History: Denies: Hx Clostridium Difficile, Hx Hepatitis, Hx Human Immunodeficiency Virus (HIV), Hx of Known/Suspected MRSA, Hx Shingles, Hx Tuberculosis, Hx Known/ Suspected VRE, Hx Known/Suspected VRSA, History Other Infectious Disease, Traveled Outside the [place] in Last 30 Days - Family History Known Family History: Positive: Cardiac Disease, Hypertension, Diabetes - Social History Alcohol Use: Occasionally Alcohol Amount: 2-3 beers per week Hx Substance Use: Yes Substance Use Type: Reports: None Substance Use Comment - Amount & Last Used: denies Hx Tobacco Use: Yes Smoking Status (MU): Current Some Day Smoker Type: Cigarettes Amount Used/How Often: 2 Have You Smoked in the Last Year: Yes Review of Systems Positive: Chest Pain Negative: Shortness Of Breath Negative: Vomiting, Nausea Neurological: Other - negative - dizziness All Other Systems Reviewed And Are Negative: Yes Physical Exam - Summary Physical Exam Summary: VITAL SIGNS: Reviewed. GENERAL: Patient is a well-developed and nourished male who is lying comfortable in the stretcher. Patient is not in any acute respiratory distress. HEAD AND FACE: No signs of trauma. No ecchymosis, hematomas or skull depressions. No sinus tenderness. EYES: PERRLA, EOMI x 2, No injected conjunctiva, no nystagmus. EARS: Hearing grossly intact. Ear canals and tympanic membranes are within normal limits. MOUTH: Oropharynx within normal limits. NECK: Supple, trachea is midline, no adenopathy, no JVD, no carotid bruit, no c- spine tenderness, neck with full ROM. CHEST: Symmetric, no tenderness at palpation. LUNGS: Clear to auscultation bilaterally. No wheezing or crackles. CVS: Regular rate and rhythm, S1 and S2 present, no murmurs or gallops appreciated. ABDOMEN: Soft, non-tender. No signs of distention. No rebound, no guarding, and no masses palpated. Bowel sounds are normal. EXTREMITIES: FROM in all major joints, no edema, no cyanosis or clubbing. NEURO: Alert and oriented x 3. No acute neurological deficits. Speech is normal and follows commands. SKIN: Dry and warm. Triage Information Reviewed: Yes Vital Signs On Initial Exam: Initial Vitals Temp Pulse Resp BP Pulse Ox 97.4 F 91 21 138/76 98 08/16/19 13:42 08/16/19 13:42 08/16/19 13:42 08/16/19 13:42 08/16/19 13:42 Vital Signs Reviewed: Yes Procedures - Sedation Patient Received Moderate/Deep Sedation with Procedure: No Diagnostics - Vital Signs Vital Signs Temp Pulse Resp BP Pulse Ox 08/16/19 13:45 98 08/16/19 13:44 77 24 98 08/16/19 13:42 97.4 F 78 25 138/76 100 - Laboratory Result Diagrams: 08/16/19 14:04 08/16/19 14:04 Lab Statement: Any lab studies that have been ordered have been reviewed, and results considered in the medical decision making process. - Radiology CXR Radiology Interpretation Completed By: Radiologist Summary of Radiographic Findings: IMPRESSION: 1. No acute cardiopulmonary process by radiograph. 2. Known pulmonary nodularity better characterized by comparison CT. THIS REPORT WAS REVIEWED BY ED PHYSICIAN. - EKG 1355 Cardiac Rate: NL - rate of 68 BPM EKG Rhythm: Sinus Rhythm EKG Comparison: No Significant Change - similar to EKG done 07/29/19 Summary of EKG Findings: EKG showed NSR with rate of 68 BPM, no ST elevations, no STEMI, similar to EKG done 07/29/19. ED physician has reviewed and interpreted this EKG. Chest Pain Course/Dx - Course Assessment/Plan: Patient is a 49 y/o M presenting to [facility] via EMS with chief complaint of chest pain that onset an hour ago today, 08/16/19. The patient describes the pain as a pressure. No SOB, N/V, dizziness reported. Patient was given ASA and nitro by EMS with relief in Sx. PMHx of [place] with cardiac stent placement 3 years ago is noted. PMHx of diabetes, CAD, HTN, HLD, asthma, depression, PTSD, bipolar disorder noted. FMHx of diabetes, cardiac disease, HTN noted. He is a current smoker, drinks occasionally, and denies substance usage. Home medications and allergies are reviewed. In the ED course the patient was placed in a ekg monitor tech, IV access was obtained. Blood test w/ o a significant abnormality except for for normocytic normochromic anemia with a hemoglobin of 13.5 and hematocrit of 41. Glucose is 120, CPK is 236, troponin 0.00. EKG shows a normal sinus rhythm without ST elevations. EKG is similar to previous EKG. Chest x-ray shows no acute cardiopulmonary process. Again seen pulmonary nodules. The patient is aware of these findings. Second troponins 4 hours apart is 0.00. Patient reports that all symptoms have resolved. Patient Hear score is: 3, therefore, low suspicion for CAD. Patient is not hypoxic or tachycardic. Wells criteria 0 . Therefore, no suspicion for PE. Patient has no abdominal bruit thus no suspicion for AAA. Patients pain does not radiate to the back and pain has resolved thus low suspicion for aortic dissection. I discussed all the findings and test results with the patient. Patient was instructed to return to the emergency room immediately if any of the symptoms return or worsen. Patient understands and agrees. Plan of care was discussed with the patient and patient understands and agrees. All questions were answered at patient satisfaction. There were no further complaints or concerns. PE before discharge: CVS: S1 and S2 present. No murmurs appreciated. Abdominal exam before discharge: Soft, non-tender. No signs of distention. No rebound no guarding, and no masses palpated. Bowel sounds are normal. Patient is alert and oriented x 3. Patient is hemodynamically stable. - Chest Pain Differential Diagnosis/HQI/PQRI: Acute [place], ACS, Angina, CHF, Chest Wall, GI Disease, Pulmonary Edema - Diagnoses Provider Diagnoses: Chest pain Discharge ED - Sign-Out/Discharge Documenting (check all that apply): Patient Departure - discharge - Discharge Plan Condition: Stable Disposition: HOME Patient Education Materials: Chest Pain (ED) Referrals: Nancie Camarena MD [Medical Doctor] - 3 Days Additional Instructions: PLEASE RETURN TO ED FOR ANY NEW OR CONCERNING SYMPTOMS. PLEASE FOLLOW UP WITH YOUR PRIMARY CARE PHYSICIAN WITHIN THREE DAYS. - Billing Disposition and Condition Condition: STABLE Disposition: Home - Attestation Statements Document Initiated by Scribe: Yes Documenting Scribe: DARLENE GARCIA Provider For Whom Kisha is Documenting (Include Credential): UBALDO BAUTISTA MD Scribe Attestation: IDARLENE, scribed for UBALDO BAUTISTA MD on 08/16/19 at 1853. Scribe Documentation Reviewed: Yes Provider Attestation: The documentation as recorded by the DARLENE melton accurately reflects the service I personally performed and the decisions made by me, UBALDO BAUTISTA MD Status of Scribe Document: Viewed
--- OUTSIDE RECORDS SUMMARY | 2019-08-16 14:06 | XMS REPORT | Continuity of Care Document ---
:1970 External Reference #:[id number] Author Name Scott Boyd M.D. 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 Onset: 02/06/2017 nonproliferative diabetic retinopathy without macular edema, bilateral Social History Type Date Description Comments Sex Unknown ETOH Use Rarely consumes alcohol Tobacco Use Start: Unknown End: Unknown Patient is a former smoker Recreational Drug Use Denies Drug Use Smoking Status Reviewed: 07/31/19 Patient is a former smoker Allergies, Adverse Reactions, Alerts Description No Known Drug Allergies Medications Active Medications SIG Qnty Indications Ordering Provider Date Amlodipine Besylate Vamsi, 5mg MD Nancie Tablets Metformin HCL Vamsi, 1000mg MD Nancie Tablets Aspirin Vamsi, 81mg Chewtabs MD Nancie Rosuvastatin Calcium Unknown 10mg Tablets Atorvastatin Calcium Brand, Joaquín 80mg M.D. Tablets Humalog Kwikpen Vamsi, MD Nancie 100Unit/ML Solution Pen-Inject Lisinopril Vamsi, 5mg Tablets MD Nancie Ventolin HFA Cranobrian, 108(90Base) MD Nancie mcg/Act Aerosol Clopidogrel Bisulfate Take Four Tablets Unknown By Mouth On First 75mg Tablets Day Then Take One Tablet By Mouth Immunizations Description No Information Available Vital Signs Description No Information Available Results Description No Information Available Procedures Description No Information Available Medical Devices Description No Information Available Encounters Description No Information Available Assessments Date Code Description Provider 07/31/2019 [id number] Type 2 diabetes mellitus with mild Scott Boyd M.D. nonproliferative diabetic retinopathy without macular edema, bilateral Plan of Treatment 07/31/2019 - Scott Boyd M.D.[id number] Type 2 diabetes mellitus with mild nonproliferative diabetic retinopathy without macular edema, bilateralComments: Smoking can increase the risk of developing or worsening any eye related disease , as well as affect your overall health. If you are a smoker, we strongly recommend that you quit.If you are not a smoker, we strongly recommend that you do not start. I can detect diabetic changes in your eyes. Proper control of your diabetes is important for the health of your eyes. It is important that you keep all of your follow up appointments. Functional Status Description No Information Available Mental Status Description No Information Available Referrals Description No Information Available
--- OUTSIDE RECORDS SUMMARY | 2019-08-16 14:06 | XMS REPORT ---
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 Relevant diagnostic tests/laboratory data Narrative No Information Procedures Procedure Code CodeSystem Target Date of Status Service Device Device Device Name Site Procedure Delivery Code Name UID Location SNOMED-CT () 2019-08-[address], [id number] SNOMED-CT () 2019-07-[address], [id number] SNOMED-CT () 2019-06-[address], [id number] Encounters/Encounter Diagnoses Encounter Encounter Diagnosis Diagnosis Diagnosis Date of Service Name Code Code Name CodeSystem Diagnosis Delivery Location Initial 62022 [id number] Adjustment SNOMED-CT 2019-08-01 Behavioral Assessment disorders, Health Diagnostic & with mixed Clinic [address] Treatment disturbance [facility] Plan of emotions & Street, conduct [place], [place], [phone] Vital Signs No Information Social History Element Description Description Start End Code CodeSystem AdditionalInfo Date Date SexAssignedAtBirth Male 1969-1 M AdministrativeGender 0-06 Hospital Discharge Instructions Reason For Referral Medical Equipment FDA Assessments
[2019-08-16 14:12] LABS: ABS Basophils 0.1 10^3/ul (0-0.2); ABS Eosinophils 0.2 10^3/ul (0-0.6); ABS Lymphocytes 2.5 10^3/ul (1.0-4.8); ABS Monocytes 0.5 10^3/ul (0-0.8); ABS Neutrophils 3.2 10^3/ul (1.5-7.7); Eosinophil % 3.4 %; Hematocrit 41 % (42-52); Hemoglobin 13.5 g/dL (14.0-18.0); Lymphocyte % 38.7 %; Mean Corpuscular HGB Conc 33 g/dL (31-36); Mean Corpuscular Hemoglobin 28 pg (27-31); Mean Corpuscular Volume 86 fL (80-94); Nucleated Red Blood Cells % 0.1; Platelet Count 259 10^3/uL (150-450); Red Blood Count 4.83 10^6 /uL (4.18-5.48); Red Cell Distribution Width 14 % (10-15); White Blood Count 6.5 10^3/uL (3.5-10.8)
[2019-08-16 14:22] LABS: Activated Partial Thrombo Time 37.6 seconds (26.0-38.0); INR 0.99 (0.82-1.09)
[2019-08-16 14:37] LABS: CKMB ng/mL 1.6 ng/mL (0.6-6.3)
[2019-08-16 14:38] LABS: Albumin 3.7 g/dL (3.2-5.2); Albumin/Globulin Ratio 1.1 (1-3); BUN/Creatinine Ratio 15.6 (8-20); Calcium 8.7 mg/dL (8.6-10.3); EGFR African American 129.4 (>60); EGFR Non-African American 106.9 (>60); Globulin 3.4 g/dL (2-4); Magnesium 1.9 mg/dL (1.9-2.7); Potassium 3.9 mmol/L (3.5-5.0); Total Bilirubin 0.2 mg/dL (0.2-1.0); Total Protein 7.1 g/dL (6.4-8.9)
[2019-08-16 15:02] LABS: TSH (Thyroid Stimulating Horm) 1.44 mcIU/mL (0.34-5.60)
[2019-08-16 19:00] VITALS: BP 150/78
== END 2019-08-16 19:00 | disposition home or self-care (01) ==
LOC: ED 13:35
DX: R07.9 Chest pain, unspecified (principal); R91.8 Other nonspecific abnormal finding of lung field; E11.9 Type 2 diabetes mellitus without complications; I25.10 Atherosclerotic heart disease of native coronary artery without angina pectoris; E78.00 Pure hypercholesterolemia, unspecified; I10 Essential (primary) hypertension; I25.2 Old myocardial infarction; E78.5 Hyperlipidemia, unspecified; J45.909 Unspecified asthma, uncomplicated; K21.9 Gastro-esophageal reflux disease without esophagitis; F31.9 Bipolar disorder, unspecified; F43.10 Post-traumatic stress disorder, unspecified; F17.210 Nicotine dependence, cigarettes, uncomplicated; Z90.89 Acquired absence of other organs; Z88.5 Allergy status to narcotic agent; Z88.8 Allergy status to other drugs, medicaments and biological substances; Z91.041 Radiographic dye allergy status
CPT/HCPCS: 36415; 71045; 80053; 82550; 82553; 83605; 83735; 83880; 84443; 84484; 85025; 85610; 85730; 93005; 99283

== ENCOUNTER 2019-09-06 19:28 | Emergency (ER) | payer OTHER ==
[2019-09-06] MEDS ORDERED: Lidocaine PATCH 5%* 1 PATCH TRANSDERM ONE (19:42)
[2019-09-06] MEDS ORDERED: oxyCODONE/Acetamin 5/325 MG* TAB PO ONE (19:42)
--- NOTE | 2019-09-06 20:15 | ED ---
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 He states he was moving a TV with his son when he twisted and suddenly felt the pain. He states the pain is aggravated when he breathes in deeply. He has a Hx of [place] and diabetes. He denies abdominal pain and SOB. - History of Current Complaint Chief Complaint: EDChestWallPain Time Seen by Provider: 09/06/19 19:37 Hx Obtained From: Patient Onset/Duration: Started Hours Ago Pain Intensity: 7 Pain Scale Used: 0-10 Numeric Chest Pain Location: Mid Sternal - Additional Pertinent History Primary Care Physician: BASHIR - Allergy/Home Medications Allergies/Adverse Reactions: Allergies Allergy/AdvReac Type Severity Reaction Status Date / Time fentanyl Allergy Hallucinati Verified 09/06/19 19:32 ons Iodinated Contrast Media Allergy See Comment Verified 09/06/19 19:32 lisinopril Allergy Unknown Verified 09/06/19 19:32 Reaction Details shellfish derived Allergy Unknown Verified 09/06/19 19:32 Reaction Details Home Medications: Home Medications metFORMIN* [Glucophage 500 MG TAB *] 500 - 1,000 mg PO BID 11/12/12 [History Confirmed 08/16/19] Aspirin 81 mg CHEW TAB* 81 mg PO DAILY #30 tab.chew 06/21/16 [Rx Confirmed 08/16] Omeprazole CAP (NF) [Prilosec CAP* 20 MG] 20 mg PO BID 03/06/18 [History Confirmed 08/16/19] Nitroglycerin TAB 0.4 MG* 0.4 mg SL Q5M PRN 03/20/18 [History Confirmed 08/16/19 ] Ticagrelor* [Brilinta 90 MG*] 1 tab PO BID 06/20/19 [History Confirmed 08/16/19] Albuterol HFA INHALER* [Ventolin HFA Inhaler*] 2 puff INH Q6H PRN 07/29/19 [ History Confirmed 08/16/19] Atorvastatin* [Lipitor*] 80 mg PO DAILY 07/29/19 [History Confirmed 08/16/19] Losartan TAB* [Cozaar TAB*] 25 mg PO DAILY 07/29/19 [History Confirmed 08/16/19] PMH/Surg Hx/FS Hx/Imm Hx Endocrine/Hematology History: Reports: Hx Diabetes Denies: Hx Thyroid Disease Cardiovascular History: Reports: Hx Angina, Hx Coronary Artery Disease, Hx Hypercholesterolemia, Hx Hypertension, Hx Myocardial Infarction - Jun 2016, Other Cardiovascular Problems/Disorders - Current admission for chest pain Denies: Hx Pacemaker/ICD Respiratory History: Reports: Hx Asthma - SEASONAL Denies: Hx Chronic Obstructive Pulmonary Disease (COPD), Other Respiratory Problems/Disorders GI History: Reports: Hx Gastroesophageal Reflux Disease Denies: Hx Ulcer History: Denies: Hx Renal Disease Musculoskeletal History: Reports: Other Musculoskeletal History - Lt wrist pain of unknown origin Denies: Hx Arthritis, Hx Osteoporosis Sensory History: Reports: Hx Contacts or Glasses Denies: Hx Hearing Aid Opthamlomology History: Reports: Hx Contacts or Glasses Neurological History: Denies: Hx Developmental Delay, Hx Peripheral Neuropathy Psychiatric History: Reports: Hx Depression, Hx Post Traumatic Stress Disorder, Hx Bipolar Disorder, Hx Suicide Attempt Denies: Hx Eating Disorder, Hx Panic Disorder, Hx Schizophrenia, Hx of Violent Episodes Against Others Comment Only: Other Psychiatric Issues/Disorders - patient denies psychiatric history and hx of outpatient tx - Cancer History Cancer Type, Location and Year: none - Surgical History Surgery Procedure, Year, and Place: appendectomy. stent placed June 2016 after heart attack Hx Anesthesia Reactions: No - Immunization History Date of Tetanus Vaccine: unk Date of Influenza Vaccine: none Infectious Disease History: No Infectious Disease History: Denies: Hx Clostridium Difficile, Hx Hepatitis, Hx Human Immunodeficiency Virus (HIV), Hx of Known/Suspected MRSA, Hx Shingles, Hx Tuberculosis, Hx Known/ Suspected VRE, Hx Known/Suspected VRSA, History Other Infectious Disease, Traveled Outside the [place] in Last 30 Days - Family History Known Family History: Positive: Cardiac Disease, Hypertension, Diabetes - Social History Alcohol Use: None Alcohol Amount: 2-3 beers per week Hx Substance Use: Yes Substance Use Type: Reports: None Substance Use Comment - Amount & Last Used: denies Hx Tobacco Use: Yes Smoking Status (MU): Current Some Day Smoker Type: Cigarettes Amount Used/How Often: 2 Have You Smoked in the Last Year: Yes Review of Systems Positive: Chest Pain Negative: Shortness Of Breath Negative: Abdominal Pain All Other Systems Reviewed And Are Negative: Yes Physical Exam - Summary Physical Exam Summary: Appearance: Well-appearing, Well-nourished, lying in bed comfortably Skin: Warm, dry, no obvious rash Eyes: sclera anicteric, no conjunctival pallor ENT: mucous membranes moist, pharynx appears normal Neck: Supple, nontender Respiratory: Clear to auscultation, no signs of respiratory distress Cardiovascular: Normal S1, S2. No murmurs. Normal distal pulses in tibial and radial bilaterally. Abdomen: Soft, nontender, normal active bowel sounds present Musculoskeletal: Normal, Strength/ROM Intact. Focal tenderness in the left upper costochondral joint. Neurological: A&Ox3, awake and alert, mentation is normal, speech is fluent and appropriate Psychiatric: affect is normal, does not appear anxious or depressed Triage Information Reviewed: Yes Vital Signs On Initial Exam: Initial Vitals Temp Pulse Resp BP Pulse Ox 98.0 F 71 18 151/127 99 09/06/19 19:29 09/06/19 19:29 09/06/19 19:29 09/06/19 19:29 09/06/19 19:29 Vital Signs Reviewed: Yes Procedures - Sedation Patient Received Moderate/Deep Sedation with Procedure: No Diagnostics - Vital Signs Vital Signs Temp Pulse Resp BP Pulse Ox 09/06/19 19:29 98.0 F 71 18 151/127 99 - Laboratory Lab Statement: Any lab studies that have been ordered have been reviewed, and results considered in the medical decision making process. - Radiology CXR Radiology Interpretation Completed By: ED Physician Summary of Radiographic Findings: No acute process. Pending official radiologist report. - EKG 1933 Cardiac Rate: NL - 70 BPM EKG Rhythm: Sinus Rhythm Summary of EKG Findings: ST elev...probable early repolarization pattern. No STEMI. ED Physician has reviewed and interpreted this EKG. Chest Pain Course/Dx - Course Course Of Treatment: This patient is a 49 year old male presenting to [facility] with chest pain. Physical exam reveals Focal tenderness in the left upper costochondral joint. , and EKG, CXR, and Troponin tests were unremarkable. Plan for discharge was discussed with the patient and he understands and agrees with this plan. - Diagnoses Provider Diagnoses: Chest wall pain Discharge ED - Sign-Out/Discharge Documenting (check all that apply): Patient Departure - Discharge - Discharge Plan Condition: Good Disposition: HOME Patient Education Materials: Chest Wall Pain (ED) Referrals: Palak Moreno MD [Primary Care Provider] - 3 Days (if not improving) Additional Instructions: The chest xray, EKG and blood test did not show any problem with the heart or lungs, the pain seems to be coming from a strain in the joint between your ribs and the breastbone. This will take some time to heal. OTC pain medications like tylenol, motrin or naproxen can help with the pain, and also some people find relief with lidocaine patches to the area. - Billing Disposition and Condition Condition: GOOD Disposition: Home - Attestation Statements Document Initiated by Kisha: Yes Documenting Neetuibe: Denilson Corcoran Provider For Whom Kisha is Documenting (Include Credential): Nasim Corey MD Scribe Attestation: I, Denilson Corcoran, scribed for Nasim Corey MD on 09/07/19 at 1907. Scribe Documentation Reviewed: Yes Provider Attestation: The documentation as recorded by the Denilson melton accurately reflects the service I personally performed and the decisions made by me, Nasim Corey MD Status of Scribe Document: Viewed
--- OUTSIDE RECORDS SUMMARY | 2019-09-06 20:24 | XMS REPORT ---
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 with [facility] patient [address] [place] [address], [id number] SNOMED-CT () 2019-06-[address], [id number] SNOMED-CT () 2019-07-[address], [id number] Encounters/Encounter Diagnoses Encounter Encounter Diagnosis Diagnosis Name Diagnosis Date of Service Name Code Code CodeSystem Diagnosis Delivery Location Non-Billable [id number] Adjustment SNOMED-CT 2019-08-22 Behavioral disorders, Health with mixed Clinic , , disturbance of , emotions & conduct Vital Signs No Information Social History Element Description Description Start End Code CodeSystem AdditionalInfo Date Date SexAssignedAtBirth Male 1970-1 M AdministrativeGender 0-06 Hospital Discharge Instructions Reason For Referral Medical Equipment FDA Assessments
--- OUTSIDE RECORDS SUMMARY | 2019-09-06 20:24 | XMS REPORT | Continuity of Care Document ---
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 Problems Description No Information Available Social History Type Date Description Comments Sex Unknown Tobacco Use Start: Unknown Current Cigar Smoker 1 Daily Smoking Status Reviewed: 08/15/19 Current Cigar Smoker 1 Daily ETOH Use Occassional Alcohol Recreational Drug Use Denies Drug Use Allergies, Adverse Reactions, Alerts Active Allergies Reaction Severity Comments Date Fentanyl goes crazy 08/15/2019 Shellfish-Derived Products hives 08/15/2019 Medications Active Medications SIG Qnty Indications Ordering Date Provider Omeprazole 1 every day 30 30caps K21.9 Palak Moreno, 08/15/[address]mg minutes before Capsules DR eating for heartburn Atorvastatin Calcium Stevanovic, 08/10/2019 MD Nancie 80mg Tablets Aspirin Chew One Tablet By Unknown 07/22/2019 81mg Chewtabs Mouth Every Day Brilinta Take One Tablet By Unknown 07/22/2019 90mg Tablets Mouth Twice A Day Losartan Potassium Take One Tablet By Unknown 07/22/2019 25mg Mouth Every Day Tablets Metformin HCL Take One Tablet By Unknown 02/05/2019 1000mg Mouth Twice A Day Tablets Amlodipine Besylate take 1 tablet by Unknown 02/04/2019 5mg mouth once daily Tablets for high blood pressure Immunizations Description No Information Available Vital Signs Date Vital Result Comment 08/15/2019 9:41am BP Systolic 128 mmHg BP Diastolic 84 mmHg Height 65.50 inches 5'5.50" Weight 191.00 lb BMI (Body Mass Index) 31.3 kg/m2 Results Description No Information Available Procedures Description No Information Available Medical Devices Description No Information Available Encounters Type Date Location Provider Dx Diagnosis Office Visit 08/15/2019 Main Office Palak Moreno, E11.9 Type 2 diabetes 9:45a mellitus without complications R07.89 Other chest pain F17.200 Nicotine dependence, unspecified, uncomplicated I25.2 Old myocardial infarction I10 Essential (primary) hypertension E78.00 Pure hypercholesterolemia, unspecified Z12.11 Encounter for screening for malignant neoplasm of colon K21.9 Gastro-esophageal reflux disease without esophagitis Z68.31 Body mass index (BMI) 31.0-31.9, adult Assessments Date Code Description Provider 08/15/2019 E11.9 Type 2 diabetes mellitus without complications Palak Moreno MD 08/15/2019 R07.89 Other chest pain Palak Moreno MD 08/15/2019 F17.200 Nicotine dependence, unspecified, Palak Moreno MD uncomplicated 08/15/2019 I25.2 Old myocardial infarction Palak Moreno MD 08/15/2019 I10 Essential (primary) hypertension Palak Moreno MD 08/15/2019 E78.00 Pure hypercholesterolemia, unspecified Palak Moreno MD 08/15/2019 Z12.11 Encounter for screening for malignant neoplasm Palak Moreno MD of colon 08/15/2019 K21.9 Gastro-esophageal reflux disease without Palak Moreno MD esophagitis 08/15/2019 Z68.31 Body mass index (BMI) 31.0-31.9, adult Palak Moreno MD Plan of Treatment Future Appointment(s):09/12/2019 9:30 am - Palak Moreno MD at Main [id number] - Palak Moreno MDE11.9 Type 2 diabetes mellitus without fexlecdghaabqC16.89 Other chest painFollow up:Keep a diary indicating date, time , duration of chest painF17.200 Nicotine dependence, unspecified, fbjgiqwsojecbT08.2 Old myocardial ucolmutfmfB57 Essential (primary) srfrpjbclxslO43.00 Pure hypercholesterolemia, rlvwkeeligmA49.11 Encounter for screening for malignant neoplasm of colonReferral:[facility] FygsrhdmakywliieQ46.9 Gastro-esophageal reflux disease without esophagitisNew Medication:Omeprazole 20 mg - 1 every day 30 minutes before eating for heartburnFollow up:1 month GERDZ68.31 Body mass index (BMI) 31.0-31.9, adult Functional Status Description No Information Available Mental Status Description No Information Available Referrals Refer to Reason for Referral Status Appt Date [facility] screening colonoscopu Created [address] [place] [id number] [phone]
[2019-09-06] MEDS ORDERED: Lidocaine Patch REMOVE* 1 NOTE MISC SCH (21:00)
[2019-09-06 21:24] VITALS: BP 151/97
== END 2019-09-06 21:23 | disposition home or self-care (01) ==
LOC: ED 19:28
DX: R07.89 Other chest pain (principal); E11.9 Type 2 diabetes mellitus without complications; I25.10 Atherosclerotic heart disease of native coronary artery without angina pectoris; E78.00 Pure hypercholesterolemia, unspecified; I10 Essential (primary) hypertension; I25.2 Old myocardial infarction; J45.909 Unspecified asthma, uncomplicated; K21.9 Gastro-esophageal reflux disease without esophagitis; F43.10 Post-traumatic stress disorder, unspecified; F31.9 Bipolar disorder, unspecified; Z90.89 Acquired absence of other organs; Z95.5 Presence of coronary angioplasty implant and graft; F17.210 Nicotine dependence, cigarettes, uncomplicated; Z79.84 Long term (current) use of oral hypoglycemic drugs; Z79.82 Long term (current) use of aspirin; Z79.899 Other long term (current) drug therapy; Z88.5 Allergy status to narcotic agent; Z88.8 Allergy status to other drugs, medicaments and biological substances; Z91.041 Radiographic dye allergy status
CPT/HCPCS: 36415; 71046; 84484; 93005; 99282; A9270-GY

== ENCOUNTER → 2019-11-03 13:03 | Emergency (ER) | payer OTHER ==
--- OUTSIDE RECORDS SUMMARY | 2019-11-03 13:25 | XMS REPORT ---
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 Relevant diagnostic tests/laboratory data Narrative No Information Procedures Procedure Code CodeSystem Target Date of Status Service Device Device Device Name Site Procedure Delivery Code Name UID Location SNOMED-CT () 2019-06-[address], [id number] SNOMED-CT () 2019-08-[address], [id number] SNOMED-CT () 2019-07-[address], [id number] Psychother [id number] SNOMED-CT () 2019-08-15 completed Mental apy, 45 4 Health- minutes [place] with [facility] patient [address] [place] [address], [id number] [phone] Psychother [id number] SNOMED-CT () 2019-09-05 completed Mental apy, 45 4 Health- minutes [place] with [facility] patient [address] [place] [address], [phone] Encounters/Encounter Diagnoses Encounter Encounter Diagnosis Diagnosis Diagnosis Date of Service Name Code Code Name CodeSystem Diagnosis Delivery Location Non-Billable [address]71 SNOMED-CT 2019-09-11 [facility] , , , Vital Signs No Information Social History Element Description Description Start End Code CodeSystem AdditionalInfo Date Date SexAssignedAtBirth Male 1969-1 M AdministrativeGender 0-06 Hospital Discharge Instructions Reason For Referral Medical Equipment FDA Assessments
--- OUTSIDE RECORDS SUMMARY | 2019-11-03 13:25 | XMS REPORT | Continuity of Care Document ---
:1970 External Reference #:[id number] Author Name Palak Moreno MD (transmitted by agent of provider Radha Elaine) Address [address] [place] [address] Care Team Providers Name Role Phone HCP/LW on file Care Team Information Service Cleaner Unavailable [facility] - Care Team Information Service Cleaner [phone] Gastroenterology Problems Description No Information Available Social History Type Date Description Comments Sex Unknown Tobacco Use Start: Unknown Current Cigar Smoker 1 Daily ETOH Use Occassional Alcohol Recreational Drug Use Denies Drug Use Tobacco Use Start: Unknown Patient is a current smoker, smokes every day Smoking Status Reviewed: 09/18/19 Patient is a current smoker, smokes every day Allergies, Adverse Reactions, Alerts Active Allergies Reaction Severity Comments Date Fentanyl goes crazy 08/15/2019 Shellfish-Derived Products hives 08/15/2019 Medications Active Medications SIG Qnty Indications Ordering Date Provider Metformin HCL take one tablet 180tabs E11.9 Palak Moreno, 09/18/2019 1000mg by mouth twice a MD Tablets day Glucose Test Strips use once daily as 100units E11.9 Palak Moreno, / directed Omeprazole 1 every day 30 30caps K21.9 Palak Moreno, 08/15/2019 20mg minutes before Capsules eating for heartburn Atorvastatin Calcium Stevanovic, 08/10/2019 MD Nancie 80mg Tablets Aspirin Chew One Tablet Unknown 07/22/2019 81mg Chewtabs By Mouth Every Day Brilinta Take One Tablet Unknown 07/22/2019 90mg Tablets By Mouth Twice A Day Losartan Potassium Take One Tablet Unknown 07/22/2019 By Mouth Every 25mg Tablets Day Metformin HCL Take One Tablet Unknown 02/05/2019 1000mg By Mouth Twice A Tablets Day Amlodipine Besylate take 1 tablet by Unknown 02/04/2019 mouth once daily 5mg Tablets for high blood pressure Immunizations CPT Code Status Date Vaccine Lot # [id number] Refused 09/18/2019 Influenza Virus Vaccine, Quadrivalent, Split, Preservative Free Vital Signs Date Vital Result Comment 09/18/2019 8:47am BP Systolic 128 mmHg BP Diastolic 80 mmHg Weight 185.00 lb w/shoes 09/04/2019 2:18pm BP Systolic 112 mmHg BP Diastolic 60 mmHg Weight 186.00 lb Results Test Acquired Date Facility Test Result H/L Range Note Lipid Profile 09/15/2019 [facility] Triglycerides 82 mg/dL 1 (Trig/Chol/HDL) [phone] Cholesterol 122 mg/dL 2 HDL Cholesterol 62.0 mg/dL 3 LDL Cholesterol 44 mg/dL 4 Laboratory test 09/15/2019 [facility] Hemoglobin A1c 8.0 % High 4.0- 5.6 5 finding [phone] (Glyco HGB) Comp Metabolic 09/15/2019 [facility] Sodium 141 Normal 135-145 Panel [phone] mmol/L Potassium 3.8 mmol/L Normal 3.5-5.0 Chloride 107 mmol/L Normal 101-111 Co2 Carbon Dioxide 24 mmol/L Normal 22-32 Anion Gap 10 mmol/L Normal 2-11 Glucose 97 mg/dL Normal 70-100 Blood Urea Nitrogen 12 mg/dL Normal 6-24 Creatinine 0.85 mg/dL Normal 0.67-1.17 BUN/Creatinine Ratio 14.1 Normal 8-20 Calcium 9.3 mg/dL Normal 8.6-10.3 Total Protein 7.1 g/dL Normal 6.4-8.9 Albumin 4.2 g/dL Normal 3.2-5.2 Globulin 2.9 g/dL Normal 2-4 Albumin/Globulin Ratio 1.4 Normal 1-3 Total Bilirubin 0.60 mg/dL Normal 0.2-1.0 Alkaline Phosphatase 63 U/L Normal 34-104 Alt 17 U/L Normal 7-52 Ast 17 U/L Normal 13-39 Egfr Non- 95.4 >60 Egfr 115.4 >60 6 CBC Auto Diff 09/15/2019 [facility] White Blood 8.1 10^3/uL Normal 3.5-10.8 [phone] Count Red Blood Count 4.83 10^6/uL Normal 4.18-5.48 Hemoglobin 13.7 g/dL Low 14.0-18.0 Hematocrit 41 % Low 42-52 Mean Corpuscular Volume 86 fL Normal 80-94 Mean Corpuscular Hemoglobin 28 pg Normal 27-31 Mean Corpuscular HGB Conc 33 g/dL Normal 31-36 Red Cell Distribution Width 14 % Normal 10-15 Platelet Count 266 10^3/uL Normal 150-450 Mean Platelet Volume 7.9 fL Normal 7.4-10.4 Abs Neutrophils 3.1 10^3/uL Normal 1.5-7.7 Abs Lymphocytes 3.8 10^3/uL Normal 1.0-4.8 Abs Monocytes 0.9 10^3/uL High 0-0.8 Abs Eosinophils 0.2 10^3/uL Normal 0-0.6 Abs Basophils 0.1 10^3/uL Normal 0-0.2 Abs Nucleated RBC 0.0 10^3/uL Granulocyte % 38.7 % Lymphocyte % 47.5 % Monocyte % 11.2 % Eosinophil % 1.9 % Basophil % 0.7 % Nucleated Red Blood Cells % 0.1 Laboratory test 09/06/2019 [facility] Troponin-I (TnI) 0.01 ng/mL < 0.03 7 ottwbld [phone] Desirable: <150 Borderline High: 150-199 High: 200-499 Very High: >500 2 Desirable: <200 Borderline High: 200-239 High: >239 3 Low: <40 Desirable: 40-60 High: >60 4 Desirable: <100 Near Optimal: 100-129 Borderline High: 130-159 High: 160-189 Very High: >189 5 Therapeutic target for the treatment of diabetes mellitus patients is <7% HBA1C, and in selective patients <6.0%. Please refer to [place] [employer] diabetic care guidelines for further information. 6 Because ethnic data is not always readily [...] 15-29 5 Kidney failure <15 (or dialysis) 7 Troponin-I testing on Plasma Separator Tubes (PST) has a known false positive rate of 0.20-0.40%. All positive troponins reflex immediately to secondary confirmatory testing. Using the evOLED Access Immunoassay systems, the 99th percentile upper reference limit was demonstrated to be < 0.03 ng/mL. Procedures Date Code Description Status 07/31/2019 [id number] Diabetic Retinal Eye Exam Completed Medical Devices Description No Information Available Encounters Type Date Location Provider Dx Diagnosis Office Visit 09/18/2019 Main Office Palak Moreno, E11.9 Type 2 diabetes 8:30a mellitus without complications F17.200 Nicotine dependence, unspecified, uncomplicated I10 Essential (primary) hypertension R07.89 Other chest pain Office Visit 09/04/2019 2:30p Main Office Palak Moreno E11.9 Type 2 diabetes MD Nelson mellitus without complications F17.200 Nicotine dependence, unspecified, uncomplicated I10 Essential (primary) hypertension R07.89 Other chest pain Office Visit 08/15/2019 9:45a Main Office Palak Moreno E11.9 Type 2 diabetes MD Nelson mellitus without complications R07.89 Other chest pain F17.200 Nicotine dependence, unspecified, uncomplicated I25.2 Old myocardial infarction I10 Essential (primary) hypertension E78.00 Pure hypercholesterolemia, unspecified Z12.11 Encounter for screening for malignant neoplasm of colon K21.9 Gastro-esophageal reflux disease without esophagitis Z68.31 Body mass index (BMI) 31.0-31.9, adult Assessments Date Code Description Provider 09/18/2019 E11.9 Type 2 diabetes mellitus without complications Palak Moreno MD 09/18/2019 F17.200 Nicotine dependence, unspecified, Palak Moreno MD uncomplicated 09/18/2019 I10 Essential (primary) hypertension Palak Moreno MD 09/18/2019 R07.89 Other chest pain Palak Moreno MD 09/04/2019 E11.9 Type 2 diabetes mellitus without complications Palak Moreno MD 09/04/2019 F17.200 Nicotine dependence, unspecified, Palak Moreno MD uncomplicated 09/04/2019 I10 Essential (primary) hypertension Palak Moreno MD 09/04/2019 R07.89 Other chest pain Palak Moreno MD 08/15/2019 E11.9 Type 2 diabetes mellitus without [...] Palak Moreno MD Plan of Treatment Future Appointment(s):12/19/2019 8:55 am - Palak Moreno MD at Main [id number] - Palak Moreno MDE11.9 Type 2 diabetes mellitus without complicationsNew Medication:Metformin HCL 1000 mg - take one tablet by mouth twice a dayFollow up:A1c 8, goal is under 7. Patient will resume metformin twice daily. With or without food unless you get diarrhea or other stomach problems. If any concerns, let me know. f/u 3 months. A1c in chsrwtK56.200 Nicotine dependence, unspecified, uncomplicatedComments:smokes cigarette sized aaxwwjK17 Essential (primary) hypertensionComments:well controlled, sees Dr. Jones for CAD iqxqyaM06.89 Other chest painComments:resolved. s/p neg cardiac w/ u 09/06 [facility] Functional Status Description No Information Available Mental Status Description No Information Available Referrals Refer to Reason for Referral Status Appt Date [facility] screening colonoscopy Testing - Consult if Sent Abnormal [address] [phone] [phone]
--- NOTE | 2019-11-03 14:36 | ED ---
Throat Pain/Nasal Congestion - HPI Summary HPI Summary: 49 y/o M with hx diabetes and [place] 3 years ago presenting to [facility] c/o stuffy nose and scratchy throat for 1 month. He denies rhinorrhea, fever, cough. He states his symptoms are worse in the fall. Medications reviewed. Allergies reviewed. Current smoker. - History of Current Complaint Chief Complaint: EDThroatPain Time Seen by Provider: 11/03/19 14:23 Hx Obtained From: Patient Onset/Duration: Lasting Weeks - 4, Still Present - Allergies/Home Medications Allergies/Adverse Reactions: Allergies Allergy/AdvReac Type Severity Reaction Status Date / Time fentanyl Allergy Hallucinati Verified 11/03/19 13:17 ons Iodinated Contrast Media Allergy See Comment Verified 11/03/19 13:17 lisinopril Allergy Unknown Verified 11/03/19 13:17 Reaction Details shellfish derived Allergy Unknown Verified 11/03/19 13:17 Reaction Details Home Medications: Home Medications metFORMIN* [Glucophage 500 MG TAB *] 500 - 1,000 mg PO BID 11/12/12 [History Confirmed 08/16/19] Aspirin 81 mg CHEW TAB* 81 mg PO DAILY #30 tab.chew 06/21/16 [Rx Confirmed 08/16] Omeprazole CAP (NF) [Prilosec CAP* 20 MG] 20 mg PO BID 03/06/18 [History Confirmed 08/16/19] Nitroglycerin TAB 0.4 MG* 0.4 mg SL Q5M PRN 03/20/18 [History Confirmed 08/16/19 ] Ticagrelor* [Brilinta 90 MG*] 1 tab PO BID 06/20/19 [History Confirmed 08/16/19] Albuterol HFA INHALER* [Ventolin HFA Inhaler*] 2 puff INH Q6H PRN 07/29/19 [ History Confirmed 08/16/19] Atorvastatin* [Lipitor*] 80 mg PO DAILY 07/29/19 [History Confirmed 08/16/19] Losartan TAB* [Cozaar TAB*] 25 mg PO DAILY 07/29/19 [History Confirmed 08/16/19] Fluticasone NASAL SPRAY 50MCG* [Flonase NASAL SPRAY 50MCG*] 2 spray BOTH NARES DAILY 30 Days #1 btl 11/03/19 [Rx] PMH/Surg Hx/FS Hx/Imm Hx Endocrine/Hematology History: Reports: Hx Diabetes Denies: Hx Thyroid Disease Cardiovascular History: Reports: Hx Angina, Hx Coronary Artery Disease, Hx Hypercholesterolemia, Hx Hypertension, Hx Myocardial Infarction - Jun 2016, Other Cardiovascular Problems/Disorders - Current admission for chest pain Denies: Hx Pacemaker/ICD Respiratory History: Reports: Hx Asthma - SEASONAL Denies: Hx Chronic Obstructive Pulmonary Disease (COPD), Other Respiratory Problems/Disorders GI History: Reports: Hx Gastroesophageal Reflux Disease Musculoskeletal History: Reports: Other Musculoskeletal History - Lt wrist pain of unknown origin Denies: Hx Arthritis Sensory History: Reports: Hx Contacts or Glasses Opthamlomology History: Reports: Hx Contacts or Glasses Psychiatric History: Reports: Hx Depression, Hx Post Traumatic Stress Disorder, Hx Bipolar Disorder, Hx Suicide Attempt Denies: Hx Eating Disorder, Hx Panic Disorder, Hx Schizophrenia, Hx of Violent Episodes Against Others Comment Only: Other Psychiatric Issues/Disorders - patient denies psychiatric history and hx of outpatient tx - Cancer History Cancer Type, Location and Year: none - Surgical History Surgical History: Yes Surgery Procedure, Year, and Place: appendectomy. stent placed June 2016 after heart attack Hx Anesthesia Reactions: No - Immunization History Date of Tetanus Vaccine: unk Date of Influenza Vaccine: none Infectious Disease History: No Infectious Disease History: Denies: Hx Clostridium Difficile, Hx Hepatitis, Hx Human Immunodeficiency Virus (HIV), Hx of Known/Suspected MRSA, Hx Shingles, Hx Tuberculosis, Hx Known/ Suspected VRE, Hx Known/Suspected VRSA, History Other Infectious Disease, Traveled Outside the [place] in Last 30 Days - Family History Known Family History: Positive: Cardiac Disease, Hypertension, Diabetes - Social History Alcohol Use: None Alcohol Amount: 2-3 beers per week Substance Use Type: Reports: None Hx Tobacco Use: Yes Smoking Status (MU): Current Some Day Smoker Type: Cigarettes Amount Used/How Often: 2 Have You Smoked in the Last Year: Yes Review of Systems Negative: Fever ENT: Negative - stuffy nose, scratchy throat, Other - stuffy nose, scratchy throat Negative: Cough All Other Systems Reviewed And Are Negative: Yes Physical Exam - Summary Physical Exam Summary: General: Well appearing, no distress HEENT: Cobble stoning at posterior oropharynx; Inflamed nasal turbinates Cardiovascular: Skin is well perfused Pulmonary: No respiratory distress, no tachypnea Abdomen: Non-distended Skin: Warm, pink, dry MSK: no edema Psych: Normal affect Neuro: A&Ox3 Triage Information Reviewed: Yes Vital Signs On Initial Exam: Initial Vitals Temp Pulse Resp BP Pulse Ox 99 F 97 16 148/85 99 11/03/19 13:17 11/03/19 13:17 11/03/19 13:17 11/03/19 13:17 11/03/19 13:17 Vital Signs Reviewed: Yes Procedures - Sedation Patient Received Moderate/Deep Sedation with Procedure: No Diagnostics - Vital Signs Vital Signs Temp Pulse Resp BP Pulse Ox 11/03/19 13:17 99 F 97 16 148/85 99 - Laboratory Lab Statement: Any lab studies that have been ordered have been reviewed, and results considered in the medical decision making process. EENT Course/Dx - Course Course Of Treatment: 49 y/o male p/w congestion. - exam c/w allergic rhinitis. given flonase - Diagnoses Provider Diagnoses: Allergic rhinitis - Critical Care Time Critical Care Statement: Critical care time is provided exclusive of any time spent performing procedures. Discharge ED - Sign-Out/Discharge Documenting (check all that apply): Patient Departure - Discharge Plan Condition: Stable Disposition: HOME Prescriptions: Fluticasone NASAL SPRAY 50MCG* [Flonase NASAL SPRAY 50MCG*] 2 spray BOTH NARES DAILY 30 Days #1 btl Patient Education Materials: Allergies (ED) Referrals: Palak Moreno MD [Primary Care Provider] - Additional Instructions: You can try Flonase for your allergies. You can also try an [id number] antihistamines such as Claritin. Please follow up with your primary care doctor , return to ER for worsening symptoms. - Billing Disposition and Condition Condition: STABLE Disposition: Home - Attestation Statements Document Initiated by Scribe: Yes Documenting Scribe: Yennifer Pagan Provider For Whom Neetuibe is Documenting (Include Credential): Abdirashid Kelly MD Scribe Attestation: I, Yennifer Pagan, scribed for Abdirashid Kelly MD on 11/03/19 at 1501. Scribe Documentation Reviewed: Yes Provider Attestation: The documentation as recorded by the scribeYennifer accurately reflects the service I personally performed and the decisions made by me, Abdirashid Kelly MD Status of Scribe Document: Viewed
[2019-11-03 15:17] VITALS: BP 151/77
== END | disposition home or self-care (01) ==
LOC: ED 13:03
DX: J30.9 Allergic rhinitis, unspecified (principal); Z72.0 Tobacco use; I25.10 Atherosclerotic heart disease of native coronary artery without angina pectoris; E78.00 Pure hypercholesterolemia, unspecified; I25.2 Old myocardial infarction; I10 Essential (primary) hypertension; K21.9 Gastro-esophageal reflux disease without esophagitis; F32.9 Major depressive disorder, single episode, unspecified; Z86.79 Personal history of other diseases of the circulatory system; Z79.82 Long term (current) use of aspirin
CPT/HCPCS: 99282